=== PATIENT | male | born 1950 | race Caucasian/White ===

== ENCOUNTER → 2025-01-09 | Outpatient (CLI) | payer MEDICARE, SELFPAY ==
--- OUTSIDE RECORDS SUMMARY | 2025-01-09 06:13 | XMS RPT_ITS | CCD ---
Author Organization [facility] Care Team Providers Care Building Coordinator Name Role Phone Bhanu, Jeny Shwetha Unavailable Unavailable Bhanu, Jeny Shwetha Unavailable Unavailable Ja Hairah Unavailable Unavailable Natanael Gonzalez Unavailable Unavailable Natanael Gonzalez Unavailable Unavailable Zachary Cuellar Unavailable Unavailable Natanael Gonzalez Unavailable Unavailable Natanael Gonzalez Unavailable Unavailable Natanael Gonzalez Primary Care Provider [phone] Unavailable Primary Care Provider Unavailabl Natanael Galvez MD Primary Care Provider Natanael Gonzalez MD Primary Care Provider Natanael Gonzalez Unavailable Unavailable Unavailable Natanael Gonzalez Unavailable Jamal Hill Unavailable Unavailable NATANAEL GONZALEZ Primary Care Unavailable COBY MCDANIEL Referring Unavailab COBY Ramirez Admitting Unavailab COBY Ramirez Referring Unavailab le NATANAEL GONZALEZ Primary Care Unavailable Natanael Gonzalez MD Primary Care Provider [phone] NATANAEL GONZALEZ Primary Care Unavailable BERYL MILLER Attending Unavailable BERYL MILLER Admitting Unavailable Unavailable Unavailable Natanael Gonzalez MD Primary Care Provider Unavailable Unavailable Moomaw, Barrett I Unavailable Unavailable Melanie Justin Unavailable Unavai lable Natanael Gonzalez Attending Unavailable Natanael Gonzalez Referring Unavailable Natanael Gonzalez Primary Care Unavailable Keenan, Mrs. Uriel Quiles Attending Unavailabl e Keenan, Mrs. Uriel Quiles Referring Unavailabl e GonzalezNatanael Primary Care Unavailable GonzalezNatanael waddell Attending Unavailable GonzalezNatanael waddell Referring Unavailable GonzalezNatanael waddell Primary Care Unavailable Manohar Aviles, Dr. Melanie Marsh Attending Unavailable GonzalezNatanael waddell Referring Unavailable GonzalezNatanael waddell Primary Care Unavailable Manohar Aviles, Dr. Melanie Marsh Attending Unavailable Manohar Aviles, Dr. Melanie Marsh Referring Unavailable GonzalezNatanael waddell Primary Care Unavailable GonzalezNatanael waddell Attending Unavailable GonzalezNatanael waddell Referring Unavailable GonzalezNatanael waddell Primary Care Unavailable GonzalezNatanael waddell Attending Unavailable GonzalezNatanael thomas Referring Unavailable GonzalezNatanael waddell Primary Care Unavailable Gonzalez, Dr. Natanael Donovan Primary Care Unavailab le Camille, Dr. Natanael Donovan Attending Unavailab Jamal Nogueira Attending Unavailable Gonzalez, Dr. Natanael Donovan Primary Care Unavailab Jamal Nogueira Attending Unavailable Gonzalez, Dr. Natanael Donovan Primary Care Unavailab Jamal Nogueira Attending Unavailable Camille, Dr. Natanael Donovan Primary Care Unavailab le Manohar Aviles, Dr. Melanie Marsh Attending Unavailable Gonzalez, Dr. Natanael Donovan Primary Care Unavailab le Manohar Aviles, Dr. Melanie Marsh Attending Unavailable Gonzalez, Dr. Natanael Donovan Primary Care Unavailab ramandeep Aviles, Dr. Melanie Marsh Attending Unavailable Gonzalez, Dr. Natanael Donovan Primary Care Unavailab le Moomaw, Laila Barrett Blankenship Attending Unavailable Gonzalez, Dr. Natanael Donovan Primary Care Unavailab le Manohar Aviles, Dr. Melanie Marsh Attending Unavailable Camille, Dr. Natanael Donovan Primary Care Unavailab Natanael Gaspar MD Primary Care Provider Natanael Gonzalez MD Unavailable [phone] Natanael Gonzalez MD Primary Care Provider Stentz PA-C, [place] Primary Care Provider STENTZ, TRENTON Attending Unavailable STENTZ, TRENTON Primary Care Unavailable Natanael Gonzalez MD Primary Care Provider Natanael Gonzalez MD Unavailable Stentz PA-C, [place] Primary Care Provider NATANAEL GONZALEZ Referring Unavailable NATANAEL GONZALEZ Primary Care Unavailable BERTO PETTIT Attending Unavailable STENTZ, TR[place]ON Primary Care Unavailable ROSE FIERRO Attending Unavailable ROSE FIERRO Referring Unavailable STENTZ, [place] Primary Care Unavailable STENTZ, [place] Primary Care Unavailable JAMAL HILL Attending Unavailable Natanael Gonzalez MD Primary Care Provider NATANAEL GONZALEZ Primary Care Unavailable BERTO PETTIT Referring Unavailable BERTO PETTIT Attending Unavailable JOSE JR., GIORGIO Attending Unavailable NATANAEL GONZALEZ Primary Care Unavailable JOSE JR., GIORGIO Attending Unavailable NATANAEL GONZALEZ Primary Care Unavailable NATANAEL GONZALEZ Primary Care Unavailable LYNN MCDUFFIE Referring Unavailable LYNN MCDUFFIE Attending Unavailable Allergies Allergy Classification Reported Allergen(s) Allergy Type Date of Onset Reaction(s) Facility Acetaminophen / oxyCODONE (1 source) Acetaminophen / oxyCODONE Drug Allergy 11-19-19 Hives, Other [facility] Corticosteroids (1 source) prednisoLONE Drug Allergy 07-22-19 Other, Unknown [facility] Work Phone: (20 sources) prednisoLONE; Translations: [prednisoLONE] Drug Allergy 07-22-19 Other (See Comments), Other, Unknown [facility] Work Phone: Comment on above: INCREASED THIRST FEL T LOOPY (20 sources) Acetaminophen / oxyCODONE; Translations: [OXYCODONE-ACETAM INOPHEN] Drug Allergy 11-19-19 21 Other (See Comments), Hives, Other [facility] (4 sources) Acetaminophen / oxyCODONE Drug Allergy Hives [facility] (4 sources) Prednisone; Translations: [PREDNISONE] Propensity to adverse reactions to drug 03-24-19 Agitation [facility] (2 sources) predniSONE Drug Allergy 03-24-19 Other (See Comments) [facility] Medications Current Medications Medication Drug Class(es) Dates Sig (Normalized) Sig (Original) [id number] 200 actuat albuterol 0.09 mg/actuat metered dose inhaler (6 sources) beta2-Adrenergic Agonist Start: 03-31-2024 End: 03-31-2025 take 2 puff(s) by inhalation every six hours as needed albuterol 90 mcg/actuation inhaler Inhale 2 (two) puffs every 6 (six) hours as needed . 03/31/2024 03/31/2025 Active Start: 03-31-2024 End: 03-31-2025 take 2 puff(s) by inhalation every six hours for wheezing albuterol 90 mcg/actuation inhaler Indications: Acute bronchitis, unspecified organism Inhale 2 puffs every 6 hours if needed for wheezing. 18 g 03/31/2024 03/31/2025 Active take 2 puff(s) by in halation every four hours as needed ALBUTEROL HFA 90 MCG INHALER ; 2 puff(s) inhaled every 4 hours, As Needed Quantity: 0 Refills: 1 Ordered: 23-Sep-2021 Carolina Thurman Generic Substitution Allowed Comments: Source=Surescripts, Medication=ALBUTEROL HFA 90 MCG INHALER, OriginatingSource=[facility], OriginatingProvider=ALLAREDDY, BRYNN, Duration=16, Refills=1, Date Last Modified/Filled=13-Mar-2021 Comment on above: Source=Surescripts, Medication=ALBUTEROL HFA 90 MCG INHALER, OriginatingSource=[facility], OriginatingProvider=ALLAREDDY, BRYNN, Duration=16, Refills=1, Date Last Modified/Filled=13-Mar-2021 amoxicillin 875 mg / clavulanate 125 mg oral tablet (2 sources) Penicillin-class Antibacterial Start : 04-07 End: 04-17 take 1 tablet by mouth twice daily amoxicillin-pot clavulanate (Augmentin) 875-125 mg tablet Indications: Community acquired pneumonia, unspecified laterality Take 1 tablet (875 mg) by mouth 2 times a day for 10 days. 20 tablet 04/07/2024 04/17/2024 Active ascorbic acid 500 mg oral capsule (20 sources) Vitamin C Start : 03-28 ascorbic acid, vitamin C, 500 mg cap Take 1 Unspecified by mouth . 03/28/2021 Active Start: 03-28-2021 take 2 capsules by [facility] once daily ascorbic acid, vitamin C, 500 mg capsule Take 1,000 mg by mouth once daily. 03/28/2021 Active take 2 tablets by mo [facility] once daily Ascorbic acid 500 MG tablet Take 2 tablets by mouth daily. Active aspirin 81 mg delayed release oral tablet (20 sources) Platelet Aggregation Inhibitor, Nonsteroidal Anti-inflammatory Drug Start: 06-14-2021 take 1 tablet by mouth once daily aspirin 81 mg EC tablet Take 1 tablet (81 mg) by mouth once daily. 06/14/2021 Active Start: 03-13-2021 take 2 tablets by [facility] once daily Aspirin 81 MG Oral Tablet Chewable TAKE 2 TABLET Daily Quantity: 0 Refills: 0 Ordered: 13-Mar-2021 DO Start : 13-Mar-2021 Active Start: 03-06-2021 aspirin 81 mg chewable tablet Chew and Swallow 1 (one) tablet (81 mg total) daily . 03/06/2021 Active Start: 03-06-2021 aspirin 81 MG Chew Tab chewable tablet Chew 4 tablets daily. 30 tablet 03/06/2021 Active Start: 01-19-2021 End: 02-18-2021 take 1 tablet by mouth twice daily aspirin 325 MG EC tablet Take 1 (one) tablet (325 mg total) by mouth 2 (two) times a day . 60 tablet 0 01/19/2021 02/18/2021 Active Comment on above: Source=Surescripts, Medication=ASPIRIN 81 MG CHEWABLE TABLET, OriginatingSource=[facility], OriginatingProvider=BRYNN ULLOA, Duration=30, Date Last Modified/Filled=05-Apr-2021 cholecalciferol 0.125 mg oral tablet (20 sources) Vitamin D Start : 04-05 take 1 tablet by mouth once daily cholecalcife rol, vitamin D3, 5,000 unit Tab tablet Take 1 (one) tablet (5,000 Units total) by mouth daily . 04/05/2020 Active take 1 capsule by mouth twice da ottoniel Cholecalciferol (D3 High Potency) 250 MCG (22125 UT) capsule capsule Take 1 capsule by mouth 2 times daily. Active cholecalciferol 5000 unt / folic acid 1 mg oral tablet (20 sources) Vitamin D Start: 01-20-2021 take 1 tablet by mouth once daily vitamin D3-folic acid 125 mcg (5,000 unit)-1 mg Tab Take 1 capsule by mouth daily. 0 01/20/2021 Active Continuous Glucose Sensor (FreeStyle Asim 3 Plus Sensor) [facility] (2 sources) dextromethorphan hydrobromide 3 mg/ml / promethazine hydrochloride 1.25 mg/ml oral solution (1 source) Phenothiazine, Uncompetitive Z-qurrqf-M-aspartat e Receptor Antagonist, Sigma-1 Agonist Start: 12-15-2022 End: 12-25-2022 take 5 mL by mouth every six hours for cough promethazine-DM (Phenergan-DM) 6.25-15 mg/5 mL syrup Indications: Viral URI with cough Take 5 mL by mouth every 6 hours if needed for cough for up to 10 days. *caution - can cause drowsiness* 120 mL 0 12/15/2022 12/25/2022 Active doxycycline hyclate 100 mg oral tablet (3 sources) Tetracycline-class Drug Start: 04-25-2022 End: 05-01-2022 take 1 tablet by mouth twice daily doxycycline hyclate 100 mg oral tablet ; 1 tab(s) orally 2 times a day Quantity: 14 Refills: 0 Ordered: 25-Apr-2022 Jamal Hill Start: 25-Apr-2022 End: 01-May-2022 Generic Substitution Allowed Comments: Avoid prolonged or excessive exposure to direct and/or artificial sunlight while taking this medication.Do not take this drug if you are .Finish all this medication unless otherwise directed by prescriber.Medica tion should be taken with plenty of water. Start: 04-05-2022 End: 04-14-2022 take 1 tablet by mouth twice daily doxycycline hyclate 100 mg oral tablet ; 1 tab(s) orally 2 times a day Quantity: 20 Refills: 0 Ordered: 05-Apr-2022 Jamal Hill Start: 05-Apr-2022 End: 14-Apr-2022 Generic Substitution Allowed Comments: Avoid prolonged or excessive exposure to direct and/or artificial sunlight while taking this medication.Do not take this drug if you are .Finish all this medication unless otherwise directed by prescriber.Medication should be taken with plenty of water. Start: 03-14-2022 End: 03-20-2022 take 1 tablet by mouth twice daily doxycycline hyclate 100 mg oral tablet ; 1 tab(s) orally 2 times a day Quantity: 14 Refills: 0 Ordered: 14-Mar-2022 Jamal Hill Start: 14-Mar-2022 End: 20-Mar-2022 Generic Substitution Allowed Comments: Avoid prolonged or excessive exposure to direct and/or artificial sunlight while taking this medication.Do not take this drug if you are .Finish all this medication unless otherwise directed by prescriber.Medication should be taken with plenty of water. Comment on above: Avoid prolonged or e xcessive exposure to direct and/or artificial sunlight while taking this medication.Do not take this drug if you are .Finish all this medication unless otherwise directed by prescriber.Medication should be taken with plenty of water. ezetimibe 10 mg oral tablet (2 sources) Dietary Cholesterol Absorption Inhibitor Start: take 1 tablet by mouth once daily Ezetimibe 10 MG tablet Take 1 tablet by mouth daily. 30 tablet 11 03/24/2024 Active imipramine hydrochloride 25 mg oral tablet (20 sources) Tricyclic Antidepressant Start: 025 take 1 tablet by mouth twice daily Imipramine 25 MG tablet Take 1 tablet by mouth Twice daily. 03/01/2024 Active Start: 10-23-2022 End: 10-23-2023 take 1 tablet by mouth once daily at bedtime imipramine (Tofranil) 25 mg tablet Indications: Dysesthesia of face Take 1 tablet (25 mg) by mouth once daily at bedtime. 30 tablet 0 10/23/2022 02/26/2023 Discontinued (Med List Cleanup) Start: 09-09-2018 take 1 tablet by caroline th at bedtime Imipramine HCl - 25 MG Oral Tablet TAKE 1 TABLET AT BEDTIME. Quantity: 90 Refills: 3 Ordered: 16-Aug-2021 Natanael Gonzalez MD Start : 09-Sep-2018 Active take 1 tablet by caroline once daily imipramine (TOFRANIL) 10 MG tablet Take 1 (one) tablet (10 mg total) by mouth nightly . Active Comment on above: Source=Surescripts, Medication=IMIPRAMINE HCL 25 MG TABLET, OriginatingSource=[id number], OriginatingProvider=NATANAEL GONZALEZ, Duration=90, Date Last Modified/Filled=16-Sep-2021 Insulin Lispro (20 sources) Insulin Analog End: Insulin Lispro, 0.5 Unit Dial, 100 UNIT/ML Solution Pen-injector HumaLOG Quantity: 0 Refills: 0 Ordered: 06-Jan-2021 Beck Cortez Generic Substitution Allowed 03/24/2024 Discontinued (Formulary change) INSULIN LISPRO S UBQ HumaLOG Quantity: 0 Refills: 0 Ordered: 06-Jan-2021 Beck Cortez Generic Substitution Allowed Active HumaLOG Quantity : 0 Refills: 0 Ordered: 06-Jan-2021 Beck Cortez Status: Completed Generic Substitution Allowed INSULIN LISPRO S UBQ HumaLOG Quantity: 0 Refills: 0 Ordered: 06-Jan-2021 Beck Cortez Generic Substitution Allowed 0 Active HumaLOG Quantity : 0 Refills: 0 Ordered: 06-Jan-2021 Beck Cortez Generic Substitution Allowed Insulin Pen Needle 33G X 5 MM Misc (1 source) 3 ml insulin aspart, human 100 unt/ml pen injector (11 sources) Insulin Analog Start: 03-24-2024 insulin aspart U-100 (NovoLOG Flexpen U-100 Insulin) 100 unit/mL (3 mL) InPn Inject 6 (six) Units under the skin . 03/24/2024 Active Start: 03-24-2024 inject 6 [IU] by sub cutaneous injection three times daily before mealtime insulin aspart (NovoLOG FlexPen) 100 UNIT/ML Solution Pen-injector injection Inject 6 Units under the skin 3 times daily (take before meals). 15 mL 5 03/24/2024 Active End: 03-24-2024 inject 1 [IU] by subcutaneous injection twice daily Insulin Aspart (NOVOLOG FLEXPEN SC) Inject 1 Units under the skin 2 times daily. Pt uses sliding scale 03/24/2024 Discontinued insulin aspart U -100 (NovoLOG) 100 unit/mL injection Inject under the skin . 0 Active inject 2 [IU] by sub cutaneous injection once Fiasp 100 UNIT/ML Subcutaneous Solution sliding scale per Dr Mcduffie. 150 to 250 will use 1 unit. over 250 will be 2 units Refills: 0 DO Active 10 ML Vial levoFLOXacin 750 mg oral tablet (14 sources) Quinolone Antimicrobial Start: 03-04-2021 End: 02-11-2022 take 1 tablet by mouth once daily levoFLOXacin 750 mg oral tablet ; 1 tab(s) orally once a day for 10 days Quantity: 0 Refills: 0 Ordered: 07-Mar-2021 Carolina Thurman Start: 04-Mar-2021 End: 11-Feb-2022 Status: Completed Generic Substitution Allowed Start: 01-19-2021 End: 01-29-2021 take 1 tablet by mouth once daily levoFLOXacin (Levaquin) 500 MG tablet Take 1 (one) tablet (500 mg total) by mouth daily for 10 days . 10 tablet 0 01/19/2021 01/29/2021 metFORMIN hydrochloride 500 mg oral tablet (20 sources) Biguanide Start: 02-25-2021 take 2 tablets by mouth once daily in the morning metFORMIN 500 MG tablet take 2 tablets by mouth every morning 02/25/2021 Active Start: 05-26-2019 take 1 tablet by caroline th once daily at breakfast metFORMIN (GLUCOPHAGE-XR) 500 MG 24 hr tablet Take 100 mg by mouth daily with breakfast . 05/26/2019 Active Start: 05-26-2019 metFORMIN (GLU COPHAGE-XR) 500 MG 24 hr tablet [The details of the medication are not available because there are pending changes by a home health clinician.] 0 05/26/2019 Active Start: 05-26-2019 take 1 tablet by caroline th twice daily metFORMIN (GLUCOPHAGE-XR) 500 MG 24 hr tablet Take 500 mg by mouth 2 (two) times a day . 0 05/26/2019 Active Start: 05-26-2019 take 1 tablet by caroline th once daily metFORMIN (GLUCOPHAGE-XR) 500 MG 24 hr tablet Take 2,000 mg by mouth daily . 0 05/26/2019 Active Start: 03-21-2019 take 2 tablets by mo ut once daily metFORMIN HCl ER 500 MG Oral Tablet Extended Release 24 Hour TAKE 2 TABLET Daily Quantity: 180 Refills: 3 Ordered: 16-Aug-2021 Natanael Gonzalez MD Start : 01-Jun-2020 Active Start: 03-21-2019 take 2 tablets by mo ut twice daily metFORMIN HCl ER 500 MG Oral Tablet Extended Release 24 Hour TAKE 2 TABLET Twice daily Quantity: 360 Refills: 3 Natanael Gonzalez MD Start : 21-Mar-2019 Active Start: 03-21-2019 take 4 tablets by [facility] once daily metFORMIN HCl ER 500 MG Oral Tablet Extended Release 24 Hour TAKE 4 TABLET Daily Quantity: 120 Refills: 0 Natanael Gonzalez MD Start : 21-Mar-2019 Active Start: 12-31-2018 take 2 tablets by [facility] once daily metFORMIN HCl ER (OSM) 500 MG Oral Tablet Extended Release 24 Hour TAKE 2 TABLETS DAILY. Quantity: 60 Refills: 5 Natanael Gonzalez Start : 31-Dec-2018 Active take 2 tablets by [facility] twice daily metFORMIN, OSM, (Fortamet) 500 mg 24 hr tablet Take 2 tablets (1,000 mg) by mouth 2 times daily (morning and late afternoon). Do not crush, chew, or split. Active metFORMIN Quanti ty: 0 Refills: 0 Ordered: 06-Jan-2021 Beck Cortez Status: Completed Generic Substitution Allowed metFORMIN Quanti ty: 0 Refills: 0 Ordered: 06-Jan-2021 Beck Cortez Generic Substitution Allowed Comment on above: Source=Surescripts, Medication=METFORMIN HCL 500 MG TABLET, OriginatingSource=[facility], OriginatingProvider=LYNN MCDUFFIE, Duration=90, Refills=4, Date Last Modified/Filled=25-Feb-2021 Multivitamin preparation (4 sources) take 2 tablets by mouth once daily Vitamin B Complex oral tablet ; 2 tab(s) orally once a day Quantity: 0 Refills: 0 Ordered: 23-Sep-2021 Carolina Thurman Generic Substitution Allowed 24 hr oxybutynin chloride 10 mg extended release oral tablet (4 sources) Cholinergic Muscarinic Antagonist Start : 02-12 End: 03-03 take 1 tablet by mouth once daily oxybutynin XL (Ditropan-XL) 10 mg 24 hr tablet Take 1 tablet (10 mg) by mouth once daily. 02/12/2023 03/03/2024 Discontinued (Therapy completed) pantoprazole 20 mg delayed release oral tablet (20 sources) Proton Pump Inhibitor Start : 01-20 End: 02-19 take 1 tablet by mouth once daily pantoprazole (PROTONIX) 20 MG tablet Take 1 (one) tablet (20 mg total) by mouth daily Start: 01/20/21. 30 tablet 0 01/20/2021 Active purified protein derivative of tuberculin 50 unt/ml injectable solution (1 source) Tuberculosis Skin Test, Skin Test Antigen Start : 02-26 End: 02-26 tuberculin 5 UNIT/0.1ML Solution Inject 0.1 mL into the skin Once (In Clinic) for 1 dose. 1 mL 0 02/27/2020 02/27/2020 Active spirulina 500 mg oral tablet (2 sources) take 2 tablets by mouth once daily Spirulina 500 MG tablet Take 1,000 mg by mouth daily. Active 12 hr timolol 5 mg/ml ophthalmic solution (13 sources) beta-Adrenergic Luther Start : 10-10 take 1 drop(s) into the eye(s) once daily in the morning timolol (TIMOPTIC) 0.5 % ophthalmic solution Administer 1 (one) drop to both eyes every morning . 10/10/2022 Active take 1 drop(s) into the eye(s) twice daily Timolol maleate 0.5 % Solution ophthalmi c solution Place 1 drop in both eyes 2 times daily. Active Vitamin B Complex (7 sources) Start: 04-05-2020 take 1 tablet by mouth once daily vitamin B complex (B Complex-Vitamin B12) tablet Take 1 tablet by mouth once daily. 04/05/2020 Active Start: 04-05-2020 take 1 tablet by caroline th once daily vitamin B complex (B Complex-Vitamin B12) tablet Take 1 tablet by mouth once daily. 0 04/05/2020 Active VITAMIN B COMPLEX ORAL (4 sources) Start: 04-05-2020 take 1 tablet by mouth once daily VITAMIN B COMPLEX ORAL Take 1 tablet by mouth daily . 04/05/2020 Active Start: 03-01-2021 take 1 tablet by caroline th once daily VITAMIN B COMPLEX ORAL Take 1 tablet by mouth daily . 0 04/05/2020 Active vitamin k 0.1 mg oral tablet (18 sources) Start: 04-05-2020 take 2 tablets by mouth once daily phytonadione, vit K1, (phytonadione, vitamin K1,) 100 mcg tablet Take 2 (two) tablets (200 mcg total) by mouth daily . 04/05/2020 Active take 1 tablet by mouth twice di ly Menatetrenone (Vitamin K2) 100 MCG tablet Take 1 tablet by mouth 2 times daily. Active zinc acetate 50 mg oral capsule (20 sources) Start: 01-20-2021 take 1 capsule by mouth once daily zinc acetate (GALZIN) 50 mg (zinc) cap Take 50 mg by mouth daily. 0 01/20/2021 Active zinc gluconate 50 mg oral tablet (20 sources) Start: 04-05-2020 take 1 tablet by mouth once daily zinc gluconate 50 mg tablet Take 1 (one) tablet (50 mg total) by mouth daily . 04/05/2020 Active zinc glycinate (2 sources) Zinc Glycinate 7 .5 MG Chew Tab Chew 450 mcg every morning before breakfast. Active Zinc Sulfate (4 sources) take 1 tablet by mouth once daily Zinc 140 mg (as elemental zinc 50 mg) oral tablet ; 1 tab(s) orally once a day Quantity: 0 Refills: 0 Ordered: 23-Sep-2021 Carolina Thurman Generic Substitution Allowed Completed/Discontinued Medications Medication Drug Class(es) Dates Sig (Normalized) Sig (Original) acetaminophen 325 mg / HYDROcodone bitartrate 5 mg oral tablet (13 sources) Opioid Agonist Start: 01-19-2021 End: 01-26-2021 HYDROcodone-aceta minophen (NORCO) 5-325 mg per tablet Indications: S/P total knee arthroplasty, left [The details of the medication are not available because there are pending changes by a home health clinician.] 40 tablet 0 01/19/2021 01/26/2021 alendronic acid 70 mg oral tablet (20 sources) Bisphosphonate Start: 01-19-2021 End: 03-30-2024 alendronate 70 MG tablet 01/19/2021 03/30/2024 Discontinued amoxicillin 500 mg oral tablet (2 sources) Penicillin-class Antibacterial Start: 01-11-2021 take 1 tablet by mouth once daily Amoxicillin 500 MG Oral Tablet TAKE 1 TABLET EVERY 12 HOURS DAILY. Quantity: 20 Refills: 0 Ordered: 11-Jan-2021 Kandace Brewer Start : 11-Jan-2021 Active amylases 087924 unt / endopeptidases 410484 unt / lipase 39729 unt delayed release oral capsule (1 source) Start: 09-29-2019 take 1 capsule by mouth before mealtime Creon 88820 UNIT Oral Capsule Delayed Release Particles TAKE 1 CAPSULE Before meals Quantity: 90 Refills: 0 Natanael Gonzalez MD Start : 29-Sep-2019 Active atorvastatin 20 mg oral tablet (8 sources) HMG-CoA Reductase Inhibitor Start: 04-26-2021 take 1 tablet by mouth at bedtime Atorvastatin Calcium 20 MG Oral Tablet TAKE 1 TABLET AT BEDTIME. Quantity: 90 Refills: 3 Ordered: 26-Apr-2021 Melanie Justin MD Start : 26-Apr-2021 Active azithromycin 250 mg oral tablet (10 sources) Macrolide Antimicrobial Start: 03-31-2024 End: 04-05-2024 azithromycin (Zithromax Z-Quinton) 250 mg tablet Indications: Acute bronchitis, unspecified organism Take 2 tablets (500 mg) on Day 1, followed by 1 tablet (250 mg) once daily on Days 2 through 5. 6 tablet 03/31/2024 04/05/2024 Start: 12-15-2022 End: 02-26-2023 azithromycin (Zithromax Z-Pa k) 250 mg tablet Indications: Viral URI with cough Take 2 tablets by mouth at once on day 1, then 1 tablet once a day on days 2-5. Take with a meal. 6 tablet 0 12/15/2022 02/26/2023 Discontinued (Med List Cleanup) Start: 01-06-2021 take 2 tablets by mo ut once, then take 1 tablet by mouth once daily azithromycin 250 mg oral tablet ; Take 2 tabs (500mg) x 1 days, then 1 tab (250mg) once daily x 4 days Quantity: 6 Refills: 0 Ordered: 06-Jan-2021 Jamal Hill Start: 06-Jan-2021 Status: Completed Generic Substitution Allowed Comments: Do not take dairy products, antacids, or iron preparations within one hour of this medication.Finish all this medication unless otherwise directed by prescriber. Start: 11-22-2018 take 2 tablets by [facility] once daily, then take 1 tablet by mouth, then take 1 tablet by mouth once daily Azithromycin 250 MG Oral Tablet TAKE 2 TABLETS ON DAY 1 THEN TAKE 1 TABLET A DAY FOR 4 DAYS. Quantity: 2 Refills: 0 Zachary Cuellar Start : 22-Nov-2018 Active 6 Tablet Pack Start: 11-11-2018 take 7 tablets by mouth once Z ithromax Z-Quinton 250 mg oral tablet ; as directed on packeage Quantity: 1 Refills: 0 Ordered: 11-Nov-2018 Kenton Monreal Start: 11-Nov-2018 Status: Completed Generic Substitution Allowed Comments: Do not take dairy products, antacids, or iron preparations within one hour of this medication.Finish all this medication unless otherwise directed by prescriber. Comment on above: Do not take dairy pr oducts, antacids, or iron preparations within one hour of this medication.Finish all this medication unless otherwise directed by prescriber. codeine phosphate 2 mg/ml / guaiFENesin 20 mg/ml oral solution (2 sources) Opioid Agonist Start: 2018 take 5 mL by mouth three times daily as needed for cough guaiFENesin-Codeine 100-10 MG/5ML Oral Solution TAKE 5 ML 3 times daily PRN cough Quantity: 60 Refills: 0 Zachary Cuellar Start : 22-Nov-2018 Active cyclobenzaprine hydrochloride 10 mg oral tablet (13 sources) Muscle Relaxant Start: 2020 End: 2020 take 1 tablet by mouth three times daily as needed for muscle spasms cyclobenzaprine (FLEXERIL) 10 MG tablet Take 1 (one) tablet (10 mg total) by mouth 3 (three) times a day as needed for muscle spasms . 30 tablet 0 01/19/2021 01/29/2021 docosahexaenoic acid 120 mg / eicosapentaenoic acid 180 mg oral capsule (3 sources) Start: 2020 take 2 capsules by mouth once daily Fish Oil 1000 MG Oral Capsule TAKE 2 CAPSULE Daily Quantity: 0 Refills: 0 Ordered: 05-Apr-2020 DO Start : 05-Apr-2020 Active hydrocortisone 10 mg oral tablet (1 source) Corticosteroid take 1 tablet by mouth once daily Hydrocortisone 10 MG Oral Tablet Take 1 tablet daily Refills: 0 DO Active 3 ml insulin lispro 25 unt/ml / insulin lispro protamine, human 75 unt/ml pen injector (20 sources) Insulin Analog Start: 2019 HumaLOG Mix 75/25 KwikPen (75-25) 100 UNIT/ML Subcutaneous Suspension Pen-injector 13 units qam and 12 units qpm Quantity: 1 Refills: 0 Ordered: 02-Dec-2020 Natanael Gonzalez MD Start : 28-Oct-2019 Active as directed insulin lispro p rotamine-insulin lispro (HumaLOG 75-25) 100 unit/mL (75-25) Susp Inject 12 (twelve) Units under the skin 2 (two) times a day before meals . Active HUMALOG MIX 75-2 5 KWIKPEN ; 15 unit(s) subcutaneous 2 times a day Quantity: 0 Refills: 0 Ordered: 23-Sep-2021 Carolina Thurman Generic Substitution Allowed Comments: Source=Surescripts, Medication=HUMALOG MIX 75-25 KWIKPEN, [facility]Source[id number], OriginatingProvider=ROOPAY, LYNN, Duration=90, Date Last Modified/Filled=11-Jul-2021 Comment on above: Source=Surescripts, Medication=HUMALOG MIX 75-25 KWIKPEN, [facility]Source=[id number], OriginatingProvider=NOVY, LYNN, Duration=90, Date Last Modified/Filled=11-Jul-2021 iohexol (OMNIPAQUE) 350 MG/ML injection 75 mL (1 source) Start : 03-06 End: 03-06 iohexol (OMNIPAQUE) 350 MG/ML injection 75 mL lisinopril 10 mg oral tablet (14 sources) Angiotensin Converting Enzyme Inhibitor Start : 09-09 take 1 tablet by mouth once daily Lisinopril 10 MG Oral Tablet TAKE 1 TABLET DAILY. Quantity: 90 Refills: 3 Natanael Gonzalez MD Start : 09-Sep-2018 Active LORazepam 1 mg oral tablet (2 sources) Benzodiazepine Start : 03-06 End: 03-30 take 0.5 tablet by mouth twice daily as needed for dizziness LORazepam 1 MG tablet Indications: Dizziness Take 0.5 tablets by mouth 2 times daily as needed for Insomnia (dizziness) for up to 3 days. 6 tablet 03/06/2021 03/30/2024 Discontinued meclizine hydrochloride 12.5 mg oral tablet (7 sources) Antiemetic Start : 03-06 End: 03-06 meclizine (ANTIVERT) tablet 25 mg Start: 03-04-2021 End: 07-25-2021 take 1 tablet by mouth three times daily as needed for dizziness meclizine (ANTIVERT) 25 mg tablet Take 1 (one) tablet (25 mg total) by mouth 3 (three) times a day as needed for dizziness . 30 tablet 0 03/04/2021 07/25/2021 Discontinued (Therapy completed) Comment on above: Source=Surescripts, Medication=MECLIZINE 25 MG TABLET, Orig[facility]Source=[id number], OriginatingProvider=BERYL MILLER, Duration=10, Date Last Modified/Filled=04-Mar-2021 Medrol Dosepak 4 mg oral tablet (2 sources) Start: 9 Medrol Dosepak 4 mg oral tablet ; as directed Quantity: 1 Refills: 0 Ordered: 11-Nov-2018 Kenton Monreal Start: 11-Nov-2018 Status: Completed Generic Substitution Allowed Comments: It is very important that you take or use this exactly as directed. Do not skip doses or discontinue unless directed by your doctor.Obtain medical advice before taking any non-prescription drugs as some may affect the action of this medication.Take with food or milk. Start: 11-11-2018 Medrol Dosepak 4 mg oral tablet ; as directed Quantity: 1 Refills: 0 Ordered: 11-Nov-2018 Kenton Monreal Start: 11-Nov-2018 Status: Other Generic Substitution Allowed Comments: It is very important that you take or use this exactly as directed. Do not skip doses or discontinue unless directed by your doctor.Obtain medical advice before taking any non-prescription drugs as some may affect the action of this medication.Take with food or milk. Comment on above: It is very important that you take or use this exactly as directed. Do not skip doses or discontinue unless directed by your doctor.Obtain medical advice before taking any non-prescription drugs as some may affect the action of this medication.Take with food or milk. Multiple Vitamins Oral Tablet (3 sources) Start: 04-06-19 take 1 tablet by mouth once daily Multiple Vitamins Oral Tablet TAKE 1 TABLET DAILY. Quantity: 0 Refills: 0 Ordered: 05-Apr-2020 DO Start : 05-Apr-2020 Active polyethylene glycol 3350 33504 mg powder for oral solution (13 sources) Osmotic Laxative Start: 01-20-20 End: 01-27-20 polyethylene glycol (GLYCOLAX) 17 gram/dose powder Take 17 (seventeen) g by mouth daily for 7 days . 119 g 0 01/19/2021 01/26/2021 predniSONE 20 mg oral tablet (6 sources) Start: 04-14-19 predniSONE 20 MG Oral Tablet Alternate 2 tabs with 1 tab every other day. Quantity: 45 Refills: 1 Natanael Gonzalez MD Start : 14-Apr-2019 Active Start: 04-14-2019 take 1 tablet by caroline once daily predniSONE 20 MG Oral Tablet Take 1 tablet daily Quantity: 30 Refills: 0 Natanael Gonzalez Start : 14-Apr-2019 Active quercetin 500 mg oral capsule (1 source) Start: 02-20-2022 take 1 capsule by mouth once daily Quercetin 500 MG Oral Capsule TAKE 1 CAPSULE Daily Quantity: 0 Refills: 0 Ordered: 20-Feb-2022 Natanael Gonzalez MD Start : 20-Feb-2022 Active 250 ml sodium chloride 9 mg/ml injection (2 sources) Start: 03-06-2021 End: 03-06-2021 sodium chloride 0.9% IV solution 75 mL ubiquinol 100 mg oral capsule (14 sources) Start: 04-05-2020 take 2 capsules by mouth once daily Ubiquinol 100 MG Oral Capsule TAKE 2 CAPSULE Daily Quantity: 0 Refills: 0 Ordered: 05-Apr-2020 DO Start : 05-Apr-2020 Active take 1 capsule by mouth once di ly Ubiquinol 100 MG capsule Take 1 capsule by mouth daily. Active Vitamin B Complex Oral Tablet (12 sources) Start: 04-05-2020 take 2 tablets by mouth once daily Vitamin B Complex Oral Tablet TAKE 2 TABLET Daily Quantity: 0 Refills: 0 Ordered: 05-Apr-2020 DO Start : 05-Apr-2020 Active vitamin b12 0.1 mg oral tablet (14 sources) Vitamin B12 Start: 04-05-2020 take 1 tablet by mouth once daily Vitamin B12 100 MCG Oral Tablet TAKE 1 TABLET DAILY DIRECTED. Quantity: 0 Refills: 0 Ordered: 05-Apr-2020 DO Start : 05-Apr-2020 Active cyanocobalamin 1 000 MCG tablet Take 1 tablet by mouth once a week. Twice a week Active Vitamin K2 100 MCG Oral Tablet (11 sources) Start: 04-05-2020 take 2 tablets by mouth once daily Vitamin K2 100 MCG Oral Tablet TAKE 2 TABLET Daily Quantity: 0 Refills: 0 Ordered: 05-Apr-2020 DO Start : 05-Apr-2020 Active Problems Active Problems Problem Classification Problem Date Documented Date Episodic/Chronic Acute bronchitis (10 sources) Acute bronchitis; Translations: [Acute bronchitis] Onset: 04-25-2022 04-25-2022 Episodic Acute cerebrovascular disease (16 sources) Cerebrovascular accident; Translations: [Cerebral artery occlusion, unspecified with cerebral infarction] Onset: 06-08-2022 06-08-2022 Chronic Aortic; peripheral; and visceral artery aneurysms (20 sources) Aneurysm of left vertebral artery; Translations: [Aneurysm of other specified artery] Onset: 05-06-2021 Resolved: 02-20-2022 Chronic Cancer of prostate (7 sources) Malignant tumor of prostate; Translations: [Malignant neoplasm of prostate] Onset: 03-03-2024 03-03-2024 Chronic Cancer of prostate (20 sources) History of malignant neoplasm of prostate; Translations: [Personal history of malignant neoplasm of prostate] Onset: 06-08-2022 06-08-2022 Episodic Cardiac dysrhythmias (20 sources) Ventricular premature beats; Translations: [Ventricular premature depolarization] Onset: 12-31-2020 Chronic Cataract (16 sources) Secondary cataract; Translations: [Other secondary cataract, unspecified eye] Onset: 08-06-2020 Resolved: 02-26-2023 06-08-2022 Chronic Conditions associated with dizziness or vertigo (1 source) Dizziness; Translations: [Dizziness and giddiness] Episodic Diabetes mellitus with complications (20 sources) Type II diabetes mellitus uncontrolled; Translations: [Diabetes mellitus without mention of complication, type II or unspecified type, uncontrolled] Onset: 03-30-2024 Resolved: 12-01-2019 Chronic Diabetes mellitus without complication (20 sources) Type 2 diabetes mellitus; Translations: [Diabetes mellitus without mention of complication, type II or unspecified type, not stated as uncontrolled] Onset: 09-23-2021 Chronic Disorders of lipid metabolism (20 sources) Hyperlipidemia; Translations: [Other and unspecified hyperlipidemia] Onset: 06-08-2022 06-08-2022 Chronic Essential hypertension (20 sources) Hypertensive disorder; Translations: [Unspecified essential hypertension] Onset: 06-08-2022 Chronic Genitourinary symptoms and ill-defined conditions (1 source) Urinary incontinence; Translations: [Unspecified urinary incontinence] 02-26-2023 Chronic Genitourinary symptoms and ill-defined conditions (9 sources) Increased frequency of urination; Translations: [Urinary frequency] Episodic Glaucoma (20 sources) Ocular hypertension; Translations: [Ocular hypertension] Onset: 06-08-2022 Resolved: 08-16-2021 06-08-2022 Chronic Headache; including migraine (1 source) Headache; including migraine; Translations: [Headache, unspecified] Onset: 04-05-2022 Heart valve disorders (20 sources) Mitral valve prolapse; Translations: [Mitral valve disorders] Onset: 06-08-2022 06-08-2022 Chronic Immunizations and screening for infectious disease (1 source) Contact with and (suspected) exposure to other viral communicable diseases; Translations: [Exposure to SARS-associated coronavirus] Episodic Malaise and fatigue (1 source) Other fatigue; Translations: [Other fatigue] Onset: 04-25-2022 Episodic Occlusion or stenosis of precerebral arteries (2 sources) Bilateral carotid artery occlusion; Translations: [Occlusion and stenosis of bilateral carotid arteries] 03-02-2023 Chronic Osteoarthritis (20 sources) Osteoarthritis of left knee joint; Translations: [Osteoarthrosis, localized, primary, lower leg] Onset: 12-22-2020 Resolved: 08-16-2021 Chronic Osteoarthritis (14 sources) Osteoarthritis of left knee joint; Translations: [Primary osteoarthritis of left knee] Other aftercare (12 sources) Patient encounter status; Translations: [Long-term (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 other medications] Episodic Other aftercare (5 sources) senior living (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 insulin; Translations: [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 insulin] Onset: 09-23-2021 Episodic Other aftercare (1 source) Long-term current use of insulin; Translations: [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 insulin] 03-03-2024 Episodic Other connective tissue disease (20 sources) Polymyalgia rheumatica; Translations: [Polymyalgia rheumatica] Onset: 06-08-2022 06-08-2022 Chronic Other connective tissue disease (20 sources) History of total knee arthroplasty; Translations: [Presence of left artificial knee joint] Onset: 02-07-2021 Chronic Other connective tissue disease (1 source) Metatarsalgia of left foot; Translations: [Metatarsalgia, left foot] Episodic Other connective tissue disease (1 source) Pain in left foot; Translations: [Pain in left foot] Episodic Other lower respiratory disease (11 sources) Cough; Translations: [Cough] 04-07-2024 Episodic Other nervous system disorders (19 sources) Entrapment of left ulnar nerve; Translations: [Lesion of ulnar nerve] Onset: 06-08-2022 06-08-2022 Chronic Other nutritional; endocrine; and metabolic disorders (1 source) Abnormal weight loss; Translations: [Weight loss, abnormal] Episodic Other nutritional; endocrine; and metabolic disorders (1 source) Overweight in adulthood with body mass index of 25 or more but less than 30; Translations: [Overweight] Episodic Other skin disorders (1 source) Foot callus; Translations: [Corns and callosities] Episodic Other upper respiratory disease (4 sources) Pain in throat 01-06-2021 Episodic Comment on above: SORE THROAT Other upper respiratory disease (1 source) Nasal congestion; Translations: [Nasal congestion] Onset: 04-25-2022 Episodic Other upper respiratory infections (20 sources) Upper respiratory infection; Translations: [Acute upper respiratory infections of unspecified site] Onset: 03-14-2022 03-14-2022 Episodic Peripheral and visceral atherosclerosis (4 sources) Peripheral vascular disease; Translations: [Peripheral vascular disease, unspecified] Onset: 07-25-2023 07-25-2023 Chronic Pneumonia (except that caused by tuberculosis or sexually transmitted disease) (1 source) Community acquired pneumonia; Translations: [Pneumonia, unspecified organism] 04-07-2024 Episodic Residual codes; unclassified (20 sources) Body mass index 20-24 - normal; Translations: [Body Mass Index between 19-24, adult] Resolved: 06-01-2020 Episodic Residual codes; unclassified (11 sources) H/O: steroid therapy; Translations: [Personal history of systemic steroid therapy] Episodic Retinal detachments; defects; vascular occlusion; and retinopathy (20 sources) Nonexudative age-related macular degeneration; Translations: [Nonexudative senile macular degeneration] Onset: 06-08-2022 06-08-2022 Chronic Spondylosis; intervertebral disc disorders; other back problems (20 sources) Cervical spondylosis without myelopathy; Translations: [Cervical spondylosis without myelopathy] Onset: 08-16-2021 Chronic Spondylosis; intervertebral disc disorders; other back problems (3 sources) Cervical radiculopathy; Translations: [Radiculopathy, cervical region] Episodic Transient cerebral ischemia (1 source) Carotid artery syndrome (hemispheric); Translations: [Carotid artery syndrome (hemispheric)] Onset: 05-06-2021 Chronic Unclassified (10 sources) Patient encounter status; Translations: [Medication management] 03-03-2024 Unclassified (1 source) 6 MO OV 12-02-2020 Comment on above: 6 MO OV Unclassified (2 sources) FALL, HEAD LAC AND ELBOW PAIN 09-23-2021 Comment on above: FALL, HEAD LAC AND E LBOW PAIN Unclassified (1 source) 6 MONTH 08-16-2021 Comment on above: 6 MONTH Unclassified (1 source) 6 MONTH FUV 06-14-2021 Comment on above: 6 MONTH FUV Unclassified (1 source) Forehead laceration 09-23-2021 Unclassified (1 source) Contusion of right elbow 09-23-2021 Unclassified (2 sources) SINUS PAIN 04-05-2022 Comment on above: SINUS PAIN Unclassified (2 sources) CONGESTION 04-25-2022 Comment on above: CONGESTION Unclassified (1 source) Cough, unspecified; Translations: [Cough, unspecified] Onset: 03-14-2022 Unclassified (1 source) Subacute cough; Translations: [Subacute cough] Onset: 04-07-2024 Unclassified (2 sources) Calluses Onset: 06-18-2024 Past or Other Problems Problem Classification Problem Date Documented Date Episodic/Chronic Biliary tract disease (20 sources) Polyp of gallbladder; Translations: [Cholesterolosis of gallbladder] Onset: 06-08-2022 06-08-2022 Episodic Blindness and vision defects (20 sources) Diplopia; Translations: [Diplopia] Onset: 06-08-2022 Resolved: 02-26-2023 06-08-2022 Episodic E Codes: Struck by; against (1 source) Striking against other object with subsequent fall, initial encounter; Translations: [Striking against oth object w subsequent fall, init encntr] Onset: 09-23-2021 Episodic Mycoses (4 sources) Onychomycosis; Translations: [Tinea unguium] Onset: 07-25-2023 07-25-2023 Episodic Open wounds of head; neck; and trunk (3 sources) Laceration of forehead; Translations: [Open wound of forehead, without mention of complication] Onset: 09-23-2021 09-23-2021 Episodic Other aftercare (1 source) senior living (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 oral hypoglycemic drugs; Translations: [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 oral hypoglycemic drugs] Onset: 09-23-2021 Episodic Other aftercare (1 source) senior living (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 aspirin; Translations: [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 aspirin] Onset: 09-23-2021 Episodic Other circulatory disease (8 sources) History of cerebrovascular accident without residual deficits; Translations: [Personal history of transient ischemic attack (TIA), and cerebral infarction without residual deficits] Onset: 03-09-2021 02-26-2023 Episodic Other connective tissue disease (1 source) Other specified soft tissue disorders; Translations: [Other specified soft tissue disorders] Onset: 09-23-2021 Episodic Other eye disorders (19 sources) Optic cupping; 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] Onset: 06-08-2022 Resolved: 02-26-2023 06-08-2022 Chronic Other eye disorders (8 sources) Bilateral posterior vitreous detachment; Translations: [Vitreous degeneration, bilateral] Onset: 06-08-2022 Resolved: 02-26-2023 06-08-2022 Chronic Other eye disorders (9 sources) Tear film insufficiency; Translations: [Dry eye syndrome of bilateral lacrimal glands] Onset: 06-08-2022 06-08-2022 Episodic Other eye disorders (8 sources) Meibomian gland dysfunction of right eye; Translations: [Meibomian gland dysfunction of right eye, unspecified eyelid] Onset: 06-08-2022 06-08-2022 Episodic Other liver diseases (20 sources) Alkaline phosphatase raised; Translations: [Other nonspecific abnormal serum enzyme levels] Onset: 06-08-2022 06-08-2022 Episodic Other nervous system disorders (19 sources) Dysesthesia of face; Translations: [Disturbance of skin sensation] Onset: 06-08-2022 Resolved: 02-26-2023 06-08-2022 Episodic Other nervous system disorders (17 sources) Ataxia; Translations: [Lack of coordination] Onset: 06-08-2022 06-08-2022 Episodic Other nervous system disorders (1 source) Shuffling gait; Translations: [Other abnormalities of gait and mobility] 02-26-2023 Episodic Other non-traumatic joint disorders (19 sources) Shoulder pain; Translations: [Pain in joint, shoulder region] Resolved: 04-14-2019 Episodic Other non-traumatic joint disorders (1 source) Pain in right wrist; Translations: [Pain in right wrist] Onset: 09-23-2021 Episodic Other nutritional; endocrine; and metabolic disorders (17 sources) Loss of appetite; Translations: [Anorexia] Resolved: 12-01-2019 Episodic Other screening for suspected conditions (not mental disorders or infectious disease) (9 sources) Magnetic resonance imaging of brain abnormal; Translations: [Nonspecific (abnormal) findings on radiological and other examination of skull and head] Resolved: 08-16-2021 Episodic Carlota-; endo-; and myocarditis; cardiomyopathy (except that caused by tuberculosis or sexually transmitted disease) (20 sources) Primary cardiomyopathy; 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] Onset: 06-08-2022 Resolved: 02-26-2023 06-08-2022 Chronic Residual codes; unclassified (16 sources) History of clinical finding in subject; Translations: [Personal history of other specified diseases] Resolved: 08-16-2021 Episodic Residual codes; unclassified (1 source) H/O: PACU NURSE disorder; Translations: [Other specified personal history presenting hazards to health] Resolved: 02-20-2022 Episodic Rheumatoid arthritis and related disease (12 sources) Inflammatory polyarthropathy; 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] Resolved: 08-16-2021 Chronic Skull and face fractures (12 sources) Open fracture of orbit; Translations: [Open fracture of other facial bones] Resolved: 08-16-2021 Episodic Superficial injury; contusion (2 sources) Contusion of elbow; Translations: [Contusion of elbow] Onset: 09-23-2021 09-23-2021 Episodic Syncope (8 sources) Syncope; Translations: [Syncope and collapse] Onset: 05-09-2021 Episodic Unclassified (9 sources) Body mass index 20-24 - normal; Translations: [Body mass index (BMI) of 23.0 to 23.9 in adult] Unclassified (1 source) H/O: steroid therapy; Translations: [H/O steroid therapy] Unclassified (7 sources) Onset: 02-26-2023 Resolved: 03-03-2024 02-26-2023 Unclassified (1 source) Subacute cough; Translations: [Subacute cough] Onset: 04-07-2024 NEGATED: Highlighted row has not occurred!Residual codes; unclassified (20 sources) Disease Episodic Results Test Name Value Interpretation Reference Range Facility CT CALCIUM SCORE SCREENINGon 12-02-2024 CT CALCIUM SCORE SCREENING EXAMINATION: SUPPLEMENTAL READING OF CT SCAN OF THE HEART WITHOUT CONTRAST FOR CALCIUM SCORE, 12/02/2024 COMPARISON: None. SIGNS AND SYMPTOMS: Dx: E11.65 (Poorly controlled diabetes mellitus (HCC)). Injury/Trauma or Illness?: Illness/Other. How long have you had these symptoms (acute/chronic)?: Acute. Poorly controlled diabetes mellitus (HCC). TECHNIQUE: CT calcium scoring was performed with slice thickness of 2.5 mm. 2 mm sagittal and coronal MPR reconstructions. Dose reduction techniques were achieved by using automated exposure control and/or adjustment of mA and/or kV according to patient size and/or use of iterative reconstruction technique. SUPPLEMENTAL FINDINGS: Peripheral nodule seen posteromedially in the right lower lobe measuring 5 mm (image number 27, series 303). 4 mm nodule seen in the lateral segment right middle lobe (image number 29, series 303). Nodular scar or subpleural nodule seen anterior base of the right middle lobe measuring 6 mm (image 37, series 303). Left lower lobe measuring 3.5 mm (image 25, series 303). Linear atelectasis or scarring in the inferior segment of the lingula. Main pulmonary artery and thoracic aorta normal caliber size. Visualized upper abdomen is unremarkable. Some endplate osteophytosis of the thoracic spine. IMPRESSION: 1. The calcium score and cardiac findings of the exam will be dictated separately by Cardiology. 2. Some soft tissue nodularity as described above. Nodular protocol CT scan of the chest recommended in 6 months. GJT/pji Workstation ID: [id number] Dictated by: BERNADETTE ALICIA on SunDec 02, 2024 3:57:44 PM EDT Transcribed by: ARMIDA FISHER on SunDec 02, 2024 4:17:25 PM EDT Finalized by: BERNADETTE ALICIA on SunDec 02, 2024 9:22:57 PM EDT [facility] Comment on above: Order Comment: Injur y/Trauma or Illness?:Illness/Other How long have you had these symptoms (acute/chronic)?:Acute Reason for exam?:CAD screening. supplemental read Type of Exam?:Initial Additional signs and symptoms?:. COMPREHENSIVE METABOLIC PANE [facility] 11-06-2024 Albumin [Mass/Vol] 4.5 g/dL Normal 3.6-5.1 [facility] Comment on above: Order Comment: FASTI NG:YES FASTING: YES Performed By: #### [id number], [id number] #### [facility] [place] [id number] Senior Media Director: Dex Macias MD Albumin/Globulin [Mass ratio] 2.0 {ratio} Normal 1.0-2.5 [facility] Comment on above: Order Comment: FASTI NG:YES FASTING: YES Performed By: #### 4 [id number], [id number] #### [facility] [place] [address] Senior Media Director: Dex Macias MD ALP [Catalytic activity/Vol] 151 U/L High 35-144 [facility] Comment on above: Order Comment: FASTI NG:YES FASTING: YES Performed By: #### 4 [id number], [id number] #### [facility] [place] [address] Senior Media Director: Dex Macias MD ALT [Catalytic activity/Vol] 11 U/L Normal 9-46 [facility] Comment on above: Order Comment: FASTI NG:YES FASTING: YES Performed By: #### 4 [id number], [id number] #### [facility] [place] [address] Senior Media Director: Dex Macias MD AST [Catalytic activity/Vol] 15 U/L Normal 10-35 [facility] Comment on above: Order Comment: FASTI NG:YES FASTING: YES Performed By: #### 4 96, 52623 #### [facility] [place] [address] Senior Media Director: Dex Macias MD Bilirubin [Mass/Vol] 0.7 mg/dL Normal 0.2-1.2 [facility] Comment on above: Order Comment: FASTI NG:YES FASTING: YES Performed By: #### 4 96, 64831 #### [facility] [place] [address] Senior Media Director: Dex Macias MD Calcium [Mass/Vol] 9.4 mg/dL Normal 8.6-10.3 [facility] Comment on above: Order Comment: FASTI NG:YES FASTING: YES Performed By: #### 4 96, 72159 #### [facility] [place] [address] Senior Media Director: Dex Macias MD Chloride [Moles/Vol] 98 mmol/L Normal 98-110 [facility] Comment on above: Order Comment: FASTI NG:YES FASTING: YES Performed By: #### 4 96, 79456 #### [facility] [place] [address] Senior Media Director: Dex Macias MD CO2 [Moles/Vol] 30 mmol/L Normal 20-32 [facility] Comment on above: Order Comment: FASTI NG:YES FASTING: YES Performed By: #### 4 96, 95411 #### [facility] [place] [address] Senior Media Director: Dex Macias MD Creatinine [Mass/Vol] 1.05 mg/dL Normal 0.70-1.28 [facility] Comment on above: Order Comment: FASTI NG:YES FASTING: YES Performed By: #### 4 96, 39171 #### [facility] [address], [address] [place] [address] Senior Media Director: Dex Macias MD GFR/1.73 sq M.predicted among non-blacks MDRD (S/P/Bld) [Vol rate/Area] 74 mL/min/{1.73_m2} Normal > OR = 60 [facility] Comment on above: Order Comment: FASTI NG:YES FASTING: YES Performed By: #### 4 96, 92576 #### [facility] [address], [address] [place] [address] Senior Media Director: Dex Macias MD Globulin (S) [Mass/Vol] 2.3 g/dL Normal 1.9-3.7 [facility] Comment on above: Order Comment: FASTI NG:YES FASTING: YES Performed By: #### 4 96, 63020 #### [facility] [place] [address] Senior Media Director: Dex Macias MD Glucose [Mass/Vol] 250 mg/dL High 65-99 [facility] Comment on above: Order Comment: FASTI NG:YES FASTING: YES Result Comment: Fasting reference interval For someone without known diabetes, a glucose value >125 mg/dL indicates that they may have diabetes and this should be confirmed with a follow-up test. Performed By: #### 4 , 96707 #### [facility] [address], [address] [place] [address] Senior Media Director: Dex Macias MD Potassium [Moles/Vol] 4.2 mmol/L Normal 3.5-5.3 [facility] Comment on above: Order Comment: FASTI NG:YES FASTING: YES Performed By: #### 4 96, 19398 #### [facility] [address], [address] [place] [address] Senior Media Director: Dex Macias MD Protein [Mass/Vol] 6.8 g/dL Normal 6.1-8.1 [facility] Comment on above: Order Comment: FASTI NG:YES FASTING: YES Performed By: #### 4 96, 01535 #### [facility] [address], [address] [place] [address] Senior Media Director: Dex Macias MD Sodium [Moles/Vol] 137 mmol/L Normal 135-146 [facility] Comment on above: Order Comment: FASTI NG:YES FASTING: YES Performed By: #### 4 96, 63107 #### [facility] [address], [address] [place] [address] Senior Media Director: Dex Macias MD Urea nitrogen [Mass/Vol] 26 mg/dL High 7-25 [facility] Comment on above: Order Comment: FASTI NG:YES FASTING: YES Performed By: #### 4 96, 63162 #### [facility] [address], [address] [place] [address] Senior Media Director: Dex Macias MD Urea nitrogen/Creatinine [Mass ratio] 25 mg/mg High 6-22 [facility] Comment on above: Order Comment: FASTI NG:YES FASTING: YES Performed By: #### 4 96, 83850 #### [facility] [address], [address] [place] [address] Senior Media Director: Dex Macias MD HEMOGLOBIN A1con 11-06-2024 HbA1c (Bld) [Mass fraction] 7.4 % High <5.7 [facility] Comment on above: Result Comment: For someone without known diabetes, a hemoglobin A1c value of 6.5% or greater indicates that they may have diabetes and this should be confirmed with a follow-up test. For someone with known diabetes, a value <7% indicates that their diabetes is well controlled and a value greater than or equal to 7% indicates suboptimal control. A1c targets should be individualized based on duration of diabetes, age, comorbid conditions, and other considerations. Currently, no consensus exists regarding use of hemoglobin A1c for diagnosis of diabetes for children. Performed By: #### 4 96, 49630 #### [facility] [address], [address] [place] [address] Senior Media Director: Dex Macias MD CBC (INCLUDES DIFF/PLT)on Basophils (Bld) [#/Vol] 0.07 10*3/uL Normal 0-200 [facility] Comment on above: Performed By: #### 4 , 47972 #### [facility] [place] [address] Senior Media Director: Dex Macias MD Basophils/100 WBC (Bld) 0.9 % Normal [facility] Comment on above: Performed By: #### 4 96, 52815 #### [facility] [place] [address] Senior Media Director: Dex Macias MD Eosinophils (Bld) [#/Vol] 0.382 10*3/uL Normal 15-500 [facility] Comment on above: Performed By: #### 4 96, 58428 #### [facility] [place] [address] Senior Media Director: Dex Macias MD Eosinophils/100 WBC (Bld) 4.9 % Normal [facility] Comment on above: Performed By: #### 4 , 17884 #### [facility] [place] [address] Senior Media Director: Dex Macias MD Erythrocyte distribution width (RBC) [Ratio] 14.0 % Normal 11.0-15.0 [facility] Comment on above: Performed By: #### 4 , 93535 #### [facility] [place] [address] Senior Media Director: Dex Macias MD Hematocrit (Bld) [Volume fraction] 46.2 % Normal 38.5-50.0 [facility] Comment on above: Performed By: #### 4 , 38557 #### [facility] [place] [address] Senior Media Director: Dex Macias MD Hemoglobin (Bld) [Mass/Vol] 14.8 g/dL Normal 13.2-17.1 [facility] Comment on above: Performed By: #### 4 , 64020 #### [facility] of [address] [place] [address] Senior Media Director: Dex Macias MD Lymphocytes (Bld) [#/Vol] 1.794 10*3/uL Normal 850-3900 [facility] Comment on above: Performed By: #### 4 96, 99132 #### [facility] [place] [address] Senior Media Director: Dex Macias MD Lymphocytes/100 WBC (Bld) 23.0 % Normal [facility] Comment on above: Performed By: #### 4 , 99945 #### [facility] [place] [address] Senior Media Director: Dex Macias MD MCH (RBC) [Entitic mass] 29.8 pg Normal 27.0-33.0 [facility] Comment on above: Performed By: #### 4 , 23158 #### [facility] [place] [address] Senior Media Director: Dex Macias MD MCHC (RBC) [Mass/Vol] 32.0 g/dL Normal 32.0-36.0 [facility] Comment on above: Result Comment: For adults, a slight decrease in the calculated MCHC value (in the range of 30 to 32 g/dL) is most likely not clinically significant; however, it should be interpreted with caution in correlation with other red cell parameters and the patient's clinical condition. Performed By: #### 4 , 30376 #### [facility] [place] [address] Senior Media Director: Dex Macias MD MCV (RBC) [Entitic vol] 93.1 fL Normal 80.0-100.0 [facility] Comment on above: Performed By: #### 4 , 40888 #### [facility] [place] [address] Senior Media Director: Dex Macias MD Monocytes (Bld) [#/Vol] 0.53 10*3/uL Normal 200-950 [facility] Comment on above: Performed By: #### 4 , 83540 #### [facility] [place] [address] Senior Media Director: Dex Macias MD Monocytes/100 WBC (Bld) 6.8 % Normal [facility] Comment on above: Performed By: #### 4 96, 88100 #### [facility] of [address], [address] [place] [address] Senior Media Director: Dex Macias MD Neutrophils (Bld) [#/Vol] 5.023 10*3/uL Normal 2767-2242 [facility] Comment on above: Performed By: #### 4 96, 34180 #### [facility] [place] [address] Senior Media Director: Dex Macias MD Neutrophils/100 WBC (Bld) 64.4 % Normal [facility] Comment on above: Performed By: #### 4 , 00990 #### [facility] [place] [address] Senior Media Director: Dex Macias MD Platelet mean volume (Bld) [Entitic vol] 10.5 fL Normal 7.5-12.5 [facility] Comment on above: Performed By: #### 4 , 18823 #### [facility] [place] [address] Senior Media Director: Dex Macias MD Platelets (Bld) [#/Vol] 318 10*3/uL Normal 140-400 [facility] Comment on above: Performed By: #### 4 , 20687 #### [facility] [place] [address] Senior Media Director: Dex Macias MD RBC (Bld) [#/Vol] 4.96 10*6/uL Normal 4.20-5.80 [facility] Comment on above: Performed By: #### 4 , 57198 #### [facility] [place] [address] Senior Media Director: Dex Macias MD WBC (Bld) [#/Vol] 7.8 10*3/uL Normal 3.8-10.8 [facility] Comment on above: Performed By: #### 4 96, 14177 #### [facility] [place] [address] Senior Media Director: Dex Macias MD [facility] 07-31-2024 Albumin [Mass/Vol] 4.4 g/dL Normal 3.6-5.1 [facility] Comment on above: Order Comment: FASTI NG:NO FASTING: NO Performed By: #### 6 399, 866, 16383, 899, 496 #### [facility] [place] [address] Senior Media Director: Dex Macias MD Albumin/Globulin [Mass ratio] 1.9 {ratio} Normal 1.0-2.5 [facility] Comment on above: Order Comment: FASTI NG:NO FASTING: NO Performed By: #### 6 399, 866, 94590, 899, 496 #### [facility] [place] [address] Senior Media Director: Dex Macias MD ALP [Catalytic activity/Vol] 123 U/L Normal 35-144 [facility] Comment on above: Order Comment: FASTI NG:NO FASTING: NO Performed By: #### 6 399, 866, 95270, 899, 496 #### [facility] [place] [address] Senior Media Director: Dex Macias MD ALT [Catalytic activity/Vol] 18 U/L Normal 9-46 [facility] Comment on above: Order Comment: FASTI NG:NO FASTING: NO Performed By: #### 6 399, 866, 77932, 899, 496 #### [facility] [place] [address] Senior Media Director: Dex Macias MD AST [Catalytic activity/Vol] 16 U/L Normal 10-35 [facility] Comment on above: Order Comment: FASTI NG:NO FASTING: NO Performed By: #### 6 399, 866, 17694, 899, 496 #### [facility] [place] [address] Senior Media Director: Dex Macias MD Bilirubin [Mass/Vol] 0.6 mg/dL Normal 0.2-1.2 [facility] Comment on above: Order Comment: FASTI NG:NO FASTING: NO Performed By: #### 6 399, 866, 66456, 899, 496 #### [facility] [place] [address] Senior Media Director: Dex Macias MD Calcium [Mass/Vol] 9.4 mg/dL Normal 8.6-10.3 [facility] Comment on above: Order Comment: FASTI NG:NO FASTING: NO Performed By: #### 6 399, 866, 39429, 899, 496 #### [facility] [place] [address] Senior Media Director: Dex Macias MD Chloride [Moles/Vol] 101 mmol/L Normal 98-110 [facility] Comment on above: Order Comment: FASTI NG:NO FASTING: NO Performed By: #### 6 399, 866, 48479, 899, 496 #### [facility] [place] [address] Senior Media Director: Dex Macias MD CO2 [Moles/Vol] 31 mmol/L Normal 20-32 [facility] Comment on above: Order Comment: FASTI NG:NO FASTING: NO Performed By: #### 6 399, 866, 59884, 899, 496 #### [facility] [place] [address] Senior Media Director: Dex Macias MD Creatinine [Mass/Vol] 1.01 mg/dL Normal 0.70-1.28 [facility] Comment on above: Order Comment: FASTI NG:NO FASTING: NO Performed By: #### 6 399, 866, 87578, 899, 496 #### [facility] [place] [address] [place] [address] Senior Media Director: Dex Macias MD GFR/1.73 sq M.predicted among non-blacks MDRD (S/P/Bld) [Vol rate/Area] 78 mL/min/{1.73_m2} Normal > OR = 60 [facility] Comment on above: Order Comment: FASTI NG:NO FASTING: NO Performed By: #### 6 399, 866, 36940, 899, 496 #### [facility] [place] [address] Senior Media Director: Dex Macias MD Globulin (S) [Mass/Vol] 2.3 g/dL Normal 1.9-3.7 [facility] Comment on above: Order Comment: FASTI NG:NO FASTING: NO Performed By: #### 6 399, 866, 49229, 899, 496 #### [facility] [place] [address] Senior Media Director: Dex Macias MD Glucose [Mass/Vol] 185 mg/dL High 65-139 [facility] Comment on above: Order Comment: FASTI NG:NO FASTING: NO Result Comment: Non-fasting reference interval For someone without known diabetes, a glucose value >125 mg/dL indicates that they may have diabetes and this should be confirmed with a follow-up test. Performed By: #### 6 399, 866, 83764, 899, 496 #### [facility] [place] [address] Senior Media Director: Dex Macias MD Potassium [Moles/Vol] 4.3 mmol/L Normal 3.5-5.3 [facility] Comment on above: Order Comment: FASTI NG:NO FASTING: NO Performed By: #### 6 399, 866, 17091, 899, 496 #### [facility] [place] [address] Senior Media Director: Dex Macias MD Protein [Mass/Vol] 6.7 g/dL Normal 6.1-8.1 [facility] Comment on above: Order Comment: FASTI NG:NO FASTING: NO Performed By: #### 6 399, 866, 98531, 899, 496 #### [facility] [address], [address] [place] [address] Senior Media Director: Dex Macias MD Sodium [Moles/Vol] 140 mmol/L Normal 135-146 [facility] Comment on above: Order Comment: FASTI NG:NO FASTING: NO Performed By: #### 6 399, 866, 80377, 899, 496 #### [facility] [address], [address] [place] [address] Senior Media Director: Dex Macias MD Urea nitrogen [Mass/Vol] 29 mg/dL High 08-29 [facility] Comment on above: Order Comment: FASTI NG:NO FASTING: NO Performed By: #### 6 399, 866, 89830, 899, 496 #### [facility] [place] [address] Senior Media Director: Dex Macias MD Urea nitrogen/Creatinine [Mass ratio] 29 mg/mg High 07-27 [facility] Comment on above: Order Comment: FASTI NG:NO FASTING: NO Performed By: #### 6 399, 866, 20560, 899, 496 #### [facility] [place] [address] Senior Media Director: Dex Macias MD HEMOGLOBIN A1con 07-31-2024 HbA1c (Bld) [Mass fraction] 7.1 % High <5.7 [facility] Comment on above: Result Comment: For someone without known diabetes, a hemoglobin A1c value of 6.5% or greater indicates that they may have diabetes and this should be confirmed with a follow-up test. For someone with known diabetes, a value <7% indicates that their diabetes is well controlled and a value greater than or equal to 7% indicates suboptimal control. A1c targets should be individualized based on duration of diabetes, age, comorbid conditions, and other considerations. Currently, no consensus exists regarding use of hemoglobin A1c for diagnosis of diabetes for children. Performed By: #### 4 96, 72591 #### [facility] [address], [address] [place] [address] Senior Media Director: Dex Macias MD T4, FREEon 07-31-2024 Free T4 [Mass/Vol] 1.1 ng/dL Normal 0.8-1.8 [facility] Comment on above: Performed By: #### 4 96, 87072 #### [facility] [place] [address] Senior Media Director: Dex Macias MD TSHon 07-31-2024 TSH Qn 3.49 m[IU]/L Normal 0.40-4.50 [facility] Comment on above: Performed By: #### 4 96, 93037 #### [facility] [place] [address] Senior Media Director: Dex Macias MD ALBUMIN, RANDOM URINE W/CREA TININEon 05-06-2024 ALBUMIN, URINE 1.1 mg/dL Normal See Note: [facility] Comment on above: Order Comment: FASTI NG:YES FASTING: YES Result Comment: Refe rence Range: Reference Range Not established Performed By: #### 8 99, 927, 496, 866, 06734, 8293, 6517 #### [facility] [place] [address] Senior Media Director: Dex Macias MD ALBUMIN/CREATININE RATIO, RANDOM URINE 10 mg/g creat Normal <30 [facility] Comment on above: Order Comment: FASTI NG:YES FASTING: YES Result Comment: The ADA defines abnormalities in albumin excretion as follows: Albuminuria Category Result (mg/g creatinine) Normal to Mildly increased <30 Moderately increased 30-299 Severely increased > OR = 300 The ADA recommends that at least two of three specimens collected within a 3-6 month period be abnormal before considering a patient to be within a diagnostic category. Performed By: #### 8 99, 927, 496, 866, 40515, 8293, 6517 #### [facility] [place] [address] Senior Media Director: Dex Macias MD Creatinine (U) [Mass/Vol] 112 mg/dL Normal 20-320 [facility] Comment on above: Order Comment: FASTI NG:YES FASTING: YES Performed By: #### 8 99, 927, 496, 866, 46501, 8293, 6517 #### [facility] of [address], [address] [place] [address] Senior Media Director: Dex Macias MD COMPREHENSIVE METABOLIC PANE [facility] 05-06-2024 Albumin [Mass/Vol] 4.5 g/dL Normal 3.6-5.1 [facility] Comment on above: Performed By: #### 8 99, 927, 496, 866, 72692, 8293, 6517 #### [facility] [place] [address] Senior Media Director: Dex Macias MD Albumin/Globulin [Mass ratio] 2.0 {ratio} Normal 1.0-2.5 [facility] Comment on above: Performed By: #### 8 99, 927, 496, 866, 75513, 8293, 6517 #### [facility] [place] [address] Senior Media Director: Dex Macias MD ALP [Catalytic activity/Vol] 135 U/L Normal 35-144 [facility] Comment on above: Performed By: #### 8 99, 927, 496, 866, 85027, 8293, 6517 #### [facility] [place] [address] Senior Media Director: Dex Macias MD ALT [Catalytic activity/Vol] 13 U/L Normal 9-46 [facility] Comment on above: Performed By: #### 8 99, 927, 496, 866, 28233, 8293, 6517 #### [facility] [place] [address] Senior Media Director: Dex Macias MD AST [Catalytic activity/Vol] 15 U/L Normal 10-35 [facility] Comment on above: Performed By: #### 8 99, 927, 496, 866, 24375, 8293, 6517 #### [facility] [place] [address] Senior Media Director: Dex Macias MD Bilirubin [Mass/Vol] 0.5 mg/dL Normal 0.2-1.2 [facility] Comment on above: Performed By: #### 8 99, 927, 496, 866, 33321, 8293, 6517 #### [facility] [place] [address] Senior Media Director: Dex Macias MD BUN/CREATININE RATIO SEE NOTE: Normal 6-22 [facility] Comment on above: Result Comment: Not Reported: BUN and Creatinine are within reference range. Performed By: #### 8 99, 927, 496, 866, 75886, 8293, 6517 #### [facility] [place] [address] Senior Media Director: Dex Macias MD Calcium [Mass/Vol] 9.5 mg/dL Normal 8.6-10.3 [facility] Comment on above: Performed By: #### 8 99, 927, 496, 866, 20752, 8293, 6517 #### [facility] [place] [address] Senior Media Director: Dex Macias MD Chloride [Moles/Vol] 101 mmol/L Normal 98-110 [facility] Comment on above: Performed By: #### 8 99, 927, 496, 866, 18621, 8293, 6517 #### [facility] [place] [address] Senior Media Director: Dex Macias MD CO2 [Moles/Vol] 32 mmol/L Normal 20-32 [facility] Comment on above: Performed By: #### 8 99, 927, 496, 866, 47069, 8293, 6517 #### [facility] [place] [address] Senior Media Director: Dex Macias MD Creatinine [Mass/Vol] 0.86 mg/dL Normal 0.70-1.28 [facility] Comment on above: Performed By: #### 8 99, 927, 496, 866, 14696, 8293, 6517 #### [facility] [place] [address] Senior Media Director: Dex Macias MD GFR/1.73 sq M.predicted among non-blacks MDRD (S/P/Bld) [Vol rate/Area] 91 mL/min/{1.73_m2} Normal > OR = 60 [facility] Comment on above: Performed By: #### 8 99, 927, 496, 866, 69037, 8293, 6517 #### [facility] [place] [address] Senior Media Director: Dex Macias MD Globulin (S) [Mass/Vol] 2.2 g/dL Normal 1.9-3.7 [facility] Comment on above: Performed By: #### 8 99, 927, 496, 866, 92961, 8293, 6517 #### [facility] [place] [address] Senior Media Director: Dex Macias MD Glucose [Mass/Vol] 90 mg/dL Normal 65-99 [facility] Comment on above: Result Comment: Fasting reference interval Performed By: #### 8 99, 927, 496, 866, 95381, 8293, 6517 #### [facility] [place] [address] Senior Media Director: Dex Macias MD Potassium [Moles/Vol] 4.5 mmol/L Normal 3.5-5.3 [facility] Comment on above: Performed By: #### 8 99, 927, 496, 866, 41339, 8293, 6517 #### [facility] [place] [address] Senior Media Director: Dex Macias MD Protein [Mass/Vol] 6.7 g/dL Normal 6.1-8.1 [facility] Comment on above: Performed By: #### 8 99, 927, 496, 866, 45354, 8293, 6517 #### [facility] [place] [address] Senior Media Director: Dex Macias MD Sodium [Moles/Vol] 140 mmol/L Normal 135-146 [facility] Comment on above: Performed By: #### 8 99, 927, 496, 866, 95080, 8293, 6517 #### [facility] [place] [address] Senior Media Director: Dex Macias MD Urea nitrogen [Mass/Vol] 24 mg/dL Normal 7-25 [facility] Comment on above: Performed By: #### 8 99, 927, 496, 866, 31846, 8293, 6517 #### [facility] [place] [address] Senior Media Director: Dex Macias MD DIRECT LDLon 05-06-2024 Cholesterol in LDL [Mass/Vol] 127 mg/dL High <100 [facility] Comment on above: Result Comment: Grearuna silvay elevated Triglycerides values (>1200 mg/dL) interfere with the dLDL assay. Desirable range <100 mg/dL for primary prevention; <70 mg/dL for patients with CHD or diabetic patients with > or = 2 CHD risk factors. Performed By: #### 8 99, 927, 496, 866, 43595, 8293, 6517 #### [facility] [place] [address] Senior Media Director: Dex Macias MD HEMOGLOBIN A1con 05-06-2024 HEMOGLOBIN A1c 7.5 % of total Hgb High <5.7 [facility] Comment on above: Result Comment: For someone without known diabetes, a hemoglobin A1c value of 6.5% or greater indicates that they may have diabetes and this should be confirmed with a follow-up test. For someone with known diabetes, a value <7% indicates that their diabetes is well controlled and a value greater than or equal to 7% indicates suboptimal control. A1c targets should be individualized based on duration of diabetes, age, comorbid conditions, and other considerations. Currently, no consensus exists regarding use of hemoglobin A1c for diagnosis of diabetes for children. Performed By: #### 8 99, 927, 496, 866, 16405, 8293, 6517 #### [facility] [address], [address] [place] [address] Senior Media Director: Dex Macias MD T4, FREEon 05-06-2024 Free T4 [Mass/Vol] 1.1 ng/dL Normal 0.8-1.8 [facility] Comment on above: Performed By: #### 8 99, 927, 496, 866, 01152, 8293, 6517 #### [facility] [place] [address] Senior Media Director: Dex Macias MD TSHon 05-06-2024 TSH Qn 5.05 m[IU]/L High 0.40-4.50 [facility] Comment on above: Performed By: #### 8 99, 927, 496, 866, 58137, 8293, 6517 #### [facility] [place] [address] Senior Media Director: Dex Macias MD VITAMIN B12on 05-06-2024 Cobalamin (Vitamin B12) [Mass/Vol] 1313 pg/mL High 200-1100 [facility] Comment on above: Performed By: #### 8 99, 927, 496, 866, 88062, 8293, 6517 #### [facility] [place] [address] Senior Media Director: Dex Macias MD XR CHEST 2 VIEWSon XR CHEST 2 VIEWS Interpreted By: Kierra Sandhu, STUDY: XR CHEST 2 VIEWS; 04/07/2024 12:28 pm INDICATION: Signs/Symptoms:cough. COMPARISON: None. ACCESSION NUMBER(S): [id number] ORDERING CLINICIAN: ROSE FIERRO FINDINGS: PA and lateral radiographs of the chest were provided. CARDIOMEDIASTINAL SILHOUETTE: Cardiomediastinal silhouette is normal in size and configuration. LUNGS: Mild bibasilar opacities are seen. No sizable pleural effusion. No pneumothorax or pulmonary edema. ABDOMEN: No remarkable upper abdominal findings. BONES: No acute osseous changes. IMPRESSION: Mild bibasilar opacities, which could relate to atelectasis or infiltrate. Signed by: Kierra Sandhu 04/07/2024 1:39 PM Dictation workstation: [id number] [place] XR Chest 2 Viewson Mild bibasilar opacities, which could relate to atelectasis or infiltrate. Signed by: Kierra Sandhu 04/07/2024 1:39 PM Dictation workstation: [id number] MMODAL Interpreted By: Kierra Sandhu, STUDY: XR CHEST 2 VIEWS; 04/07/2024 12:28 pm INDICATION: Signs/Symptoms:cough. COMPARISON: None. ACCESSION NUMBER(S): [id number] ORDERING CLINICIAN: ROSE FIERRO FINDINGS: PA and lateral radiographs of the chest were provided. CARDIOMEDIASTINAL SILHOUETTE: Cardiomediastinal silhouette is normal in size and configuration. LUNGS: Mild bibasilar opacities are seen. No sizable pleural effusion. No pneumothorax or pulmonary edema. ABDOMEN: No remarkable upper abdominal findings. BONES: No acute osseous changes. MMODAL Kierra Sandhu MD , MS - 04/07/2024 Interpreted By: Kierra Sandhu, STUDY: XR CHEST 2 VIEWS; 04/07/2024 12:28 pm INDICATION: Signs/Symptoms:cough. COMPARISON: None. ACCESSION NUMBER(S): [id number] ORDERING CLINICIAN: ROSE FIERRO FINDINGS: PA and lateral radiographs of the chest were provided. CARDIOMEDIASTINAL SILHOUETTE: Cardiomediastinal silhouette is normal in size and configuration. LUNGS: Mild bibasilar opacities are seen. No sizable pleural effusion. No pneumothorax or pulmonary edema. ABDOMEN: No remarkable upper abdominal findings. BONES: No acute osseous changes. IMPRESSION: Mild bibasilar opacities, which could relate to atelectasis or infiltrate. Signed by: Kierra Sandhu 04/07/2024 1:39 PM Dictation workstation: [id number] [facility] Work Phone: Radiology Study observation (narrative) [facility] Work Phone: XR Chest 2 ViewsOrdered By: Kierra Sandhu on 04-07-2024 [facility] Work Phone: [place] CONTINUOUS GLUCOSE MONITO RING ANALYSIS I&Cain 03-24-2024 Berto Pettit MD 03/30/2024 4:24 PM [place] CONTINUOUS GLUCOSE MONITORING ANALYSIS I&R Performed by: Berto Pettit MD Authorized by: Berto Pettit MD [place] Protocol time out called Additional Notes Monitor type:Freestyle Asim 3+ Dates reviewed: 03/11-03/24/24 % CGM active/Compliance use: 98% Regimen while on CGM: 70/30 Novolog Average daily insulin:18 U Estimated A1C: 7/7% 43% above target 57% in target 0% below target Range: 80-340 Average B Trends/interpretation of data: Review of BG from Freestyle Asim 3+ shows post-prandial hyperglycemia, with FBG generally within target range. NOTES: Will change to premeal Novolog as noted [facility] Provider Note - ED v3on 04-06 Provider Note - ED v3 Provider Note: Chart Review: ED NOTES ED NOTES: Presents for evaluation of URI. Symptoms including cough, sore throat, nasal congestion, fatigue that have been present for several days and refractory to OTC meds. No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 least get connected with the neurology group there. And then either be admitted or be reassured that he is safe to go home. Dr. 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 I left a message for Laura to let her know about that thought. He was admitted to [facility] from March 08-2021 with Ataxia. In addition to the tendency to fall to 1 side he also had 4 syncopal spells. At the [facility] he had a CT of the brain which showed scattered bilateral cerebellar lacunar infarcts. He had an EEG showing mild diffuse encephalopathy. He had an echocardiogram showing ejection fraction of 40%. And he had an MRI showing no acute intracranial process. His discharge summary also reports that he was positive for COVID and was treated with remdesivir and dexamethasone. He did not report feeling short of breath or edema at any time. The neurology team felt that his dizziness was possibly related to the Covid infection with an autonomic neuropathy. He was sent home to start on Toprol-XL 25 mg a day, lisinopril 5 mg twice a day, spironolactone 12. 5 mg daily, Jardiance 10 mg daily and Crestor 20 mg daily. He was feeling quite weak and tired on that so his collar baster stopped all of those. He is continuing on his Humalog, imipramine, and Metformin as well as numerous vitamins. At this time while he feels weak he no longer has the ataxia or dizziness. He has never had chest pain, significant shortness of breath, edema, orthopnea, numbness, or focal weakness. He does have a history of polymyalgia rheumatica and was on prednisone in the past for that but it messed his sugars up so much that he felt he would just put up with the PMR. No weakness of one leg or arm. Had 4 episodes of syncope. Plan: At this time the ataxia is resolved but we still do not have a good reason for why he developed that. And the relationship to the remote infarcts in the cerebellum I think has not been adequately addressed. He also has the decreased cardiac function. And so to cover both of those areas I think Dr. Villela is going to be best for him. Since he has no signs of overt failure and is actually feeling better with good blood pressure I have no problem with him staying off of all of those medicines. We did discuss how the Toprol and Jardiance both are appropriate to use for heart failure. But they, understandably, at this time are not anxious to go back on them. April 26, [address] Villela. She looked at the MRI and to do a Carotid Doppler. She is referring to Dr Thomas. The dizziness is still doing well. The DM is doing well. Polymyalgia has been stable and slowly getting better. Digging a ditch was hard. Sugars have 100-140. Dr Villela started him on Lipitor today. Weight is stable. No Chest pain, Dyspnea, palpitations, numbness, weakness, edema, claudication, or double vision/ loss of vision. 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) Stroke (434.91) (I63.9) Diabetes mellitus type 2, controlled (250.00) (E11.9) Cardiomyopathy (425.4) (I42.9) Syncope (780.2) (R55) *Orders Cardiomyopathy, Syncope Echocardiogram; Status:Hold For - Scheduling; Requested for:26Apr2021; Carotid artery aneurysm [facility] Carotid Artery Duplex Ultrasound; Status:Hold For - Scheduling; Requested for:26Apr2021; Laterality : Bilateral Diabetes mellitus type 2, controlled, Stroke Start: Atorvastatin Calcium 20 MG Oral Tablet (Lipitor); TAKE 1 TABLET AT BEDTIME Syncope Holter Monitor 3-14 Days; Status:Hold For - Scheduling; Requested for:26Apr2021; Diabetes mellitus type 2, controlled (250.00) (E11.9) 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 Patient originally presented in February with falls and syncopal episodes. CTA at that time showed bilateral carotid aneurysms with diffuse irregularities as well as bilateral vertebral artery aneurysms with areas of beaded appearance. Following this he had an admission in March at [facility] for syncope/ataxia. Per neurology notes reported to have postictal state after the falls, blank stare, confusion afterwards, unable to recall events. He had an EEG showing mild encephalopathy. MRI brain that showed no acute intracranial process, remote infarcts of the right prefrontal gyrus, bilateral basal ganglia and right cerebellum, no abnormality of intracranial vessels, but no neck imaging done. He was found to have COVID and was treated with dexamethasone/remdesivi r. TTE at that time showed depressed LVEF of 40%, previously was 60% just 6 weeks before. He was started on goal-directed medical therapy with metoprolol and lisinopril. No arrhythmias reported during admission. However patient discontinued all those medications after discharge since he did not think he was tolerating well. Denies any recurrent episodes since then, nearly back to baseline - still with mild unsteadiness when first gets up. Denies focal weakness, sensory deficits, dysarthria or amaurosis fugax. Reports sometimes he can hear his heart beat. 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) Familial hyperlipidemia (272.4) (E78.49) Fracture of orbit, open, initial encounter (802.9) (S02.85XB) H/O steroid therapy (V87.45) (Z92.241) History of prostate cancer (V10.46) (Z85.46) HTN (hypertension) (401.9) (I10) Idiopathic cardiomyopathy (425.4) (I42.8) Medicare annual wellness visit, subsequent (V70.0) (Z00.00) MVP (mitral valve prolapse) (424.0) (I34.1) 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) Polyarthritis, 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) Polyp of gallbladder (575.6) (K82.4) Primary osteoarthritis of left knee (715.16) (M17.12) Sore throat (462) (J02.9) 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) (M47.812) Syncope (780.2) (R55) Upper respiratory infection (465.9) (J06.9) Urinary frequency (788.41) (R35.0) Medication management (V58.69) (Z79.899) Polymyalgia rheumatica (725) (M35.3) Diabetes mellitus type 2, controlled (250.00) (E11.9) Carotid artery aneurysm (442.81) (I72.0) Surgical History Problems History of Cataract surgery History of Colonoscopy History of Knee arthroscopy meniscuc of knee joint LT History of Knee replacement History of Prostatectomy 2018 Past Medical History Problems History of Body mass index (BMI) of 20.0 to 20.9 in adult (V85.1) (Z68.20) Resolved Date: 01 Dec 2019 History of Body mass index (BMI) of 21.0 to 21.9 in adult (V85.1) (Z68.21) Resolved Date: 01 Jun 2020 History of Body mass index (BMI) of 23.0 to 23.9 in adult (V85.1) (Z68.23) Resolved Date: 29 Sep 2019 Familial hyperlipidemia (272.4) (E78.49) History of abnormal weight loss (V13.89) (Z87.898) Resolved Date: 02 Dec 2020 History of prostate cancer (V10.46) (Z85.46) HTN (hypertension) (401.9) (I10) History of Loss of appetite for more than 2 weeks (783.0) (R63.0) Resolved Date: 01 Dec 2019 MVP (mitral valve prolapse) (424.0) (I34.1) Primary osteoarthritis of left knee (715.16) (M17 (more content not included)... Normal [employer] Tobacco Screening.on 022 Fall risk assessment b) One or more falls in the last year [employer] Phone: Tobacco use status [facility] b) No [employer] Phone: Fall risk assessment b) One or more falls in the last year [employer] Phone: Tobacco use status [facility] b) No [employer] Phone: Office Visiton 03-28-2021 Follow-up visit Diagnoses/Problems Encounter for preventive health examination (V70.0) (Z00.00) Abnormal MRA, brain (793.0) (R90.89) Medication management (V58.69) (Z79.899) Orders Abnormal MRA, brain Vascular Medicine Referral Evaluation and Treatment Evaluate AND Treat Status: Complete Done: 28Mar[address] Manohar Aviles, at [address] [place] . Appt is 04/26 @8:30. Records in chart. Patient notified at appt in office. Health Maintenance Stop: Fish Oil 1000 MG Oral Capsule Stop: Multiple Vitamins Oral Tablet Medication management Follow-up visit in 1 month Outpatient Follow-up Status: Hold For - Scheduling Requested for: 28Mar2021 Patient Discussion/Summary At this time the ataxia is resolved but we still do not have a good reason for why he developed that. And the relationship to the remote infarcts in the cerebellum I think has not been adequately addressed. He also has the decreased cardiac function. And so to cover both of those areas I think Dr. Villela is going to be best for him. Since he has no signs of overt failure and is actually feeling better with good blood pressure I have no problem with him staying off of all of those medicines. We did discuss how the Toprol and Jardiance both are appropriate to use for heart failure. But they, understandably, at this time are not anxious to go back on them. Chief Complaint Hospital Follow up History of Present IllnessPhone call from [facility] Laura on March 07, 2021. . He has been having problems with falls especially in the morning for the last 6 days. He will get up and then loses balance and leaning to one side. Went to [facility] last week and had a CAT scan of the brain, CTA of the head, and CTA of the neck. 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 They were told that there was some kind of bleeding but there is none of that indicated on the reports I read. [facility] and he was dismissed from there because nothing was felt to be urgent. So she would like to take him to the [facility] where they had an admission apparently set up based on urgency. But our emergency room did not feel that ambulance trip there was warranted. 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 Hopefully they can at least get connected with the neurology group there. And then either be admitted or be reassured that he is safe to go home. Dr. 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 I left a message for Laura to let her know about that thought. He was admitted to [facility] from March 08-2021 with Ataxia. In addition to the tendency to fall to 1 side he also had 4 syncopal spells. At the [facility] he had a CT of the brain which showed scattered bilateral cerebellar lacunar infarcts. He had an EEG showing mild diffuse encephalopathy. He had an echocardiogram showing ejection fraction of 40%. And he had an MRI showing no acute intracranial process. His discharge summary also reports that he was positive for COVID and was treated with remdesivir and dexamethasone. He did not report feeling short of breath or edema at any time. The neurology team felt that his dizziness was possibly related to the Covid infection with an autonomic neuropathy. He was sent home to start on Toprol-XL 25 mg a day, lisinopril 5 mg twice a day, spironolactone 12. 5 mg daily, Jardiance 10 mg daily and Crestor 20 mg daily. He was feeling quite weak and tired on that so his collar baster stopped all of those. He is continuing on his Humalog, imipramine, and Metformin as well as numerous vitamins. At this time while he feels weak he no longer has the ataxia or dizziness. He has never had chest pain, significant shortness of breath, edema, orthopnea, numbness, or focal weakness. He does have a history of polymyalgia rheumatica and was on prednisone in the past for that but it messed his sugars up so much that he felt he would just put up with the PMR. No weakness of one leg or arm. Had 4 episodes of syncope. 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 Normal [facility] Tobacco Screening.on 022 Adult depression screening assessment No [employer] Phone: Fall risk assessment b) One or more falls in the last year [facility] [employer] Phone: Tobacco use status [facility] b) No [employer] [facility] [employer] Phone: CNPNon 03-17-2021 [facility] ([facility]) STEPHANY REYNOLDS ([id number]) 1950 M Date Time Provider Department 03/17/[address] [facility] During your visit today, we recorded the following information about you: Dom Chan 03/17/2021 9:41 AM Signed PATIENT INFORMATION Record ID: [id number] Patient [facility]: [facility]: [facility] [place]: [facility] Attending: Brynn Ulloa Center: Hospital Medicine INSTRUCTIONS MA to remind patient of appointment date, time, location Message sent to Pharmacy [facility] ?CC RX DISCHARGE CALL PROGRAM? at end of call SURVEY INFORMATION Medical/Nurse Carding Supervisor: Johnny Chan 1. Your discharge instructions are important in guiding you through the recovery process. Is there anything I could help you clarify on your discharge instructions? (Standard Question) No 2. Do you have a follow up appointment related to your hospital stay scheduled within the next 30 days? (Standard Question) Yes 3. Many patients have concerns about their medications once they are home. Do you have any questions about getting or taking your medications? (Standard Question) Yes, Education- patient needs re-education or clarification about meds MA/SN Notes: Problems with medication. Not needed. Should not have been prescribed. 4. Do you have any new or different symptoms? (Standard Question) Yes, Patient not transferred MA/SN Notes: Blood sugar levels. In contact with Doctor about this. Allergies As of Date: 03/17/2021 Noted Allergy Reaction PREDNISOLONE 07/21/2020 14 - Other: See Comments Comments: Reports it made him loopy Date Reviewed: 03/13/2021 Reviewed by: Ayesha Real RN - Fully Assessed Reason for Visit: Follow Up Phone Call [[phone]] Cmt: All clear Prescriptions as of 03/17/2021 - albuterol HFA (PROVENTIL HFA, VENTOLIN HFA) 90 mcg/actuation inhaler Inhale 2 Puffs as instructed every 4 hours as needed for wheezing/shortness of breath. - aspirin 81 mg chewable tablet Take 1 tablet by mouth once daily. - dexAMETHasone (DECADRON) 6 mg tablet Take 1 tablet by mouth once daily for 5 doses. - empagliflozin (JARDIANCE) 10 mg tablet Take 1 tablet by mouth once daily. - lisinopril (ZESTRIL, PRINIVIL) 5 mg tablet Take 1 tablet by mouth twice daily. - metoprolol succinate ER (TOPROL XL) 50 mg 24 hr tablet Take 0.5 tablets by mouth once daily. - ondansetron (ZOFRAN) 4 mg tablet Take 1 tablet by mouth every 6 hours as needed. - rosuvastatin (CRESTOR) 20 mg tablet Take 1 tablet by mouth daily at bedtime. - metFORMIN (GLUCOPHAGE) 500 mg tablet Take 1,000 mg by mouth every morning. - meclizine (ANTIVERT) 25 mg tab Take 1 tablet by mouth three times daily as needed. - HUMALOG MIX 75-25 KWIKPEN 100 unit/mL (75-25) inpn INJECT 12 UNITS SUBCUTANEOUSLY TWICE DAILY - imipramine HCl (TOFRANIL) 25 mg tablet Take by mouth. Problem List As Of Date 03/17/2021 Noted Resolved Diplopia [H53.2] 07/17/2020 Open fracture of orbit (HCC) [S02.85XB] 07/17/2020 Type 2 diabetes mellitus without complication, *07/17/2020 Open fracture of left orbit (HCC) [S02.85XB] 08/06/2020 Ocular hypertension, bilateral [H40.053] 08/06/2020 Pseudophakia [Z96.1] 08/06/2020 History of malignant neoplasm of prostate [Z85.*03/09/2021 Acute hypoxemic respiratory failure due to COVI*03/09/2021 Hyponatremia [E87.1] 03/09/2021 03/13/2021 Transaminitis [R74.01] 03/09/2021 03/13/2021 Elevated troponin [R77.8] 03/09/2021 Syncope and collapse [R55] 03/09/2021 03/13/2021 Old lacunar stroke without late effect [Z86.73] 03/09/2021 Acute HFrEF (heart failure with reduced ejectio*03/10/2021 Encounter Status:Closed by DOM CHAN on 03/17/21 Normal [facility] Basic Metabolic Panlon 03-13 Anion gap [Moles/Vol] 12 mmol/L Normal 9-18 [facility] Comment on above: Performed By: #### C RP, DEA, PROCAL, DDMER, HFP, LIPNF, HBA1C #### [facility] [address], [place] [address] Calcium [Mass/Vol] 8.4 mg/dL Low 8.5-10.2 [facility] Comment on above: Performed By: #### C RP, DEA, PROCAL, DDMER, HFP, LIPNF, HBA1C #### [facility] [address] [place] [address] Chloride [Moles/Vol] 101 mmol/L Normal 97-105 [facility] Comment on above: Performed By: #### C RP, DEA, PROCAL, DDMER, HFP, LIPNF, HBA1C #### [place] [address] CO2 [Moles/Vol] 22 mmol/L Normal 22-30 [facility] Comment on above: Performed By: #### C RP, DEA, PROCAL, DDMER, HFP, LIPNF, HBA1C #### [place] [address] Creatinine [Mass/Vol] 0.79 mg/dL Normal 0.73-1.22 [facility] Comment on above: Performed By: #### C RP, DEA, PROCAL, DDMER, HFP, LIPNF, HBA1C #### [place] [address] eGFR- Amer. >60 Normal [facility] Comment on above: Performed By: #### C RP, DEA, PROCAL, DDMER, HFP, LIPNF, HBA1C #### [place] [address] eGFR-All Other Races >60 Normal [facility] Comment on above: Result Comment: eGFR (Estimated GFR) Units of measure: mL/min/1.73 meters squared eGFR is derived from the reexpressed MDRD Study equation using the following parameters: serum creatinine, age, gender and race. The creatinine assay has been calibrated to be traceable to IDMS. An eGFR <60 mL/min/1.73m2 for >3 months is consistent with chronic kidney disease. Refer to KDOQI guidelines for clinical interpretation. In patients with unstable renal function, e.g. those with acute kidney injury, the eGFR may not accurately reflect actual GFR. Note: On 04/02/2021, the eGFR calculation will be updated to the NKF-ASN Task Force recommended 2020 CKD-EPI creatinine equation which does not include a race variable. For more information or to access a 2020 CKD-EPI calculator, visit the National Kidney Foundation website at kidney.org/professionals/kdoqi/gfr_calculator. Performed By: #### C RP, DEA, PROCAL, DDMER, HFP, LIPNF, HBA1C #### [facility] [address] [place], [place] [address] Glucose [Mass/Vol] 113 mg/dL High 74-99 [facility] Comment on above: Result Comment: The [place] Diabetes Association (ADA) provides guidance for cutoff values for fasting glucose and random glucose. The ADA defines fasting as no caloric intake for at least 8 hours. Fasting plasma glucose results between 100 to 125 mg/dL indicate increased risk for diabetes (prediabetes). Fasting plasma glucose results greater than or equal to 126 mg/dL meet the criteria for diagnosis of diabetes. In the absence of unequivocal hyperglycemia, results should be confirmed by repeat testing. In a patient with classic symptoms of hyperglycemia or hyperglycemic crisis, random plasma glucose results greater than or equal to 200 mg/dL meet the criteria for diagnosis of diabetes. Reference: Standards of Medical Care in Diabetes 2016, [place] Diabetes Association. Diabetes Care. 2016.39(Suppl 1). Performed By: #### C RP, DEA, PROCAL, DDMER, HFP, LIPNF, HBA1C #### [facility] [address] [place], [place] [address] Potassium [Moles/Vol] 3.8 mmol/L Normal 3.7-5.1 [facility] Comment on above: Performed By: #### C RP, DEA, PROCAL, DDMER, HFP, LIPNF, HBA1C #### [facility] [address] [place], [place] [address] Sodium [Moles/Vol] 135 mmol/L Low 136-144 [facility] Comment on above: Performed By: #### C RP, DEA, PROCAL, DDMER, HFP, LIPNF, HBA1C #### [facility] [address] [place], [place] [address] Urea nitrogen [Mass/Vol] 23 mg/dL Normal 9-24 [facility] Comment on above: Performed By: #### C RP, DEA, PROCAL, DDMER, HFP, LIPNF, HBA1C #### [facility] [address] [place], [place] [address] CNDSon 03-13-2021 CNDS HNO ID: [id number] Author: Brynn Ulloa MD Service: Hospital Medicine Author Type: Physician Type: Discharge Summary Filed: 03/13/2021 1:44 PM Note Text: DISCHARGE SUMMARY PATIENT NAME: Stephany Reynolds ADMISSION DATE: 03/08/2021 DISCHARGE DATE: 03/13/2021 ATTENDING PHYSICIAN: Brynn Ulloa Code Status: Not on file Highest Readmission Risk Score: 32 The 30 day readmissions risk score is derived from an internally validated risk model which evaluates patient level characteristics, utilization history, medication orders and lab results up until the day of discharge. Patients with a score of 40 or above are considered highest risk for readmission. Specific patient level drivers will be listed at the bottom of the summary. CONSULTING TEAMS DURING HOSPITALIZATION: id, cardiology, neurology Treatment Team: Attending Provider: Brynn Ulloa MD Primary Service: Gi 7 REASON FOR HOSPITALIZATION: covid related pna DIAGNOSIS: Principal Problem: Acute hypoxemic respiratory failure due to COVID-19 (HCC) POA: Yes Active Problems: Type 2 diabetes mellitus without complication, with long-term current use of insulin (HCC) POA: Yes Elevated troponin POA: Yes Old lacunar stroke without late effect POA: Yes Acute HFrEF (heart failure with reduced ejection fraction) (HCC) POA: Yes Resolved Problems: Hyponatremia POA: Yes Transaminitis POA: Yes Syncope and collapse POA: Yes OPERATIONS DURING HOSPITALIZATION: None PROCEDURES DURING HOSPITALIZATION: ct walter(03/08): IMPRESSION: -No large cortical infarct or acute hemorrhage. -Scattered bilateral cerebellar lacunar infarcts which are age-indeterminate but presumed chronic given appearance. -Acuity can't be conclusively determined with obtainable remote comparison imaging if possible or MRI determined clinically warranted. MRI/A(03/10): IMPRESSION: 1. ?No acute intracranial process. 2. ?No significant abnormality of the intracranial anterior or posterior circulations. eeg (03/11): Impression: This EEG supports?the diagnosis of a mild diffuse encephalopathy. No epileptiform discharges or EEG seizures were recorded. ?Seizure monitoring is needed in order to develop or modify treatment. echo(03/09): CONCLUSIONS: - Technically difficult exam due to suboptimal positioning. - Exam indication: Syncope - The left ventricle is normal in size. There is mild left ventricular hypertrophy. Left ventricular systolic function is moderately decreased. EF = 40 ? ?5% (visual est.) Grade I left ventricular diastolic dysfunction. - The right ventricle is normal in size. Right ventricular systolic function is normal. - There are no significant valvular abnormalities. - The patient has not had a prior CC echocardiographic exam for comparison. HOSPITAL COURSE: 70 yo wm presents with?dizziness has a pmhx of -dm2 -prior prostate cancer s/p sx -prior ?pmr (off steroids since 2019)? . =not vaccinated against covid?and =declines discussing vaccination further. ? reports first episode of dizziness 1 week ago. Has had 4-5 episodes over the past week. Reports one episode occurred while he was urinating in the bathroom, another episode while he was walking around the living room. Denies any focal weakness. Describes episode as him falling down, shaking of both arms and feet, and turning hannon. He regained consciousness in 3 to 5 minutes but was somewhat confused. Endorses cough productive of yellow phlegm over the past few days, denies fever, chest pain, sore throat, rhinorrhea, headache, chest discomfort, abdominal pain. Reports has been sick with pneumonia over the past 2 to 3 weeks, however she did not get tested for Covid. He endorses poor p.o. intake due to lack of appetite for the past week. Denies loss of sense of taste or smell. ? In the ED,?desat to 90% on RA, improved to 94-95% on 2L. CXR rad read Bilateral predominantly linear densities at the lung bases may represent atelectasis or atypical infectious process. CT brain showed scattered bilaterak cerebellar lacunar infarcts, presumed chronic but acuity unable to be conclusively determined.? Labs notable for hyponatremia, transaminitis, mild hypoalbuminemia, ?Mild hypomagnesemia, proBNP mildly elevated at 470. ?I 60 troponin XX 33-24-30. ? Covid positive. ? Patient was treated with Vanco, Zosyn, potassium and admitted to medicine for further management. started rem/dex-> was asking ivermectin and hydroxychloroquine (informed about the policy) pt was subjected a desat study on the day of discharge where he didn't require any oxygen for going home he is discharged when better with an advice to f/u wit pcp in 1-2 weeks an with cardiology dn neurology as suggested cardiology input: -drop in function unlikely to be cardia origin (?Covid vs neurogenic) -advised GDMT for hfref-b blockers, (more content not included)... Normal [facility] Basic Metabolic Panlon 03-12 Anion gap [Moles/Vol] 11 mmol/L Normal 9-18 [facility] Comment on above: Performed By: #### B COY, HFP #### [facility] [place] [address] Calcium [Mass/Vol] 7.8 mg/dL Low 8.5-10.2 [facility] Comment on above: Performed By: #### Marti CESPEDES, HFP #### [place] [address] [place] [address] Chloride [Moles/Vol] 103 mmol/L Normal 97-105 [facility] Comment on above: Performed By: #### Marti CESPEDES, HFP #### [place] [address] [place] [phone] CO2 [Moles/Vol] 24 mmol/L Normal 22-30 [facility] Comment on above: Performed By: #### Marti CESPEDES, HFP #### [facility] [place] [address] Creatinine [Mass/Vol] 0.67 mg/dL Low 0.73-1.22 [facility] Comment on above: Performed By: #### Marti CESPEDES, HFP #### [place] [address] [place] [address] eGFR- Amer. >60 Normal [facility] Comment on above: Performed By: #### Marti CESPEDES, HFP #### [facility] [place] [address] eGFR-All Other Races >60 Normal [facility] Comment on above: Result Comment: eGFR (Estimated GFR) Units of measure: mL/min/1.73 meters squared eGFR is derived from the reexpressed MDRD Study equation using the following parameters: serum creatinine, age, gender and race. The creatinine assay has been calibrated to be traceable to IDMS. An eGFR <60 mL/min/1.73m2 for >3 months is consistent with chronic kidney disease. Refer to KDOQI guidelines for clinical interpretation. In patients with unstable renal function, e.g. those with acute kidney injury, the eGFR may not accurately reflect actual GFR. Note: On 04/02/2021, the eGFR calculation will be updated to the NKF-ASN Task Force recommended 2020 CKD-EPI creatinine equation which does not include a race variable. For more information or to access a 2020 CKD-EPI calculator, visit the National Kidney Foundation website at kidney.org/professionals/kdoqi/gfr_calculator. Performed By: #### B MP, [facility] #### [facility] [address] [place] [phone] Glucose [Mass/Vol] 81 mg/dL Normal 74-99 [facility] Comment on above: Result Comment: The [place] Diabetes Association (ADA) provides guidance for cutoff values for fasting glucose and random glucose. The ADA defines fasting as no caloric intake for at least 8 hours. Fasting plasma glucose results between 100 to 125 mg/dL indicate increased risk for diabetes (prediabetes). Fasting plasma glucose results greater than or equal to 126 mg/dL meet the criteria for diagnosis of diabetes. In the absence of unequivocal hyperglycemia, results should be confirmed by repeat testing. In a patient with classic symptoms of hyperglycemia or hyperglycemic crisis, random plasma glucose results greater than or equal to 200 mg/dL meet the criteria for diagnosis of diabetes. Reference: Standards of Medical Care in Diabetes 2016, [place] Diabetes Association. Diabetes Care. 2016.39(Suppl 1). Performed By: #### B MP, [facility] #### [facility] [address] [place], [place] [address] Potassium [Moles/Vol] 3.7 mmol/L Normal 3.7-5.1 [facility] Comment on above: Performed By: #### B MP, HFP #### [facility] [address] [place] [address] Sodium [Moles/Vol] 138 mmol/L Normal 136-144 [facility] Comment on above: Performed By: #### B MP, HFP #### [facility] [address] [place] [address] Urea nitrogen [Mass/Vol] 22 mg/dL Normal 9-24 [facility] Comment on above: Performed By: #### B MP, HFP #### [place] [address] [place] [address] Hepatic Functn Panelon 03-12 Albumin [Mass/Vol] 3.0 g/dL Low 3.9-4.9 [facility] Comment on above: Performed By: #### B MP, HFP #### [place] [phone] ALP [Catalytic activity/Vol] 192 U/L High 38-113 [facility] Comment on above: Performed By: #### B MP, HFP #### [place] [phone] ALT [Catalytic activity/Vol] 48 U/L Normal 10-54 [facility] Comment on above: Performed By: #### B MP, HFP #### [facility] [address] [place] [phone] AST [Catalytic activity/Vol] 50 U/L High 14-40 [facility] Comment on above: Performed By: #### B MP, HFP #### [place] [address] [place] [address] Bilirubin [Mass/Vol] 0.4 mg/dL Normal 0.2-1.3 [facility] Comment on above: Performed By: #### B MP, HFP #### [facility] [place] [phone] Bilirubin,Conjugate d <0.2 Normal <0.2 [facility] Comment on above: Performed By: #### B MP, HFP #### [facility] [address] [place] [phone] Protein [Mass/Vol] 5.1 g/dL Low 6.3-8.0 [facility] Comment on above: Performed By: #### B MP, HFP #### [facility] [address] [place] [address] NURSING PROGon 03-12-2021 NURSING PROG HNO ID: [id number] Author: Edwina Barlow RN Service: ? Author Type: Registered Nurse Type: Nursing Progress Note Filed: 03/12/2021 4:09 PM Note Text: Nursing Progress Note Patient Name: Stephany Reynolds [address] Attempted to wean Pt from O2 - sats remain 93-94% while sitting/laying. Once Pt ambulates to bathroom - sats drop to 86-88% while on 2L nc. Pt does endorse sob at this time as well. Sats return to WNL once Pt is sitting. Dr. Ulloa notified via page. This note was completed by: Edwina Barlow [facility] NURSING PROG HNO ID: [id number] Author: Hilda Riojas RN Service: ? Author Type: Registered Nurse Type: Nursing Progress Note Filed: 03/12/2021 12:22 AM Note Text: Nursing Progress Note Patient Name: Stephany Reynolds [id number] Daily Note:Pt remain a/ox3, without c/o pain and discomfort. remain at bedside. Pt is self ambulatory to bed to chair. He call's for assist with in room(walker and BSC at bedside). Pt remain on 3 liter of O 2 N/C. Pt sitting up in straight back chair throughout the shift. Pt tolerating Po and fluid intake well. Telemetry NS. Bed remain in lowest lock position, call light and other require items are within reach. [place] to monitor the pt. This note was completed by: Hilda Riojas Normal [facility] Basic Metabolic Panlon 03-11 Anion gap [Moles/Vol] 12 mmol/L Normal 9-18 [facility] Comment on above: Performed By: #### B COY, HFP #### [facility] [address] [place] [address] Calcium [Mass/Vol] 8.0 mg/dL Low 8.5-10.2 [facility] Comment on above: Performed By: #### B OCY, HFP #### [facility] [address] [place] [address] Chloride [Moles/Vol] 101 mmol/L Normal 97-105 [facility] Comment on above: Performed By: #### B COY, HFP #### [facility] [address] [place] [address] CO2 [Moles/Vol] 23 mmol/L Normal 22-30 [facility] Comment on above: Performed By: #### B MP, HFP #### [facility] [address] [place] [address] Creatinine [Mass/Vol] 0.69 mg/dL Low 0.73-1.22 [facility] Comment on above: Performed By: #### B MP, HFP #### [facility] [address] [place] [address] eGFR- Amer. >60 Normal [facility] Comment on above: Performed By: #### B COY, HFP #### [facility] [address] [place] [address] eGFR-All Other Races >60 Normal [facility] Comment on above: Result Comment: eGFR (Estimated GFR) Units of measure: mL/min/1.73 meters squared eGFR is derived from the reexpressed MDRD Study equation using the following parameters: serum creatinine, age, gender and race. The creatinine assay has been calibrated to be traceable to IDMS. An eGFR <60 mL/min/1.73m2 for >3 months is consistent with chronic kidney disease. Refer to KDOQI guidelines for clinical interpretation. In patients with unstable renal function, e.g. those with acute kidney injury, the eGFR may not accurately reflect actual GFR. Note: On 04/02/2021, the eGFR calculation will be updated to the NKF-ASN Task Force recommended 2020 CKD-EPI creatinine equation which does not include a race variable. For more information or to access a 2020 CKD-EPI calculator, visit the National Kidney Foundation website at kidney.org/professionals/kdoqi/gfr_calculator. Performed By: #### B COY, HFP #### [facility] [address] [place] [phone] Glucose [Mass/Vol] 128 mg/dL High 74-99 [facility] Comment on above: Result Comment: The [place] Diabetes Association (ADA) provides guidance for cutoff values for fasting glucose and random glucose. The ADA defines fasting as no caloric intake for at least 8 hours. Fasting plasma glucose results between 100 to 125 mg/dL indicate increased risk for diabetes (prediabetes). Fasting plasma glucose results greater than or equal to 126 mg/dL meet the criteria for diagnosis of diabetes. In the absence of unequivocal hyperglycemia, results should be confirmed by repeat testing. In a patient with classic symptoms of hyperglycemia or hyperglycemic crisis, random plasma glucose results greater than or equal to 200 mg/dL meet the criteria for diagnosis of diabetes. Reference: Standards of Medical Care in Diabetes 2016, [place] Diabetes Association. Diabetes Care. 2016.39(Suppl 1). Performed By: #### B MP, HFP #### [facility] [address] [place] [address] Potassium [Moles/Vol] 3.8 mmol/L Normal 3.7-5.1 [facility] Comment on above: Performed By: #### B MP, HFP #### [facility] [address] [place] [address] Sodium [Moles/Vol] 136 mmol/L Normal 136-144 [facility] Comment on above: Performed By: #### B MP, HFP #### [place] [address] [place] [address] Urea nitrogen [Mass/Vol] 20 mg/dL Normal 9-24 [facility] Comment on above: Performed By: #### B MP, HFP #### [address] [address] CBCon 03-11-2021 Absolute nRBC <0.01 Normal <0.01 [facility] Comment on above: Performed By: #### B MP, HFP #### [place] [address] [place] [address] Erythrocyte distribution width (RBC) [Ratio] 14.7 % Normal 11.5-15.0 [facility] Comment on above: Performed By: #### B MP, HFP #### [address] [address] Hematocrit (Bld) [Volume fraction] 38.1 % Low 39.0-51.0 [facility] Comment on above: Performed By: #### B MP, HFP #### [place] [address] [place], [place] [address] Hemoglobin (Bld) [Mass/Vol] 13.0 g/dL Normal 13.0-17.0 [facility] Comment on above: Performed By: #### B MP, HFP #### [address] [address] MCH 27.3 pG Normal 26.0-34.0 [facility] Comment on above: Performed By: #### B MP, HFP #### [place] [address] [place], [place] [address] MCHC (RBC) [Mass/Vol] 34.1 g/dL Normal 30.5-36.0 [facility] Comment on above: Performed By: #### B MP, HFP #### [address] [address] MCV (RBC) [Entitic vol] 80.0 fL Normal 80.0-100.0 [facility] Comment on above: Performed By: #### B MP, HFP #### [address] [address] Platelet mean volume (Bld) [Entitic vol] 9.5 fL Normal 9.0-12.7 [facility] Comment on above: Performed By: #### B MP, HFP #### [address] [address] Platelets (Bld) [#/Vol] 393 10*3/uL Normal 150-400 [facility] Comment on above: Performed By: #### B MP, HFP #### [address] [address] RBC (Bld) [#/Vol] 4.76 10*6/uL Normal 4.20-6.00 [facility] Comment on above: Performed By: #### B MP, HFP #### [place] [address] [place], [place] [address] WBC (Bld) [#/Vol] 9.46 10*3/uL Normal 3.70-11.00 [facility] Comment on above: Performed By: #### B MP, HFP #### [address] [address] Hepatic Functn Panelon 02-04 -2022 Albumin [Mass/Vol] 3.0 g/dL Low 3.9-4.9 [facility] Comment on above: Performed By: #### B MP, HFP #### [place] [address] ALP [Catalytic activity/Vol] 206 U/L High 38-113 [facility] Comment on above: Performed By: #### B MP, HFP #### [place] [phone] ALT [Catalytic activity/Vol] 48 U/L Normal 10-54 [facility] Comment on above: Performed By: #### B MP, HFP #### [place] [address] AST [Catalytic activity/Vol] 55 U/L High 14-40 [facility] Comment on above: Performed By: #### B MP, HFP #### [place] [address] Bilirubin [Mass/Vol] 0.4 mg/dL Normal 0.2-1.3 [facility] Comment on above: Performed By: #### B MP, HFP #### [place] [phone] Bilirubin,Conjugate d <0.2 Normal <0.2 [facility] Comment on above: Performed By: #### B MP, HFP #### [place] [phone] Protein [Mass/Vol] 5.5 g/dL Low 6.3-8.0 [facility] Comment on above: Performed By: #### B MP, HFP #### [place] [phone] THERAPY NTon 03-11-2021 THERAPY NT HNO ID: [id number] Author: Cecy Del Cid, OT/L Service: Occupational Therapy Author Type: Occupational Therapist Type: Therapy (PT/OT/Speech/Resp) Filed: 03/11/2021 3:18 PM Note Text: Occupational Therapy Treatment SERVICE DATE: 03/11/2021 SERVICE TIME: 1442 to 1505 ROOM: [address] Recommended Discharge Disposition: Home Anticipated Discharge Needs: Physical Assist at Home Physical Assist at Home for: Cleaning;Laundry;Shoppi ng;Transportation Supervision at Home due to: Decreased safety awareness OT 6 Clicks Score: 24 Precautions/Activity Restrictions: Fall Risk Isolation Type: Contact AND Droplet Precautions-Plus Eyewear Current Hospital Course: Pt is a 70 yo M presenting for evaluation of SOB/syncope/falls and was found to have 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 Cardiology team is consulted to evaluate newly reduced ejection fraction compared to baseline (60 -> 40) in the context of COVID infection Reason for Hospital Admission: presents with dizziness Relevant Past Medical History: PMH of DM2, prostate cancer s/p prostatectomy, L TKA 6 wks ago Response to Therapy Interventions: Improved tolerance for activity,Good participation in activities Continue skilled needs due to: Functional impairment,Safety concerns Occupational Therapy Problem List: Decreased Activity Tolerance Treatment Interventions: Education;Self Care / Home Management;Energy Conservation Training Plan for next visit: Standing balance,Standing tolerance,Energy conservation Home Environment Patient Lives With: Family Assistance Available: 24 Hour Entry To Home: Stairs Number Of Stairs Into Home: 3 Number Of Stairs To Bed/Bath: 0 Tub/Shower Type: tub Laundry: 1st floor Equipment Owned: Cane;Wheeled Walker;Shower Chair;Elevated Toilet Seat Prior Functional Level: Within Functional Limits Prior Functional Level Comments: Active with out-pt PT for recent TKA, reports indep with ADLs/IADLs until ~week ago, assists as needed Patient Report: I'm feeling good! CURRENT FUNCTIONAL STATUS: Most recent performance Current Activities of Daily Living Assist Level Additional Information Feeding Set Up Grooming Set Up Bathing Upper Body Set Up Bathing Lower Body Stand By Assistance Dressing Upper Body Set Up Dressing Lower Body Supervision Toileting Supervision Instrumental Activities of Daily Living Assist Level Additional Information Meal/Beverage Prep Cleaning Laundry Medication Management with Strategies Functional Mobility Assist Level Additional Information Rolling Supine to Sit Sit to Supine Modified Independent Scooting Modified Independent Sit to Stand Supervision Stand to Sit Supervision Bed to Chair Supervision Stepping Wheeled Walker Toilet/Commode Supervision Shower Functional Mobility Supervision Wheeled Walker functional mobility <> bathroom, around room Blank corbett indicate activity not attempted Vital Signs Post Assessment: SpO2 Post,Oxygen Equipment Post Post SpO2: 91 Post O2 Equipment: Nasal Cannula Post Oxygen Requirement: 3L Balance: Static Sitting;Dynamic Sitting;Static Standing;Dynamic Standing Static Sitting Balance: Good Patient able to maintain balance without handhold support, limited postural sway Dynamic Sitting Balance: Good Patient accepts moderate challenge, able to maintain balance while picking up object off floor Static Standing Balance: Good Patient able to maintain balance without handhold support, limited postural sway Dynamic Standing Balance: Good Patient accepts moderate challenge, able to maintain balance while picking up object off floor Activity Tolerance: Sitting Activity;Standing Activity Sitting Activity: in chair, EOB sitting Sitting Activity Tolerance (in minutes): 5 Standing Activity: completed ADLs standing at sink in bathroom, functional mobility around room Standing Activity Tolerance (in minutes): 15 Learning/Educational Needs: Functional Activities/Mobility;Dis charge Plan;Safety Goals for Plan of Care: Patient /Caregiver Goals: Go Home Goals: Patient will demonstrate progress with self-care, cognitive and/or coping needs identified to allow safe discharge to home with available support and/or physical assistance. Progress Toward Goals: Progressing as expected Rehab Potential: Good Patient will be discontinued from Occupational Therapy when no further skilled needs are identified in this setting. PLAN: OT Frequency: One additional visit Plan of Care developed with: Patient TREATMENT INTERVENTIONS: Therapy Diagnosis: General symptoms and signs-other;Reduced mobility-other Interventions Provided: Therapeutic Activity (07238);Self Long Term Management (09134) Therapeutic Activity (41033) Treatment Minutes: 8 $ Therapeutic Activity (48391) Billed Units: 1 unit Self Long Term Management (17112) Treatment Minutes: 15 $ Self Long Term Manag (more content not included)... Normal [facility] Basic Metabolic Panlon 03-10 Anion gap [Moles/Vol] 9 mmol/L Normal 9-18 [facility] Comment on above: Performed By: #### C RP, DEA, PROCAL, DDMER, HFP, LIPNF, HBA1C #### [facility] [address] [place], [place] [address] Calcium [Mass/Vol] 8.2 mg/dL Low 8.5-10.2 [facility] Comment on above: Performed By: #### C RP, DEA, PROCAL, DDMER, HFP, LIPNF, HBA1C #### [place] [address] [place] [phone] Chloride [Moles/Vol] 115 mmol/L High 97-105 [facility] Comment on above: Performed By: #### C RP, DEA, PROCAL, DDMER, HFP, LIPNF, HBA1C #### [place] [address] [place] [phone] CO2 [Moles/Vol] 17 mmol/L Low 22-30 [facility] Comment on above: Performed By: #### C RP, DEA, PROCAL, DDMER, HFP, LIPNF, HBA1C #### [place] [address] [place] [phone] Creatinine [Mass/Vol] 1.49 mg/dL High 0.73-1.22 [facility] Comment on above: Performed By: #### C RP, DEA, PROCAL, DDMER, HFP, LIPNF, HBA1C #### [place] [address] [place] [phone] eGFR- Amer. 56 Normal [facility] Comment on above: Performed By: #### C RP, DEA, PROCAL, DDMER, HFP, LIPNF, HBA1C #### [place] [phone] eGFR-All Other Races 46 . Normal [facility] Comment on above: Result Comment: eGFR (Estimated GFR) Units of measure: mL/min/1.73 meters squared eGFR is derived from the reexpressed MDRD Study equation using the following parameters: serum creatinine, age, gender and race. The creatinine assay has been calibrated to be traceable to IDMS. An eGFR <60 mL/min/1.73m2 for >3 months is consistent with chronic kidney disease. Refer to KDOQI guidelines for clinical interpretation. In patients with unstable renal function, e.g. those with acute kidney injury, the eGFR may not accurately reflect actual GFR. Note: On 04/02/2021, the eGFR calculation will be updated to the NKF-ASN Task Force recommended 2020 CKD-EPI creatinine equation which does not include a race variable. For more information or to access a 2020 CKD-EPI calculator, visit the National Kidney Foundation website at kidney.org/professionals/kdoqi/gfr_calculator. Performed By: #### C RP, DEA, PROCAL, DDMER, HFP, LIPNF, HBA1C #### [facility] [address] [place] [address] Glucose [Mass/Vol] 218 mg/dL High 74-99 [facility] Comment on above: Result Comment: The [place] Diabetes Association (ADA) provides guidance for cutoff values for fasting glucose and random glucose. The ADA defines fasting as no caloric intake for at least 8 hours. Fasting plasma glucose results between 100 to 125 mg/dL indicate increased risk for diabetes (prediabetes). Fasting plasma glucose results greater than or equal to 126 mg/dL meet the criteria for diagnosis of diabetes. In the absence of unequivocal hyperglycemia, results should be confirmed by repeat testing. In a patient with classic symptoms of hyperglycemia or hyperglycemic crisis, random plasma glucose results greater than or equal to 200 mg/dL meet the criteria for diagnosis of diabetes. Reference: Standards of Medical Care in Diabetes 2016, [place] Diabetes Association. Diabetes Care. 2016.39(Suppl 1). Performed By: #### C RP, DEA, PROCAL, DDMER, HFP, LIPNF, HBA1C #### [facility] [address] [place] [address] Potassium [Moles/Vol] 5.2 mmol/L High 3.7-5.1 [facility] Comment on above: Performed By: #### C RP, DEA, PROCAL, DDMER, HFP, LIPNF, HBA1C #### [facility] [address] [place], [place] [address] Sodium [Moles/Vol] 141 mmol/L Normal 136-144 [facility] Comment on above: Performed By: #### C RP, DEA, PROCAL, DDMER, HFP, LIPNF, HBA1C #### [facility] [address] [place] [address] Urea nitrogen [Mass/Vol] 30 mg/dL High 9-24 [facility] Comment on above: Performed By: #### C RP, DEA, PROCAL, DDMER, HFP, LIPNF, HBA1C #### [place] [address] CBCon 03-10-2021 Absolute nRBC <0.01 Normal <0.01 [facility] Comment on above: Performed By: #### C RP, DEA, PROCAL, DDMER, HFP, LIPNF, HBA1C #### [place] [address] Erythrocyte distribution width (RBC) [Ratio] 14.6 % Normal 11.5-15.0 [facility] Comment on above: Performed By: #### C RP, DEA, PROCAL, DDMER, HFP, LIPNF, HBA1C #### [place] [address] Hematocrit (Bld) [Volume fraction] 35.9 % Low 39.0-51.0 [facility] Comment on above: Performed By: #### C RP, DEA, PROCAL, DDMER, HFP, LIPNF, HBA1C #### [place] [address] Hemoglobin (Bld) [Mass/Vol] 12.4 g/dL Low 13.0-17.0 [facility] Comment on above: Performed By: #### C RP, DEA, PROCAL, DDMER, HFP, LIPNF, HBA1C #### [place] [address] MCH 27.6 pG Normal 26.0-34.0 [facility] Comment on above: Performed By: #### C RP, DEA, PROCAL, DDMER, HFP, LIPNF, HBA1C #### [place] [address] MCHC (RBC) [Mass/Vol] 34.5 g/dL Normal 30.5-36.0 [facility] Comment on above: Performed By: #### C RP, DEA, PROCAL, DDMER, HFP, LIPNF, HBA1C #### [place] [address] [place] [address] MCV (RBC) [Entitic vol] 80.0 fL Normal 80.0-100.0 [facility] Comment on above: Performed By: #### C RP, DEA, PROCAL, DDMER, HFP, LIPNF, HBA1C #### [place] [address] [place] [address] Platelet mean volume (Bld) [Entitic vol] 9.5 fL Normal 9.0-12.7 [facility] Comment on above: Performed By: #### C RP, DEA, PROCAL, DDMER, HFP, LIPNF, HBA1C #### [place] [address] Platelets (Bld) [#/Vol] 308 10*3/uL Normal 150-400 [facility] Comment on above: Performed By: #### C RP, DEA, PROCAL, DDMER, HFP, LIPNF, HBA1C #### [place] [address] RBC (Bld) [#/Vol] 4.49 10*6/uL Normal 4.20-6.00 [facility] Comment on above: Performed By: #### C RP, DEA, PROCAL, DDMER, HFP, LIPNF, HBA1C #### [place] [address] [place] [address] WBC (Bld) [#/Vol] 5.98 10*3/uL Normal 3.70-11.00 [facility] Comment on above: Performed By: #### C RP, DEA, PROCAL, DDMER, HFP, LIPNF, HBA1C #### [place] [address] [place] [address] CONSULTon 03-10-2021 CONSULT HNO ID: [id number] Author: Jose L Lewis MD Service: Cardiovascular Medicine Author Type: Physician Type: Consults Filed: 03/11/2021 8:07 AM Note Text: [facility] INITIAL ABNORMAL ECHOCARDIOGRAM CONSULT NOTE [Template ID: [id number]] SERVICE DATE: 03/10/2021 SERVICE TIME: 8:17 AM REASON FOR CONSULT: Abnormal echcardiogram REQUESTING PHYSICIAN: Dr. Maia Bradley CONSULTING SERVICE: Cardiology: Consult Team PRIMARY SERVICE: [facility] 7 Subjective HISTORY OF PRESENT ILLNESS: Patient is a 70 yo M presenting to [facility] ED w/ worsening SOB/Dizziness/syncope and was found to be COVID positive. Cardiology si being consulted for a newly reduced LVEF to 40% in setting of COVID. Patient initially presenting on 03/08 but he endorses his symptoms began on 03/02. He started becoming dizzy when standing up and had 5-6 syncopal episodes/falls. The stated he fell in the bathroom and started shaking both his arms and feet transiently and turned valentine. The episode lasted ~ 1 minute and he took ~ 10 minutes before he returned to his normal neurologic state. He presented to his local ED several times for these symptoms but they have continued to happen so he went to [facility] ED. In the ED: Labs: HS Dea 23 -> 24 -> 30, Dea undetectable, NT Pro BNP. WBC 5.7, HgB 12.8, NA 129, sCr 0.86, LDL 53, HbA1C 7.4% EKG: Sinus tach w/ 1x PVC CXR: Mild bibasilar densities CT Brain : Scattered bilateral cerebellar lacunar infarcts Patient was then admitted to [facility] service w/ neurology consult. ECHO was checked to evaluate cardiac structure/cardiac syncope which showed a modest reduction of EF to ~40% w/ general global hypokinesis, and no valvular abnormalities. There is no [facility] ECHO to compare to but he did have an ECHO ~ 2 months ago that was normal. On interview patient states he feels generally well with mild SOB. He denies recent chest pain, orthopnea, POP prior to this acute episode, LE swelling, palpations or weight gain. PMHX: #T2DM #Prostate cancer s/p prostatectomy #PMR HISTORY: PAST MEDICAL HISTORY Diagnosis Date - Diabetes (HCC) - Hypertension - PMR (polymyalgia rheumatica) (HCC) - Prostate cancer (HCC) PAST SURGICAL HISTORY Procedure Laterality Date - CATARACT EXTRACTION HX Bilateral - KNEE SURGERY HX - TUR CRYOSURG REM OF PROSTATE FAMILY HISTORY Problem Relation Age of Onset - No Ocular Disease Father - No Ocular Disease Mother - No Ocular Disease Sister - No Ocular Disease Brother Social History Tobacco Use - Smoking status: Never Smoker - Smokeless tobacco: Never Used Substance Use Topics - Alcohol use: Not on file - Drug use: Not on file Current Outpatient Medications Medication Instructions - HUMALOG MIX 75-25 KWIKPEN 100 unit/mL (75-25) inpn INJECT 12 UNITS SUBCUTANEOUSLY TWICE DAILY - imipramine HCl (TOFRANIL) 25 mg tablet ORAL - levoFLOXacin (LEVAQUIN) 750 mg, ORAL, DAILY - meclizine (ANTIVERT) 25 mg tab 1 tablet, ORAL, 3 TIMES DAILY NEEDED - metFORMIN (GLUCOPHAGE) 1,000 mg, ORAL, EVERY MORNING Current Facility-Administered Medications: - NaCl 0.9% iv flush bag - imipramine HCl 25 mg tab(s) (TOFRANIL) - dextrose 40 % 15 g OR glucagon 1 mg injection OR dextrose 50% in water 25 mL syringe - [COMPLETED] remdesivir 200 mg in NaCl 0.9% 250 mL FOLLOWED BY remdesivir 100 mg in NaCl 0.9% 250 mL Vial-Mate/ADD-[place] - aluminum-magnesium hydroxide-simethicone 200-200-20 mg/5 mL 30 mL (MAALOX,MYLANTA,MAG-AL PLUS) - magnesium hydroxide 400 mg/5 mL 30 mL (MOM) - melatonin 1 mg tab(s) - albuterol HFA 90 mcg/actuation 2 Puff (PROVENTIL HFA, VENTOLIN HFA) - guaiFENesin 600 mg ER tab(s) (MUCINEX) - insulin lispro injection (rapid acting) (HumaLOG) - enoxaparin 40 mg injection (LOVENOX) - sodium chloride 0.9 % (flush) 3-5 mL (BD POSIFLUSH) - ondansetron 4 mg tab(s) (ZOFRAN) OR ondansetron (PF) 4 mg injection (ZOFRAN) - acetaminophen 650 mg tab(s) (TYLENOL) - [COMPLETED] ECHO AND sodium chloride 0.9 % (flush) 2-10 mL (BD POSIFLUSH) AND perflutren lipid microspheres 1.1 mg/mL 1.3 mL injection (DEFINITY) - dexAMETHasone 6 mg tab(s) (DECADRON) OR dexAMETHasone sodium phosphate (PF) 6 mg injection (DECADRON) - insulin 70/30 NPH/regular units/mL 12 Units injection (mixed intermediate and short acting) (HumuLIN 70/30, NovoLIN 70/30) - rosuvastatin 20 mg tab(s) (CRESTOR) - aspirin 81 mg chewable tab(s) ALLERGIES Allergen Reactions - Prednisolone Other: See Comments Reports it made him loopy COMPLETE REVIEW OF SYSTEMS: Constitutional: No weight loss, malaise or fevers. HEENT: No changes in hearing or vision, no nose bleeds or other nasal problems Respiratory: Negative for cough, wheezing and chest pain Cardiovascular: Negative as per above HPI Gastrointestinal: Negative for abdominal discomfort, blood in stools or black stools or change in bowel habits Genitourinary: No history (more content not included)... Normal [facility] Creatinine,Urine,Ranon 03-10 Creatinine,Urine,Ra n 115.0 mg/dL Normal 20-300 [facility] Comment on above: Performed By: #### C RP, DEA, PROCAL, DDMER, HFP, LIPNF, HBA1C #### [facility] [address] [place], [place] [id number] Creatinine,Urine,Ra n 82.7 mg/dL Normal 20-300 [facility] Comment on above: Performed By: #### C RP, DEA, PROCAL, DDMER, HFP, LIPNF, HBA1C #### [facility] [address] [place], [place] [id number] Hepatic Functn Panelon 03-10 Albumin [Mass/Vol] 1.4 g/dL Low 3.9-4.9 [facility] Comment on above: Result Comment: Resu lt rechecked. Performed By: #### C RP, DEA, PROCAL, DDMER, HFP, LIPNF, HBA1C #### [facility] [address] [place], [place] [address] ALP [Catalytic activity/Vol] 135 U/L High 38-113 [facility] Comment on above: Performed By: #### C RP, DEA, PROCAL, DDMER, HFP, LIPNF, HBA1C #### [place] [address] [place], [place] [address] ALT [Catalytic activity/Vol] 6 U/L Low 10-54 [facility] Comment on above: Performed By: #### C RP, DEA, PROCAL, DDMER, HFP, LIPNF, HBA1C #### [place] [address] [place] [address] AST [Catalytic activity/Vol] 38 U/L Normal 14-40 [facility] Comment on above: Performed By: #### C RP, DEA, PROCAL, DDMER, HFP, LIPNF, HBA1C #### [place] [address] Bilirubin [Mass/Vol] 0.5 mg/dL Normal 0.2-1.3 [facility] Comment on above: Performed By: #### C RP, DEA, PROCAL, DDMER, HFP, LIPNF, HBA1C #### [place] [address] [place], [place] [address] Bilirubin,Conjugate d 0.2 mg/dL High <0.2 [facility] Comment on above: Performed By: #### C RP, DEA, PROCAL, DDMER, HFP, LIPNF, HBA1C #### [place] [address] [place], [place] [address] Protein [Mass/Vol] 7.7 g/dL Normal 6.3-8.0 [facility] Comment on above: Result Comment: Resu lt rechecked. Performed By: #### C RP, DEA, PROCAL, DDMER, HFP, LIPNF, HBA1C #### [place] [address] [place] [id number] MRA BRAIN WO IVCONon 022 MRA BRAIN WO IVCON * * *Final Report* * * DATE OF EXAM: Mar 10 2021 2:13PM [facility] 0272 - MRA BRAIN WO IVCON / PROCEDURE REASON: Encephalopathy * * * * Physician Interpretation * * * * EXAMINATION: MRI BRAIN WO IVCON, MRA BRAIN WO IVCON HISTORY: 70-year-old with history of prostate cancer presents with syncopal episodes, shortness of breath brought to the ED after a fall. TECHNIQUE: Routine noncontrast MRI brain protocol including diffusion and gradient echo images. Intracranial 3D ldlu-un-larqsp MRA with 2D multiplanar and 3D maximum intensity projections calculated on the imaging workstation under physician supervision. M: MRAB_3 COMPARISON: CT brain 03/08/2021 RESULT: BRAIN: Acute Change: No evidence of restricted diffusion to suggest an acute infarct. Hemorrhage: Punctate left middle frontal lobe focus of susceptibility likely sequelae of remote microhemorrhage. Mass Lesion/ Mass Effect: No evidence of an intracranial mass or extra-axial fluid collection. No significant mass effect. Chronic Change: Remote small punctate foci of encephalomalacia involving right prefrontal gyrus, bilateral basal ganglia, right cerebellum consistent with remote infarcts. Extensive, confluent increased T2 and FLAIR signal is present in the supratentorial white matter which is nonspecific but likely represents extensive chronic microvascular ischemia. Parenchyma: There is moderate generalized parenchymal volume loss. The brain parenchyma is otherwise within normal limits of signal intensity and morphology. Ventricles: Ventriculomegaly corresponds to the degree of parenchymal volume loss. Skull Base: Hypothalamic and pituitary region are grossly normal. Craniocervical junction is normal. No significant marrow replacement process. Vasculature: Major intracranial arterial structures and dural venous sinuses demonstrate typical flow voids, suggesting patency by spin echo criteria. Other: Bilateral lens replacement. The visualized paranasal sinuses and mastoid air cells are clear. The orbits and extracranial soft tissues are unremarkable. 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 INTRACRANIAL MRA: Anterior Circulation: Atherosclerotic changes of bilateral extracranial and intracranial ICAs without significant stenosis. Dominant left A1 segment with patent anterior communicating artery and unremarkable appearance of the A2 segments. Patent appearance of the MCAs bilaterally. Posterior Circulation: Atherosclerotic calcifications of the right vertebral artery without significant stenosis. Patent codominant intracranial vertebral arteries. Patent proximal portions of the posterior inferior cerebellar arteries. Patent appearance of the basilar artery and proximal superior cerebellar arteries. Unremarkable appearance of the posterior cerebral arteries. There is no evidence of focal, significant stenosis, abrupt vessel occlusion, or aneurysm in the visualized vessels. IMPRESSION: 1. No acute intracranial process. 2. No significant abnormality of the intracranial anterior or posterior circulations. Manager Environmental Services: [facility] Transcribe Date/Time: Mar 10 2021 2:27P Dictated by : ERICK MEYERS MD This examination was interpreted and the report reviewed and electronically signed by: SILVIO GRAVES MD on Mar 10 2021 3:38PM EST [id number] Normal [facility] MRI BRAIN WO IVCONon 022 MRI BRAIN WO IVCON * * *Final Report* * * DATE OF EXAM: Mar 10 2021 2:13PM [facility] 0294 - MRI BRAIN WO IVCON / PROCEDURE REASON: TIA, initial exam * * * * Physician Interpretation * * * * EXAMINATION: MRI BRAIN WO IVCON, MRA BRAIN WO IVCON HISTORY: 70-year-old with history of prostate cancer presents with syncopal episodes, shortness of breath brought to the ED after a fall. TECHNIQUE: Routine noncontrast MRI brain protocol including diffusion and gradient echo images. Intracranial 3D zlcy-bz-adxaln MRA with 2D multiplanar and 3D maximum intensity projections calculated on the imaging workstation under physician supervision. M: MRAB_3 COMPARISON: CT brain 03/08/2021 RESULT: BRAIN: Acute Change: No evidence of restricted diffusion to suggest an acute infarct. Hemorrhage: Punctate left middle frontal lobe focus of susceptibility likely sequelae of remote microhemorrhage. Mass Lesion/ Mass Effect: No evidence of an intracranial mass or extra-axial fluid collection. No significant mass effect. Chronic Change: Remote small punctate foci of encephalomalacia involving right prefrontal gyrus, bilateral basal ganglia, right cerebellum consistent with remote infarcts. Extensive, confluent increased T2 and FLAIR signal is present in the supratentorial white matter which is nonspecific but likely represents extensive chronic microvascular ischemia. Parenchyma: There is moderate generalized parenchymal volume loss. The brain parenchyma is otherwise within normal limits of signal intensity and morphology. Ventricles: Ventriculomegaly corresponds to the degree of parenchymal volume loss. Skull Base: Hypothalamic and pituitary region are grossly normal. Craniocervical junction is normal. No significant marrow replacement process. Vasculature: Major intracranial arterial structures and dural venous sinuses demonstrate typical flow voids, suggesting patency by spin echo criteria. Other: Bilateral lens replacement. The visualized paranasal sinuses and mastoid air cells are clear. The orbits and extracranial soft tissues are unremarkable. 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 INTRACRANIAL MRA: Anterior Circulation: Atherosclerotic changes of bilateral extracranial and intracranial ICAs without significant stenosis. Dominant left A1 segment with patent anterior communicating artery and unremarkable appearance of the A2 segments. Patent appearance of the MCAs bilaterally. Posterior Circulation: Atherosclerotic calcifications of the right vertebral artery without significant stenosis. Patent codominant intracranial vertebral arteries. Patent proximal portions of the posterior inferior cerebellar arteries. Patent appearance of the basilar artery and proximal superior cerebellar arteries. Unremarkable appearance of the posterior cerebral arteries. There is no evidence of focal, significant stenosis, abrupt vessel occlusion, or aneurysm in the visualized vessels. IMPRESSION: 1. No acute intracranial process. 2. No significant abnormality of the intracranial anterior or posterior circulations. Manager Environmental Services: [facility] Transcribe Date/Time: Mar 10 2021 2:27P Dictated by : ERICK MEYERS MD This examination was interpreted and the report reviewed and electronically signed by: SILVIO GRAVES MD on Mar 10 2021 3:38PM EST [id number] Normal [facility] Osmolality, Urineon 03-10-19 22 Osmolality, Urine 573 mOsm/kg Normal 50-1200 [facility] Comment on above: Performed By: #### C RP, DEA, PROCAL, DDMER, HFP, LIPNF, HBA1C #### [facility] [address] [place], [place] [address] Protimeon 03-10-2021 PT INR 1.1 Normal 0.9-1.3 [facility] Comment on above: Result Comment: Gisel min K Antagonist (VKA) Therapeutic Range: INR 2 to 3 (Target INR of 2.5) Note: For patients treated with VKA drugs, such as warfarin, the [place] [employer]icians 2012 Guideline recommends a therapeutic INR range of 2 to 3 (target INR of 2.5). This recommendation includes high-risk patients with antiphospholipid syndrome with previous arterial or venous thromboembolism, current-generation mechanical or bioprosthetic aortic heart valve replacement. Note: Patients with mechanical aortic valve replacement and additional risk factors for thromboembolic events (atrial fibrillation, previous thromboembolism, LV dysfunction, hypercoagulable conditions) or an older generation mechanical AVR (i.e., ball in-Cage) or any mechanical MVR should have a INR therapeutic range of 2.5 to 3.5 (target INR of 3). Tanner GH, et al. Chest 2012, 141:7S-47S Denia RA, et al. [facility] 2017, 70: 252-289 Performed By: #### C RP, DEA, PROCAL, DDMER, HFP, LIPNF, HBA1C #### [facility] [address] [place], [place] [id number] PT Sec 11.4 sec Normal 9.7-13.0 [facility] Comment on above: Performed By: #### C RP, DEA, PROCAL, DDMER, HFP, LIPNF, HBA1C #### [facility] [address] [place] [address] Sodium,Urine,Randomon 2021 Sodium (U) [Moles/Vol] 41 mmol/L Normal 14-216 [facility] Comment on above: Performed By: #### C RP, DEA, PROCAL, DDMER, HFP, LIPNF, HBA1C #### [facility] [address] [place], [place] [address] Sodium (U) [Moles/Vol] 38 mmol/L Normal 14-216 [facility] Comment on above: Performed By: #### C RP, DEA, PROCAL, DDMER, HFP, LIPNF, HBA1C #### [facility] [address] [place] [address] THERAPY NTon 03-10-2021 THERAPY NT HNO ID: [id number] Author: Cecy Del Cid, OT/L Service: Occupational Therapy Author Type: Occupational Therapist Type: Therapy (PT/OT/Speech/Resp) Filed: 03/10/2021 1:17 PM Note Text: Occupational Therapy Evaluation SERVICE DATE: 03/10/2021 SERVICE TIME: 1224 to 1254 ROOM: [place] [address] Recommended Discharge Disposition: Home Anticipated Discharge Needs: Physical Assist at Home;Supervision at Home Physical Assist at Home for: Laundry;Meals;Shopping; Stairs;Cleaning Supervision at Home due to: Decreased safety awareness OT 6 Clicks Score: 22 Precautions/Activity Restrictions: Fall Risk Isolation Type: Contact AND Droplet Precautions-Plus Eyewear Current Hospital Course: Pt is a 70 yo M presenting for evaluation of SOB/syncope/falls and was found to have 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 Cardiology team is consulted to evaluate newly reduced ejection fraction compared to baseline (60 -> 40) in the context of COVID infection Reason for Hospital Admission: presents with dizziness Relevant Past Medical History: PMH of DM2, prostate cancer s/p prostatectomy, L TKA 6 wks ago Response to Therapy Interventions: Good participation in activities Continue skilled needs due to: Functional impairment,Safety concerns Occupational Therapy Problem List: Decreased Activity Tolerance;Balance Impaired Cognition/Communication Deficits Responsiveness: Awake Follows Commands: 2-step Commands Cognitive Clinical Tests and Screens: 4AT Screening 4AT Screening Is there any confusion or change in mental status or behavior in the last 2 weeks?: No Assess alertness (ask patient to state their name and address): Normal (fully alert, but not agitated, throughout assessment) Ask patient: age, date of , current year, and current location: No mistakes Ask patient to tell me the months of the year backwards order, starting with January: Able to state 7+ months correctly Acute change or fluctuating mental status: No 4AT Score: 0 Delirium Positive/Negative: Negative Treatment Interventions: Education;Self Care / Home Management;Energy Conservation Training Plan for next visit: Sitting tolerance,Sitting balance,Standing tolerance,Standing balance,Energy conservation Home Environment Patient Lives With: Family Assistance Available: 24 Hour Entry To Home: Stairs Number Of Stairs Into Home: 3 Number Of Stairs To Bed/Bath: 0 Tub/Shower Type: tub Laundry: 1st floor Equipment Owned: Cane;Wheeled Walker;Shower Chair;Elevated Toilet Seat Prior Functional Level: Within Functional Limits Prior Functional Level Comments: Active with out-pt PT for recent TKA, reports indep with ADLs/IADLs until ~week ago, assists as needed Patient Report: I'm okay CURRENT FUNCTIONAL STATUS: Most recent performance Current Activities of Daily Living Assist Level Additional Information Feeding Set Up Grooming Set Up Bathing Upper Body Set Up Bathing Lower Body Minimal Assistance Dressing Upper Body Set Up Dressing Lower Body Stand By Assistance Toileting Contact Guard Assistance Instrumental Activities of Daily Living Assist Level Additional Information Meal/Beverage Prep Cleaning Laundry Medication Management with Strategies Functional Mobility Assist Level Additional Information Rolling Supine to Sit Sit to Supine Supervision Scooting Modified Independent Sit to Stand Stand By Assistance Stand to Sit Contact Guard Assistance Bed to Chair Stand By Assistance Stepping Wheeled Walker Toilet/Commode Contact Guard Assistance Shower Functional Mobility Stand By Assistance;Additional Information;Verbal Cues Only Wheeled Walker functional mobility <> bathroom, VC for ww Blank corbett indicate activity not attempted Hand Dominance: Right Range of Motion: WFL Strength: WFL Vital Signs Pre Assessment: SpO2,O2 Equipment Pre SpO2: 95 Pre O2 Equipment: Nasal Cannula Pre Oxygen Requirement: 3L Intra Assessment 1: Oxygen Equipment Intra 1,SpO2 Intra 1 Intra SpO2 1: 91 Intra O2 Equipment 1: Nasal Cannula Intra Oxygen Requirement 1: 3L Post Assessment: SpO2 Post,Oxygen Equipment Post Post SpO2: 97 Post O2 Equipment: Nasal Cannula Post Oxygen Requirement: 3L Balance: Static Sitting;Dynamic Sitting;Static Standing;Dynamic Standing Static Sitting Balance: Good Patient able to maintain balance without handhold support, limited postural sway Dynamic Sitting Balance: Good Patient accepts moderate challenge, able to maintain balance while picking up object off floor Static Standing Balance: Good Patient able to maintain balance without handhold support, limited postural sway Dynamic Standing Balance: Good Patient accepts moderate challenge, able to maintain balance while picking up object off floor Activity Tolerance: Sitting Activity;Standing Activity Sitting Activity: in chair, toilet Sitting Activity Tolerance (in mi (more content not included)... Normal [facility] THERAPY NT HNO ID: [id number] Author: Coby Esquivel, PT Service: Physical Therapy Author Type: Physical Therapist Type: Therapy (PT/OT/Speech/Resp) Filed: 03/10/2021 10:55 AM Note Text: Physical Therapy Evaluation SERVICE DATE: 03/10/2021 SERVICE TIME: 1017 to 1040 ROOM: [facility] Recommended Discharge Disposition: Outpatient Physical Therapy Recommended Discharge Equipment: No equipment needs anticipated PT 6 Clicks Score: 20 Precautions/Activity Restrictions: Fall Risk Isolation Type: Contact AND Droplet Precautions-Plus Eyewear Current Hospital Course: currently being worked up for dizziness, Covid + Reason for Hospital Admission: presents with dizziness Relevant Past Medical History: PMH of DM2, prostate cancer s/p prostatectomy, L TKA 6 wks ago Response to Therapy Interventions: Good participation in activities Physical Therapy Problem List: Functional Mobility Impairment Treatment Interventions: Strengthening;Functiona l Mobility Training Home Environment Patient Lives With: Family Assistance Available: 24 Hour Equipment Owned: Cane Prior Functional Level: Within Functional Limits Prior Functional Level Comments: Active with out-pt PT for recent TKA Patient Report: no complaints CURRENT FUNCTIONAL STATUS: Most recent performance Current Functional Mobility Assist Level Additional Information Rolling Set Up;Verbal Cues Only Supine to Sit Set Up;Verbal Cues Only Sit to Supine Set Up;Verbal Cues Only Scooting Sit to Stand Set Up;Verbal Cues Only Stand to Sit Set Up;Verbal Cues Only Bed to Chair Set Up;Verbal Cues Only Toilet/Commode Gait Minimal Assistance Gait Device: Hand Held Assist Gait Distance (feet): 4 Stairs Curb Step Car Transfer Blank corbett indicate activity not attempted General Deviations/Observations : Flexed trunk posture;Loss of Balance Balance: Static Sitting;Dynamic Sitting;Static Standing;Dynamic Standing Static Sitting Balance: Normal Patient able to maintain steady balance without handhold support Dynamic Sitting Balance: Normal Patient accepts maximal challenge and can shift weight easily within full range in all directions Static Standing Balance: Good Patient able to maintain balance without handhold support, limited postural sway Dynamic Standing Balance: Fair Patient accepts minimal challenge, able to maintain balance while turning head/trunk JH-HLM: 5: Standing (1 or more minutes) Learning/Educational Needs: Discharge Plan;Equipment;Family Education/Training;Plan of Care;Precautions;Safety Goals for Plan of Care: Patient /Caregiver Goals: Go Home Goals: Patient will demonstrate understanding of importance of mobility during hospital stay and resolve all functional needs identified.;Patient will demonstrate progress with functional mobility to allow safe discharge to home with available support and/or physical assistance. Rehab Potential: Excellent Patient will be discontinued from Physical Therapy when no further skilled needs are identified in this setting. PLAN: PT Frequency: Discontinue therapy services Reasons Therapy Services Discontinued: No skilled needs Plan of Care developed with: Patient;Family TREATMENT INTERVENTIONS: Therapy Diagnosis: Reduced mobility-other;Muscle Weakness (generalized);Unsteadin ess on feet Interventions Provided: Evaluation;Therapeutic Exercise (96092) $ Evaluation-Low (53906) Billed Units: 1 unit Therapeutic Exercise (19272) Treatment Minutes: 8 $ Therapeutic Exercise (71499) Billed Units: 1 unit Training AND education provided in: Transfers,Treatment protocol,Role of Physical Therapy,Pre-gait activities,Positioning, Precautions/restriction s,Home safety,Falls prevention,Exercise program,Benefits of in-hospital mobility,Bed mobility The following therapeutic skills were used: Activity dosing,Assessment of tolerance including vitals response to activity,Cues for sequencing/proper technique for activity,Cuing tactile,Cuing verbal,Cuing visual,Teach-back for education Timed Code Treatment (minutes): 8 Skilled Treatment Time (minutes): 23 Please see discipline specific clinical documentation flowsheet for complete details for this therapy evaluation/treatment. SIGNATURE: Coby Esquivel PT PATIENT NAME: Stephany Reynolds DATE: March 10, 2021 TIME: 10:55 AM Normal [facility] Urea Nitrogen,Ur,Ranon 03-10 Urea nitrogen [Mass/Vol] 1051 mg/dL Normal 140-1500 [facility] Comment on above: Performed By: #### C RP, DEA, PROCAL, DDMER, HFP, LIPNF, HBA1C #### [facility] [address] [place] [address] [facility] 03-09-2021 ALLIED HEALTH HNO ID: [id number] Author: Cecy Stein Service: Infection Prevention Author Type: ? Type: Allied Health Filed: 03/09/2021 11:03 AM Note Text: ISOLATION NOTE Admission Date: 03/08/2021 Type of Isolation Recommended: Contact and Droplet Precautions Plus Eyewear (Cranberry Isolation Sign) Indication: COVID-19 ? Maintain Contact/Droplet and Eyewear isolation signage ? Remain in private room or cohort when deemed appropriate ? Don an N95 (or PAPR) prior to entering the patient room ? Avoid entering room during aerosol generating procedure when possible ? Restrict room access to essential personnel only ? Contact Infection Prevention prior to discontinuing precautions when criteria are met ? Limit transport and movement of the patient to medically necessary purposes Date Isolation Initiated: 03/08/21 Anticipated Duration of Isolation: In consultation with Infection Prevention Type and Date of Positive Test(s): Positive for COVID19 in specimen collected 03/08/21 SIGNATURE: Cecy Stein PATIENT NAME: Stephany Reynolds DATE: March 09, 2021 TIME: 11:03 AM PAGER/CONTACT #: [email or web address] [phone] Infection Prevention after hours/weekend pager: [phone] Normal [facility] Basic Metabolic Panlon 03-09 Anion gap [Moles/Vol] 11 mmol/L Normal 9-18 [facility] Comment on above: Performed By: #### C RP, DEA, PROCAL, DDMER, HFP, LIPNF, HBA1C #### [place] [address] [place] [address] Calcium [Mass/Vol] 7.8 mg/dL Low 8.5-10.2 [facility] Comment on above: Performed By: #### C RP, DEA, PROCAL, DDMER, HFP, LIPNF, HBA1C #### [place] [address] [place] [address] Chloride [Moles/Vol] 99 mmol/L Normal 97-105 [facility] Comment on above: Performed By: #### C RP, DEA, PROCAL, DDMER, HFP, LIPNF, HBA1C #### [place] [address] [place] [address] CO2 [Moles/Vol] 25 mmol/L Normal 22-30 [facility] Comment on above: Performed By: #### C RP, DEA, PROCAL, DDMER, HFP, LIPNF, HBA1C #### [place] [address] [place] [address] Creatinine [Mass/Vol] 0.78 mg/dL Normal 0.73-1.22 [facility] Comment on above: Performed By: #### C RP, DEA, PROCAL, DDMER, HFP, LIPNF, HBA1C #### [place] [address] [place] [address] eGFR- Amer. >60 Normal [facility] Comment on above: Performed By: #### C RP, DEA, PROCAL, DDMER, HFP, LIPNF, HBA1C #### [facility] [address] [place], [place] [address] eGFR-All Other Races >60 Normal [facility] Comment on above: Result Comment: eGFR (Estimated GFR) Units of measure: mL/min/1.73 meters squared eGFR is derived from the reexpressed MDRD Study equation using the following parameters: serum creatinine, age, gender and race. The creatinine assay has been calibrated to be traceable to IDMS. An eGFR <60 mL/min/1.73m2 for >3 months is consistent with chronic kidney disease. Refer to KDOQI guidelines for clinical interpretation. In patients with unstable renal function, e.g. those with acute kidney injury, the eGFR may not accurately reflect actual GFR. Note: On 04/02/2021, the eGFR calculation will be updated to the NKF-ASN Task Force recommended 2020 CKD-EPI creatinine equation which does not include a race variable. For more information or to access a 2020 CKD-EPI calculator, visit the National Kidney Foundation website at kidney.org/professionals/kdoqi/gfr_calculator. Performed By: #### C RP, DEA, PROCAL, DDMER, HFP, LIPNF, HBA1C #### [facility] [address] [place] [id number] Glucose [Mass/Vol] 181 mg/dL High 74-99 [facility] Comment on above: Result Comment: The Citizen [place] Diabetes Association (ADA) provides guidance for cutoff values for fasting glucose and random glucose. The ADA defines fasting as no caloric intake for at least 8 hours. Fasting plasma glucose results between 100 to 125 mg/dL indicate increased risk for diabetes (prediabetes). Fasting plasma glucose results greater than or equal to 126 mg/dL meet the criteria for diagnosis of diabetes. In the absence of unequivocal hyperglycemia, results should be confirmed by repeat testing. In a patient with classic symptoms of hyperglycemia or hyperglycemic crisis, random plasma glucose results greater than or equal to 200 mg/dL meet the criteria for diagnosis of diabetes. Reference: Standards of Medical Care in Diabetes 2016, Citizen [place] Diabetes Association. Diabetes Care. 2016.39(Suppl 1). Performed By: #### C RP, DEA, PROCAL, DDMER, HFP, LIPNF, HBA1C #### [facility] [address] [place] [address] Potassium [Moles/Vol] 3.6 mmol/L Low 3.7-5.1 [facility] Comment on above: Performed By: #### C RP, DEA, PROCAL, DDMER, HFP, LIPNF, HBA1C #### [place] [address] [place] [address] Sodium [Moles/Vol] 135 mmol/L Low 136-144 [facility] Comment on above: Performed By: #### C RP, DEA, PROCAL, DDMER, HFP, LIPNF, HBA1C #### [place] [address] Urea nitrogen [Mass/Vol] 15 mg/dL Normal 9-24 [facility] Comment on above: Performed By: #### C RP, DEA, PROCAL, DDMER, HFP, LIPNF, HBA1C #### [place] [address] Blood Cultureon 03-09-2021 Bacteria identified Cx Nom (Bld) Culture Result - No growth 5 days Normal [facility] Comment on above: Performed By: #### C RP, DEA, PROCAL, DDMER, HFP, LIPNF, HBA1C #### [place] [address] Bacteria identified Cx Nom (Bld) Culture Result - No growth 5 days Normal [facility] Comment on above: Performed By: #### C RP, DEA, PROCAL, DDMER, HFP, LIPNF, HBA1C #### [place] [address] [place] [address] C-Reactive Proteinon 022 C-Reactive Protein 2.8 mg/dL High <0.9 [facility] Comment on above: Performed By: #### C RP, DEA, PROCAL, DDMER, HFP, LIPNF, HBA1C #### [place] [address] CASE MGT INIT ASSESon 2021 CASE MGT INIT ELIANA HNO ID: [id number] Author: JEET Adams Service: ? Author Type: Lecturer Of Portuguese Type: Care Mgt Initial Assessment Filed: 03/09/2021 3:39 PM Note Text: CARE MANAGEMENT PROGRESS NOTE SERVICE DATE: 03/09/2021 SERVICE TIME: 12:09 PM LOS: 0 days [place] of Choice Given: No Reason Not Given: No placements necessary Caregiver is ready, willing and able to meet the patient's needs as recommended by the inter-professional team:: No Caregiver needed Does the patient have an acute stroke diagnosis, or has the patient had a stroke during this admission?: No Needs Prior to Discharge: To Be Determined Current Advance Directive: Health Care Power of Chief Technical Officer (Patient states that he has ADV at home. His is his agent.) In Chart: No Prior Level of Function: independent Durable Medical Equipment/Provider: Patient states that he does have any DME at home. Patient currently on 2LNC, with no prior O2 requirement. If unable to wean, will need updated script and desat study. Active Services in Community/Home: N/a Living Situation/Support System: With spouse Able to Afford Food and Medications: Yes Anticipated Discharge Plan: TBD pending clinical course Anticipated Discharge Date: TBD Discharge Transportation: Family will provide transportation The patient states that he has HCPOA paperwork at home. His primary agent is his Laura Reynolds [phone]. This SW will update the patient's demographics to add patient's . SW/CM will continue to follow for further needs and concerns. SIGNATURE: JEET Adams PATIENT NAME: Stephany Reynolds DATE: March 09, 2021 TIME: 12:09 PM PAGER/CONTACT #: .[phone] Normal [facility] CBCon 03-09-2021 Absolute nRBC <0.01 Normal <0.01 [facility] Comment on above: Performed By: #### C RP, DEA, PROCAL, DDMER, HFP, LIPNF, HBA1C #### [facility] [address] [place], [place] [address] Erythrocyte distribution width (RBC) [Ratio] 14.7 % Normal 11.5-15.0 [facility] Comment on above: Performed By: #### C RP, DEA, PROCAL, DDMER, HFP, LIPNF, HBA1C #### [place] [address] [place] [address] Hematocrit (Bld) [Volume fraction] 36.6 % Low 39.0-51.0 [facility] Comment on above: Performed By: #### C RP, DEA, PROCAL, DDMER, HFP, LIPNF, HBA1C #### [place] [address] [place] [address] Hemoglobin (Bld) [Mass/Vol] 12.4 g/dL Low 13.0-17.0 [facility] Comment on above: Performed By: #### C RP, DEA, PROCAL, DDMER, HFP, LIPNF, HBA1C #### [place] [address] MCH 27.4 pG Normal 26.0-34.0 [facility] Comment on above: Performed By: #### C RP, DEA, PROCAL, DDMER, HFP, LIPNF, HBA1C #### [place] [address] MCHC (RBC) [Mass/Vol] 33.9 g/dL Normal 30.5-36.0 [facility] Comment on above: Performed By: #### C RP, DEA, PROCAL, DDMER, HFP, LIPNF, HBA1C #### [place] [address] [place] [address] MCV (RBC) [Entitic vol] 80.8 fL Normal 80.0-100.0 [facility] Comment on above: Performed By: #### C RP, DEA, PROCAL, DDMER, HFP, LIPNF, HBA1C #### [place] [address] [place] [address] Platelet mean volume (Bld) [Entitic vol] 9.2 fL Normal 9.0-12.7 [facility] Comment on above: Performed By: #### C RP, DEA, PROCAL, DDMER, HFP, LIPNF, HBA1C #### [facility] [address] [place], [place] [address] Platelets (Bld) [#/Vol] 287 10*3/uL Normal 150-400 [facility] Comment on above: Performed By: #### C RP, DEA, PROCAL, DDMER, HFP, LIPNF, HBA1C #### [facility] [address] [place], [place] [address] RBC (Bld) [#/Vol] 4.53 10*6/uL Normal 4.20-6.00 [facility] Comment on above: Performed By: #### C RP, DEA, PROCAL, DDMER, HFP, LIPNF, HBA1C #### [place] [address] [place] [address] WBC (Bld) [#/Vol] 3.71 10*3/uL Normal 3.70-11.00 [facility] Comment on above: Performed By: #### C RP, DEA, PROCAL, DDMER, HFP, LIPNF, HBA1C #### [facility] [address] [place] [id number] CONSULTon 03-09-2021 CONSULT HNO ID: [id number] Author: Alex Lima DO, PhD Service: Neurology General Author Type: Physician Type: Consults Filed: 03/09/2021 5:13 PM Note Text: INITIAL CONSULT - GENERAL NEUROLOGY SERVICE DATE: 03/09/2021 SERVICE TIME: 1:51 PM Team Requesting Consult: GICheryl Current Attending Provider: Maia Bradley MD Neurology was asked to evaluate Stephany Reynolds, a 70 year old male. Our recommendations of care will be communicated by shared medical record. Subjective HPI: Stephany Reynolds is a 70 year old male with a PMH of DM2, prostate cancer s/p prostatectomy, ?PMR (off steroids since 2019) from [facility] who presented initially with a chief complaint of episodes of dizziness and shortness of breath at home. He was brought in this admission after a fall and found to be Covid positive. reports that patient has had 5-6 falls in the last week. The first time was when patient was in his bathroom. describes him falling down, shaking both arms and feet very transiently and turning hannon. Symptoms lasted approximately 1 minute EMS was called patient regained consciousness within 3 to 5 minutes though he was somewhat obtunded. He was back to his normal neurologic baseline at approximately 10 minutes. EMS checked his glucose and EKG and he was okay so he remained at home. He has been to the local emergency department several times after that. She reports that the falls have all been unwitnessed. Patient reports feeling dizzy prior to each fall. reports that he is usually disoriented or has a blank stare when she finds him. He denies urinary incontinence stool incontinence or tongue biting during these episodes or otherwise during the week. He takes a while to regain consciousness. When he does his speech is slurred and jumbled. His glucose is always normal with these episodes. In the emergency room they have done EKGs and cardiac labs and sent him home. CT head this admission showed scattered lacunar infarcts which are age-indeterminate. Upon presentation to the ED, patient was found to be COVID positive, he had hyponatremia (new compared to his labs from 2 days ago). Current Facility-Administered Medications Medication Dose Route Frequency - NaCl 0.9% iv flush bag 20 mL INTRAVENOUS PRN - imipramine HCl 25 mg tab(s) (TOFRANIL) 25 mg ORAL AT BEDTIME - dextrose 40 % 15 g 15 g ORAL PRN Or - glucagon 1 mg injection 1 mg INTRAMUSCULAR PRN Or - dextrose 50% in water 25 mL syringe 12.5 g INTRAVENOUS PRN - [START ON 03/10/2021] remdesivir 100 mg in NaCl 0.9% 250 mL Vial-Mate/ADD-[place] 100 mg INTRAVENOUS q 24 HR - aluminum-magnesium hydroxide-simethicone 200-200-20 mg/5 mL 30 mL (MAALOX,MYLANTA,MAG-AL PLUS) 30 mL ORAL DAILY PRN - magnesium hydroxide 400 mg/5 mL 30 mL (MOM) 30 mL ORAL DAILY PRN - melatonin 1 mg tab(s) 1 mg ORAL DAILY (8 PM) - albuterol HFA 90 mcg/actuation 2 Puff (PROVENTIL HFA, VENTOLIN HFA) 2 Puff INHALATION q 4 H PRN - guaiFENesin 600 mg ER tab(s) (MUCINEX) 600 mg ORAL q 12 H PRN - insulin lispro injection (rapid acting) (HumaLOG) SUBCUTANEOUS w MEALS - enoxaparin 40 mg injection (LOVENOX) 40 mg SUBCUTANEOUS DAILY - sodium chloride 0.9 % (flush) 3-5 mL (BD POSIFLUSH) 3-5 mL INTRAVENOUS q 12 H - ondansetron 4 mg tab(s) (ZOFRAN) 4 mg ORAL q 6 H PRN Or - ondansetron (PF) 4 mg injection (ZOFRAN) 4 mg INTRAVENOUS q 6 H PRN - acetaminophen 650 mg tab(s) (TYLENOL) 650 mg ORAL q 6 H PRN - sodium chloride 0.9 % (flush) 2-10 mL (BD POSIFLUSH) 2-10 mL INTRAVENOUS DIRECTED PRN And - perflutren lipid microspheres 1.1 mg/mL 1.3 mL injection (DEFINITY) 1.3 mL INTRAVENOUS DIRECTED PRN - dexAMETHasone 6 mg tab(s) (DECADRON) 6 mg ORAL DAILY Or - dexAMETHasone sodium phosphate (PF) 6 mg injection (DECADRON) 6 mg INTRAVENOUS DAILY - insulin 70/30 NPH/regular units/mL 12 Units injection (mixed intermediate and short acting) (HumuLIN 70/30, NovoLIN 70/30) 12 Units SUBCUTANEOUS BID w MEALS - rosuvastatin 20 mg tab(s) (CRESTOR) 20 mg ORAL AT BEDTIME - aspirin 81 mg chewable tab(s) 81 mg ORAL DAILY PAST MEDICAL HISTORY Diagnosis Date - Diabetes (HCC) - Hypertension - PMR (polymyalgia rheumatica) (HCC) - Prostate cancer (HCC) PAST SURGICAL HISTORY Procedure Laterality Date - CATARACT EXTRACTION HX Bilateral - KNEE SURGERY HX - TUR CRYOSURG REM OF PROSTATE Social History Tobacco Use - Smoking status: Never Smoker - Smokeless tobacco: Never Used Substance Use Topics - Alcohol use: Not on file - Drug use: Not on file FAMILY HISTORY Problem Relation Age of Onset - No Ocular Disease Father - No Ocular Disease Mother - No Ocular Disease Sister - No Ocular Disease Brother ALLERGIES Allergen Reactions - Prednisolone Other: See Comments Reports it made him loopy Objective PHYSICAL EXAM: General Appearance: Well appearing, alert, in no acute distress, well-hydrated, well nourished. Head: Normocephalic, n (more content not included)... Normal [facility] CONSULT HNO ID: [id number] Author: Jaymie Phillips MD Service: Infectious Disease Author Type: Physician Type: Consults Filed: 03/09/2021 11:29 AM Note Text: INFECTIOUS DISEASE CONSULT NOTE Date: March 09, 2021 Patient Name: Stephany Reynolds Asked to see patient by Dr. Maia Bradley for COVID. My recommendations will be communicated back by way of shared medical record. HISTORY OF PRESENT ILLNESS Mr. Reynolds is a 70M with DM type II, HTN, history of prostate cancer s/p prostatectomy with onset of dizziness and poor appetite 1 week ago, continuing through the week, then cough over 2 days. His was diagnosed with pneumonia a few weeks ago and was not tested for COVID. In ER was found to be hypoxic, CT head with bilateral lacunar infarcts, age indeterminant. Found to be COVID positive. No sputum, chest pain, fever or rigors. Was given empiric abx for possible sepsis, remdesivir/dex. Feeling better already. PAST MEDICAL HISTORY Diagnosis Date - Diabetes (HCC) - Hypertension - PMR (polymyalgia rheumatica) (HCC) - Prostate cancer (HCC) PAST SURGICAL HISTORY Procedure Laterality Date - CATARACT EXTRACTION HX Bilateral - KNEE SURGERY HX - TUR CRYOSURG REM OF PROSTATE FAMILY HISTORY Problem Relation Age of Onset - No Ocular Disease Father - No Ocular Disease Mother - No Ocular Disease Sister - No Ocular Disease Brother Social History Tobacco Use - Smoking status: Never Smoker - Smokeless tobacco: Never Used Substance Use Topics - Alcohol use: Not on file - Drug use: Not on file IMMUNIZATION HISTORY There is no immunization history on file for this patient. MEDICATIONS Medications reviewed. Current antibiotics include: Active Antimicrobials (From admission, onward) Start Stop 03/10/21 0200 remdesivir 100 mg in NaCl 0.9% 250 mL Vial-Mate/ADD-[place] 100 mg, INTRAVENOUS, EVERY 24 HOURS Followed by Linked Group Details 03/14/21 0159 03/08/21 2330 azithromycin 500 mg in D5W 250 mL Vial-Mate (ZITHROMAX) 500 mg, INTRAVENOUS, ONCE 03/09/21 1129 ALLERGIES Allergen Reactions - Prednisolone Other: See Comments Reports it made him loopy REVIEW OF SYSTEMS: All other systems reviewed (14 total) and all are negative, other than as noted above or in HPI. Examination: BP 129/72 Pulse 100 Temp 36.8 ?C (98.3 ?F) (Oral) Resp 20 Ht 180.3 cm (5' 11) Wt 76.4 kg (168 lb 6.9 oz) SpO2 94% BMI 23.49 kg/m? GENERAL Alert, oriented, no distress HEENT no conjunctival lesions, no scleral icterus, OP benign NECK supple, no LAD CHEST clear HEART/CV regular rate and rhythm, no audible murmurs, rubs or gallops, no edema, good pulses ABDO no organomegaly, soft, nontender EXTREM no deformities, warm to touch SKIN no lesions of significance NEURO Cranial nerves intact Lines, Drains, and Airways Line Peripheral 03/08/21 2115 Left Antecubital 20 Gauge <1 day Laboratory data: WBC 5.7, HCT 39, PLTS 283, ALT 56, AST 76, CRP 2.8, PC 0.11 Microbiology data: 03/08: blood x 2 03/08: COVID + Imaging data: 03/08: CXR Basilar infiltrates with some linearity. ASSESSMENT: 70M with DM type II, HTN, history of prostate cancer s/p prostatectomy admitted with dizziness, found to have hypoxemic covid pneumonia. No evidence bacterial infection. Subjective improvement with remdesivir/dex. RECOMMENDATIONS: 1. Remdesivir day 2 of 5 2. Dexamethasone 3. Stop antibacterials 4. Monitor LFTs Signature: Jaymie Phillips MD Normal [facility] D dimeron 03-09-2021 D dimer 1320 ng/mL FEU High <500 [facility] Comment on above: Result Comment: 500 ng/mL FEU is the D Dimer cutoff to exclude DVT (deep vein thrombosis) and PE (pulmonary embolism) in patients with a low pre test probability. Supplemental Comment: In patients over 50 years with a low pre test probability for DVT and/or PE, an age adjusted D dimer cutoff can be calculated as [age x 10] ng/mL FEU. For example, a patient of 88 years would have an age adjusted D dimer cutoff of 880 ng/mL FEU. For patients with a suspected DVT, a D dimer level below 500 ng/mL FEU has a negative predictive value of >98.9%, a sensitivity of >96.9% and a specificity of >35.7%. For patients with a suspected PE, a D dimer level below 500 ng/mL FEU has a negative predictive value of >98.5%, and a sensitivity of >96.5% and a specificity of >38.8%. Reference: Linda M, et al. LISA 2014 311:1117 and Van Prerna N, et al. Imani Int Med 2016 165:253. Performed By: #### C RP, DEA, PROCAL, DDMER, HFP, LIPNF, HBA1C #### [facility] [address] [place] [address] ED NOTEon 03-09-2021 ED NOTE HNO ID: [id number] Author: Fish Urias RN Service: Emergency Medicine Author Type: Registered Nurse Type: ED Notes Filed: 03/09/2021 1:13 AM Note Text: Pt given 8oz. of cranberry juice for blood glucose of 69. Normal [facility] HISTORY PHYSICALon HISTORY PHYSICAL HNO ID: [id number] Author: Arnoldo Gutiérrez MD Service: Hospital Medicine Author Type: Physician Type: HANDP Filed: 03/09/2021 2:38 AM Note Text: DEPARTMENT OF HOSPITAL MEDICINE HISTORY AND PHYSICAL EXAM SERVICE DATE: 03/09/2021 SERVICE TIME: 1:15 AM Primary Care Physician: Natanael Gonzalez MD, MD NIGHT AND WEEKEND COVERAGE: Please page [phone] until 7:30am this morning. After 7:30am please check the treatment team banner and page the appropriate service. Subjective CHIEF COMPLAINT: Dizziness (Second opinion, Pt to ED for dizziness. Beginning 03-02 pt endorses dizziness upon standng up. Pt endorses syncopal episodes. Endorses recents falls - denies hitting head. Pt not on thinners. NAD.) HPI: This is a 70 year old male with PMH of DM2, prostate cancer s/p prostatectomy, ?PMR (off steroids since 2019) who presents with dizziness. Patient is not vaccinated against covid and declines discussing vaccination further. Patient reports first episode of dizziness 1 week ago. Has had 4-5 episodes over the past week. Reports one episode occurred while he was urinating in the bathroom, another episode while he was walking around the living room. Denies any focal weakness. Describes episode as him falling down, shaking of both arms and feet, and turning hanonn. He regained consciousness in 3 to 5 minutes but was somewhat confused. Endorses cough productive of yellow phlegm over the past few days, denies fever, chest pain, sore throat, rhinorrhea, headache, chest discomfort, abdominal pain. Reports has been sick with pneumonia over the past 2 to 3 weeks, however she did not get tested for Covid. He endorses poor p.o. intake due to lack of appetite for the past week. Denies loss of sense of taste or smell. In the ED, desat to 90% on RA, improved to 94-95% on 2L. CXR rad read Bilateral predominantly linear densities at the lung bases may represent atelectasis or atypical infectious process. CT brain showed scattered bilaterak cerebellar lacunar infarcts, presumed chronic but acuity unable to be conclusively determined. Labs notable for hyponatremia, transaminitis, mild hypoalbuminemia, Mild hypomagnesemia, proBNP mildly elevated at 47. I 60 troponin XX 30. Covid positive. Patient was treated with Vanco, Zosyn, potassium and admitted to medicine for further management. PAST MEDICAL HISTORY Diagnosis Date - Diabetes (HCC) - Hypertension - PMR (polymyalgia rheumatica) (HCC) - Prostate cancer (HCC) PAST SURGICAL HISTORY Procedure Laterality Date - CATARACT EXTRACTION HX Bilateral - KNEE SURGERY HX - TUR CRYOSURG REM OF PROSTATE FAMILY HISTORY Problem Relation Age of Onset - No Ocular Disease Father - No Ocular Disease Mother - No Ocular Disease Sister - No Ocular Disease Brother Social History Tobacco Use - Smoking status: Never Smoker - Smokeless tobacco: Never Used Substance Use Topics - Alcohol use: Not on file - Drug use: Not on file PRIOR TO ADMISSION MEDICATIONS: Current Outpatient Medications Medication Instructions - HUMALOG MIX 75-25 KWIKPEN 100 unit/mL (75-25) inpn INJECT 12 UNITS SUBCUTANEOUSLY TWICE DAILY - imipramine HCl (TOFRANIL) 25 mg tablet ORAL - levoFLOXacin (LEVAQUIN) 750 mg, ORAL, DAILY - meclizine (ANTIVERT) 25 mg tab 1 tablet, ORAL, 3 TIMES DAILY NEEDED - metFORMIN (GLUCOPHAGE) 1,000 mg, ORAL, EVERY MORNING ALLERGIES Allergen Reactions - Prednisolone Other: See Comments REVIEW OF SYSTEM: ROS As per HPI, all other systems reviewed and are negative. Objective PHYSICAL EXAM: BP 147/78 Pulse 108 Temp 99.9 Resp 20 SpO2 94% O2 Therapy: Nasal Cannula, Liters: 2 Physical Exam Constitutional: General: No acute distress. Appearance: Normal appearance. Ears, nose, mouth, throat: Ears: External ears normal bilaterally. Eyes: General: No scleral icterus. Extraocular Movements: Extraocular movements intact. Cardiovascular: Rate and Rhythm: Normal rate and regular rhythm. Heart sounds: Normal heart sounds. No murmur. No friction rub. No gallop. Right lower leg: No edema. Left lower leg: No edema. Respiratory: Effort: Pulmonary effort is normal. Breath sounds: Bibasilar rales Gastrointestinal: General: There is no distension. Palpations: Abdomen is soft. Tenderness: There is no abdominal tenderness. There is no guarding. Musculoskeletal: Normal ROM. Skin: General: Skin is warm and dry. Psychiatric: Mood and Affect: Mood normal. Speech: Speech normal. Neurological: Mental Status: Alert. Moving all extremities spontaneously. Lines, Drains, and Airways Line Peripheral 03/08/215 Left Antecubital 20 Gauge <1 day NIHSS: 1(a). Mental Status - LOC 0 = Alert and Attentive 1(b). LOC Questions 0 = Correct age and month 1(c). LOC-Commands 0 = Both 2. Gaze 0 = Normal 3. Visual Corbett 0 = Full 4. Facial Weakness 0 = Normal 5(a). Left Arm 0 (more content not included)... Normal [facility] Hemoglobin A1con 03-09-2021 Glucose [Mass/Vol] 166 mg/dL Normal [facility] Comment on above: Result Comment: eAG: (Estimated average glucose) is a calculated value from HgbA1c and is field support representative of the average blood glucose level in the last 2-3 month period. Performed By: #### C RP, DEA, PROCAL, DDMER, HFP, LIPNF, HBA1C #### [facility] [address] [place], [place] [address] HbA1c (Bld) [Mass fraction] 7.4 % High 4.3-5.6 [facility] Comment on above: Result Comment: Amer [place] Diabetes Association guidelines indicate that patients with HgbA1c in the range 5.7-6.4% are at increased risk for development of diabetes, and intervention by lifestyle modification may be beneficial. HgbA1c greater or equal to 6.5% is considered diagnostic of diabetes. Performed By: #### C RP, DEA, PROCAL, DDMER, HFP, LIPNF, HBA1C #### [place] [id number] [place] [address] Hepatic Functn Panelon 03-09 Albumin [Mass/Vol] 3.1 g/dL Low 3.9-4.9 [facility] Comment on above: Performed By: #### C RP, DEA, PROCAL, DDMER, HFP, LIPNF, HBA1C #### [place] [address] ALP [Catalytic activity/Vol] 220 U/L High 38-113 [facility] Comment on above: Performed By: #### C RP, DEA, PROCAL, DDMER, HFP, LIPNF, HBA1C #### [place] [address] [place], [place] [address] ALT [Catalytic activity/Vol] 56 U/L High 10-54 [facility] Comment on above: Performed By: #### C RP, DEA, PROCAL, DDMER, HFP, LIPNF, HBA1C #### [place] [address] [place], [place] [address] AST [Catalytic activity/Vol] 76 U/L High 14-40 [facility] Comment on above: Performed By: #### C RP, DEA, PROCAL, DDMER, HFP, LIPNF, HBA1C #### [place] [address] [place] [address] Bilirubin [Mass/Vol] 0.5 mg/dL Normal 0.2-1.3 [facility] Comment on above: Performed By: #### C RP, DEA, PROCAL, DDMER, HFP, LIPNF, HBA1C #### [place] [address] [place] [id number] Bilirubin,Conjugate d <0.2 Normal <0.2 [facility] Comment on above: Performed By: #### C RP, DEA, PROCAL, DDMER, HFP, LIPNF, HBA1C #### [facility] [address] [place] [address] Protein [Mass/Vol] 5.4 g/dL Low 6.3-8.0 [facility] Comment on above: Performed By: #### C RP, DEA, PROCAL, DDMER, HFP, LIPNF, HBA1C #### [place] [address] High Sens Troponin Ton 03-09 High Sensitivity DEA 30 ng/L High <12 [facility] Comment on above: Result Comment: When assessing risk for acute coronary syndromes: In patients undergoing blood draw greater than or equal to 2 hours from symptom onset, with history of very low to moderate risk and non-ischemic ECG, an initial hs-Troponin T less than 12 ng/L AND a 1 hour delta hs-Troponin T less than 3 ng/L should be considered very low risk for 30 day MACE. Performed By: #### C RP, DEA, PROCAL, DDMER, HFP, LIPNF, HBA1C #### [place] [address] [place] [address] High Sensitivity DEA 24 ng/L High <12 [facility] Comment on above: Result Comment: When assessing risk for acute coronary syndromes: In patients undergoing blood draw greater than or equal to 2 hours from symptom onset, with history of very low to moderate risk and non-ischemic ECG, an initial hs-Troponin T less than 12 ng/L AND a 1 hour delta hs-Troponin T less than 3 ng/L should be considered very low risk for 30 day MACE. Performed By: #### C RP, DEA, PROCAL, DDMER, HFP, LIPNF, HBA1C #### [facility] [address] [place] [id number] Lipid Panel, Nonfaston 03-09 Cholesterol [Mass/Vol] 103 mg/dL Normal <200 [facility] Comment on above: Result Comment: <200 mg/dL, Desirable 200-239 mg/dL, Borderline high >239 mg/dL, High Performed By: #### C RP, DEA, PROCAL, DDMER, HFP, LIPNF, HBA1C #### [place] [address] HDL Cholesterol, NF 35 mg/dL Low >39 [facility] Comment on above: Result Comment: 40-5 9 mg/dL, Acceptable >59 mg/dL, High: Negative risk factor for coronary heart disease <40 mg/dL, Low: Positive risk factor for coronary heart disease Performed By: #### C RP, DEA, PROCAL, DDMER, HFP, LIPNF, HBA1C #### [place] [address] LDL Cholesterol, NF 53 mg/dL Normal <100 [facility] Comment on above: Result Comment: <100 mg/dL, Optimal 100-129 mg/dL, Near optimal/above optimal 130-159 mg/dL, Borderline high 160-189 mg/dL, High >189 mg/dL, Very high Secondary prevention optimal LDL Cholesterol levels are recommended to be < 70 mg/dL Performed By: #### C RP, DEA, PROCAL, DDMER, HFP, LIPNF, HBA1C #### [place] [address] LDL/HDL Ratio, NF 1.51 mg/dL Normal <2.54 [facility] Comment on above: Result Comment: Refe rence: 1. National Cholesterol Education Program ATP III Guideline At-A-Glance Quick Desk Reference: National Heart, Lung, and Blood [place]. National Institutes of Health. 2001: NIH Publication No. 01-3305. 2. An International Atherosclerosis Society position paper: global recommendations for the management of dyslipidemia: executive summary, Atherosclerosis. 2014: 232(2):410-413. Performed By: #### C RP, DEA, PROCAL, DDMER, HFP, LIPNF, HBA1C #### [place] [address] [place] [address] Non HDL Chol, NF 68 mg/dL Normal <130 [facility] Comment on above: Result Comment: <130 mg/dL, Optimal 130-159 mg/dL, Near optimal/above optimal 160-189 mg/dL, Borderline high 190-219 mg/dL, High >219 mg/dL, Very high Secondary prevention optimal non HDL Cholesterol levels are recommended to be < 100 mg/dL Performed By: #### C RP, DEA, PROCAL, DDMER, HFP, LIPNF, HBA1C #### [facility] [address] [place] [address] T Chol/HDL Ratio NF 2.94 mg/dL Normal <5.10 [facility] Comment on above: Performed By: #### C RP, DEA, PROCAL, DDMER, HFP, LIPNF, HBA1C #### [place] [address] [place] [address] Triglycerides, NF 73 mg/dL Normal <150 [facility] Comment on above: Result Comment: <150 mg/dL, Normal 150-199 mg/dL, Borderline high 200-499 mg/dL, High >499 mg/dL, Very high Performed By: #### C RP, DEA, PROCAL, DDMER, HFP, LIPNF, HBA1C #### [facility] [address] [place] [address] VLDL Cholesterol, NF 15 mg/dL Normal <30 [facility] Comment on above: Performed By: #### C RP, DEA, PROCAL, DDMER, HFP, LIPNF, HBA1C #### [facility] [address] [place] [address] NURSING PROGon 03-09-2021 NURSING PROG HNO ID: [id number] Author: Steph Shahid RN Service: ? Author Type: Registered Nurse Type: Nursing Progress Note Filed: 03/09/2021 2:27 AM Note Text: Nursing Progress Note Patient Name: Stephany Reynolds Patient Location: [place] [address] Transfer Note: Patient transferred into room/unit H81-32 in stable condition. Actions taken: No futher actions taken at this time. Will continue to monitor and check with patient. Patient belongings with patient. This note was completed by: Steph Shahid Normal [facility] Osmolalityon 03-09-2021 Osmolality [Osmolality] 287 mosm/kg Normal 275-300 [facility] Comment on above: Performed By: #### C RP, DEA, PROCAL, DDMER, HFP, LIPNF, HBA1C #### [facility] [address] [place] [address] Procalcitoninon 03-09-2021 Procalcitonin 0.11 ng/mL High <0.09 [facility] Comment on above: Result Comment: For a guided interpretation of test results, please visit the Change in Procalcitonin Calculator, [email or web address]. Performed By: #### C RP, DEA, PROCAL, DDMER, HFP, LIPNF, HBA1C #### [facility] [address] [place] [phone] Protimeon 03-09-2021 PT INR 1.1 Normal 0.9-1.3 [facility] Comment on above: Result Comment: Gisel min K Antagonist (VKA) Therapeutic Range: INR 2 to 3 (Target INR of 2.5) Note: For patients treated with VKA drugs, such as warfarin, the [place] College [employer]icians 2012 Guideline recommends a therapeutic INR range of 2 to 3 (target INR of 2.5). This recommendation includes high-risk patients with antiphospholipid syndrome with previous arterial or venous thromboembolism, current-generation mechanical or bioprosthetic aortic heart valve replacement. Note: Patients with mechanical aortic valve replacement and additional risk factors for thromboembolic events (atrial fibrillation, previous thromboembolism, LV dysfunction, hypercoagulable conditions) or an older generation mechanical AVR (i.e., ball in-Cage) or any mechanical MVR should have a INR therapeutic range of 2.5 to 3.5 (target INR of 3). Tanner GH, et al. Chest 2012, 141:7S-47S Denia RA, et al. [facility] 2017, 70: 252-289 Performed By: #### C RP, DEA, PROCAL, DDMER, HFP, LIPNF, HBA1C #### [place] [address] [place] [address] PT Sec 11.2 sec Normal 9.7-13.0 [facility] Comment on above: Performed By: #### C RP, DEA, PROCAL, DDMER, HFP, LIPNF, HBA1C #### [place] [address] [place] [phone] Troponin Ton 03-09-2021 Troponin T <0.010 Normal 0.000-0.029 [facility] Comment on above: Performed By: #### B MP, HFP #### [place] [phone] Troponin T <0.010 Normal 0.000-0.029 [facility] Comment on above: Performed By: #### C RP, DEA, PROCAL, DDMER, HFP, LIPNF, HBA1C #### [place] [address] [place] [address] CBC and Differentialon 03-08 Abs Baso 0.03 k/uL Normal <0.11 [facility] Comment on above: Performed By: #### C RP, DEA, PROCAL, DDMER, HFP, LIPNF, HBA1C #### [place] [address] [place] [address] Abs Eosin <0.03 Normal <0.46 [facility] Comment on above: Performed By: #### C RP, DEA, PROCAL, DDMER, HFP, LIPNF, HBA1C #### [place] [address] [place] [address] Abs Cherry 0.62 k/uL Normal <0.87 [facility] Comment on above: Performed By: #### C RP, DEA, PROCAL, DDMER, HFP, LIPNF, HBA1C #### [place] [address] [place] [phone] Abs Neut 4.13 k/uL Normal 1.45-7.50 [facility] Comment on above: Performed By: #### C RP, DEA, PROCAL, DDMER, HFP, LIPNF, HBA1C #### [place] [phone] Absolute nRBC <0.01 Normal <0.01 [facility] Comment on above: Performed By: #### C RP, DEA, PROCAL, DDMER, HFP, LIPNF, HBA1C #### [place] [phone] Basophils/100 WBC (Bld) 0.5 % Normal [facility] Comment on above: Performed By: #### C RP, DEA, PROCAL, DDMER, HFP, LIPNF, HBA1C #### [place] [phone] DTYPE Auto Diff Normal [facility] Comment on above: Performed By: #### C RP, DEA, PROCAL, DDMER, HFP, LIPNF, HBA1C #### [place] [address] [place] [phone] Eosinophils/100 WBC (Bld) 0.0 % Normal [facility] Comment on above: Performed By: #### C RP, DEA, PROCAL, DDMER, HFP, LIPNF, HBA1C #### [place] [address] [place] [phone] Erythrocyte distribution width (RBC) [Ratio] 15.0 % Normal 11.5-15.0 [facility] Comment on above: Performed By: #### C RP, DEA, PROCAL, DDMER, HFP, LIPNF, HBA1C #### [place] [phone] Hematocrit (Bld) [Volume fraction] 37.8 % Low 39.0-51.0 [facility] Comment on above: Performed By: #### C RP, DEA, PROCAL, DDMER, HFP, LIPNF, HBA1C #### [place] [address] [place], [place] [address] Hemoglobin (Bld) [Mass/Vol] 12.8 g/dL Low 13.0-17.0 [facility] Comment on above: Performed By: #### C RP, DEA, PROCAL, DDMER, HFP, LIPNF, HBA1C #### [place] [address] Lymphocytes (Bld) [#/Vol] 1.00 10*3/uL Normal 1.00-4.00 [facility] Comment on above: Performed By: #### C RP, DEA, PROCAL, DDMER, HFP, LIPNF, HBA1C #### [place] [address] [place] [address] Lymphocytes/100 WBC (Bld) 17.3 % Normal [facility] Comment on above: Performed By: #### C RP, DEA, PROCAL, DDMER, HFP, LIPNF, HBA1C #### [place] [address] MCH 27.5 pG Normal 26.0-34.0 [facility] Comment on above: Performed By: #### C RP, DEA, PROCAL, DDMER, HFP, LIPNF, HBA1C #### [place] [address] [place] [address] MCHC (RBC) [Mass/Vol] 33.9 g/dL Normal 30.5-36.0 [facility] Comment on above: Performed By: #### C RP, DEA, PROCAL, DDMER, HFP, LIPNF, HBA1C #### [place] [address] [place] [address] MCV (RBC) [Entitic vol] 81.1 fL Normal 80.0-100.0 [facility] Comment on above: Performed By: #### C RP, DEA, PROCAL, DDMER, HFP, LIPNF, HBA1C #### [facility] [address] [place], [place] [address] Monocytes/100 WBC (Bld) 10.7 % Normal [facility] Comment on above: Performed By: #### C RP, DEA, PROCAL, DDMER, HFP, LIPNF, HBA1C #### [place] [address] [place], [place] [address] Neutrophils/100 WBC (Bld) 71.5 % Normal [facility] Comment on above: Performed By: #### C RP, DEA, PROCAL, DDMER, HFP, LIPNF, HBA1C #### [place] [address] [place], [place] [address] NRBCs 0.0 /100 WBC Normal 0 [facility] Comment on above: Performed By: #### C RP, DEA, PROCAL, DDMER, HFP, LIPNF, HBA1C #### [place] [address] [place], [place] [address] Platelet mean volume (Bld) [Entitic vol] 9.4 fL Normal 9.0-12.7 [facility] Comment on above: Performed By: #### C RP, DEA, PROCAL, DDMER, HFP, LIPNF, HBA1C #### [facility] [address] [place], [place] [address] Platelets (Bld) [#/Vol] 283 10*3/uL Normal 150-400 [facility] Comment on above: Performed By: #### C RP, DEA, PROCAL, DDMER, HFP, LIPNF, HBA1C #### [facility] [address] [place], [place] [address] RBC (Bld) [#/Vol] 4.66 10*6/uL Normal 4.20-6.00 [facility] Comment on above: Performed By: #### C RP, DEA, PROCAL, DDMER, HFP, LIPNF, HBA1C #### [facility] [address] [place], [place] [address] WBC (Bld) [#/Vol] 5.78 10*3/uL Normal 3.70-11.00 [facility] Comment on above: Performed By: #### C RP, DEA, PROCAL, DDMER, HFP, LIPNF, HBA1C #### [facility] [address] [place], [place] [address] CT BRAIN WO IVCONon 03-08-19 CT BRAIN WO IVCON * * *Final Report* * * DATE OF EXAM: Mar 08 2021 8:54PM [facility] 0504 - CT BRAIN WO IVCON / PROCEDURE REASON: Syncope, recurrent * * * * Physician Interpretation * * * * EXAMINATION: CT BRAIN WO IVCON CLINICAL HISTORY: Syncope TECHNIQUE: Serial axial images without IV contrast were obtained from the vertex to the foramen magnum. MQ: [id number] CT Radiation dose: Integrated Dose-Length Product (DLP) for this visit = 775 mGy*cm CT Dose Reduction Employed: No dose reduction techniques were required COMPARISON: CT orbits 07/28/2020 RESULT: [employer] (topogram) images: Post-operative change: None. Acute change: No evidence of an acute infarct or other acute parenchymal process. Hemorrhage: No evidence of acute intracranial hemorrhage. ECASS hemorrhagic transformation score: Not Applicable Mass Lesion / Mass Effect: There is no evidence of an intracranial mass or extraaxial fluid collection. No significant mass effect. Chronic change: Patchy foci of low attenuation coefficient are present within the supratentorial white matter which is a nonspecific finding but likely represents moderate microvascular ischemia. Bilateral age-indeterminate but presumed chronic given appearance wedge-shaped cerebellar lacunar infarcts. Acuity can be conclusively determined with obtainable remote comparison imaging if possible or MRI if clinically warranted. Parenchyma: There is mild to moderate generalized volume loss. The brain parenchyma is otherwise within normal limits for age. Ventricles: Ventricular enlargement concordant with the degree of parenchymal volume loss. Paranasal sinuses and skull base: The visualized paranasal sinuses are grossly clear. The skull base and imaged soft tissues are unremarkable. Chronic nasal bone fracture. IMPRESSION: No large cortical infarct or acute hemorrhage. Scattered bilateral cerebellar lacunar infarcts which are age-indeterminate but presumed chronic given appearance. Acuity can't be conclusively determined with obtainable remote comparison imaging if possible or MRI determined clinically warranted. Manager Environmental Services: NIMESH Transcribe Date/Time: Mar 08 2021 8:57P Dictated by : MIRYAM RAMSEY MD This examination was interpreted and the report reviewed and electronically signed by: MIRYAM RAMSEY MD on Mar 08 2021 9:00PM EST [id number] Normal [facility] Comp Metabolic Panelon 03-08 Albumin [Mass/Vol] 3.5 g/dL Low 3.9-4.9 [facility] Comment on above: Performed By: #### C RP, DEA, PROCAL, DDMER, HFP, LIPNF, HBA1C #### [facility] [address] [place], [place] [address] ALP [Catalytic activity/Vol] 255 U/L High 38-113 [facility] Comment on above: Performed By: #### C RP, DEA, PROCAL, DDMER, HFP, LIPNF, HBA1C #### [facility] [address] [place], [place] [address] ALT [Catalytic activity/Vol] 62 U/L High 10-54 [facility] Comment on above: Performed By: #### C RP, DEA, PROCAL, DDMER, HFP, LIPNF, HBA1C #### [facility] [address] [place], [place] [address] Anion gap [Moles/Vol] 11 mmol/L Normal 9-18 [facility] Comment on above: Performed By: #### C RP, DEA, PROCAL, DDMER, HFP, LIPNF, HBA1C #### [facility] [address] [place], [place] [address] AST [Catalytic activity/Vol] 85 U/L High 14-40 [facility] Comment on above: Performed By: #### C RP, DEA, PROCAL, DDMER, HFP, LIPNF, HBA1C #### [facility] [address] [place], [place] [address] Bilirubin [Mass/Vol] 0.5 mg/dL Normal 0.2-1.3 [facility] Comment on above: Performed By: #### C RP, DEA, PROCAL, DDMER, HFP, LIPNF, HBA1C #### [address] [place] [place], [place] [address] Calcium [Mass/Vol] 8.5 mg/dL Normal 8.5-10.2 [facility] Comment on above: Performed By: #### C RP, DEA, PROCAL, DDMER, HFP, LIPNF, HBA1C #### [address] [place], [place] [address] Chloride [Moles/Vol] 93 mmol/L Low 97-105 [facility] Comment on above: Performed By: #### C RP, DEA, PROCAL, DDMER, HFP, LIPNF, HBA1C #### [address] [place], [place] [address] CO2 [Moles/Vol] 25 mmol/L Normal 22-30 [facility] Comment on above: Performed By: #### C RP, DEA, PROCAL, DDMER, HFP, LIPNF, HBA1C #### [address] [place], [place] [address] Creatinine [Mass/Vol] 0.86 mg/dL Normal 0.73-1.22 [facility] Comment on above: Performed By: #### C RP, DEA, PROCAL, DDMER, HFP, LIPNF, HBA1C #### [facility] [address] [place], [place] [address] eGFR- Amer. >60 Normal [facility] Comment on above: Performed By: #### C RP, DEA, PROCAL, DDMER, HFP, LIPNF, HBA1C #### [address] [place] [place], [place] [address] eGFR-All Other Races >60 Normal [facility] Comment on above: Result Comment: eGFR (Estimated GFR) Units of measure: mL/min/1.73 meters squared eGFR is derived from the reexpressed MDRD Study equation using the following parameters: serum creatinine, age, gender and race. The creatinine assay has been calibrated to be traceable to IDMS. An eGFR <60 mL/min/1.73m2 for >3 months is consistent with chronic kidney disease. Refer to KDOQI guidelines for clinical interpretation. In patients with unstable renal function, e.g. those with acute kidney injury, the eGFR may not accurately reflect actual GFR. Note: On 04/02/2021, the eGFR calculation will be updated to the NKF-ASN Task Force recommended 2020 CKD-EPI creatinine equation which does not include a race variable. For more information or to access a 2020 CKD-EPI calculator, visit the National Kidney Foundation website at kidney.org/professionals/kdoqi/gfr_calculator. Performed By: #### C RP, DEA, PROCAL, DDMER, HFP, LIPNF, HBA1C #### [facility] [address] [place], [place] [address] Glucose [Mass/Vol] 116 mg/dL High 74-99 [facility] Comment on above: Result Comment: The Citizen [place] Diabetes Association (ADA) provides guidance for cutoff values for fasting glucose and random glucose. The ADA defines fasting as no caloric intake for at least 8 hours. Fasting plasma glucose results between 100 to 125 mg/dL indicate increased risk for diabetes (prediabetes). Fasting plasma glucose results greater than or equal to 126 mg/dL meet the criteria for diagnosis of diabetes. In the absence of unequivocal hyperglycemia, results should be confirmed by repeat testing. In a patient with classic symptoms of hyperglycemia or hyperglycemic crisis, random plasma glucose results greater than or equal to 200 mg/dL meet the criteria for diagnosis of diabetes. Reference: Standards of Medical Care in Diabetes 2016, [place] Diabetes Association. Diabetes Care. 2016.39(Suppl 1). Performed By: #### C RP, DEA, PROCAL, DDMER, HFP, LIPNF, HBA1C #### [facility] [address] [place], [place] [address] Potassium [Moles/Vol] 3.6 mmol/L Low 3.7-5.1 [facility] Comment on above: Performed By: #### C RP, DEA, PROCAL, DDMER, HFP, LIPNF, HBA1C #### [facility] [address] [place], [place] [id number] Protein [Mass/Vol] 6.2 g/dL Low 6.3-8.0 [facility] Comment on above: Performed By: #### C RP, DEA, PROCAL, DDMER, HFP, LIPNF, HBA1C #### [facility] [address] [place], [place] [address] Sodium [Moles/Vol] 129 mmol/L Low 136-144 [facility] Comment on above: Performed By: #### C RP, DEA, PROCAL, DDMER, HFP, LIPNF, HBA1C #### [facility] [address] [place], [place] [address] Urea nitrogen [Mass/Vol] 18 mg/dL Normal 9-24 [facility] Comment on above: Performed By: #### C RP, DEA, PROCAL, DDMER, HFP, LIPNF, HBA1C #### [facility] [address] [place] [id number] ED PROV NOTEon 03-08-2021 ED PROV NOTE HNO ID: [id number] Author: Raheel Sue MD Service: Emergency Medicine Author Type: Physician Type: ED Provider Notes Filed: 03/09/2021 12:50 AM Note Text: ED Provider Note Patient Name: Stephany Reynolds SERVICE DATE: 03/08/21 History Patient presents with: Dizziness: Second opinion, Pt to ED for dizziness. Beginning 03-02 pt endorses dizziness upon standng up. Pt endorses syncopal episodes. Endorses recents falls - denies hitting head. Pt not on thinners. NAD. HPI Patient arrives with his complaining of recurrent syncopal episodes for approximately 6 days prior to admission. Initial syncopal episode was when patient was in his bathroom. describes him falling down having shaking of both arms and feet very transiently and turning hannon. Symptoms lasted approximately 1 minute EMS was called patient regained consciousness within 3 to 5 minutes though he was somewhat obtunded. He was back to his normal neurologic baseline at approximately 10 minutes. Patient describes feeling unusually lightheaded and dizzy over the last week. Patient and are not sure if he is weak on the right side or left side. Patient has a cough productive of yellow phlegm for the last few days, no fever, no chest pain, no sore throat, headache, abdominal pain. He does have some right lower posterior rib pain where he fell against an object several days ago. He denies urinary incontinence stool incontinence or tongue biting during these episodes or otherwise during the week. He denies any new rashes. His blood sugars have been fine, he is diabetic. He has been to to prior emergency departments that were unable to give him answers and primary care physician told to come the [facility] emergency department. States he has been taking medications as directed. He is presently 6 weeks status post total knee surgery on the left. He is here now due to continuation of the symptoms. Single pull episodes occur approximately once a day. Patient's dizziness and generalized weakness is persistent. His appetite is decreased x 1 wk. All he has had to eat today is two energy bars and some protein drinks today. PAST MEDICAL HISTORY Diagnosis Date - Diabetes (HCC) - Hypertension - PMR (polymyalgia rheumatica) (HCC) - Prostate cancer (HCC) PAST SURGICAL HISTORY Procedure Laterality Date - CATARACT EXTRACTION HX Bilateral - KNEE SURGERY HX - TUR CRYOSURG REM OF PROSTATE FAMILY HISTORY Problem Relation Age of Onset - No Ocular Disease Father - No Ocular Disease Mother - No Ocular Disease Sister - No Ocular Disease Brother Social History Tobacco Use - Smoking status: Never Smoker - Smokeless tobacco: Never Used Substance and Sexual Activity - Alcohol use: Not on file - Drug use: Not on file - Sexual activity: Not on file ALLERGIES Allergen Reactions - Prednisolone Other: See Comments Review of Systems Constitutional: Positive for activity change, appetite change and fatigue. Negative for chills, diaphoresis, fever and unexpected weight change. HENT: Negative. Eyes: Negative. Respiratory: Positive for cough and shortness of breath. Negative for chest tightness, wheezing and stridor. Cardiovascular: Positive for chest pain. Negative for palpitations and leg swelling. Gastrointestinal: Negative for abdominal pain, anal bleeding, blood in stool, constipation, diarrhea, nausea and vomiting. Endocrine: Negative. Negative for polydipsia, polyphagia and polyuria. Genitourinary: Negative for dysuria, enuresis, frequency, hematuria, penile discharge and urgency. Musculoskeletal: Negative for arthralgias, gait problem, joint swelling, myalgias, neck pain and neck stiffness. Skin: Negative for rash. Neurological: Positive for dizziness, tremors, syncope, weakness and light-headedness. Negative for facial asymmetry, speech difficulty, numbness and headaches. Hematological: Negative. Negative for adenopathy. Psychiatric/Behavioral: Negative. Physical Exam Vitals BP Pulse Temp Temp src Resp SpO2 Weight Height 03/08/21 1738 03/08/21 1738 03/08/21 173 -- 03/08/21 1738 03/08/211737 -- -- 127/65 (!) 113 37.7 ?C (99.9 ?F) 18 97 % Physical Exam Constitutional: General: He is not in acute distress. Appearance: Normal appearance. He is normal weight. He is not ill-appearing, toxic-appearing or diaphoretic. Comments: Well-developed male no distress speaking slowly but appropriately. HENT: Head: Normocephalic. Right Ear: Tympanic membrane normal. There is no impacted cerumen. Left Ear: Tympanic membrane normal. There is no impacted cerumen. Nose: Nose normal. No congestion or rhinorrhea. Mouth/Throat: Pharynx: No oropharyngeal exudate or posterior oropharyngeal erythema. Comments: Mucous membranes tacky Eyes: General: Right eye: No discharge. Left eye: No discharge. Extraocular Movements: Extraocular movements intact (more content not included)... Normal [facility] Expedited [id number] 03-08-19 SARS-CoV-2 (COVID-19) RNA JOY+probe Ql (Unsp spec) UPPER RESPIRATORY TRACT SWAB Normal [facility] Comment on above: Result Comment: No c all per procedure. 03/09/2021 0009. Performed By: #### C RP, DEA, PROCAL, DDMER, HFP, LIPNF, HBA1C #### [facility] [address] [place] [id number] SARS-CoV-2 (COVID-19) RNA JOY+probe Ql (Unsp spec) Positive for COVID19 (SARS CoV2) by RT-PCR or equivalent method. Critically abnormal Negative for COVID19 (SARS CoV2) by RT-PCR or equivalent method. [facility] Comment on above: Result Comment: This test has been authorized by FDA under an Emergency Use Authorization (EUA). Test performed by [facility], [facility] [place] [place], [place] [address]. Performed By: #### C RP, DEA, PROCAL, DDMER, HFP, LIPNF, HBA1C #### [place] [address] High Sens Troponin Ton 03-08 High Sensitivity DEA 23 ng/L High <12 [facility] Comment on above: Result Comment: When assessing risk for acute coronary syndromes: In patients undergoing blood draw greater than or equal to 2 hours from symptom onset, with history of very low to moderate risk and non-ischemic ECG, an initial hs-Troponin T less than 12 ng/L AND a 1 hour delta hs-Troponin T less than 3 ng/L should be considered very low risk for 30 day MACE. Performed By: #### C RP, DEA, PROCAL, DDMER, HFP, LIPNF, HBA1C #### [address] [address] Magnesiumon 03-08-2021 Magnesium [Mass/Vol] 1.8 mg/dL Normal 1.7-2.3 [facility] Comment on above: Performed By: #### B MP, HFP #### [address] [address] NT Pro BNPon 03-08-2021 PRO B Natr Peptide 487 pg/mL High <125 [facility] Comment on above: Performed By: #### B MP, HFP #### [address] [address] XR CHEST 1V FRONTAL PORTon 0 03-08-2021 XR CHEST 1V FRONTAL PORT * * *Final Report* * * DATE OF EXAM: Mar 08 2021 9:00PM EGX [id number] - XR CHEST 1V FRONTAL PORT / PROCEDURE REASON: Cough, new onset * * * * Physician Interpretation * * * * EXAMINATION: CHEST RADIOGRAPH (PORTABLE SINGLE VIEW AP) Exam Date/Time: 03/08/2021 9:00 PM Clinical History: Cough, new onset, Shortness of breath MQ: [id number] Comparison: 05/29/2019 RESULT: Lines, tubes, and devices: None. Lungs and pleura: Bilateral predominantly linear densities at the lung bases may represent atelectasis or atypical infectious process.. No consolidation. No pleural effusion or pneumothorax. Cardiomediastinal silhouette: Stable cardiomediastinal silhouette. Other: . IMPRESSION: See result. Manager Environmental Services: NIMESH Transcribe Date/Time: Mar 08 2021 9:25P Dictated by : KIM NARAYANAN MD This examination was interpreted and the report reviewed and electronically signed by: KIM NARAYANAN MD on Mar 08 2021 9:26PM EST [id number] Normal [facility] Complete Blood Count + Diffe rentialon 03-07-2021 Basophils/100 WBC (Bld) 0.5 % 0.0 - 2.0 [facility] Work Phone: Erythrocyte distribution width (RBC) [Ratio] 15.8 % above high threshold See Below [facility] Work Phone: Comment on above: Reference Range: 11. 5 - 14.5 Hematocrit (Bld) [Volume fraction] 38.3 % below low threshold See Below [facility] Work Phone: Comment on above: Reference Range: 41. 0 - 52.0 Hemoglobin (Bld) [Mass/Vol] 13.2 g/dL below low threshold See Below [facility] Work Phone: Comment on above: Reference Range: 13. 5 - 17.5 Lymphocytes/100 WBC (Bld) 12.7 % See Below [facility] Work Phone: Comment on above: Reference Range: 13. 0 - 44.0 MCHC (RBC) [Mass/Vol] 34.5 g/dL See Below [facility] Work Phone: Comment on above: Reference Range: 32. 0 - 36.0 MCV (RBC) [Entitic vol] 80 fL 80 - 100 [facility] Work Phone: Monocytes/100 WBC (Bld) 10.4 % 2.0 - 10.0 [facility] Work Phone: Neutrophils/100 WBC (Bld) 76.2 % See Below [facility] Work Phone: Comment on above: Reference Range: 40. 0 - 80.0 Platelets (Bld) [#/Vol] 269 10*3/uL 150 - 450 [facility] Work Phone: RBC (Bld) [#/Vol] 4.80 {x10E12/L} See Below [facility] Work Phone: Comment on above: Reference Range: 4.5 0 - 5.90 WBC (Bld) [#/Vol] 6.0 10*3/uL 4.4 - 11.3 [facility] Work Phone: Complete Blood Count + Differential 0.00 {x10E9/L} See Below [facility] Work Phone: Comment on above: Reference Range: 0.0 0 - 0.10 Reference Range: 0.0 0 - 0.40 Complete Blood Count + Differential 0.60 {x10E9/L} See Below [facility] Work Phone: Comment on above: Reference Range: 0.0 5 - 0.80 Complete Blood Count + Differential 0.80 {x10E9/L} See Below [facility] Work Phone: Comment on above: Reference Range: 0.8 0 - 3.00 Complete Blood Count + Differential 4.50 {x10E9/L} See Below [facility] Work Phone: Comment on above: Reference Range: 1.6 0 - 5.50 Percent differential counts (%) should be interpreted in the context of the absolute cell counts (cells/L). Complete Blood Count + Differential 0.2 % 0.0 - 6.0 [facility] Work Phone: Complete Blood Count + Differential 0.1 {/100_WBC} [facility] Work Phone: Coronavirus 2019 RNA by PCR, Symptomaticon 03-07-2021 Date and time of symptom onset Canceled [facility] Work Phone: Coronavirus 2019 RNA by PCR, Symptomatic Canceled [facility] Work Phone: Comment on above: SOURCE: Nasal, Nasop haryngeal.This test has received FDA Emergency Use Authorization (EUA) and has been verified by [facility]. This test is only authorized for the duration of time that circumstances exist to justify the authorization of the emergency use of in vitro diagnostic tests for the detection of SARS-CoV-2 virus and/or diagnosis of COVID-19 infection under section 564(b)(1) of the Act, 21 U.S.C. 360bbb-3(b)(1), unless the authorization is terminated or revoked sooner. [facility] is certified under CLIA-88 as qualified to perform high complexity testing. Testing is performed in the [facility] laboratory located at [address] [place] [address].SARS-CoV-2/Flu/RSV Multiplex Test: Fact sheet for providers: https://www.fda.gov/media/054483/downloadFact sheet for patients: https://www.fda.gov/media/787071/download Laboratory - Chemistry and C hemistry - challengeon 03-07-2021 Albumin BCP dye [Mass/Vol] 3.3 g/dL below low threshold 3.4 - 5.0 [facility] Work Phone: ALP [Catalytic activity/Vol] 215 U/L above high threshold 33 - 136 [facility] Work Phone: ALT With P-5'-P [Catalytic activity/Vol] 63 U/L above high threshold 10 - 52 [facility] Work Phone: Comment on above: Patients treated wit h Sulfasalazine may generate falsely decreased results for ALT. Anion gap [Moles/Vol] 12 mmol/L 10 - 20 [facility] Work Phone: AST With P-5'-P [Catalytic activity/Vol] 83 U/L above high threshold 9 - 39 [facility] Work Phone: Bilirubin [Mass/Vol] 0.5 mg/dL 0.0 - 1.2 [facility] Work Phone: Calcium [Mass/Vol] 8.0 mg/dL below low threshold 8.6 - 10.3 [facility] Work Phone: Chloride [Moles/Vol] 98 mmol/L 98 - 107 [facility] Work Phone: CO2 [Moles/Vol] 27 mmol/L 21 - 32 [facility] Work Phone: Creatinine [Mass/Vol] 0.80 mg/dL See Below [facility] Work Phone: Comment on above: Reference Range: 0.5 0 - 1.30 Glucose [Mass/Vol] 119 mg/dL above high threshold 74 - 99 [facility] Work Phone: Potassium [Moles/Vol] 3.4 mmol/L below low threshold 3.5 - 5.3 [facility] Work Phone: Protein [Mass/Vol] 6.2 g/dL below low threshold 6.4 - 8.2 [facility] Work Phone: Sodium [Moles/Vol] 134 mmol/L below low threshold 136 - 145 [facility] Work Phone: Urea nitrogen [Mass/Vol] 17 mg/dL 6 - 23 [facility] Work Phone: No Panel Informationon 03-07 >90 >90 [facility] Work Phone: Comment on above: CALCULATIONS OF LIZETTE MATED GFR ARE PERFORMED USING THE 2020 CKD-EPI STUDY REFIT EQUATION WITHOUT THE RACE VARIABLE FOR THE IDMS-TRACEABLE CREATININE METHODS.https://jasn.asnjournals.org/content/early/ASN. 7062468473 http://UHMUSEPRDAIO0 1:8 080/musescripts/museweb .dll?RetrieveTestByDate Time?FbddkhfNS=[id number] 2&Date=07-03-2021&Time= 09%3a50%3a51%3a00&TestT ype=ECG&Site=14&OutputT ype=PDF&Ext=PDF [facility] Work Phone: [phone] Please see physicia n note for formal interpretation confirmed by Scribe [facility] Work Phone: [phone] Normal [facility] Work Phone: [phone] [facility] Work Phone: [phone] [facility] Work Phone: [phone] [facility] Work Phone: [phone] [facility] Work Phone: [phone] [facility] Work Phone: [phone] [facility] Work Phone: [phone] [facility] Work Phone: [phone] [facility] Work Phone: [phone] [facility] Work Phone: [phone] [facility] Work Phone: [phone] [facility] Work Phone: [phone] [facility] Work Phone: [phone] [facility] Work Phone: [phone] [facility] Work Phone: Troponin I, Serumon 01-31-20 22 Troponin I.cardiac [Mass/Vol] 0.03 ng/mL See Below [facility] Work Phone: Comment on above: Reference Range: 0.0 0 - 0.03LESS THAN 0.04 NG/ML: NEGATIVEREPEAT TESTING IN THREE TO SIX HOURSIF CLINICALLY INDICATED.0.04 - 0.5 NG/ML: CONSISTENT WITH POSSIBLECARDIAC DAMAGE AND POSSIBLE INCREASEDCLINICAL RISK.SERIAL MEASUREMENTS MAY HELP ASSESS EXTENT OFMYOCARDIAL DAMAGE.>0.5 NG/ML: CONSISTENT WITH CARDIAC DAMAGE,INCREASED CLINICAL RISK AND MYOCARDIALINFARCTION. SERIAL MEASUREMENTS MAY HELPASSESS EXTENT OF MYOCARDIAL DAMAGE..Note: Troponin I testing is performed using different testing methodology at [facility] than at other legacy [facility]. Direct result comparisons should only be made within the same method. CBC, EDIF, PLATELETon 2021 ABSOLUTE BASOPHIL COUNT 0.0 10*3/uL 0.0 - 0.2 10*3/uL [facility] Basophils/100 WBC (Bld) 0.4 % 0.0 - 2.0 % [facility] Differential cell count method Nom (Bld) AUTO DIFF % [facility] Eosinophils (Bld) [#/Vol] 0.00 10*3/uL 0.0 - 0.7 10*3/uL [facility] Eosinophils/100 WBC (Bld) 0.2 % 0.0 - 11.0 % [facility] Erythrocyte distribution width (RBC) [Ratio] 16.3 % High 11.5 - 14.5 % [facility] Hematocrit (Bld) [Volume fraction] 43.4 % 42.0 - 52.0 % [facility] Hemoglobin (Bld) [Mass/Vol] 14.5 g/dL [facility] Interpretation and review of laboratory results Abnormal [facility] Lymphocytes (Bld) [#/Vol] 1.10 10*3/uL Low 1.2 - 3.4 10*3/uL [facility] Lymphocytes/100 WBC (Bld) 21.6 % 20.0 - 55.0 % [facility] MCH (RBC) [Entitic mass] 27.0 pg 26.0 - 35.0 PG [facility] MCHC (RBC) [Mass/Vol] 33.3 g/dL [facility] MCV (RBC) [Entitic vol] 81.2 fL [facility] Monocytes (Bld) [#/Vol] 0.7 10*3/uL 0.0 - 0.7 10*3/uL [facility] Monocytes/100 WBC (Bld) 13.8 % High 0.0 - 10.0 % [facility] Neutrophils (Bld) [#/Vol] 3.3 10*3/uL 1.4 - 6.5 10*3/uL [facility] [facility] Neutrophils/100 WBC (Bld) 64.0 % 37.0 - 75.0 % [facility] Platelet mean volume (Bld) [Entitic vol] 7.9 fL [facility] Platelets (Bld) [#/Vol] 291 10*3/uL 130.0 - 400.0 10*3/uL [facility] RBC (Bld) [#/Vol] 5.35 10*6/uL 4.0 - 6.1 10*6/uL [facility] WBC (Bld) [#/Vol] 5.2 10*3/uL 3.6 - 11.0 10*3/uL [facility] COMPREHENSIVE METABOLIC PANE Jono 03-06-2021 Albumin [Mass/Vol] 3.5 G/dl 3.5 - 5.0 G/dl [facility] Albumin/Globulin [Mass ratio] 0.9 {ratio} Low [facility] ALP [Catalytic activity/Vol] 214 U/L [facility] ALT [Catalytic activity/Vol] 79 U/L [facility] AST [Catalytic activity/Vol] 103 U/L [facility] Bilirubin [Mass/Vol] 0.5 mg/dL [facility] Calcium [Mass/Vol] 9.5 mg/dL [facility] Chloride [Moles/Vol] 94 mmol/L Low [facility] CO2 [Moles/Vol] 28 mmol/L [facility] Creatinine [Mass/Vol] 1.11 mg/dL [facility] GFR COMMENT Average GFR for 70+ years old = 75. [facility] Comment on above: Chronic Kidney disea se, GFR = <60. Kidney failure, GFR = <15. The GFR estimate is not adjusted for extreme body surface area or acute process, nor has it been validated for women or ethnic groups other than and . GFR/1.73 sq M.predicted among blacks MDRD (S/P/Bld) [Vol rate/Area] 84 mL/min/{1.73_m2} ml/min/1.73sq .m [facility] GFR/1.73 sq M.predicted among non-blacks MDRD (S/P/Bld) [Vol rate/Area] 69 mL/min/{1.73_m2} ml/min/1.73sq .m [facility] Glucose post fast [Mass/Vol] 162 mg/dL High [facility] Comment on above: NORMAL <100 mg/dL PREDIABETES 101-126 mg/dL DIABETES 126 mg/dL or higher Interpretation and review of laboratory results Abnormal [facility] Potassium [Moles/Vol] 3.7 mmol/L [facility] Protein [Mass/Vol] 7.3 g/dL [facility] Sodium [Moles/Vol] 134 mmol/L Low [facility] Urea nitrogen [Mass/Vol] 19 mg/dL [facility] CT ANGIO BRAIN/NECKon 2021 IMPRESSION: CT BRAIN: 1. No evidence of acute intracranial process. No acute intracranial hemorrhage, mass, extra-axial fluid collection, or evidence to suggest acute infarction. 2. Moderate degree of patchy white matter hypoattenuation that is nonspecific although likely due to chronic microangiopathic change. 3. 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 CTA HEAD: 1. Mild to moderate stenosis of the intracranial right vertebral artery at the V3-V4 junction at the dural penetration. 2. 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 3. Mild stenosis at the distal M1 segment of the right MCA. 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 Also areas of fusiform aneurysmal dilatation within the bilateral vertebral arteries however also areas of stenosis with areas of mild and up to moderate stenosis as described above. Findings may be due to fibromuscular dysplasia or connective tissue disorder. CT NECK: Mildly prominently enhancing right perivascular paratracheal lymph nodes at and just superior to the thoracic inlet, possibly reactive yet indeterminate. RADIOLOGY EXAMINATION: CT GAETANO O BRAIN/NECK HISTORY: Dizziness, fall. Persistent dizziness. COMPARISON: None. TECHNIQUE: CT images were volumetrically acquired through the brain without contrast. Axial reconstructions were performed. Following the uneventful intravenous administration of 75 mL Omnipaque 350 contrast, images were volumetrically acquired through the head and neck in the arterial phase. Multiplanar reconstructions were performed. Maximum intensity projection reconstructions were performed. MIP (maximum intensity projection) images were performed. Carotid stenosis is reported according to NASCET criteria. Dose reduction techniques were achieved by using automated exposure control and/or adjustment of mA and/or kV according to patient size and/or use of iterative reconstruction technique. FINDINGS: CT BRAIN: There is a moderate degree of patchy periventricular and subcortical white matter hypoattenuation that is nonspecific although likely due to chronic microangiopathic change. There are small chronic infarctions within the cerebellum. There is no acute intracranial hemorrhage, extra axial fluid collection, midline shift, or mass effect. There is no evidence to suggest acute infarction. The ventricles, sulci, and cisterns are age-appropriate in size and configuration without hydrocephalus or herniation. There are bilateral lens replacements. There is a small mucous retention cyst within the right maxillary sinus with otherwise clear paranasal sinuses. The mastoid air cells are well pneumatized and clear. There are no suspicious osseous lytic or sclerotic lesions. There are no acute fractures. The extracranial soft tissues are unremarkable. CTA HEAD: RIGHT ICA: There is no hemodynamically significant stenosis. RIGHT MIDDLE CEREBRAL ARTERY (MCA): There is mild stenosis distally of the M1 segment. RIGHT ANTERIOR CEREBRAL ARTERY (ETHAN): There is no hemodynamically significant stenosis. LEFT ICA: There is no hemodynamically significant stenosis. LEFT MCA: There is no hemodynamically significant stenosis. LEFT ETHAN: There is no hemodynamically significant stenosis. There is an anterior communicating artery. VERTEBRAL ARTERIES: There is no hemodynamically significant stenosis. 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 There is mild to moderate stenosis of the right vertebral artery at the V3-V4 junction, at the dural penetration (series 6, image 167). BASILAR ARTERY: There is no hemodynamically significant stenosis. RIGHT POSTERIOR CEREBRAL ARTERY (DISPATCH ASSOCIATE): There is no hemodynamically significant stenosis. LEFT DISPATCH ASSOCIATE: There is no hemodynamically significant stenosis. Bilateral posterior communicating arteries are not seen. There is no aneurysm. CTA NECK: AORTIC ARCH: There is a common origin of the brachiocephalic and left common carotid artery, a bovine arch. However, this common origin arising from the aorta is excluded from the [id number]. BRACHIOCEPHALIC AND SUBCLAVIAN ARTERIES: There is no hemodynamically significant stenosis in the brachiocephalic or bilateral subclavian arteries. RIGHT COMMON CAROTID ARTERY (CCA): There is no hemodynamically significant stenosis. RIGHT INTERNAL CAROTID ARTERY (ICA): There is diffuse luminal irregularity of the right ICA (series 14, image 53) with areas of mild narrowing and fusiform aneurysmal dilatation up to 7 mm. RIGHT EXTERNAL CAROTID ARTERY (ECA): There is no hemodynamically significant stenosis. LEFT CCA: There is no hemodynamically significant stenosis. LEFT ICA: There is diffuse irregularity of the left ICA with near diffuse aneurysmal dilatation that is fusiform with areas of beaded appearance and no significant stenosis. LEFT ECA: There is no hemodynamically significant stenosis. RIGHT VERTEBRAL ARTERY: There is a beaded appearance of the V3 segment of the right vertebral artery with areas of mild stenosis and fusiform dilatation. There are stenoses within the V2 segment of the right vertebral artery with up to mild to moderate stenosis. There is fusiform dilatation of the distal V1 segment of the right vertebral artery. LEFT VERTEBRAL ARTERY: There is a fusiform dilatation of the V1 segment of the left vertebral artery and areas of mild fusiform dilatation and an area of moderate stenosis within the V2 segment of the left vertebral artery. There is a beaded appearance of the V3 segment of the left vertebral artery. CT NECK: There are mildly prominently enhancing right paratracheal nodules at the right thoracic inlet (series 6, image 23), likely borderline enlarged lymph nodes. The partially visualized lungs are clear. There are multilevel right facet severe degenerative changes and to a lesser extent fa (more content not included)... RADIOLOGY Walter Mcnamara MD - 03/06/2021 EXAMINATION: CT ANGIO BRAIN/NECK HISTORY: Dizziness, fall. Persistent dizziness. COMPARISON: None. TECHNIQUE: CT images were volumetrically acquired through the brain without contrast. Axial reconstructions were performed. Following the uneventful intravenous administration of 75 mL Omnipaque 350 contrast, images were volumetrically acquired through the head and neck in the arterial phase. Multiplanar reconstructions were performed. Maximum intensity projection reconstructions were performed. MIP (maximum intensity projection) images were performed. Carotid stenosis is reported according to NASCET criteria. Dose reduction techniques were achieved by using automated exposure control and/or adjustment of mA and/or kV according to patient size and/or use of iterative reconstruction technique. FINDINGS: CT BRAIN: There is a moderate degree of patchy periventricular and subcortical white matter hypoattenuation that is nonspecific although likely due to chronic microangiopathic change. There are small chronic infarctions within the cerebellum. There is no acute intracranial hemorrhage, extra axial fluid collection, midline shift, or mass effect. There is no evidence to suggest acute infarction. The ventricles, sulci, and cisterns are age-appropriate in size and configuration without hydrocephalus or herniation. There are bilateral lens replacements. There is a small mucous retention cyst within the right maxillary sinus with otherwise clear paranasal sinuses. The mastoid air cells are well pneumatized and clear. There are no suspicious osseous lytic or sclerotic lesions. There are no acute fractures. The extracranial soft tissues are unremarkable. CTA HEAD: RIGHT ICA: There is no hemodynamically significant stenosis. RIGHT MIDDLE CEREBRAL ARTERY (MCA): There is mild stenosis distally of the M1 segment. RIGHT ANTERIOR CEREBRAL ARTERY (ETHAN): There is no hemodynamically significant stenosis. LEFT ICA: There is no hemodynamically significant stenosis. LEFT MCA: There is no hemodynamically significant stenosis. LEFT ETHAN: There is no hemodynamically significant stenosis. There is an anterior communicating artery. VERTEBRAL ARTERIES: There is no hemodynamically significant stenosis. 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 There is mild to moderate stenosis of the right vertebral artery at the V3-V4 junction, at the dural penetration (series 6, image 167). BASILAR ARTERY: There is no hemodynamically significant stenosis. RIGHT POSTERIOR CEREBRAL ARTERY (DISPATCH ASSOCIATE): There is no hemodynamically significant stenosis. LEFT DISPATCH ASSOCIATE: There is no hemodynamically significant stenosis. Bilateral posterior communicating arteries are not seen. There is no aneurysm. CTA NECK: AORTIC ARCH: There is a common origin of the brachiocephalic and left common carotid artery, a bovine arch. However, this common origin arising from the aorta is excluded from the [id number]. BRACHIOCEPHALIC AND SUBCLAVIAN ARTERIES: There is no hemodynamically significant stenosis in the brachiocephalic or bilateral subclavian arteries. RIGHT COMMON CAROTID ARTERY (CCA): There is no hemodynamically significant stenosis. RIGHT INTERNAL CAROTID ARTERY (ICA): There is diffuse luminal irregularity of the right ICA (series 14, image 53) with areas of mild narrowing and fusiform aneurysmal dilatation up to 7 mm. RIGHT EXTERNAL CAROTID ARTERY (ECA): There is no hemodynamically significant stenosis. LEFT CCA: There is no hemodynamically significant stenosis. LEFT ICA: There is diffuse irregularity of the left ICA with near diffuse aneurysmal dilatation that is fusiform with areas of beaded appearance and no significant stenosis. LEFT ECA: There is no hemodynamically significant stenosis. RIGHT VERTEBRAL ARTERY: There is a beaded appearance of the V3 segment of the right vertebral artery with areas of mild stenosis and fusiform dilatation. There are stenoses within the V2 segment of the right vertebral artery with up to mild to moderate stenosis. There is fusiform dilatation of the distal V1 segment of the right vertebral artery. LEFT VERTEBRAL ARTERY: There is a fusiform dilatation of the V1 segment of the left vertebral artery and areas of mild fusiform dilatation and an area of moderate stenosis within the V2 segment of the left vertebral artery. There is a beaded appearance of the V3 segment of the left vertebral artery. CT NECK: There are mildly prominently enhancing right paratracheal nodules at the right thoracic inlet (series 6, image 23), likely borderline enlarged lymph nodes. The partially visualized lungs are clear. There are multilevel righ (more content not included)... [facility] Radiology Study observation (narrative) [facility] CT ANGIO BRAIN/NECKOrdered B y: Walter Mcnamara on 03-06-2021 [facility] Work Phone: MAGNESIUMon 03-06-2021 Magnesium [Mass/Vol] 1.7 mg/dL [facility] No Panel Informationon 03-06 Interpretation and review of laboratory results Abnormal [facility] TROPONIN I, HIGH SENSITIVITY on 03-06-2021 TROPONIN I, HIGH SENSITIVITY 17 pg/mL 0 - 20 pg/mL [facility] Comment on above: Indeterminant: >12 to 100 pg/mL female >20 to 100 pg/mL male Indicative of myocardial injury. Serial sampling is recommended, a change of greater than or equal to 20 pg/mL is indicative of acute coronary syndrome. [facility] URINALYSIS, MACROon 03-06-19 22 Bilirubin Ql (U) Negative NEGATIVE [facility] Clarity (U) CLEAR CLEAR [facility] Color (U) YELLOW YELLOW [facility] Glucose Test strip (U) [Mass/Vol] Negative NEGATIVE mg/dl [facility] Hemoglobin Ql (U) Negative NEGATIVE [facility] Ketones (U) [Mass/Vol] Negative NEGATIVE mg/dl [facility] Leukocyte esterase Test strip Ql (U) Negative NEGATIVE [facility] Nitrite Ql (U) Negative NEGATIVE [facility] pH (U) 5.5 [pH] [facility] Protein Ql (U) TRACE Abnormal NEGATIVE mg/dl [facility] Specific gravity (U) [Rel density] 1.020 [facility] Urobilinogen (U) [Mass/Vol] 0.2 mg/dL [facility] URINE MICROSCOPICon 03-06-19 22 Bacteria LM.HPF (Urine sed) [#/Area] TRACE Abnormal NEGATIVE [facility] Casts LM.LPF (Urine sed) [#/Area] NONE NONE /LPF [facility] Crystals LM Nom (Urine sed) NONE NONE [facility] Epithelial cells LM Ql (Urine sed) NONE /HPF [facility] Mucus Ql (Urine sed) Negative NEGATIVE [facility] RBC LM.HPF (Urine sed) [#/Area] Negative NEGATIVE /HPF [facility] Urine sediment comments LM Jeffery (Urine sed) CULTURE CRITERIA NOT MET, NO CULTURE PERFORMED. [facility] WBC LM.HPF (Urine sed) [#/Area] Negative NEGATIVE /HPF [facility] XR CHEST PA 1 VIEWon 022 IMPRESSION: Left basilar infiltrate. RADIOLOGY EXAM: XR CHEST PA 1 VIEW HISTORY: Dizziness COMPARISON: 02/01/2018. TECHNIQUE: Single view chest FINDINGS: There is hyperinflation. Left basilar infiltrate is newly seen. No evidence of pleural fluid or pneumothorax. Normal heart size and pulmonary vascularity. No acute osseous abnormality. RADIOLOGY Leo Cespedes MD - 03/06/2021 EXAM: XR CHEST PA 1 VIEW HISTORY: Dizziness COMPARISON: 02/01/2018. TECHNIQUE: Single view chest FINDINGS: There is hyperinflation. Left basilar infiltrate is newly seen. No evidence of pleural fluid or pneumothorax. Normal heart size and pulmonary vascularity. No acute osseous abnormality. IMPRESSION IMPRESSION: Left basilar infiltrate. [facility] Radiology Study observation (narrative) [facility] XR CHEST PA 1 VIEWOrdered By : Leo Nicolas on 03-06-2021 [facility] Work Phone: XR CHEST PA/APon 03-04-2021 XR CHEST PA/AP EXAMINATION: XR CHEST PA/AP HISTORY: ORDERING SYSTEM PROVIDED HISTORY: dizziness, TECHNOLOGIST PROVIDED HISTORY: Illness/Other Reason for exam: dizziness Cancer History: no Surgery, RadiationHistory: no Encounter Type: Initial Additional signs and symptoms: no ORDERING SYSTEM PROVIDED DIAGNOSIS CODES: COMPARISON: 02/01/2018. FINDINGS: One-view chest x-ray. No focal airspace consolidation. Mild bibasilar atelectasis. Heart is normal in size. Bony thorax is unremarkable. IMPRESSION: Mild ill-defined ground-glass opacity at the lateral aspect of the left lung base, suggestive of atelectasis or pneumonia. ST/lab Workstation ID: [id number] Dictated by: ANNETTE PINEDA on SunMar 04, 2021 3:34:25 PM EST Transcribed by: JAMES CASTORENA on SunMar 04, 2021 3:36:28 PM EST Finalized by: ANNETTE PINEDA on SunMar 04, 2021 8:48:41 PM EST Normal [facility] Comment on above: Order Comment: Injur y/Trauma or Illness?:Illness/Other How long have you had these symptoms (acute/chronic)?:Acute Reason for exam?:dizziness History of cancer?:no Surgeries, chemotherapy, or radiation?:no Type of Exam?:Initial Additional signs and symptoms?:no COVID-19, MOLECULARon 2020 SARS-CoV-2 (COVID-19) RNA JOY+probe Ql (Unsp spec) Not detected Normal Not Detected [facility] Comment on above: Result Comment: This test was performed under the FDA's Emergency Use Authorization (EUA). Testing was performed using the Clayton SARS-CoV-2 RT-PCR assay on the [employer] Clayton 6800 System. This test has not been approved for use in asymptomatic patients and its performance in this patient population has not been evaluated. Negative results do not rule out the presence of SARS-CoV-2/COVID-19. Fact sheets for this EUA can be found at the following links: For Healthcare Providers: https://www.fda.gov/media/227796/download For Patients: https://www.fda.gov/media/587288/download Performed By: #### L [id number] #### [facility] [address] [address] Marvin Larson M.D. [id number] ECG 12 Leadon 12-31-2020 Atrial Rate [facility] P [facility] P-R Interval [facility] Q-T [facility] Q-T Interval (corrected) [facility] QRS Duration [facility] QTC Calculation (Bezet) [facility] R [facility] T [facility] Ventricular Rate [facility] Tobacco Screening.on Fall risk assessment b) One or more falls in the last year [employer] Work Phone: Tobacco use status [facility] b) No [employer] [facility] Work Phone: CNPNon 07-29-2020 CNPN Telephone (OPHTMN) STEPHANY REYNOLDS ([id number]) 1950 M Date Time Provider Department 07/29/20 JULIA WHITE During your visit today, we recorded the following information about you: Vandana Allen [facility] 07/29/2020 8:43 AM Signed ----- Message from Julia White MD sent at 07/29/2020 8:01 AM EDT ----- I don't see images . How bad is his double vision? Is it getting better? 07/13 injury is already a little late to see me When you see these pts next time please feel free to send me a message when you see them initially Vandana can you get patient in to see me this Sunday or next? Also I need his scan and report ----- Message ----- From: Amrit Jang MD Sent: 07/28/2020 4:43 PM EDT To: Julia White MD Patient is scheduled to see you on 08/23/2020. I got his CT scan results back today which confirms fracture and is scanned into [facility]. Would you like to see him sooner? Thanks, Amrit Allen Ann[place]Marie 07/29/2020 8:47 AM Signed I left a detailed message for the patient to call me back about a sooner appt. I also advised him that we would need him to bring a copy of the scan with him on a disc to the appointment. I did not see the scan in [facility]. Vandana Allen Ann-Marie 07/29/2020 9:44 AM Signed The patient called me back and will be in on 08/02. The patient has his scans and will bring them with him. Allergies As of Date: 07/29/2020 Noted Allergy Reaction PREDNISOLONE 07/21/2020 14 - Other: See Comments Date Reviewed: 07/21/2020 Reviewed by: Amrit Jang MD - Fully Assessed Reason for Visit: Future Appointment [256] Prescriptions as of 07/29/2020 Sig: HUMALOG MIX 75-25 KWIKPEN U-1* INJECT 12 UNITS SUBCUTANEOUSL* INSULIN ASPART U-100 100 UNI* Inject subcutaneously. PREDNISONE 10 MG TABLET Take 1.5 tablets by mouth onc* METFORMIN ER 500 MG TABLET,EX* Take 2,000 mg by mouth once d* LISINOPRIL ORAL IMIPRAMINE 25 MG TABLET Take by mouth. PREDNISONE 10 MG TABLET Take 1 tablet by mouth every * ACETAMINOPHEN 325 MG TABLET Take 2 tablets by mouth every* Problem List As Of Date 07/29/2020 Noted Resolved Diplopia [H53.2] 07/17/2020 Open fracture of orbit (HCC) [S02.85XB] 07/17/2020 Type 2 diabetes mellitus without retinopathy (H*07/17/2020 Encounter Status:Closed by VANDANA FELDER on 07/29/20 Normal [facility] CT-CT ORBIT WO/W CONTRAST IM PORTon 07-28-2020 CT-CT ORBIT WO/W CONTRAST IMPORT Images were obtained outside of [facility] [id number] Normal [facility] Otheron 10-10-2019 Interpreted by: MARK HEREDIA10/10/19 10:43MRN: [id number] Name: STEPHANY REYNOLDS STUDY:BONE DENSITY, DEXA 1 OR MORE SITES: AXIAL SKELETN; 10/10/2019 9:26 am INDICATION:Polymyalgia. Evaluate for osteopenia/osteoporosis , ORDERING CLINICIAN:NATANAEL GONZALEZ FINDINGS:Standard measurements were obtained utilizing an [employer] X-rayAbsorptiometry bone densitometer. Data obtained includes planar bonedensity measurements over the left hip and lumbar spine. Comparisonof measured data and standardized mean data for a young adultpopulation (when peak bone mass occurs) results in a T score. Thisrepresents the number of standard deviations above or below the meanof a young adult population. Comparison of measured data tostandards from an age-adjusted population similarly yields a Z score. Left femoral neck Bone density: 0.646 g/cm2 T score: -2.1 Z Score: -0.9 Lumbar Spine (L1-4) Bone density: 0.926 g/cm2 T Score: -1.5 Z Score: -0.6 World Health Organization (WHO) criteria defines normal bone densityas that which is less than 1 standard deviation below the mean of ayoung adult population. Osteopenia is defined as a measured bonedensity that is between 1 and 2.5 standard deviations below the meanof a young adult population. Osteoporosis is defined as a measuredbone density that is greater than or equal to 2.5 standard deviationsbelow the mean of a young adult population. IMPRESSION:According to World Health Organization criteria, bone mineral densityof the left femoral neck and lumbar spine is osteopenic. The patientis at increased risk for fracture.10 year fracture risk for major osteoporotic fracture is 16 %. 10year fracture risk for hip fracture 5.2 % according to the WorldHealth Organization FRAX- fracture risk assessment tool. Electronically signed by: MARK HEREDIA 10/10/19 10:43 Normal [facility] Work Phone: Otheron 06-10-2019 US Gallbladder Interpreted by: GRETCHEN HERNÁNDEZ06/10/19 08:47MRN: [id number] Name: STEPHANY REYNOLDS STUDY:US GALLBLADDER 06/10/2019 8:41 am INDICATION:68 y/o M with loss of appetite. COMPARISON:None. ORDERING CLINICIAN:NATANAEL GONZALEZ TECHNIQUE:Routine ultrasound of the right upper quadrant was performed. Staticimages were obtained for remote interpretation. FINDINGS:LIVER:The liver appears normal in size and echogenicity. No focalintrahepatic mass lesion is identified on the provided images. BILE DUCTS:No intrahepatic biliary dilatation. Common bile duct is within normallimits, measuring 3 mm in diameter. GALLBLADDER:No gallbladder wall thickening or pericholecystic fluid is observed.There are several hyperechoic nonmobile foci along the phelan of thegallbladder, measuring up to a maximum of 5 mm in size. These aremost likely polyps. No shadowing gallstones are identified. PANCREAS:The pancreas is inadequately evaluated secondary to significantshadowing from overlying bowel gas. RIGHT KIDNEY:Visible portions of the right kidney appears sonographicallyunremark able. PERITONEAL FLUID:None seen in the right upper quadrant. IMPRESSION:Several gallbladder wall polyps, measuring up to 5 mm. Pancreas notadequately evaluated. Otherwise, unremarkable examination.Electronica lly signed by: GRETCHEN HERNÁNDEZ 06/10/19 08:47 Normal [facility] Work Phone: Otheron 04-11-2019 XR Cervical spine 4 views Interpreted by: HOWARD ANTON04/12/19 11:53MRN: [id number] Name: STEPHANY REYNOLDS STUDY:SPINE, CERVICAL MIN 4 VIEWS INDICATION:neck pain. COMPARISON:None ORDERING CLINICIAN:NATANAEL GONZALEZ FINDINGS:Moderate multilevel cervical degenerative change involving both discspaces and facet joints mostly C3-C7. Alignment normal. Prevertebralsoft tissues normal. Multilevel neural foraminal narrowing from acombination of disc osteophytes and facet arthrosis. IMPRESSION:Multilevel cervical degenerative change with multilevel bilateralneural foraminal narrowing.Electronicall y signed by: HOWARD ANTON 04/12/19 11:53 Normal [facility] Work Phone: XR Elbow 3+ Views Lefton XR Elbow 3+ Views Left Exam Date/Time: 08/13/2018 12:24 EDT Reason for Exam: Fall Report STUDY: XR Elbow 3+ Views Left; 08/13/2018 12:24 pm INDICATION: Fall. COMPARISON: None. ACCESSION NUMBER(S): [id number] ORDERING CLINICIAN: Kenton Monreal FINDINGS: Bony structures: Intact Joint spaces: Maintained Soft tissues: Unremarkable without significant edema or radiodense foreign body Other: None significant IMPRESSION: Unremarkable exam. FINAL REPORT Dictated: 08/13/2018 12:50 pm Guerrero Chou MD Signed (Electronic Signature): 08/13/2018 12:50 pm Signed by: Guerrero Chou MD Technologist: [facility] XR Hand 3+ Views Righton XR Hand 3+ Views Right Exam Date/Time: 02/26/2018 15:43 EST Reason for Exam: Fall Report STUDY: XR Hand 3+ Views Right;; 02/26/2018 3:43 pm INDICATION: Fall. COMPARISON: None. ACCESSION NUMBER(S): [id number] ORDERING CLINICIAN: Kenton Monreal FINDINGS: Three views right hand: There is no fracture or dislocation. There is mild osteoarthritis with spurring of the DIP joints. IMPRESSION: No acute bony abnormality right hand. FINAL REPORT Dictated: 02/26/2018 3:49 pm Cyndi Dubois MD Signed (Electronic Signature): 02/26/2018 3:49 pm Signed by: Cyndi Dubois MD Technologist: [facility] NM Myocardial Spect Multi Re st/Stresson 02-11-2018 NM Myocardial Spect Multi Rest/Stress Exam Date/Time: 02/11/2018 11:01 EST Reason for Exam: CHEST PAIN Report STUDY: NM Myocardial Spect Multi Rest/Stress; 02/11/2018 11:01 am INDICATION: CHEST PAIN. COMPARISON: None. ACCESSION NUMBER(S): [id number] ORDERING CLINICIAN: Michoacano Flower TECHNIQUE: DIVISION OF NUCLEAR MEDICINE PHARMACOLOGIC STRESS MYOCARDIAL PERFUSION SCAN, ONE DAY PROTOCOL The patient received an intravenous dose of 10 mCi of Tc-99m Myoview and resting emission tomographic (SPECT) images of the myocardium were acquired. The patient then received an intravenous infusion of 0.4 mg regadenoson (Lexiscan) followed by an additional dose of 34.7 mCi of Tc-99m Myoview. Stress phase SPECT images of the myocardium were then acquired. These included ECG-gated images to assess and quantify ventricular function. FINDINGS: Stress and rest images both demonstrate a normal distribution of perfusion throughout all LV segments with no sign of ischemia. ECG-gated images demonstrate normal LV size and borderline myocardial contractility with an LV ejection fraction of 45 % (normal above 45 percent). IMPRESSION: No definite evidence of ischemia or scar. Borderline ejection fraction of 45%. Images were interpreted at [facility]. FINAL REPORT Dictated: 02/11/2018 11:10 am Stephany Larose MD Signed (Electronic Signature): 02/11/2018 11:10 am Signed by: Stephany Larose MD Technologist: [facility] Basic Metabolic Panelon - Calcium mass conc 8.8 mg/dL Normal 8.4-10.2 [facility] Comment on above: Performed By: #### P T, DDIMR, CHEM8, EDCTNI, PTT, CBCWOD ####Unless otherwise noted, all testing performed by [address] [phone]: [id number] Director: Nas Silver M.D. Chloride molar conc 100 mmol/L Normal 98-108 [facility] Comment on above: Performed By: #### P T, DDIMR, CHEM8, EDCTNI, PTT, CBCWOD ####Unless otherwise noted, all testing performed by [address] [phone]: [id number] Director: Nas Silver M.D. CO2 molar conc 31 mmol/L Normal 21-32 [facility] Comment on above: Performed By: #### P T, DDIMR, CHEM8, EDCTNI, PTT, CBCWOD ####Unless otherwise noted, all testing performed by [address] [phone]: [id number] Director: Nas Silver M.D. Creatinine mass conc 1.24 mg/dL Normal 0.80-1.30 [facility] Comment on above: Performed By: #### P T, DDIMR, CHEM8, EDCTNI, PTT, CBCWOD ####Unless otherwise noted, all testing performed by [address] [phone]: [id number] Director: Nas Silver M.D. GFR/1.73 sq M predicted among blacks MDRD vol rate/area (S/P/Bld) mL/min/{1.73_m2} Normal [facility] Comment on above: Result Comment: Afri can Citizen [place] GFR Calc Performed By: #### P T, DDIMR, CHEM8, EDCTNI, PTT, CBCWOD ####Unless otherwise noted, all testing performed by [address] [phone]: [id number] Director: Nas Silver M.D. GFR/1.73 sq M predicted among non-blacks MDRD vol rate/area (S/P/Bld) 58 mL/min/{1.73_m2} Low >60 [facility] Comment on above: Result Comment: Non- GFR CalceGFR is an estimated Glomerular Filtration Rate based on the valueof the patient's serum creatinine. In outpatients, eGFR should be usedas a helpful tool in screening for CKD. In inpatients or patients withacute renal failure, eGFR represents the GFR at the moment of the drawand should be used with caution. Performed By: #### P T, DDIMR, CHEM8, EDCTNI, PTT, CBCWOD ####Unless otherwise noted, all testing performed by [address] [phone]: [id number] Director: Nas Silver M.D. Glucose mass conc 225 mg/dL High 70-99 [facility] Comment on above: Result Comment: This test result might be falsely depressed or falsely elevated onsamples drawn from patients taking Sulfasalazine and Sulfapyridine.Venipuncture should occur prior to taking either of these drugs. Performed By: #### P T, DDIMR, CHEM8, EDCTNI, PTT, CBCWOD ####Unless otherwise noted, all testing performed by [address] [phone]: [id number] Director: Nas Silver M.D. Potassium molar conc 4.1 mmol/L Normal 3.5-5.1 [facility] Comment on above: Performed By: #### P T, DDIMR, CHEM8, EDCTNI, PTT, CBCWOD ####Unless otherwise noted, all testing performed by [address] [phone]: [id number] Director: Nas Silver M.D. Sodium molar conc 137 mmol/L Normal 135-145 [facility] Comment on above: Performed By: #### P T, DDIMR, CHEM8, EDCTNI, PTT, CBCWOD ####Unless otherwise noted, all testing performed by [address] [phone]: [id number] Director: Nas Silver M.D. Urea nitrogen mass conc 20 mg/dL Normal 8-25 [facility] Comment on above: Performed By: #### P T, DDIMR, CHEM8, EDCTNI, PTT, CBCWOD ####Unless otherwise noted, all testing performed by [address] [phone]: [id number] Director: Nas Silver M.D. CBC w/o Diffon 02-01-2018 Erythrocyte distribution width Auto Ratio (RBC) 13.1 % Normal 10-14.3 [facility] Comment on above: Performed By: #### P T, DDIMR, CHEM8, EDCTNI, PTT, CBCWOD ####Unless otherwise noted, all testing performed by [address] [phone]: [id number] Director: Nas Silver M.D. Hematocrit Auto Volume Fraction (Bld) 43.2 % Normal 37.9-49.2 [facility] Comment on above: Performed By: #### P T, DDIMR, CHEM8, EDCTNI, PTT, CBCWOD ####Unless otherwise noted, all testing performed by [address] [phone]: [id number] Director: Nas Silver M.D. Hemoglobin mass conc (Bld) 15.2 g/dL Normal 12.9-16.9 [facility] Comment on above: Performed By: #### P T, DDIMR, CHEM8, EDCTNI, PTT, CBCWOD ####Unless otherwise noted, all testing performed by [address] [phone]: [id number] Director: Nas Silver M.D. MCH Auto Entitic mass (RBC) 31.1 pg Normal 27.7-34.6 [facility] Comment on above: Performed By: #### P T, DDIMR, CHEM8, EDCTNI, PTT, CBCWOD ####Unless otherwise noted, all testing performed by [address] [phone]: [id number] Director: Nas Silver M.D. MCHC Auto mass conc (RBC) 35.2 g/dL Normal 32.9-35.5 [facility] Comment on above: Performed By: #### P T, DDIMR, CHEM8, EDCTNI, PTT, CBCWOD ####Unless otherwise noted, all testing performed by [address] [phone]: [id number] Director: Nas Silver M.D. MCV Auto Entitic volume (RBC) 88.3 fL Normal 82.8-99.3 [facility] Comment on above: Performed By: #### P T, DDIMR, CHEM8, EDCTNI, PTT, CBCWOD ####Unless otherwise noted, all testing performed by [address] [phone]: [id number] Director: Nas Silver M.D. Platelet mean volume Auto Entitic volume (Bld) 8.3 fL Normal 6.6-10.8 [facility] Comment on above: Performed By: #### P T, DDIMR, CHEM8, EDCTNI, PTT, CBCWOD ####Unless otherwise noted, all testing performed by [address] [phone]: [id number] Director: Nas Silver M.D. Platelets Auto #/vol (Bld) 264 K/mcL Normal 139-354 [facility] Comment on above: Performed By: #### P T, DDIMR, CHEM8, EDCTNI, PTT, CBCWOD ####Unless otherwise noted, all testing performed by [address] [phone]: [id number] Director: Nas Silver M.D. RBC Auto #/vol (Bld) 4.89 M/mcL Normal 4.0-5.5 [facility] Comment on above: Performed By: #### P T, DDIMR, CHEM8, EDCTNI, PTT, CBCWOD ####Unless otherwise noted, all testing performed by [address] [phone]: [id number] Director: Nas Silver M.D. WBC Auto #/vol (Bld) 7.8 K/mcL Normal 3.6-10.4 [facility] Comment on above: Performed By: #### P T, DDIMR, CHEM8, EDCTNI, PTT, CBCWOD ####Unless otherwise noted, all testing performed by [address] [phone]: [id number] Director: Nas Silver M.D. CHEST (ONE VIEW ONLY)on 01-06 CHEST (ONE VIEW ONLY) Final ReportAccession No: [id number] Performed: Feb 01 2018 2:53PMExamination: CHEST (ONE VIEW ONLY)EXAM: CHEST (ONE VIEW ONLY)REASON FOR EXAM: Chest Pain.TECHNIQUE: Single portable view of the chest.COMPARISON: None.FINDINGS: There is no evidence of lung consolidation, pleural effusions orpneumothorax. Heart size is normal. The mediastinum is within normallimits.Osseous structures are intact.IMPRESSION:No acute process.Interpreting Physician: LILIAN BUCKLEY D.O.Trans: n/a : cc: Normal [facility] D-Dimeron 02-01-2018 D-Dimer < 0.27 Normal < .5 [facility] Comment on above: Result Comment: This test is intended for use in conjunction with a clinical pretestprobability (PTP) assessment model to exclude pulmonary embolism (PE) anddeep vein thrombosis (DVT) in outpatients suspected of PE or DVT. Performed By: #### P T, DDIMR, CHEM8, EDCTNI, PTT, CBCWOD ####Unless otherwise noted, all testing performed by [address] [phone]: [id number] Director: Nas Silver M.D. ED Cardiac Troponin-Ion 01-06 Troponin I.cardiac mass conc ng/mL Normal < 45 [facility] Comment on above: Result Comment: Elev ation of troponin indicates some degree of myocardial necrosis butunless there is a significant rise and/or fall (if elevated) identified,it unlikely that an acute event has taken placeSamples from patients routinely receiving high dose biotin therapy(100-300 mg/day) may show falsely decreased results. Please correlateclinically. Performed By: #### P T, DDIMR, CHEM8, EDCTNI, PTT, CBCWOD ####Unless otherwise noted, all testing performed by [address] [phone]: [id number] Director: Nas Silver M.D. Partial Thromboplastin Timeo n 02-01-2018 aPTT Coag time (Bld) 28 s Normal 23.0-34.0 [facility] Comment on above: Result Comment: Veto hernandez therapeutic range for PTT is 68-104 sec. Performed By: #### P T, DDIMR, CHEM8, EDCTNI, PTT, CBCWOD ####Unless otherwise noted, all testing performed by [address] [phone]: [id number] Director: Nas Silver M.D. [facility] INR Coag RelTime (PPP) 1.01 {INR} Normal [facility] Comment on above: Result Comment: The [place] [employer] recommended therapeutic rangefor Warfarin (Coumadin) therapy goals:PROPHYLAXIS/TREATMENT of:INRVenous Thrombosis, Pulmonary Embolism2.0-3.0Prevention of VTE (Orthopedic Surgery)2.0-3.0Atrial Fibrillation2.0-3.0Myocardial Infarction2.0-3.0Mechanical Prosthetic Heart Valves (Aortic position)2.0-3.0Mechanical Prosthetic Heart Valves (Mitral Position)2.5-3.5American College of Chest Physicians evidence-based clinical practiceguidelines. CHEST. 2012 (9th ed) Performed By: #### P T, DDIMR, CHEM8, EDCTNI, PTT, CBCWOD ####Unless otherwise noted, all testing performed by [address] [phone]: [id number] Director: Nas Silver M.D. Prothrombin time (PT) Coag time (PPP) 12.9 s Normal 11.8-14.3 [facility] Comment on above: Performed By: #### P T, DDIMR, CHEM8, EDCTNI, PTT, CBCWOD ####Unless otherwise noted, all testing performed by [address] [phone]: [id number] Director: Nas Silver M.D. Vital Signs Date Time Vital Sign Value Performing Clinician Facility 06-18-2024 13:41-0400 Body temperature 97.81 [degF] Giorgio Garcia Jr., DPM Work Phone: [facility] 06-18-2024 13:41-0400 Diastolic blood pressure 88 mm[Hg] Giorgio Garcia Jr., DPM Work Phone: [facility] 06-18-2024 13:41-0400 Heart rate 118 /min Giorgio Smallsyovany Scanlon., DPM Work Phone: [facility] 06-18-2024 13:41-0400 Systolic blood pressure 137 mm[Hg] Giorgio Garcia Jr., DPM Work Phone: [facility] 04-07-2024 11:46-0500 Body temperature 98.71 [degF] Rose Fierro STAFF MIDWIFE[employer]AL[employer] PROGRAM MANAGER Work Phone: [facility] 04-07-2024 11:46-0500 Diastolic blood pressure 85 mm[Hg] Rose Fierro STAFF MIDWIFE[employer]SALES PROGRAM MANAGER Work Phone: [facility] 04-07-2024 11:46-0500 Heart rate 106 /min Rose Fierro STAFF MIDWIFE[employer]AL[employer] PROGRAM MANAGER Work Phone: [facility] 04-07-2024 11:46-0500 Respiratory rate 16 /min Rose Fierro STAFF MIDWIFE[employer]SALES PROGRAM MANAGER Work Phone: [facility] 04-07-2024 11:46-0500 SaO2% (BldA) [Mass fraction] 94 % Rose Fierro STAFF MIDWIFE[employer]SALES PROGRAM MANAGER Work Phone: [facility] 04-07-2024 11:46-0500 Systolic blood pressure 131 mm[Hg] Rose Fierro STAFF MIDWIFE[employer]ALES PROGRAM MANAGER Work Phone: [facility] 03-31-2024 09:54-0500 Body height 177.8 cm Jamal Hill APRN-SALES PROGRAM MANAGER Work Phone: [facility] 03-31-2024 09:54-0500 Body mass index (BMI) [Ratio] 25.11 kg/m2 Jamal Hill STAFF MIDW[employer]AL[employer] PROGRAM MANAGER Work Phone: [facility] 03-31-2024 09:54-0500 Body temperature 97.81 [degF] Jamal Hill STAFF MIDWIFE[employer]AL[employer] PROGRAM MANAGER Work Phone: [facility] 03-31-2024 09:54-0500 Body weight 79.38 kg Jamal Hill STAFF MIDW[employer]AL[employer] PROGRAM MANAGER Work Phone: [facility] 03-31-2024 09:54-0500 Diastolic blood pressure 73 mm[Hg] Jamal Hill STAFF MIDW[employer]ALES PROGRAM MANAGER Work Phone: [facility] 03-31-2024 09:54-0500 Heart rate 103 /min Jamal Hill STAFF MIDWIFE[employer]SALES PROGRAM MANAGER Work Phone: [facility] 03-31-2024 09:54-0500 Respiratory rate 14 /min Jamal Hill STAFF MIDW[employer]ALES PROGRAM MANAGER Work Phone: [facility] 03-31-2024 09:54-0500 SaO2% (BldA) [Mass fraction] 97 % Jamal Hill STAFF MIDW[employer]ALES PROGRAM MANAGER Work Phone: [facility] 03-31-2024 09:54-0500 Systolic blood pressure 107 mm[Hg] Jamal Melloute STAFF MIDW[employer]ALES PROGRAM MANAGER Work Phone: [facility] 03-24-2024 14:50-0500 Body mass index (BMI) [Ratio] 25.94 kg/m2 Berto Pettit MD Work Phone: [facility] 03-24-2024 14:50-0500 Body weight 84.37 kg Berto Pettit MD Work Phone: [facility] 03-24-2024 14:50-0500 Diastolic blood pressure 92 mm[Hg] Berto Pettit MD Work Phone: [facility] 03-24-2024 14:50-0500 Heart rate 106 /min Berto Pettit MD Work Phone: [facility] 03-24-2024 14:50-0500 SaO2% (BldA) [Mass fraction] 96 % Berto Pettit MD Work Phone: [facility] 03-24-2024 14:50-0500 Systolic blood pressure 144 mm[Hg] Berto Pettit MD Work Phone: [facility] 03-03-2024 09:54-0500 Body height 179.1 cm Trenton Stentz PA-C Work Phone: [facility] 03-03-2024 09:54-0500 Body mass index (BMI) [Ratio] 25.89 kg/m2 Trenton Stentz PA-C Work Phone: [facility] 03-03-2024 09:54-0500 Body weight 83.01 kg Trenton Stentz PA-C Work Phone: [facility] 03-03-2024 09:54-0500 Diastolic blood pressure 82 mm[Hg] Trenton Stentz PA-C Work Phone: [facility] 03-03-2024 09:54-0500 Heart rate 99 /min Trenton Stentz PA-C Work Phone: [facility] 03-03-2024 09:54-0500 SaO2% (BldA) [Mass fraction] 99 % Trenton Stentz PA-C Work Phone: [facility] 03-03-2024 09:54-0500 Systolic blood pressure 128 mm[Hg] Trenton Stentz PA-C Work Phone: [facility] 07-25-2023 09:52-0400 Body temperature 98.49 [degF] Giorgio Garcia Jr. DPM Work Phone: [facility] 07-25-2023 09:52-0400 Diastolic blood pressure 86 mm[Hg] Giorgio Garcia Jr. DPM Work Phone: [facility] 07-25-2023 09:52-0400 Heart rate 96 /min Giorgio Garcia Jr. DPM Work Phone: [facility] 07-25-2023 09:52-0400 Systolic blood pressure 136 mm[Hg] Giorgio Garcia Jr., DPM Work Phone: [facility] 02-26-2023 09:46-0500 Body height 177.8 cm Natanael Gonzalez MD Work Phone: [facility] 02-26-2023 09:46-0500 Body mass index (BMI) [Ratio] 24.97 kg/m2 Natanael Gonzalez MD Work Phone: [facility] 02-26-2023 09:46-0500 Body weight 78.93 kg Natanael Gonzalez MD Work Phone: [facility] 02-26-2023 09:46-0500 Diastolic blood pressure 80 mm[Hg] Natanael Gonzalez MD Work Phone: [facility] 02-26-2023 09:46-0500 Heart rate 74 /min Natanael Gonzalez MD Work Phone: [facility] 02-26-2023 09:46-0500 SaO2% (BldA) [Mass fraction] 95 % Natanael Gonzalez MD Work Phone: [facility] 02-26-2023 09:46-0500 Systolic blood pressure 122 mm[Hg] Natanael Gonzalez MD Work Phone: [facility] 12-15-2022 11:33-0500 Body height 177.8 cm Claribel Meyer STAFF MIDW[employer]ALES PROGRAM MANAGER Work Phone: [facility] 12-15-2022 11:33-0500 Body mass index (BMI) [Ratio] 24.39 kg/m2 Claribel Meyer STAFF [employer]ALES PROGRAM MANAGER Work Phone: [facility] 12-15-2022 11:33-0500 Body temperature 97.3 [degF] Claribel Meyer STAFF MIDW[employer]ALES PROGRAM MANAGER Work Phone: [facility] 12-15-2022 11:33-0500 Body weight 77.11 kg Claribel Snowta STAFF MIDW[employer]ALES PROGRAM MANAGER Work Phone: [facility] 12-15-2022 11:33-0500 Diastolic blood pressure 80 mm[Hg] Claribel Mitch STAFF MIDW[employer]AL[employer] PROGRAM MANAGER Work Phone: [facility] 12-15-2022 11:33-0500 Heart rate 90 /min Claribel Mitch STAFF [employer]AL[employer] PROGRAM MANAGER Work Phone: [facility] 12-15-2022 11:33-0500 Respiratory rate 14 /min Claribel Mitch STAFF [employer]AL[employer] PROGRAM MANAGER Work Phone: [facility] 12-15-2022 11:33-0500 SaO2% (BldA) [Mass fraction] 96 % Claribel Mitch STAFF MIDW[employer]ALES PROGRAM MANAGER Work Phone: [facility] 12-15-2022 11:33-0500 Systolic blood pressure 132 mm[Hg] Claribel Mitch STAFF MIDW[employer]ALES PROGRAM MANAGER Work Phone: [facility] 04-05-2022 18:37-0500 Body height 178 cm Natanael Gonzalez Other Phone: [facility] 04-05-2022 18:37-0500 Body temperature 95.9 [degF] Natanael Gonzalez Other Phone: [facility] 04-05-2022 18:37-0500 Diastolic blood pressure 68 mm[Hg] Natanael Gonzalez Other Phone: [facility] 04-05-2022 18:37-0500 Heart rate 108 /min Natanale Gonzalez Other Phone: [facility] 04-05-2022 18:37-0500 Respiratory rate 14 /min Natanael Gonzalez Other Phone: [facility] 04-05-2022 18:37-0500 SaO2% (BldA) [Mass fraction] 95 % Natanael Cooperer Other Phone: [facility] 04-05-2022 18:37-0500 Systolic blood pressure 123 mm[Hg] Natanael Gonzalez Other Phone: [facility] 02-20-2022 09:43-0500 Body height 177.8 cm Natanael O Gonzalez Work Phone: -[facility] Work Phone: 02-20-2022 09:43-0500 Body mass index (BMI) [Ratio] 25.11 kg/m2 Natanael O Gonzalze Work Phone: -[facility] Work Phone: 02-20-2022 09:43-0500 Body surface area Derived from formula 1.97 m2 Natanael O Gonzalez Work Phone: -[facility] Work Phone: 02-20-2022 09:43-0500 Body weight 79.38 kg Natanael O Gonzalez Work Phone: [facility] Work Phone: 02-20-2022 09:43-0500 Diastolic blood pressure 80 mm[Hg] Natanael O Gonzalez Work Phone: [facility] Work Phone: 02-20-2022 09:43-0500 Heart rate 96 /min Natanael O Gonzalez Work Phone: [facility] Work Phone: 02-20-2022 09:43-0500 Systolic blood pressure 132 mm[Hg] Natanael O Gonzalez Work Phone: -[facility] Work Phone: 09-23-2021 15:15-0400 Body temperature 97.34 [degF] Natanael Gonzalez Other Phone: [facility] 09-23-2021 15:15-0400 Diastolic blood pressure 79 mm[Hg] Natanael Gonzalez Other Phone: [facility] 09-23-2021 15:15-0400 Heart rate 83 /min Natanael Gonzalez Other Phone: [facility] 09-23-2021 15:15-0400 Respiratory rate 16 /min Natanael Gonzalez Other Phone: [facility] 09-23-2021 15:15-0400 SaO2% (BldA) [Mass fraction] 97 % Natanael Gonzalez Other Phone: [facility] 09-23-2021 15:15-0400 Systolic blood pressure 137 mm[Hg] Natanael Gonzalez Other Phone: [facility] 09-23-2021 13:29-0400 Body height 177.8 cm Natanael Gonzalez Other Phone: [facility] 09-23-2021 13:29-0400 Body weight 75 kg Natanael Gonzalez Other Phone: [facility] 08-16-2021 10:03-0400 Body height 177.8 cm Natanael O Gonzalez Work Phone: [facility] Work Phone: 08-16-2021 10:03-0400 Body mass index (BMI) [Ratio] 24.11 kg/m2 Natanael O Gonzalez Work Phone: [facility] Work Phone: 08-16-2021 10:03-0400 Body surface area Derived from formula 1.94 m2 Natanael O Gonzalez Work Phone: [facility] Work Phone: 08-16-2021 10:03-0400 Body weight 76.2 kg Natanael O Gonzalez Work Phone: [facility] Work Phone: 08-16-2021 10:03-0400 Diastolic blood pressure 78 mm[Hg] Natanael O Gonzalez Work Phone: [facility] Work Phone: 08-16-2021 10:03-0400 Heart rate 96 /min Natanael O Gonzalez Work Phone: [facility] Work Phone: 08-16-2021 10:03-0400 Systolic blood pressure 124 mm[Hg] Natanael O Gonzalez Work Phone: [facility] Work Phone: 08-15-2021 09:13-0400 Diastolic blood pressure 77 mm[Hg] Felisa Massimo DPM Work Phone: [facility] 08-15-2021 09:13-0400 Heart rate 111 /min Felisa Frederica DPM Work Phone: [facility] 08-15-2021 09:13-0400 Systolic blood pressure 129 mm[Hg] Felisa Frederica DPM Work Phone: [facility] 08-15-2021 09:08-0400 Body temperature 97.5 [degF] Felisa Frederica DPM Work Phone: [facility] 07-25-2021 07:57-0400 Diastolic blood pressure 74 mm[Hg] Felisa Massimo DPM Work Phone: [facility] 07-25-2021 07:57-0400 Heart rate 103 /min Felisa Massimo DPM Work Phone: [facility] 07-25-2021 07:57-0400 Systolic blood pressure 129 mm[Hg] Felisa Frederica DPM Work Phone: [facility] 07-25-2021 07:46-0400 Body temperature 96.3 [degF] Felisa Frederica DPM Work Phone: [facility] 06-14-2021 10:31-0400 Body height 180.34 cm Natanael O Gonzalez Work Phone: [facility]Wksefxsiwi[facility]Ggjm [facility] [address] Work Phone: 06-14-2021 10:31-0400 Body mass index (BMI) [Ratio] 23.71 kg/m2 Natanael Cooperer Work Phone: OX-Svsmkhlxkw-Hnlu [facility] [address] Work Phone: 06-14-2021 10:31-0400 Body surface area Derived from formula 1.97 m2 Natanael Cooperer Work Phone: LN-Ovafzwiszc-Ssht [facility] [address] Work Phone: 06-14-2021 10:31-0400 Body weight 77.11 kg Natanael Cooperer Work Phone: TF-Bzhptoybve-Anco [facility] [address] Work Phone: 06-14-2021 10:31-0400 Diastolic blood pressure 72 mm[Hg] Natanael Gregorioyder Work Phone: GC-Whzcmbizrg-Hcab [facility] [address] Work Phone: 06-14-2021 10:31-0400 Heart rate 100 /min Natanael Cooperer Work Phone: HR-Gdqmjdsbmy-Sjle [address] Work Phone: 06-14-2021 10:31-0400 SaO2% (BldA) [Mass fraction] 96 % Natanael Cooperer Work Phone: KU-Eohmpvsfkc-Woqj [facility] [address] Work Phone: 06-14-2021 10:31-0400 Systolic blood pressure 124 mm[Hg] Natanael Singh GregorioGonzalez Work Phone: TI-Ovgulvreff-Vkmy [facility] [address] Work Phone: 04-26-2021 13:10-0400 Body height 180.34 cm Natanael Cooperer Work Phone: GJ-Krgeysehft-Svnj [facility] [address] Work Phone: 04-26-2021 13:10-0400 Body mass index (BMI) [Ratio] 22.87 kg/m2 Natanael O Gonzalez Work Phone: QB-Jlkospotya-Zcxp [facility] [address] Work Phone: 04-26-2021 13:10-0400 Body surface area Derived from formula 1.94 m2 Natanael O Gonzalez Work Phone: HO-Xdgyvyqglo-Tckh [address] Work Phone: 04-26-2021 13:10-0400 Body weight 74.39 kg Natanael O Gonzalez Work Phone: LU-Gesvgvgfiq-Sepq [address] Work Phone: 04-26-2021 13:10-0400 Diastolic blood pressure 78 mm[Hg] Natanael Singh Gonzalez Work Phone: KQ-Oxnpozfxwx-Dvrx [address] Work Phone: 04-26-2021 13:10-0400 Heart rate 76 /min Natanael Singh Gonzalez Work Phone: QH-Jokvghyhpd-Ofif [address] Work Phone: 04-26-2021 13:10-0400 Systolic blood pressure 122 mm[Hg] Natanael Singh GregorioGonzalez Work Phone: QV-Ugvwfsgdid-Sezy [address] Work Phone: 04-26-2021 08:40-0400 Body height 180.34 cm Natanael Singh Gonzalez Work Phone: QW-Crdnmeuhws-Agjd [address] Work Phone: 04-26-2021 08:40-0400 Body mass index (BMI) [Ratio] 22.32 kg/m2 Natanael O Gonzalez Work Phone: QG-Mmktpthvpn-Ekmn [address] Work Phone: 04-26-2021 08:40-0400 Body surface area Derived from formula 1.92 m2 Ntaanael O Gonzalez Work Phone: OR-Moohdkxogx-Yozg [address] Work Phone: 04-26-2021 08:40-0400 Body weight 72.58 kg Natanael Cooperer Work Phone: OJ-Hdslvhsgmr-Lciw [address] Work Phone: 04-26-2021 08:40-0400 Diastolic blood pressure 78 mm[Hg] Natanael Gregorioyder Work Phone: EC-Mrebfbxfzb-Cqhv [address] Work Phone: 04-26-2021 08:40-0400 Heart rate 112 /min Natanael Cooperer Work Phone: JE-Xrxowbcvnx-Twae [address] Work Phone: 04-26-2021 08:40-0400 SaO2% (BldA) [Mass fraction] 98 % Natanael Gregorioyder Work Phone: SP-Xybdngokci-Dbte [address] Work Phone: 04-26-2021 08:40-0400 Systolic blood pressure 124 mm[Hg] Natanael Gregorioyder Work Phone: KS-Okzqamcnqa-Rvfa [address] Work Phone: 03-28-2021 13:50-0500 Body height 177.8 cm Natanael Cooperer Work Phone: [facility] Work Phone: 03-28-2021 13:50-0500 Body mass index (BMI) [Ratio] 22.38 kg/m2 Natanael Gregorioyder Work Phone: [facility] Work Phone: 03-28-2021 13:50-0500 Body surface area Derived from formula 1.88 m2 Natanael Gregorioyder Work Phone: [facility] Work Phone: 03-28-2021 13:50-0500 Body weight 70.76 kg Natanael Cooperer Work Phone: [facility] Work Phone: 03-28-2021 13:50-0500 Diastolic blood pressure 60 mm[Hg] Natanael Singh Cooperer Work Phone: [facility] Work Phone: 03-28-2021 13:50-0500 Heart rate 84 /min Natanael Singh Cooperer Work Phone: [facility] Work Phone: 03-28-2021 13:50-0500 Systolic blood pressure 102 mm[Hg] Natanael Singh Cooperer Work Phone: [facility] Work Phone: 03-06-2021 19:10-0500 Diastolic blood pressure 73 mm[Hg] Michael Iqbal MD Work Phone: 4(578)337-15[address] [place] [address] 03-06-2021 19:10-0500 Heart rate 103 /min Michael Iqbal MD Work Phone: 8(352)675-708925 [place] [address] 03-06-2021 19:10-0500 Respiratory rate 22 /min Michael Iqbal MD Work Phone: 5(225)428-511025 [place] [address] 03-06-2021 19:10-0500 SaO2% (BldA) [Mass fraction] 93 % Michael Iqbal MD Work Phone: 4(338)755-167925 [place] [address] 03-06-2021 19:10-0500 Systolic blood pressure 160 mm[Hg] Michael Iqbal MD Work Phone: 9(259)192-318325 [place] [address] 03-06-2021 16:54-0500 Body height 180.3 cm Michael Iqbal MD Work Phone: 9(289)593-722525 [place] [address] 03-06-2021 16:54-0500 Body mass index (BMI) [Ratio] 21.62 kg/m2 Michael Iqbal MD Work Phone: 3(023)854-976425 [place] [address] 03-06-2021 16:54-0500 Body weight 70.31 kg Michael Iqbal MD Work Phone: [facility] 03-06-2021 16:53-0500 Body temperature 97.9 [degF] Michael Iqbal MD Work Phone: [facility] 02-03-2021 08:59-0500 Body temperature 96.91 [degF] Gaye Nichols RN [facility] 02-03-2021 08:59-0500 Diastolic blood pressure 60 mm[Hg] Gaye Nichols RN [facility] 02-03-2021 08:59-0500 Heart rate 90 /min Gaye Nichols RN [facility] 02-03-2021 08:59-0500 Respiratory rate 18 /min Gaye Nichols RN [facility] 02-03-2021 08:59-0500 SaO2% (BldA) [Mass fraction] 99 % Gaye Nichols RN [facility] 02-03-2021 08:59-0500 Systolic blood pressure 120 mm[Hg] Gaye Nichols RN [facility] 02-02-2021 19:39-0500 Body temperature 96.69 [degF] Mg [place] [facility] 02-02-2021 19:39-0500 Diastolic blood pressure 78 mm[Hg] Mg [facility] 02-02-2021 19:39-0500 Heart rate 67 /min Mg [facility] 02-02-2021 19:39-0500 Respiratory rate 17 /min Mg [facility] 02-02-2021 19:39-0500 SaO2% (BldA) [Mass fraction] 98 % Mg [facility] 02-02-2021 19:39-0500 Systolic blood pressure 123 mm[Hg] Mg [place] [facility] 01-31-2021 20:24-0500 Body temperature 97.59 [degF] Mg [facility] 01-31-2021 20:24-0500 Diastolic blood pressure 78 mm[Hg] Mg [place] [facility] 01-31-2021 20:24-0500 Heart rate 71 /min Mg [facility] 01-31-2021 20:24-0500 Respiratory rate 17 /min Mg Toma [facility] 01-31-2021 20:24-0500 SaO2% (BldA) [Mass fraction] 98 % Mg [facility] 01-31-2021 20:24-0500 Systolic blood pressure 133 mm[Hg] Mg [facility] 01-31-2021 11:19-0500 Body temperature 97.2 [degF] Gaye Nichols RN [facility] 01-31-2021 11:19-0500 Diastolic blood pressure 60 mm[Hg] Gaye Nichols RN [facility] 01-31-2021 11:19-0500 Heart rate 90 /min Gaye Nichols RN [facility] 01-31-2021 11:19-0500 Respiratory rate 18 /min Gaye Nichols RN [facility] 01-31-2021 11:19-0500 SaO2% (BldA) [Mass fraction] 99 % Gaye Nichols RN [facility] 01-31-2021 11:19-0500 Systolic blood pressure 120 mm[Hg] Gaye Nichols RN [facility] 01-27-2021 11:08-0500 Body temperature 98.2 [degF] Gaye Nichols RN [facility] 01-27-2021 11:08-0500 Diastolic blood pressure 60 mm[Hg] Gaye Nichols RN [facility] 01-27-2021 11:08-0500 Heart rate 92 /min Gaye Nichols RN [facility] 01-27-2021 11:08-0500 Respiratory rate 18 /min Gaye Nichols RN [facility] 01-27-2021 11:08-0500 SaO2% (BldA) [Mass fraction] 98 % Gaye Nichols RN [facility] 01-27-2021 11:08-0500 Systolic blood pressure 110 mm[Hg] Gaye Nichols RN [facility] 01-27-2021 10:01-0500 Body temperature 98.2 [degF] Mg [facility] 01-27-2021 10:01-0500 Heart rate 71 /min Mg [facility] 01-27-2021 10:01-0500 Respiratory rate 17 /min Mg [facility] 01-27-2021 10:01-0500 SaO2% (BldA) [Mass fraction] 97 % Mg [facility] 01-25-2021 13:23-0500 Body temperature 98.01 [degF] Mg [facility] 01-25-2021 13:23-0500 Diastolic blood pressure 78 mm[Hg] Mg [place] 01-25-2021 13:23-0500 Heart rate 78 /min Mg [facility] 01-25-2021 13:23-0500 Respiratory rate 16 /min Mg [place] [facility] 01-25-2021 13:23-0500 SaO2% (BldA) [Mass fraction] 97 % Mg [facility] 01-25-2021 13:23-0500 Systolic blood pressure 125 mm[Hg] Mg [facility] 01-24-2021 13:00-0500 Body temperature 97.7 [degF] Gaye Nichols [facility] 01-24-2021 13:00-0500 Diastolic blood pressure 60 mm[Hg] Gaye Nichols [facility] 01-24-2021 13:00-0500 Heart rate 68 /min Gaye Nichols [facility] 01-24-2021 13:00-0500 Respiratory rate 18 /min Gaye Nichols [facility] 01-24-2021 13:00-0500 SaO2% (BldA) [Mass fraction] 99 % Gaye Nichols [facility] 01-24-2021 13:00-0500 Systolic blood pressure 120 mm[Hg] Gaye Nichols [facility] 01-23-2021 14:23-0500 Body temperature 98.01 [degF] Mg [facility] 01-23-2021 14:23-0500 Diastolic blood pressure 78 mm[Hg] Mg [place] 01-23-2021 14:23-0500 Heart rate 78 /min Mg [facility] 01-23-2021 14:23-0500 Respiratory rate 17 /min Mg [place] [facility] 01-23-2021 14:23-0500 SaO2% (BldA) [Mass fraction] 98 % Mg [facility] 01-23-2021 14:23-0500 Systolic blood pressure 134 mm[Hg] Mg [facility] 01-20-2021 13:08-0500 Body height 180.3 cm Dianne Altamiranorp RN [facility] 01-20-2021 13:08-0500 Body mass index (BMI) [Ratio] 22.87 kg/m2 Dianne Altamiranorp RN [facility] 01-20-2021 13:08-0500 Body temperature 97.2 [degF] Dianne Altamiranorp RN [facility] 01-20-2021 13:08-0500 Body weight 74.39 kg Dianne Altamiranorp RN [facility] 01-20-2021 13:08-0500 Diastolic blood pressure 70 mm[Hg] Dianne Altamiranorp RN [facility] 01-20-2021 13:08-0500 Heart rate 92 /min Dianne Altamiranorp RN [facility] 01-20-2021 13:08-0500 Respiratory rate 16 /min Dianne Altamiranorp RN [facility] 01-20-2021 13:08-0500 SaO2% (BldA) [Mass fraction] 99 % Dianne Altamiranorp RN [facility] 01-20-2021 13:08-0500 Systolic blood pressure 130 mm[Hg] Dianne Altamiranorp RN [facility] 01-07-2021 13:45-0500 Body height 180.3 cm Coby Mcdaniel MD Work Phone: [facility] 01-07-2021 13:45-0500 Body mass index (BMI) [Ratio] 23.29 kg/m2 Coby Mcdaniel MD Work Phone: [facility] 01-07-2021 13:45-0500 Body weight 75.75 kg Coby Mcdaniel MD Work Phone: [facility] 01-07-2021 13:45-0500 Diastolic blood pressure 90 mm[Hg] Coby Mcdaniel MD Work Phone: [facility] 01-07-2021 13:45-0500 Heart rate 94 /min Coby Mcdaniel MD Work Phone: [facility] 01-07-2021 13:45-0500 Systolic blood pressure 145 mm[Hg] Coby Mcdaniel MD Work Phone: [facility] 01-06-2021 11:32-0500 Body height 180.3 cm Natanael Gonzalez Other Phone: [facility] 01-06-2021 11:32-0500 Body temperature 97.16 [degF] Natanael Gonzalez Other Phone: [facility] 01-06-2021 11:32-0500 Diastolic blood pressure 95 mm[Hg] Natanael Gonzalez Other Phone: [facility] 01-06-2021 11:32-0500 Heart rate 108 /min Natanael Gonzalez Other Phone: [facility] 01-06-2021 11:32-0500 SaO2% (BldA) [Mass fraction] 98 % Natanael Gonzalez Other Phone: [facility] 01-06-2021 11:32-0500 Systolic blood pressure 159 mm[Hg] Natanael Cooperer Other Phone: [facility] 12-31-2020 10:53-0500 Diastolic blood pressure 82 mm[Hg] Curt Louis MD Work Phone: [facility] 12-31-2020 10:53-0500 Systolic blood pressure 145 mm[Hg] Curt Louis MD Work Phone: [facility] 12-31-2020 10:13-0500 Body height 180.3 cm Curt Louis MD Work Phone: [facility] 12-31-2020 10:13-0500 Body mass index (BMI) [Ratio] 23.18 kg/m2 Curt Louis MD Work Phone: [facility] 12-31-2020 10:13-0500 Body weight 75.39 kg Curt Louis MD Work Phone: [facility] 12-31-2020 10:13-0500 Heart rate 105 /min Curt Louis MD Work Phone: [facility] 12-31-2020 10:13-0500 SaO2% (BldA) [Mass fraction] 99 % Curt Louis MD Work Phone: [facility] 12-02-2020 11:06-0400 Body height 177.8 cm Natanael Singh Cooperer Work Phone: [facility] Work Phone: 12-02-2020 11:06-0400 Body mass index (BMI) [Ratio] 23.96 kg/m2 Natanael O Gonzalez Work Phone: [facility] Work Phone: 12-02-2020 11:06-0400 Body surface area Derived from formula 1.93 m2 Natanael Singh Cooperer Work Phone: [facility] Work Phone: 12-02-2020 11:06-0400 Body weight 75.75 kg Natanael Singh Cooperer Work Phone: [facility] Work Phone: 12-02-2020 11:06-0400 Diastolic blood pressure 74 mm[Hg] Natanael O Gonzalez Work Phone: [facility] Work Phone: 12-02-2020 11:06-0400 Heart rate 64 /min Natanael Singh Cooperer Work Phone: [facility] Work Phone: 12-02-2020 11:06-0400 Systolic blood pressure 110 mm[Hg] Natanael O Gonzalez Work Phone: [facility] Work Phone: 02-27-2020 15:20-0500 Body Temperature 97.7 [degF] [facility] 02-27-2020 15:20-0500 Body weight 69.72 kg [facility] 02-27-2020 15:20-0500 BP Diastolic 80 mm[Hg] [facility] 02-27-2020 15:20-0500 BP Systolic 131 mm[Hg] [facility] 02-27-2020 15:20-0500 Pulse Oximetry 100 % [facility] 09-29-2019 17:27-0400 BMI (Body Mass Index) 20.37 kg/m2 Natanael Gonzalez [facility] Work Phone: 09-29-2019 17:27-0400 Body Temperature 99 [degF] Natanael Gonzalez [facility] Work Phone: 09-29-2019 17:27-0400 Body weight 64.41 kg Natanael Gonzalez [facility] Work Phone: 09-29-2019 17:27-0400 BP Diastolic 62 mm[Hg] Natanael Gonzalez [facility] Work Phone: Comment on above: Location: [facility]; 09-29-2019 17:27-0400 BP Systolic 110 mm[Hg] Natanael Gonzalez [facility] Work Phone: Comment on above: Location: [facility]; 09-29-2019 17:27-0400 BSA (Body Surface Area) 1.8 m2 Natanael Gonzalez [facility] Work Phone: 09-29-2019 17:27-0400 Height 177.8 cm Natanael Gonzalez [facility] Work Phone: 09-29-2019 17:27-0400 Pulse (Heart Rate) 96 /min Natanael Gonzalez [facility] Work Phone: 09-16-2019 12:23-0400 BMI (Body Mass Index) 20.66 kg/m2 Natanael Gonzalez [facility] Work Phone: 09-16-2019 12:23-0400 Body weight 65.31 kg Natanael Gonzalez [facility] Work Phone: 09-16-2019 12:23-0400 BP Diastolic 70 mm[Hg] Natanael Gonzalez [facility] Work Phone: Comment on above: Location: [facility]; 09-16-2019 12:23-0400 BP Systolic 114 mm[Hg] Natanael Gonzalez [facility] Work Phone: Comment on above: Location: [facility]; 09-16-2019 12:23-0400 BSA (Body Surface Area) 1.82 m2 Natanael Gonzalez [facility] Work Phone: 09-16-2019 12:23-0400 Height 177.8 cm Natanael Gonzalez [facility] Work Phone: 09-16-2019 12:23-0400 Pulse (Heart Rate) 84 /min Natanael [facility] Work Phone: 06-16-2019 15:20-0400 BMI (Body Mass Index) 22.1 kg/m2 Natanael Gonzalez [facility] Work Phone: 06-16-2019 15:20-0400 Body weight 69.85 kg Natanael Gonzalez [facility] Work Phone: 06-16-2019 15:20-0400 BP Diastolic 80 mm[Hg] Natanael Gonzalez [facility] Work Phone: 06-16-2019 15:20-0400 BP Systolic 124 mm[Hg] Natanael Gonzalez [facility] Work Phone: 06-16-2019 15:20-0400 BSA (Body Surface Area) 1.87 m2 Natanael Gonzalez [facility] Work Phone: 06-16-2019 15:20-0400 Height 177.8 cm Natanael Gonzalez [facility] Work Phone: 06-16-2019 15:20-0400 Pulse (Heart Rate) 80 /min Natanael Gonzalez [facility] Work Phone: 04-11-2019 11:33-0500 BMI (Body Mass Index) 23.44 kg/m2 [facility] Work Phone: 04-11-2019 11:33-0500 Body weight 76.2 kg Natanael Gonzalez [facility] Work Phone: 04-11-2019 11:33-0500 BP Diastolic 76 mm[Hg] Natanael Gonzalez [facility] Work Phone: Comment on above: Location: [facility]; 04-11-2019 11:33-0500 BP Systolic 120 mm[Hg] Natanael Gonzalez [facility] Work Phone: Comment on above: Location: [facility]; 04-11-2019 11:33-0500 BSA (Body Surface Area) 1.96 m2 Natanael Gonzalez [facility] Work Phone: 04-11-2019 11:33-0500 Height 180.3 cm Natanael Gonzalez [facility] Work Phone: 04-11-2019 11:33-0500 Pulse (Heart Rate) 76 /min Natanael Gonzalez [facility] Work Phone: 03-21-2019 10:27-0500 BMI (Body Mass Index) 23.29 kg/m2 Natanael Gonzalez [facility] Work Phone: 03-21-2019 10:27-0500 Body weight 75.75 kg Natanael Gonzalez [facility] Work Phone: 03-21-2019 10:27-0500 BP Diastolic 82 mm[Hg] Natanael Gonzalez [facility] Work Phone: Comment on above: Location: [facility]; 03-21-2019 10:27-0500 BP Systolic 124 mm[Hg] Natanael Gonzalez [facility] Work Phone: Comment on above: Location: [facility]; 03-21-2019 10:27-0500 BSA (Body Surface Area) 1.95 m2 [facility] Work Phone: 03-21-2019 10:27-0500 Height 180.34 cm [facility] Work Phone: 03-21-2019 10:27-0500 Pulse (Heart Rate) 92 /min Natanael [facility] Work Phone: 01-27-2019 10:48-0500 BMI (Body Mass Index) 23.15 kg/m2 Sandra Hair [facility] Work Phone: 01-27-2019 10:48-0500 Body weight 75.3 kg Sandra Hair [facility] Work Phone: 01-27-2019 10:48-0500 BP Diastolic 70 mm[Hg] Sandra Hair [facility] Work Phone: Comment on above: Location: E; 01-27-2019 10:48-0500 BP Systolic 124 mm[Hg] Sandra Hair [facility] Work Phone: Comment on above: Location: [facility]; 01-27-2019 10:48-0500 BSA (Body Surface Area) 1.95 m2 Sandra Hair [facility] Work Phone: 01-27-2019 10:48-0500 Height 180.34 cm Sandra Hair [facility] Work Phone: 01-27-2019 10:48-0500 Pulse (Heart Rate) 84 /min Sandra [facility] Work Phone: 01-15-2019 10:08-0500 BMI (Body Mass Index) 23.57 kg/m2 Sandra Hair [facility] Work Phone: 01-15-2019 10:08-0500 Body weight 76.66 kg Sandra Hair [facility] Work Phone: 01-15-2019 10:08-0500 BP Diastolic 78 mm[Hg] Sandra Hair [facility] Work Phone: Comment on above: Location: [facility]; 01-15-2019 10:08-0500 BP Systolic 118 mm[Hg] Sandra Hair [facility] Work Phone: Comment on above: Location: [facility]; 01-15-2019 10:08-0500 BSA (Body Surface Area) 1.96 m2 Sandra Hair [facility] Work Phone: 01-15-2019 10:08-0500 Height 180.34 cm Sandra Hair [facility] Work Phone: 01-15-2019 10:08-0500 Pulse (Heart Rate) 88 /min Sandra math[facility] Work Phone: 11-22-2018 15:43-0400 BMI (Body Mass Index) 23.61 kg/m2 [facility] Work Phone: 11-22-2018 15:43-0400 Body weight 76.77 kg Zachary Cuellar [facility] Work Phone: 11-22-2018 15:43-0400 BP Diastolic 78 mm[Hg] Zachary Cuellar [facility] Work Phone: 11-22-2018 15:43-0400 BP Systolic 118 mm[Hg] Zachary Cuellar [facility] Work Phone: 11-22-2018 15:43-0400 BSA (Body Surface Area) 1.96 m2 Zachary Cuellar [facility] Work Phone: 11-22-2018 15:43-0400 Height 180.34 cm Zachary Cuellar [facility] Work Phone: 11-22-2018 15:43-0400 Pulse (Heart Rate) 98 /min [facility]ary [facility] Work Phone: Encounters Encounter Date Encounter Type Care Provider Facility Start: 12-02-2024 End: 12-02-2024 ambulatory NATANAEL DONOVAN [facility] Start: 06-18-2024 End: 06-18-2024 Patient encounter procedure Giorgio Garcia DPCheryl Work Phone: [facility] Comment on above: Onychomycosis (Prima ry Dx); Peripheral vascular disease, unspecified Start: 06-18-2024 End: 06-18-2024 ambulatory GIORGIO GARCIA JR. [facility] Start: 06-17-2024 End: 06-17-2024 Chart abstracting Giorgio Garcia DPM Work Phone: [facility] Start: 04-16-2024 End: 04-16-2024 Diabetic care education Jayda King RN [facility] Comment on above: Type 2 diabetes franci itus with hyperglycemia, with long-term current use of insulin (Primary Dx) Start: 04-16-2024 ambulatory NATANAEL GONZALEZ [facility] Start: 04-07-2024 End: 04-07-2024 Subsequent hospital visit by physician Rupert Sharma-Idris Lloyd [facility] Comment on above: Subacute cough Start: 04-07-2024 End: 04-07-2024 ambulatory ROSE Hill [facility] Start: 04-07-2024 End: 04-07-2024 Patient encounter procedure Rose Fierro STAFF [employer] Work Phone: [facility] Comment on above: Community acquired p neumonia, unspecified laterality (Primary Dx); Subacute cough Start: 04-07-2024 End: 04-07-2024 ambulatory [facility] Start: 03-31-2024 End: 03-31-2024 Patient encounter procedure Jamal Hill STAFF [employer] Work Phone: [facility] Comment on above: Acute bronchitis, un specified organism (Primary Dx) Start: 03-31-2024 End: 02-24-2025 ambulatory [facility] Start: 03-24-2024 ambulatory NATANAEL GONZALEZ [facility] Start: 03-24-2024 End: 03-24-2024 Office outpatient new 45 minutes Berto Pettit MD Work Phone: [facility] Comment on above: Type 2 diabetes franci itus with hyperglycemia, with long-term current use of insulin (Primary Dx); Hyperlipidemia, unspecified hyperlipidemia type; History of prostate cancer Start: 03-03-2024 End: 03-03-2024 ambulatory [facility] Start: 03-03-2024 End: 03-03-2024 Encounter for general adult medical examination without abnormal findings [facility] Start: 03-03-2024 End: 03-03-2024 Assay of hemosiderin, quant Trentonmaday Feldman PA-C Work Phone: [facility] Work Phone: Start: 03-03-2024 End: 03-03-2024 Patient encounter procedure Trenton Feldman PA-C Work Phone: [facility] Comment on above: Routine general medi adriana examination at health care facility (Primary Dx); Malignant neoplasm of prostate (Multi); 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 insulin (Multi); Aneurysm of vertebral artery (CMS-HCC); Carotid artery aneurysm (CMS-HCC); Controlled type 2 diabetes mellitus without complication, with long-term current use of insulin (Multi); Glaucoma suspect of both eyes; Primary hypertension Start: 01-07-2024 End: 01-07-2024 Transcribe Orders Natanael Gonzalez MD Work Phone: [facility] Start: 07-25-2023 End: 07-25-2023 ambulatory GIORGIO GARCIA JR. [facility] Start: 07-25-2023 End: 07-25-2023 Patient encounter procedure Giorgio Garcia DPM Work Phone: [facility] Comment on above: Onychomycosis (Prima ry Dx); Peripheral vascular disease, unspecified (HCC) Start: 03-02-2023 End: 03-02-2023 Subsequent hospital visit by physician Rupert Omer [facility] Comment on above: Aneurysm of vertebra l artery (CMS/HCC); Carotid artery aneurysm (CMS/HCC); Occlusion and stenosis of bilateral carotid arteries Start: 02-26-2023 End: 02-26-2023 Assay of hemosiderin, quant Natanael Gonzalez MD Work Phone: [facility] Work Phone: Start: 02-26-2023 End: 02-26-2023 Patient encounter procedure Natanael Gonzalez MD Work Phone: [facility] Comment on above: Routine general medi adriana examination at health care facility (Primary Dx); Aneurysm of vertebral artery (CMS/HCC); Carotid artery aneurysm (CMS/HCC); Ataxia; Controlled type 2 diabetes mellitus without complication, with long-term current use of insulin (CMS/HCC); Dry eye syndrome of both eyes; Familial hyperlipidemia; Elevated alkaline phosphatase level; Early dry stage nonexudative age-related macular degeneration of both eyes; History of prostate cancer; Glaucoma suspect of both eyes; Primary hypertension; Lumbar spondylosis; MVP (mitral valve prolapse); Old lacunar stroke without late effect; Polymyalgia rheumatica (CMS/HCC); Polyp of gallbladder; Pseudophakia; Spondylosis of cervical joint without myelopathy; Status post total left knee replacement; Urinary incontinence, unspecified type; Shuffling gait Start: 12-15-2022 End: 12-15-2022 Office outpatient visit 15 minutes Claribel Meyer STAFF MIDWIFE[employer]SALES PROGRAM MANAGER Work Phone: [facility] Comment on above: Viral URI with cough (Primary Dx) Start: 04-25-2022 End: 04-25-2022 Emergency department patient visit [facility] Start: 04-05-2022 End: 04-05-2022 Emergency department patient visit [facility] Start: 03-14-2022 End: 03-14-2022 Emergency department patient visit [facility] Start: 02-20-2022 Adv care pln tlkd & alt dcsn maker docd Natanael Gonzalez Work Phone: [facility] Work Phone: Start: 02-20-2022 ambulatory Natanael Arambula ity:[id number] Start: 09-23-2021 End: 09-23-2021 Emergency department patient visit Barrett Dempsey [facility] Emergency 09 Start: 09-23-[address] Uriel Hussein Fa cility:[id number] Start: 09-14-2021 End: 09-14-2021 ambulatory Natanael Gonzalez MD Work Phone: [facility] Comment on above: Lumbar spondylosis ( Primary Dx) Start: 09-12-2021 End: 09-12-2021 ambulatory Natanael Gonzalez MD Work Phone: [facility] Comment on above: Lumbar spondylosis ( Primary Dx) Start: 09-07-2021 End: 09-07-2021 ambulatory Natanael Gonzalez MD Work Phone: [facility] Comment on above: Lumbar spondylosis ( Primary Dx) Start: 09-05-2021 End: 09-05-2021 ambulatory Natanael Gonzalez MD Work Phone: [facility] Comment on above: Lumbar spondylosis ( Primary Dx) Start: 09-03-2021 Chart Update Natanael Gonzalez Work Phone: [facility] Work Phone: Start: 08-24-2021 End: 08-24-2021 ambulatory Natanael Gonzalez MD Work Phone: [facility] Comment on above: Lumbar spondylosis Start: 08-18-2021 Chart Update Natanael Gonzalez Work Phone: [facility] Work Phone: Start: 08-16-2021 Transcribe Orders Natanael rocha MD Work Phone: [facility] Comment on above: Lumbar spondylosis ( Primary Dx) Start: 08-16-2021 Adv care pln tlkd & alt dcsn maker docd Natanael Gonzalez Work Phone: [facility] Work Phone: Start: 08-15-2021 End: 08-15-2021 Office outpatient visit 15 minutes Felisa Essence Massimo DPM Work Phone: [facility] Comment on above: Diabetic peripheral neuropathy (HCC) (Primary Dx); Comprehensive diabetic foot examination, type 2 DM, encounter for (HCC) Start: 07-25-2021 End: 07-25-2021 Office outpatient new 20 minutes Felisa Sabry Frederica DPM Work Phone: [facility] Comment on above: Metatarsalgia, left foot (Primary Dx); Callus of foot; Left foot pain Start: 06-14-[address] Melanie Burton Facility:[id number] Start: 06-14-2021 Office outpatient vi sit 15 minutes Natanael Gonzalez Work Phone: [facility] [employer] Work Phone: Start: 06-10-[address] Melanie Burton Facility:[id number] Start: 05-09-[address] Melanie Burton Facility:[id number] Start: 05-06-[address] Melanie Burton Facility:[id number] Start: 04-26-2021 ambulatory Natanael Gonzalez Facil ity:[id number] Start: 04-26-[address] Melanie Burton Facility:[id number] Start: 04-26-2021 Office outpatient ne w 45 minutes Natanael Gonzalez Work Phone: [facility] Work Phone: Start: 04-26-2021 Patient encounter procedure Natanael Gonzalez Work Phone: [facility] Work Phone: Start: 04-07-2021 End: 04-07-2021 ambulatory Coby Mcdaniel MD Work Phone: [facility] Comment on above: Status post total le ft knee replacement (Primary Dx) Start: 04-05-2021 End: 04-05-2021 ambulatory Coby Mcdaniel MD Work Phone: [facility] Comment on above: Status post total le ft knee replacement (Primary Dx) Start: 03-29-2021 End: 03-29-2021 ambulatory Coby Mcdaniel MD Work Phone: [facility] Comment on above: Status post total le ft knee replacement (Primary Dx) Start: 03-28-2021 ambulatory Natanael Gonzalez [facility] ity:[id number] Start: 03-28-2021 Office outpatient vi sit 40 minutes Natanael Gonzalez Work Phone: [facility] Work Phone: Start: 03-07-2021 Telephone encounter Natanael thomas Work Phone: [facility] Work Phone: Start: 03-06-2021 End: 03-06-2021 Emergency department patient visit Michael Iqbal MD Work Phone: [facility] Start: 03-04-2021 End: 03-04-2021 Emergency department patient visit NATANAEL GONZALEZ [facility] Start: 02-28-2021 End: 02-28-2021 ambulatory Coby Mcdaniel MD Work Phone: [facility] Comment on above: Status post total le ft knee replacement (Primary Dx) Start: 02-25-2021 End: 02-25-2021 ambulatory Coby Mcdaniel MD Work Phone: [facility] Comment on above: Status post total le ft knee replacement (Primary Dx) Start: 02-23-2021 End: 02-23-2021 ambulatory Coby Mcdaniel MD Work Phone: [facility] Comment on above: Status post total le ft knee replacement (Primary Dx) Start: 02-21-2021 End: 02-21-2021 ambulatory Coby Mcdaniel MD Work Phone: [facility] Comment on above: Status post total le ft knee replacement (Primary Dx) Start: 02-18-2021 End: 02-18-2021 ambulatory Coby Mcdaniel MD Work Phone: [facility] Comment on above: Status post total le ft knee replacement (Primary Dx) Start: 02-16-2021 End: 02-16-2021 ambulatory Coby Mcdaniel MD Work Phone: [facility] Comment on above: Status post total le ft knee replacement (Primary Dx) Start: 02-14-2021 End: 02-14-2021 ambulatory Coby Mcdaniel MD Work Phone: [facility] Comment on above: Status post total le ft knee replacement (Primary Dx) Start: 02-11-2021 End: 02-11-2021 ambulatory Coby Mcdaniel MD Work Phone: [facility] Comment on above: Status post total le ft knee replacement (Primary Dx) Start: 02-09-2021 End: 02-09-2021 ambulatory Coby Mcdaniel MD Work Phone: [facility] Comment on above: Status post total le ft knee replacement (Primary Dx) Start: 02-07-2021 End: 02-07-2021 ambulatory Coby Mcdaniel MD Work Phone: [facility] Comment on above: Status post total le ft knee replacement Start: 02-03-2021 End: 02-03-2021 Home visit Gaye Nichols RN [facility] Comment on above: SN HH OASIS DISCHARG E Start: 02-02-2021 End: 02-02-2021 Home visit Mg Chua SITE ENGINEER [facility] Comment on above: SITE ENGINEER ROUTINE VISIT Start: 02-02-2021 End: 02-02-2021 Postop follow up visit related to original px Curt Edward MD Work Phone: [facility] Comment on above: Status post total le ft knee replacement (Primary Dx) Start: 01-31-2021 End: 01-31-2021 Home visit Gaye Nichols RN [facility] Comment on above: SN HH ROUTINE VISIT SITE ENGINEER ROUTINE VISIT Start: 01-27-2021 End: 01-27-2021 Home visit Gaye Nichols RN [facility] Comment on above: SN HH ROUTINE VISIT SITE ENGINEER ROUTINE VISIT Start: 01-25-2021 End: 01-25-2021 Home visit Mg Chua SITE ENGINEER [facility] Comment on above: SITE ENGINEER ROUTINE VISIT Start: 01-24-2021 Documentation procedure Mae Garcia LPN [facility] Start: 01-24-2021 End: 01-24-2021 Home visit Gaye Nichols RN [facility] Comment on above: SN HH ROUTINE VISIT Start: 01-23-2021 End: 01-23-2021 Home visit Mg Chua SITE ENGINEER [facility] Comment on above: SITE ENGINEER ROUTINE VISIT Start: 01-21-2021 End: 01-21-2021 Home visit Hilda Hastings PT [facility] Comment on above: PT INITIAL EVALUATIO N Start: 01-20-2021 End: 01-20-2021 Home visit Dianne Ruiz RN [facility] Comment on above: SN HH OASIS START OF CARE Start: 01-19-2021 End: 02-03-2021 ambulatory COBY MCDANIEL [facility] Start: 01-15-2021 End: 01-15-2021 ambulatory NATANAEL GONZALEZ [facility] Start: 01-11-2021 Office outpatient vi sit 15 minutes Natanael Gonzalez [facility] Work Phone: Start: 01-07-2021 End: 01-07-2021 Office outpatient visit 15 minutes Coby Mcdaniel MD Work Phone: [facility] Comment on above: Primary osteoarthrit is of left knee (Primary Dx) Start: 01-06-2021 End: 01-06-2021 Emergency department patient visit [facility] Start: 12-31-2020 End: 12-31-2020 Office outpatient new 45 minutes Coby Mcdaniel MD Work Phone: [facility] Comment on above: Pre-operative cardio vascular examination (Primary Dx); Primary osteoarthritis of left knee; PVC's (premature ventricular contractions) Start: 12-31-2020 End: 12-31-2020 Patient encounter status Coby Mcdaniel MD Work Phone: [facility] Start: 12-22-2020 Admission to [facility] Coby Mcdaniel MD Work Phone: [facility] Comment on above: Primary osteoarthrit is of left knee (Primary Dx); Hypertension, unspecified type; Type 2 diabetes mellitus without complication, with long-term current use of insulin (HCC); Exposure to SARS-associated coronavirus; Hypertension, unspecified type Start: 12-02-2020 Office outpatient vi sit 25 minutes Natanael Gonzalez Work Phone: [facility] Work Phone: Start: 07-16-2020 End: 07-16-2020 Patient encounter procedure Lynn Mcduffie MD Work Phone: [facility] Comment on above: Cervical radiculopat hy Start: 06-01-2020 End: 06-01-2020 Transcribe Orders Lynn Mcduffie MD Work Phone: [facility] Comment on above: Cervical radiculopat hy (Primary Dx) Start: 05-27-2020 End: 05-27-2020 Subsequent hospital visit by physician Lynn Mcduffie MD Work Phone: [facility] Comment on above: Arrived Start: 03-12-2020 End: 03-12-2020 Orders Only Vicenta Vergara Work Phone: [facility] Start: 02-27-2020 End: 02-27-2020 Office outpatient new 20 minutes Rosa Osuna Work Phone: [facility] Comment on above: Encounter for testin g for latent tuberculosis (Primary Dx) Start: 09-29-2019 Patient encounter procedure Natanael Gonzalez [facility] Work Phone: Start: 09-16-2019 Patient encounter procedure Natanael Gonzalez [facility] Work Phone: Start: 07-07-2019 Patient encounter procedure Natanael Gonzalez [facility] Work Phone: Start: 06-16-2019 Patient encounter procedure Natanael Gonzalez [facility] Work Phone: Start: 04-11-2019 Patient encounter procedure Natanael Gonzalez [facility] Work Phone: Start: 03-21-2019 Patient encounter procedure Natanael Gonzalez [facility] Work Phone: Start: 01-27-2019 Patient encounter procedure Sandra Hair [facility] Work Phone: Start: 01-15-2019 Patient encounter procedure Sandra Hair [facility] Work Phone: Start: 11-22-2018 Patient encounter procedure Sandra Hair [facility] Work Phone: Start: 02-01-2018 End: 02-01-2018 Emergency department patient visit Jeny Drummond Facility:[facility] Patient encounter procedure Natanael Gonzalez Work Phone: [facility] Work Phone: Procedures Date Procedure Procedure Detail Performing Clinician Start: 04-07-2024 Radiologic exam ches t 2 views Rose Fierro STAFF MIDW[employer]SALES PROGRAM MANAGER Work Phone: Start: 03-24-2024 Continuous glucose monitoring analysis i&r Berto Pettit MD Work Phone: Start: 03-02-2023 Duplex scan extracra nial art compl bi study Natanael Gonzalez MD Work Phone: Start: 08-15-2021 3 comp foot exam completed Felisa Keys DPCheryl Work Phone: Start: 03-06-2021 Ct angiography head w/contrast/noncontrast Michael Iqbal MD Work Phone: Start: 03-06-2021 Urinalysis microscopic only Michael Iqbal MD Work Phone: Start: 03-06-2021 Urinalysis, reagent strip without microscopy Michael Iqbal MD Work Phone: Start: 03-06-2021 Radiologic exam ches t single view Michael Iqbal MD Work Phone: Start: 03-06-2021 Complete blood count with white cell differential, automated Michael Iqbal MD Work Phone: Start: 03-06-2021 Comprehensive metabo lic panel Michael Iqbal MD Work Phone: Start: 01-05-2021 Arthroplasty of knee Nini Gonzalez Work Phone: Start: 12-31-2020 Ecg routine ecg w/le ast 12 lds w/i&r Curt Louis MD Work Phone: Start: 02-27-2020 Mantoux test Rosa S Pete mariano Work Phone: Start: 09-29-2019 C-reactive protein Aashish Gonzalez Start: 09-29-2019 Sedimentation rate r bc automated Natanael Gonzalez Start: 06-18-2019 Comprehensive metabo lic 2000 panel Natanael Gonzalez Start: 06-18-2019 Sedimentation rate r bc automated Natanael Gonzalez Start: 05-23-2019 Sedimentation rate r bc automated Natanael Gonzalez Start: 04-24-2019 Basic metabolic 1998 panel - Serum or Plasma Natanael Gonzalez Start: 04-24-2019 C-reactive protein Aashish Gonzalez Start: 04-24-2019 Sedimentation rate r bc automated Natanael Gonzalez Start: 04-22-2019 Blood count complete auto&auto difrntl wbc Natanael Gonzalez Start: 04-22-2019 C-reactive protein Aashish Gonzalez Start: 04-22-2019 Comprehensive metabo lic 2000 panel Natanael Gonzalez Start: 04-22-2019 Sedimentation rate r bc automated Natanael Gonzalez Start: 04-11-2019 Assay of magnesium Aashish Gonzalez Start: 04-11-2019 C-reactive protein Aashish Gonzalez Start: 04-11-2019 CBC W Auto Different ial panel - Blood Natanael Gonzalez Start: 04-11-2019 Comprehensive metabo lic 2000 panel Natanael Gonzalez Start: 04-11-2019 Sedimentation rate r bc automated Natanael Gonzalez Start: 03-21-2019 Assay of prostate sp ecific antigen total Natanael Gonzalez Start: 03-21-2019 Basic metabolic 1998 panel - Serum or Plasma Natanael Gonzalez Start: 03-21-2019 Hemoglobin glycosylated a1c Natanael Gonzalez Start: 03-21-2019 Lipid panel Natanael Cooper nadira Start: 01-27-2019 Albumin, Urine Spot Ja Barbosatie Start: 01-27-2019 Basic metabolic 1998 panel - Serum or Plasma Sandra Laxmi Start: 01-27-2019 Creatinine other source Sandra Barbosatie Start: 01-27-2019 Hemoglobin glycosylated a1c Sandra Barbosatie Start: 03-10-2016 Colonoscopy Curt Bceerra MD Work Phone: Start: 03-10-2016 Colonoscopy Natanael thmoas Work Phone: Arthroplasty of knee Natanael Singh Gonzalez Work Phone: Arthroscopy of knee Sandra dickson Comment on above: meniscuc of knee deepti nt LT; Cataract surgery Sandra Benites ie Colonoscopy Natanael Gonzalez Destructive procedure Natanael Gonzalez Work Phone: Prostatectomy Sandra Laxmi Comment on above: 2019; Plan of Treatment Date Care Activity Detail Author Start: 03-10-2026 Screening for malign ant neoplasm of colon [facility] Start: 03-09-2025 End: 03-09-2025 Patient encounter procedure 03/09/2025 9:00 AM EST Office Visit [facility] [address] [place] [address] Trenton Feldman PA-C [address] [facility] [place] [place] [address] [facility] Start: 03-04-2025 Medicare Annual Wellness Visit Medicare Annual Wellness Visit (AWV) [facility] Start: 03-03-2025 Medicare Wellness Visit Medicare Wel lness Visit [facility] Start: 10-06-2024 Influenza vaccination Influenz a Vaccine (Season Ended) [facility] Start: 09-22-2024 Glaucoma screening Diabetes: R etinopathy Screening [facility] Start: 2024 RSV VACCINE (1 - 1-d ose 75+ series) RSV VACCINE (1 - 1-dose 75+ series) [facility] Start: 06-18-2024 End: 06-18-2024 Patient encounter procedure 06/18/2024 1:45 PM EDT Office Visit [facility] [address] [facility] [place] [address] Giorgio Garcia Jr., DPM [address] [facility] [place] [address] [facility] Start: 05-13-2024 End: 05-13-2024 Patient encounter procedure 05/13/2024 2:30 PM EDT Office Visit [facility] [address] [phone] Berto Pettit MD [address] [address] [facility] Start: 04-11-2024 End: 04-11-2024 Diabetic care education 04/11/2024 8:00 AM EST Clinical Support Encounter [facility] [address] [place] [address] Jayda King, [place] [facility] Start: 03-31-2024 Hemoglobin A1c measurement A1C [facility] Start: 03-03-2024 End: 03-03-2024 Patient encounter procedure 03/03/2024 9:30 AM EST Office Visit [facility] [address] [place] [id number] Natanael Gonzalez MD [address] [facility] [place] [address] [facility] Start: 02-28-2024 Medicare Annual Wellness Visit Medicare Annual Wellness Visit (AWV) [facility] Start: 02-27-2024 Medicare Wellness Visit Medicare Wel lness Visit [facility] Start: 02-25-2024 DTaP/Tdap/Td Vaccine s (3 - Td or Tdap) DTaP/Tdap/Td Vaccines (3 - Td or Tdap) [facility] Start: 02-25-2024 Tetanus vaccination [facility] Start: 12-30-2023 Hemoglobin A1c measurement Diabetes: Hemoglobin A1C [facility] Start: 10-07-2023 COVID-19 Vaccine ( season) COVID-19 Vaccine ( season) [facility] Start: 10-07-2023 Influenza vaccination [facility] Start: 02-26-2023 End: 02-27-2024 Lipid 1996 panel - Serum or Plasma Lipid Panel Lab Routine Familial hyperlipidemia Expected: 02/26/2023 (Approximate), Expires: 02/27/2024 [facility] Work Phone: Comment on above: Expected: 02/26/2023 (Approximate), Expires: 02/27/2024 Start: 02-26-2023 End: 02-27-2024 Prostate specific Ag [Mass/volume] in Serum or Plasma PSA Lab Routine History of prostate cancer Expected: 02/26/2023 (Approximate), Expires: 02/27/2024 [facility] Work Phone: Comment on above: Expected: 02/26/2023 (Approximate), Expires: 02/27/2024 Start: 02-26-2023 End: 08-27-2023 US.doppler Carotid arteries - bilateral Vascular US Carotid Artery Duplex Bilateral Vascular Ultrasound Routine Aneurysm of vertebral artery ([facility]/HCC) Carotid artery aneurysm ([facility]/HCC) Expected: 02/26/2023 (Approximate), Expires: 08/27/2023 [facility] Service Area Work Phone: Comment on above: Expected: 02/26/2023 (Approximate), Expires: 08/27/2023 Start: 02-26-2023 EPV, Provider: Natanael Gonzalez, Status: Pen, Time: 9:30 AM EPV, Provider: Natanael Gonzalez, Status: Pen, Time: 9:30 AM [facility] Work Phone: Start: 02-26-2023 Patient encounter procedure [facility] Start: 26-Feb-2023 9:30 Natanael Gonzalezen Intent [facility] Start: 02-26-2023 End: 02-26-2023 Patient encounter procedure 02/26/2023 9:30 AM EST Office Visit [facility] [address] [place] [phone] Natanael Gonzalez MD [address] [facility] [place] [place] [id number] [facility] Start: 02-21-2023 Medicare Annual Wellness Visit Medicare Annual Wellness Visit (AWV) [facility] Start: 10-06-2022 COVID-19 Vaccine ( season) COVID-19 Vaccine ( season) [facility] Start: 10-06-2022 Influenza vaccination Influenza Vacc ine (#1) [facility] Start: 08-15-2022 Diabetic foot examination [facility] Start: 03-04-2022 Urine screening for protein eGFR Diabetes [facility] Start: 02-20-2022 EPV, Provider: Natanael Gonzalez, Status: Pen, Time: 9:30 AM EPV, Provider: Natanael Gonzalez, Status: Pen, Time: 9:30 AM [facility] Work Phone: Start: 02-20-2022 Patient encounter procedure [facility] Start: 02-14-2022 End: 02-14-2022 Patient encounter procedure 02/14/2022 Office Visit Podiatry Felisa Keys, DOMENICO [address] [place] [address] [facility] Start: 01-10-2022 FUV, Provider: Puja Justin, Status: Pen, Time: 8:30 AM FUV, Provider: Puja Justin, Status: Pen, Time: 8:30 AM [id number] Work Phone: Start: 01-10-2022 Patient encounter procedure [facility] Cardiology Spiritism Start: 10-06-2021 Influenza vaccination [facility] Start: 09-21-2021 End: 09-21-2021 ambulatory 09/21/2021 Treatment Rehabilitation Natanael Gonzalez MD [address] [place] [address] Aleja Elaine [facility] Start: 09-19-2021 End: 09-19-2021 ambulatory 09/19/2021 Treatment Rehabilitation Natanael Gonzalez MD [address] [place] [address] Pelon Whalen [facility] Start: 09-14-2021 End: 09-14-2021 ambulatory [facility] Start: 09-12-2021 End: 09-12-2021 ambulatory 09/12/2021 Treatment Rehabilitation Natanael Gonzalez MD [address] [place] [address] Pelon Whalen [facility] Start: 09-07-2021 End: 09-07-2021 ambulatory 09/07/2021 Treatment Rehabilitation Natanael Gonzalez MD [address] [place] [id number] Aleja Elaine SITE ENGINEER [facility] Start: 09-06-2021 Hemoglobin A1c measurement [facility] Start: 09-05-2021 End: 09-05-2021 ambulatory 09/05/2021 Treatment Rehabilitation Natanael Gonzalez MD [address] [place] [id number] Pelon Whalen, SITE ENGINEER [facility] Start: 09-01-2021 Urine screening for protein eGFR [facility] Start: 08-30-2021 End: 08-30-2021 ambulatory 08/30/2021 Treatment Rehabilitation Natanael Gonzalez MD [address] [place] [place] [id number] Santa Livingston, PT [facility] Start: 08-24-2021 End: 08-24-2021 ambulatory 08/24/2021 Evaluation Rehabilitation Natanael Gonzalez MD [address] [id number] [facility]l [facility] Start: 08-15-2021 End: 08-15-2021 Patient encounter procedure 08/15/2021 Office Visit Podiatry Felisa Keys, DOMENICO [address] [place] [address] [facility] Start: 08-10-2021 EPV, Provider: Natanael Gonzalez, Status: Pen, Time: 11:00 AM EPV, Provider: Natanael Gonzalez, Status: Pen, Time: 11:00 AM Mark Dorman Work Phone: Start: 08-02-2021 EPV, Provider: Natanael Gonzalez, Status: Pen, Time: 9:00 AM EPV, Provider: Natanael Gonzalez, Status: Pen, Time: 9:00 AM [id number] d [address] Work Phone: Start: 07-07-2021 Hemoglobin A1c measurement A1C [facility] Start: 06-14-2021 FUV, Provider: Puja Justin, Status: Pen, Time: 10:15 AM FUV, Provider: Puja Justin, Status: Pen, Time: 10:15 AM IN-[id number] d [address] Work Phone: Start: 06-06-2021 Hemoglobin A1c measurement Diabetes: Hemoglobin A1C [facility] Start: 06-02-2021 EPV, Provider: Natanael Gonzalez, Status: Pen, Time: 9:30 AM EPV, Provider: Natanael Gonzalez, Status: Pen, Time: 9:30 AM [facility] Work Phone: Start: 06-02-2021 Patient encounter procedure [facility] Start: 05-06-2021 CAROTID, Provider: [facility],[id number], Status: Pen, Time: 10:00 AM CAROTID, Provider: [facility],SMCVASLAB2, Status: Pen, Time: 10:00 AM OC-[id number]-Ezqivm d [address] Work Phone: Start: 04-26-2021 FUV, Provider: Natanael Gonzalez, Status: Pen, Time: 1:00 PM FUV, Provider: Natanael Gonzalez, Status: Pen, Time: 1:00 PM [facility] Work Phone: Start: 04-26-2021 NPV, Provider: Puja Justin, Status: Pen, Time: 8:30 AM NPV, Provider: Puja Justin, Status: Pen, Time: 8:30 AM [facility] Work Phone: Start: 04-15-2021 End: 04-15-2021 Follow-up encounter 04/15/2021 Follow-Up Sports Medicine Coby Mcdaniel MD [address] [place] [address] [facility] Start: 04-07-2021 End: 04-07-2021 ambulatory 04/07/2021 Treatment Rehabilitation [place] [address] Niall Brar, PT [facility] Start: 04-05-2021 End: 04-05-2021 ambulatory 04/05/2021 Treatment Rehabilitation [place] [address] Aleja Elaine PTA [facility] Start: 03-07-2021 End: 03-07-2021 ambulatory 03/07/2021 Treatment Rehabilitation [place] [address] Niall Brar, PT [facility] Start: 03-04-2021 End: 03-04-2021 Follow-up encounter 03/04/2021 Follow-Up Sports Medicine [place] [address] [facility] Start: 03-04-2021 End: 03-04-2021 ambulatory 03/04/2021 Treatment Rehabilitation [place] [address] Aleja Elaine SITE ENGINEER [facility] Start: 03-02-2021 End: 03-02-2021 ambulatory [facility] Start: 02-28-2021 End: 02-28-2021 ambulatory [facility] Start: 02-25-2021 End: 02-25-2021 ambulatory 02/25/2021 Treatment Rehabilitation Coby Mcdaniel MD [address] [place] [address] [facility] Start: 02-23-2021 End: 02-23-2021 ambulatory 02/23/2021 Treatment Rehabilitation Coby Mcdaniel MD [address] [place] [address] [facility] Start: 02-21-2021 End: 02-21-2021 ambulatory 02/21/2021 Treatment Rehabilitation Coby Mcdaniel MD [address] [place] [address] [facility] Start: 02-18-2021 End: 02-18-2021 ambulatory 02/18/2021 Treatment Rehabilitation Coby Mcdaniel MD [address] [place] [address] [facility] Start: 02-16-2021 End: 02-16-2021 ambulatory 02/16/2021 Treatment Rehabilitation Coby Mcdaniel MD [address] [place] [address] [facility] Start: 02-14-2021 End: 02-14-2021 ambulatory 02/14/2021 Treatment Rehabilitation Coby Mcdaniel MD [address] [place] [address] [facility] Start: 02-11-2021 End: 02-11-2021 ambulatory 02/11/2021 Treatment Rehabilitation Coby Mcdaniel MD [address] [place] [address] Aleja Elaine, SITE ENGINEER [facility] Start: 02-09-2021 End: 02-09-2021 ambulatory 02/09/2021 Treatment Rehabilitation Coby Mcdaniel MD [address] [place] [address] Santa Livingston, PT [facility] Start: 02-07-2021 End: 02-07-2021 ambulatory 02/07/2021 Evaluation Rehabilitation Coby Mcdaniel MD [address] [place] [address] Niall Brar, PT [facility] Start: 02-03-2021 End: 02-03-2021 Home visit 02/03/2021 Home Care Visit Home Health Services Hilda Hastings, PT [facility] Start: 02-03-2021 End: 02-03-2021 Patient encounter procedure 02/03/2021 Appointment Home Health Services Gaye Nichols RN [facility] Start: 02-02-2021 End: 02-02-2021 Home visit 02/02/2021 Home Care Visit Home Health Services Mg Chua PTA [facility] Start: 02-02-2021 End: 02-02-2021 Follow-up encounter 02/02/2021 Follow-Up Sports Medicine Curt Edward MD [address] [facility] [place] [address] [facility] Start: 01-31-2021 End: 01-31-2021 Home visit [facility] Start: 01-27-2021 End: 01-27-2021 Home visit [facility] Start: 01-25-2021 End: 01-25-2021 Home visit 01/25/2021 Home Care Visit Home Health Services Mg Chua PTA [facility] Start: 01-24-2021 End: 01-24-2021 Home visit 01/24/2021 Home Care Visit Home Health Services Gaye Nichols RN [facility] Start: 01-21-2021 End: 01-21-2021 Home visit 01/21/2021 Home Care Visit Home Health Services Hilda Hastings PT [facility] Start: 01-19-2021 End: 01-19-2021 Admission to same day surgery center 01/19/2021 Surgery Coby Mcdaniel MD [address] [place] [address] Left Total Knee Replacement Robotic [facility] Comment on above: Left Total Knee Repl acement Robotic Start: 01-19-2021 End: 01-19-2021 ARTHROPLASTY KNEE TOTAL ROBOTIC ARTHROPLASTY KNEE TOTAL ROBOTIC Primary osteoarthritis of left knee 01/19/2021 2:43 PM EST [facility] Start: 01-19-2021 Subsequent hospital visit by physician 01/19/2021 Hospital Encounter Coby Mcdaniel MD [address] [place] [address] [facility] Start: 01-15-2021 End: 01-15-2021 Patient encounter procedure 01/15/2021 Office Visit Lab Coby Mcdaniel MD [address] [place] [address] [facility] Start: 01-13-2021 End: 01-13-2021 Patient encounter procedure 01/13/2021 Appointment Cardiology Curt Louis MD [address] [address] [facility] Start: 01-07-2021 End: 01-07-2021 Patient encounter procedure 01/07/2021 Surgical Consult Sports Medicine Coby Mcdaniel MD [address] [place] [address] [facility] Start: 01-06-2021 End: 01-06-2021 Patient encounter procedure 01/06/2021 Office Visit Pre-Admission Testing Coby Mcdaniel MD [address] [place] [address] [facility] Preadmission Testing Start: 10-06-2020 Influenza vaccination [facility] Start: 03-01-2020 End: 03-11-2020 POCT PPD READING POCT PPD READING Point of Care Testing Routine Encounter for testing for latent tuberculosis Expected: 03/01/2020, Expires: 03/11/2020 [facility] Comment on above: Expected: 03/01/2020 , Expires: 03/11/2020 Start: 10-07-2019 Influenza vaccination INFLUENZA VACC INE (#1) [facility] Start: 09-19-2019 Assay of prostate specific antigen total Prostate Specific Antigen [facility] Work Phone: Start: 09-19-2019 Basic metabolic 1998 panel - Serum or Plasma Basic Metabolic Panel [facility] Work Phone: Start: 09-19-2019 HbA1c (Bld) [Mass fraction] Hemoglobin A1C [facility] Work Phone: Start: 09-19-2019 Hemoglobin A1c measurement A1C [facility] Start: 09-19-2019 Lipid panel Lipid Panel [facility] Work Phone: Start: 06-19-2019 HbA1c (Bld) [Mass fraction] Hemoglobin A1C [facility] Work Phone: Start: 05-08-2019 Basic metabolic 1998 panel - Serum or Plasma Basic Metabolic Panel [facility] Work Phone: Start: 05-08-2019 Protein [Mass/Vol] C Reactive Protein, Serum [facility] Work Phone: Start: 05-08-2019 Sedimentation rate r bc automated Sedimentation Rate, Erythrocyte [facility] Work Phone: Start: 04-23-2019 Hepatitis B vaccination HEP B VACCINE (2 of 3 - Hep B Twinrix 3-dose series) [facility] Start: 04-23-2019 Hepatitis B Vaccines (2 of 3 - Hep B Twinrix 3-dose series) Hepatitis B Vaccines (2 of 3 - Hep B Twinrix 3-dose series) [facility] Start: 09-05-2017 Pneumococcal vaccination [facility] Start: 09-05-2017 Pneumococcal Vaccine : Age 65+ (2 of 2 - PPSV23) Pneumococcal Vaccine: Age 65+ (2 of 2 - PPSV23) [facility] Start: 2014 Fall risk assessment Falls Risk Asse ssment [facility] Start: 2014 Pneumococcal vaccination [facility] Start: 2014 Pneumococcal Vaccine : Age 65+ (1 of 1 - PPSV23) Pneumococcal Vaccine: Age 65+ (1 of 1 - PPSV23) [facility] Start: 2009 Respiratory Syncytia l Virus Immunization: Risk, 60-74 Risk, or 75+ (1 - Risk 60-74 years 1-dose series) Respiratory Syncytial Virus Immunization: Risk, 60-74 Risk, or 75+ (1 - Risk 60-74 years 1-dose series) [facility] Start: 2009 RSV High Risk: (Elde rly (60+) or Population) (1 - Risk 60-74 years 1-dose series) RSV High Risk: (Elderly (60+) or Population) (1 - Risk 60-74 years 1-dose series) [facility] Start: 2009 RSV VACCINE (1 - Ris k 60-74 years 1-dose series) RSV VACCINE (1 - Risk 60-74 years 1-dose series) [facility] Start: 09-01-1999 Administration of herpes zoster vaccine Zoster Vaccines (1 of 2) [facility] Start: 09-01-1999 Colonoscopy COLORECTAL CAN CER SCREENING DISCUSSION [facility] Start: 09-01-1999 Prostate specific antigen measurement PROSTATE CANCER SCREENING DISCUSSION [facility] Start: 09-01-1999 Screening for malign ant neoplasm of colon [facility] Start: 09-01-1999 Zoster vaccine hzv l som for subcutaneous use ZOSTER (SHINGLES) VACCINE (1 of 2) [facility] Start: 09-01-1999 Zoster Vaccines (1 o f 2) Zoster Vaccines (1 of 2) [facility] Start: 1994 Colonoscopy COLORECTAL CAN CER SCREENING DISCUSSION [facility] Start: 1994 Screening for malign ant neoplasm of colon COLORECTAL CANCER SCREENING DISCUSSION [facility] Start: 1989 Fasting lipid profile LIPID SCREENIN G [facility] Start: 1989 Lipid panel LIPID SCREENING [facility] Start: 09-01-1971 DTaP/Tdap/Td Vaccine s (1 - Tdap) DTaP/Tdap/Td Vaccines (1 - Tdap) [facility] Start: 1968 Pneumococcal vaccination Pneumococcal Vaccine (1 of 2 - PCV) [facility] Start: 1968 Third diphtheria, tetanus and acellular pertussis (DTaP) vaccination TDAP (ADULT) [facility] Start: 1968 Urine screening for protein Diabetes: Urine Protein Screening [facility] Start: 09-01-1967 Hepatitis C screening Hepatitis C Sc reening [facility] Start: 09-01-1967 Tetanus vaccination TETANUS [facility] Start: 1965 COVID-19 Vaccine (1) COVID-19 Vaccin e (1) [facility] Start: 1961 COVID-19 Vaccine (1) COVID-19 Vaccin e (1) [facility] Start: 1961 Depression screening using PHQ-9 (Patient Health Questionnaire 9) score [facility] Start: 09-01-1959 [facility]abetic foot [facility] Start: 09-01-1959 Glaucoma screening [facility] Start: 09-01-1959 Microalbumin measurement, urine, quantitative Urine Microalbumin [facility] Start: 09-01-1959 Ophthalmic examinati on and evaluation Ophthalmology Exam [facility] Start: 09-01-1959 Urine screening for [facility] Start: 09-01-1955 Pneumococcal Vaccine : 65+ Years (1 - PCV) Pneumococcal Vaccine: 65+ Years (1 - PCV) [facility] Start: 1954 COVID-19 Vaccine (#1) COVID-19 Vacci ne (#1) [facility] Start: 1954 COVID-19 Vaccine (1) COVID-19 Vaccin e (1) [facility] Start: 1952 History and physical examination, annual for health maintenance Wellness Visit [facility] Start: 03-03-1950 COVID-19 Vaccine (#1) COVID-19 Vacci ne (#1) [facility] Start: 1949 Hemoglobin A1c measurement A1C [facility] Start: 1949 Hepatitis C antibody , confirmatory test HEPATITIS C VIRUS SCREENING [facility] Start: 1949 Hepatitis C screening HEPATITI S C VIRUS SCREENING [facility] Start: 1949 Lipid panel Lipid Panel [facility] Start: 1949 Prostate specific antigen measurement PSA Level [facility] Start: 1949 Screening for malign ant neoplasm of colon [facility] Start: 1949 Urine screening for protein Diabetes: Urine Protein Screening [facility] End: 12-22-2021 12 lead ECG ECG 12 Lead ECG Routine Primary osteoarthritis of left knee 1 Occurrences starting 12/22/2020 until 12/22/2021 [facility] Comment on above: 1 Occurrences starti ng 12/22/2020 until 12/22/2021 ARTHROPLASTY KNEE TO COLIN ROBOTIC ARTHROPLASTY KNEE TOTAL ROBOTIC Primary osteoarthritis of left knee [facility] Basic metabolic 1997 panel - Serum or Plasma Basic Metabolic Panel [facility] Work Phone: Comment on above: Before 30Mar2019 End: 12-22-2021 Basic metabolic 1999 panel - Serum or Plasma Basic metabolic panel Lab Routine Primary osteoarthritis of left knee 1 Occurrences starting 12/22/2020 until 12/22/2021 [facility] Comment on above: 1 Occurrences starti ng 12/22/2020 until 12/22/2021 Complete blood count with white cell differential, automated CBC, EDIF, PLATELET Lab Routine Type 2 diabetes mellitus with hyperglycemia, with long-term current use of insulin Ordered: 03/30/2024 [facility] Comment on above: Ordered: 03/30/2024 End: 12-22-2021 Complete blood count with white cell differential, manual CBC and differential Lab Routine Primary osteoarthritis of left knee Hypertension, unspecified type 1 Occurrences starting 12/22/2020 until 12/22/2021 [facility] Comment on above: 1 Occurrences starti ng 12/22/2020 until 12/22/2021 Comprehensive metabo lic 2000 panel - Serum or Plasma COMPREHENSIVE METABOLIC PANEL Lab Routine Type 2 diabetes mellitus with hyperglycemia, with long-term current use of insulin Ordered: 03/30/2024 [facility] Comment on above: Ordered: 03/30/2024 Creatinine other source Creatinine, Urine Spot [facility] Work Phone: Comment on above: Before 30Mar2019 End: 12-22-2021 CT Knee Left Without Contrast CT Knee Left Without Contrast Imaging Routine Primary osteoarthritis of left knee 1 Occurrences starting 12/22/2020 until 12/22/2021 [facility] Comment on above: 1 Occurrences starti ng 12/22/2020 until 12/22/2021 End: 01-01-2022 Echocardiography Echocardiogram complete Echocardiography Routine PVC's (premature ventricular contractions) 1 Occurrences starting 12/31/2020 until 01/01/2022 [facility] Work Phone: Comment on above: 1 Occurrences starti ng 12/31/2020 until 01/01/2022 HbA1c (Bld) [Mass fraction] Hemoglobin A1C [facility] Work Phone: Comment on above: Before 30Mar2019 End: 12-22-2021 Hemoglobin A1c/Hemoglobin.total in Blood Hemoglobin A1c Lab Routine Primary osteoarthritis of left knee Type 2 diabetes mellitus without complication, with long-term current use of insulin (HCC) 1 Occurrences starting 12/22/2020 until 12/22/2021 [facility] Comment on above: 1 Occurrences starti ng 12/22/2020 until 12/22/2021 Hemoglobin A1c/Hemoglobin.total in Blood HEMOGLOBIN A1C Lab Routine Type 2 diabetes mellitus with hyperglycemia, with long-term current use of insulin Ordered: 03/30/2024 [facility] Comment on above: Ordered: 03/30/2024 End: 12-22-2021 Incentive spirometry - Initial Instruction Incentive spirometry - Initial Instruction Respiratory Care Routine Primary osteoarthritis of left knee 1 Occurrences starting 12/22/2020 until 12/22/2021 [facility] Work Phone: Comment on above: 1 Occurrences starti ng 12/22/2020 until 12/22/2021 LIPID PANEL W CALCULATED LDL LIPID PANEL W CALCULATED LDL Lab Routine Hyperlipidemia, unspecified hyperlipidemia type Ordered: 03/30/2024 [facility] Comment on above: Ordered: 03/30/2024 End: 12-22-2021 Methicillin resistant Staphylococcus aureus [Presence] in Unspecified specimen by Organism specific culture MRSA Culture Microbiology Routine Primary osteoarthritis of left knee 1 Occurrences starting 12/22/2020 until 12/22/2021 [facility] Comment on above: 1 Occurrences starti ng 12/22/2020 until 12/22/2021 MICROALBUMIN/CREATIN INE RATIO MICROALBUMIN/CREATININE RATIO Fluids Routine Type 2 diabetes mellitus with hyperglycemia, with long-term current use of insulin Ordered: 03/30/2024 [facility] Comment on above: Ordered: 03/30/2024 PSA - DIAGNOSTIC/TOREY OR MARKER PSA - DIAGNOSTIC/TUMOR MARKER Lab Routine History of prostate cancer Ordered: 03/30/2024 [facility] Comment on above: Ordered: 03/30/2024 End: 12-22-2021 SARS-CoV-2 (COVID-19) RdRp gene [Presence] in Respiratory specimen by JOY with probe detection COVID-19, Molecular Microbiology Routine Exposure to SARS-associated coronavirus 1 Occurrences starting 12/22/2020 until 12/22/2021 [facility] Comment on above: 1 Occurrences starti ng 12/22/2020 until 12/22/2021 End: 03-06-2021 Standard ECG ECG ECG STAT One Time for 1 Occurrences starting 03/06/2021 until 03/06/2021 [facility] Comment on above: One Time for 1 Occur rences starting 03/06/2021 until 03/06/2021 Thyrotropin [Units/volume] in Serum or Plasma TSH Lab Routine Type 2 diabetes mellitus with hyperglycemia, with long-term current use of insulin Ordered: 03/30/2024 [facility] Comment on above: Ordered: 03/30/2024 Thyroxine (T4) free [Mass/volume] in Serum or Plasma T4 FREE Lab Routine Type 2 diabetes mellitus with hyperglycemia, with long-term current use of insulin Ordered: 03/30/2024 [facility] Comment on above: Ordered: 03/30/2024 US.doppler Carotid arteries - bilateral Vascular US Carotid Artery Duplex Bilateral Vascular Ultrasound Routine 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) Occlusion and stenosis of bilateral carotid arteries 03/02/2023 12:33 PM EST [facility] Service Area Work Phone: End: 05-27-2020 XR Cervical Spine with Flexion and Extension 6+ Views XR Cervical Spine with Flexion and Extension 6+ Views Imaging Routine Cervical radiculopathy Once for 1 Occurrences starting 05/27/2020 until 05/27/2020 [facility] Comment on above: Once for 1 Occurrenc es starting 05/27/2020 until 05/27/2020 XR Cervical Spine wi th Flexion and Extension 6+ Views XR Cervical Spine with Flexion and Extension 6+ Views Imaging Routine Cervical radiculopathy 05/27/2020 2:43 PM EDT [facility] Work Phone: Albumin, Urine Spot [facility] Work Phone: Comment on above: Before [id number] NEGATED: Highlighted row has been ruled out! Planned Goals not documented [facility] Work Phone: Immunizations Immunization Date Immunization Notes Care Provider Anthony stapleton 02-27-2020 PPD (Mantoux Test) [facility] 12-19-2019 influenza, high dose seasonal, preservative-free Natanael Gonzalez Work Phone: [facility] Work Phone: Comment on above: Series: 12-19-2019 influenza virus vacc ine, unspecified formulation Michael Iqbal MD Work Phone: [facility] 03-26-2019 hepatitis A and hepatitis B vaccine Natanael Gonzalez Work Phone: [facility] Work Phone: 11-08-2018 influenza, seasonal, injectable Natanael Gonzalez [facility] Work Phone: 11-08-2018 influenza virus vacc ine, unspecified formulation [facility] Comment on above: Series: 09-09-2018 pneumococcal polysaccharide vaccine, 23 valent; Translations: [Pneumovax 23 25 MCG/0.5ML Injection Injectable] Sandra Hair [facility] Work Phone: Comment on above: Series: 11-23-2017 influenza virus vacc ine, unspecified formulation; Translations: [influenza virus vaccine, unspecified formulation] Sandra Hair [facility] Work Phone: Comment on above: Series: 08-01-2017 pneumococcal conjuga te vaccine, 13 valent Natanael Gonzalez [facility] Work Phone: Comment on above: Series: 02-24-2014 tetanus toxoid, redu feliberto diphtheria toxoid, and acellular pertussis vaccine, adsorbed Natanael Gonzalez [facility] Work Phone: Comment on above: Series: 07-18-2012 tetanus toxoid, redu feliberto diphtheria toxoid, and acellular pertussis vaccine, adsorbed Natanael Gonzalez Work Phone: [facility] Work Phone: 01-10-2005 hepatitis A vaccine, unspecified formulation Natanael Gonzalez Work Phone: [facility] Work Phone: 06-21-2004 hepatitis A vaccine, unspecified formulation Natanael Gonzalez Work Phone: [facility] Work Phone: 06-21-2004 TD(adult) unspecifie d formulation Natanael Gonzalez Work Phone: [facility] Work Phone: Payers Date Payer Category Payer Medicare (Managed Care) [id number]. [id number] 2021 Medicare PPO [employer] MED[employer]ARE P [place] (PPO) [id number] 2021 Medicare [id number] 2020 Medicare [id number] 2020 Medicare [id number] 2019 Unknown 2019 Medicare [id number]. [id number] 1950 Unknown [id number] 2.16.840.1.787169.3.579.2. 900 1950 Unknown [id number] 2.16.840.1.817689.3.579.2. 903 1949 Unknown [id number] 2.16.840.1.708953.3.579.2. 902 1949 Unknown [id number] 2.16.840.1.360951.3.579.2. 356 1949 Unknown [id number] 2.16.840.1.414746.3.579.2. 356 1949 Unknown [id number] 2.16.840.1.065968.3.579.2. 356 1949 Unknown [id number] 2.16.840.1.687860.3.579.2. 356 1949 Unknown [id number] 2.16.840.1.062958.3.579.2. 356 1949 Unknown [id number] 2.16.840.1.428168.3.579.2. 356 1949 Unknown [id number] 2.16.840.1.775473.3.579.2. 356 1949 Unknown [id number] 2.16.840.1.653686.3.579.2. 1069 1949 Unknown [id number] 2.16.840.1.062585.3.579.2. 1069 1949 Unknown [id number] 2.16.840.1.988682.3.579.2. 1069 1949 Unknown [id number] 2.16.840.1.206457.3.579.2. 1069 1949 Unknown [id number] 2.16.840.1.593183.3.579.2. 1069 1949 Unknown [id number] 2.16.840.1.207688.3.579.2. 1069 1949 Unknown [id number] 2.16.840.1.409160.3.579.2. 1069 1949 Unknown [id number] 2.16.840.1.821377.3.579.2. 1068 1949 Unknown [id number] 2.16.840.1.464620.3.579.2. 1069 1949 Unknown [id number] 2.16.840.1.209421.3.579.2. 1244 1949 Unknown [id number] 2.16.840.1.403461.3.579.2. 983 1949 Unknown [id number] 2.16.840.1.896885.3.579.2. 1242 1949 Unknown [id number] 2.16.840.1.756224.3.579.2. 1243 1949 Unknown [id number] 2.16.840.1.750642.3.579.2. 1242 1949 Unknown [id number] 2.16.840.1.895484.3.579.2. 983 1949 Unknown [id number] 2.16.840.1.646654.3.579.2. 903 1949 Unknown [id number] 2.16.840.1.128169.3.579.2. 903 1949 Unknown [id number] 2.16.840.1.190082.3.579.2. 903 Unknown [id number] Social History Date Type Detail Facility - - [facility] Work Phone: Start: 02-27-2020 End: 07-25-2021 Tobacco smoking status NHIS Never smoker [facility] Start: 02-27-2020 End: 07-25-2021 Tobacco use and exposure Never used [facility] Start: 02-27-2020 End: 06-18-2024 Alcohol intake Lifetime non-drinker (finding) [facility] Start: 02-27-2020 End: 12-31-2020 History SDOH Alcohol Frequency 1 [facility] Start: 1950 Sex Assigned At Not on file [facility] Start: 03-19-2021 End: 04-07-2024 Exposure to SARS-CoV-2 (event) Not sure [facility] Start: 07-16-2020 Tobacco smoking status NHIS Unknown if ever smoked [facility] Start: 07-25-2021 End: 06-18-2024 Never a smoker Never a smoker [facility] Work Phone: Start: 12-22-2020 Alcohol intake Ex-drinker (finding) [facility] Start: 02-26-2023 End: 06-18-2024 Gender identity Not on file [facility] Work Phone: Start: 11-17-2020 Gender identity Identifies as male gender (finding) [facility] Start: 11-17-2020 Sexual orientation Heterosexual (finding) [facility] How often to you hav e a drink containing alcohol? Never [facility] Average Number of Drinks Not on file [facility] Start: 09-10-2019 Sex Male (finding) [facility] Start: 1950 Sex assigned at Male [facility] Medical Equipment Procedure Code Equipment Code Equipment Original Text Equipment Identifier Dates Start: 11-08-2018 OneTouch Ultra B lue In Vitro Strip USE 1 STRIP TWICE DAILY. Quantity: 100 Refills: 3 Natanael Gonzalez Start : 08-Nov-2018 Active Start: 11-08-2018 OneTouch Delica Plus [id number] Use as directed to check blood sugar daily Quantity: 100 Refills: 0 Start : 08-Nov-2018 Active Start: 11-08-2018 OneTouch Ultra B lue In Vitro Strip Use as directed to check blood daily Quantity: 50 Refills: 0 Start : 08-Nov-2018 Active Start: 11-08-2018 OneTouch Delica Plus [id number] Use as directed to check blood sugar daily Refills: 0 Start : 08-Nov-2018 Active Start: 11-08-2018 OneTouch Ultra B lue In Vitro Strip USE 1 STRIP TWICE DAILY. Quantity: 100 Refills: 3 Natanael Gonzalez Start : 08-Nov-2018 Active Start: 11-08-2018 OneTouch Delica Plus [id number] Use as directed to check blood sugar daily Refills: 0 Start : 08-Nov-2018 Active Start: 11-08-2018 OneTouch Ultra B lue In Vitro Strip USE 1 STRIP TWICE DAILY. Quantity: 100 Refills: 3 Natanael Gonzalez Start : 08-Nov-2018 Active Start: 11-08-2018 OneTouch Delica Plus [id number] Use as directed to check blood sugar daily Refills: 0 Start : 08-Nov-2018 Active Start: 11-08-2018 OneTouch Ultra B lue STRP USE 1 STRIP TWICE DAILY. Quantity: 100 Refills: 3 Natanael Gonzalez MD Start : 08-Nov-2018 Active Start: 11-08-2018 OneTouch Delica Plus [id number] Use as directed to check blood sugar daily Refills: 0 DO Start : 08-Nov-2018 Active Start: 11-08-2018 OneTouch Ultra B lue STRP USE 1 STRIP TWICE DAILY. Quantity: 100 Refills: 3 Natanael Gonzalez Start : 08-Nov-2018 Active Start: 11-08-2018 OneTouch Delica Plus [id number] Use as directed to check blood sugar daily Refills: 0 Start : 08-Nov-2018 Active Start: 11-08-2018 OneTouch Ultra B lue In Vitro Strip USE 1 STRIP TWICE DAILY. Quantity: 100 Refills: 3 Natanael Gonzalez Start : 08-Nov-2018 Active Start: 11-08-2018 OneTouch Delica Plus [id number] Use as directed to check blood sugar daily Refills: 0 Start : 08-Nov-2018 Active Start: 11-08-2018 OneTouch Ultra B lue In Vitro Strip USE 1 STRIP TWICE DAILY. Quantity: 100 Refills: 3 Natanael Gonzalez Start : 08-Nov-2018 Active Start: 11-08-2018 OneTouch Delica Plus [id number] Use as directed to check blood sugar daily Refills: 0 DO Start : 08-Nov-2018 Active Start: 11-08-2018 OneTouch Ultra I n Vitro Strip TEST TWICE DAILY. Quantity: 100 Refills: 3 Natanael Gonzalez MD Start : 08-Nov-2018 Active Start: 11-08-2018 OneTouch Delica Plus [id number] Use as directed to check blood sugar daily Refills: 0 DO Start : 08-Nov-2018 Active Start: 11-08-2018 OneTouch Ultra I n Vitro Strip TEST TWICE DAILY. Quantity: 100 Refills: 3 Natanael Gonzalez MD Start : 08-Nov-2018 Active Start: 11-08-2018 OneTouch Delica Plus [id number] Use as directed to check blood sugar daily Refills: 0 DO Start : 08-Nov-2018 Active Start: 11-08-2018 OneTouch Ultra I n Vitro Strip TEST TWICE DAILY. Quantity: 100 Refills: 3 Natanael Gonzalez MD Start : 08-Nov-2018 Active Start: 11-08-2018 OneTouch Delica Plus [id number] Use as directed to check blood sugar daily Quantity: 100 Refills: 0 DO Start : 08-Nov-2018 Active Start: 11-08-2018 OneTouch Ultra B lue In Vitro Strip USE 1 STRIP TWICE DAILY. Quantity: 100 Refills: 3 Natanael Gonzalez Start : 08-Nov-2018 Active Start: 11-08-2018 Patella 35mm Asy mmetric Metal-Backed Tritanium Triathlon - [id number] [facility] Start: 01-19-2021 use 1 PEN NEEDLE to inject MEDICATION subcutaneously one to two times a day [id number] Start: 05-31-2021 use 1 TEST STRIP to TEST BLOOD SUGAR twice a day [id number] Start: 07-11-2021 Inject 1-2 each under the skin once daily. [id number] Start: 01-14-2023 Inject 1-2 each under the skin once daily. [id number] Start: 12-12-2022 2 strips once daily. [id number] Component Sz5 Fe m Cr Lt Cementless Beaded W/Pa Triathlon - [id number], [id number] FDA Start: 01-19-2021 Baseplate Sz5 Ti bial Tritanium Triathlon - [id number], [id number] FDA Start: 01-19-2021 Insert Sz5-11 Ti bial Cr X3 Triathlon [id number] - [id number] , [id number] FDA Start: 01-19-2021 Inject 1-2 each under the skin daily . [id number] Start: 12-12-2022 Functional Status Date Assessment Result Facility NEGATED: Highlighted row Functional performance Functional status health issues are not documented Disease [facility] Work Phone: Mental Status Date Assessment Result Facility NEGATED: Highlighted row Cognitive function [Interpretation] Cognitive status health issues are not documented Disease [facility] Work Phone: Clinical Notes 07-16-2020 to 12-02-2024 Giorgio Garcia Jr., DPM - 06/18/2024 2:02 PM Swati Manrique TECHNOLOGIST - 06/17/2024 10:16 AM Herber King RN - 04/16/2024 8:00 AM JOSE DE JESUS Hutchins - 04/07/2024 11:05 AM EST Note Date & Type Note Facility 12-02-2024 Note Coronary Calcium Sco re Report Procedure: Coronary artery calcium score CPT Code: 91560 Requesting Physician: Interpreting Transcribing Operators Supervisor: Carlos Livingston MD Primary Care Physician: Natanael Gnozalez Clinical Indication: Gender: Race/Ethnicity: White Cardiovascular risk factors: Hypertension and Diabetes Prior Imaging: Procedure: Computed tomographic angiography without contrast BMI: 25 kg/msq Acquisition mode: Prospective, ECG triggered Complications: None Image Quality: Good, No significant artifacts. Scanner: GE Revolution DLP 108.4mGy Radiation dose reduction was achieved by using automated exposure control and or adjustments of mA and/or kV according to patient size and/or use of iterative reconstruction techniques. Coronary Calcium / Agatston scoring: Left main: 162 Right coronary artery: 106 Left anterior descending artery: 453 Left circumflex artery: 500 Total coronary calcium score: 1221 Cardiac Chambers: No calcification noted Pericardium: No pericardial calcification Valve morphology: No calcification noted Aorta: Mild aortic calcification noted Impression:CAC > 300 in LM, LAD, RCA, and LCX - CAC-DRS A3/N4 Percentile age/gender cohort: 90th percentile for cohort percentile for age, gender and race/ethnicity-matched group per [employer] database. PLEASE SEE SEPARATE RADIOLOGY REPORT FOR THE NONCARDIAC FINDINGS Coronary Calcium Score interpretation High risk. High calcium score is consistent with a significant risk of having cardiovascular event within the next 5 years. Recommend risk factor modification, statin, and aspirin as appropriate. Dictated by: JAN LIVINGSTON on SunDec 02, 2024 3:26:24 PM EDT Transcribed by: JAN LIVINGSTON on SunDec 02, 2024 3:26:24 PM EDT Finalized by: JAN LIVINGSTON on SunDec 02, 2024 3:26:24 PM EDT [facility] 06-18-2024 Note Nail care Patient is a pleasant 72-year-old male who comes in today for nail care. States that his nails are very long and thick open to get them cut. Physical Vascular: DP pulses palpable 2-4, PT pulses are poorly palpable. CFT is delayed mild foot and ankle edema. Derm: Nails left foot 1-3 for 5 and right foot 1-3 for 5 are substantially thickened dystrophic and elongated. Neuro: Normal. Musculoskeletal: Muscle strength is 5/5 with fair tone. Can easily wiggle toes any clicking or catching. Ankle subtalar is full and pain-free. Assessment and plan: Patient is a pleasant 72-year-old male patient is to tear disease and onychodystrophy to 10 nails. Sharply debrided and debulk in height and length 10 onychomycotic nails with a sharp nail nippers consistent with aq8 modifier. Follow-up in 3 months for foot nail care AUTHENTICATED BY GIORGIO GARCIA JR., ON 06/18/2024 14:03:18 [facility] 06-18-2024 History of Present illness Narrative Nail care Patient is a pleasant 72-year-old male who comes in today for nail care. States that his nails are very long and thick open to get them cut. Physical Vascular: DP pulses palpable 2-4, PT pulses are poorly palpable. CFT is delayed mild foot and ankle edema. Derm: Nails left foot 1-3 for 5 and right foot 1-3 for 5 are substantially thickened dystrophic and elongated. Neuro: Normal. Musculoskeletal: Muscle strength is 5/5 with fair tone. Can easily wiggle toes any clicking or catching. Ankle subtalar is full and pain-free. Assessment and plan: Patient is a pleasant 72-year-old male patient is to tear disease and onychodystrophy to 10 nails. Sharply debrided and debulk in height and length 10 onychomycotic nails with a sharp nail nippers consistent with aq8 modifier. Follow-up in 3 months for foot nail care documented in this encounter [facility] 06-17-2024 History of Present illness Narrative Abstracted from . documented in this encounter [facility] 04-16-2024 History of Present illness Narrative Diabetes Self Management Education Record Progress Note Participant Name: Saadia his Referring Provider Dr Berto Pettit [place] to learning: Considerations: Health Literacy, Financial, Lack of desire, and Psycho-social If considerations are noted, accommodations made: Individual session for insulin instruction. Identified barriers to learning/self management: Never had diabetes education before, recent change to his insulin regimen. The following information was discussed: Diabetes disease process and treatment options, Healthy nutrition, carbohydrate counting, meal planning, Monitoring blood glucose and other parameters: interpreting and using results, Acute complications-prevention, detection and treatment, Medication management and safety, Preventing, through risk reduction behaviors, detecting, and treating chronic complications, Developing personalized strategies to promote health and behavior change through goal setting, behavior change strategies aimed at risk reduction, and Foot, skin, and dental care Participant Stated Goal: He plans to stop using the inside of his thighs for insulin injections and use outside of thighs instead. Current main goal attainment frequency: Never Participant Confidence to master goal this visit: Excellent Participant Stated Goal: He plans to use the Plate Method to begin modifying his food choices towards healthy eating goals. Current main goal attainment frequency: Never Participant Confidence to master goal this visit: Good Time spent with patient: 60 minutes Next Appointment: for patient to arrange. Instruction Method: Lecture/Discussion, Handouts, and Return Demonstration Education Materials/Equipment Provided: Welcome to Diabetes Education letter, [employer] Diabetes Survival Guide, Plate Method Diabetes Self Management Support Plan: To assist and support your continued progress in managing your diabetes following education- Gym or exercise program of your choice. (Suggestions: [employer], [employer], any exercise facility and your local Physical Therapy or Cardiac Rehabilitation exercise Program) and ADA website: Http://www.diabetes.org Wale and his come in for his first ever visit to diabetes education. He is using his Accurence 3+ approximately 18 times a day to view his blood glucose. He shares frustration that he has regular prandial blood glucose spikes. He states he takes his prandial insulin prior to meals but not 15 minutes prior. He plans to try taking prandial insulin 15 minutes before first bite to see if this evens out his mealtime glucose excursions. He denies any missed doses. He does share that he has been taking his insulin injections primarily using his upper, inner thighs with a few uses of his lower abdomen. Insulin injection site rotation and selection education given to patient as he states he has never been informed of this previously. Education today began with the basic introduction of diabetes as a chronic and progressive disease with ADA guidelines on blood glucose target ranges and hemoglobin A1c goals. Risk factors for diabetes and complications reviewed as well as risk reduction strategies. He does follow with annual primary care visits, dental and eye exams, as promoted by the [place] Diabetes Association. Hypoglycemia recognition and treatment education also given to patient and his . He shares that he typically starts to feel symptoms of low blood sugar around the 80-90s. He was encouraged to keep his glucometer as well as hypoglycemia treatments on hand at all times. Patient voiced interest in beginning healthy eating discussion so this was focused on for the last half of the visit. He was instructed in reading nutrition labels though defers to his for most if not all nutrition information gathering and food selection in stores. Recipes on ADA's Food Hub reviewed with patient's and patient as well as their cooking classes, should the patient be so inclined to try them. Plate Method reviewed in detail. He admits to having many unbalanced meals that are heavy on carbohydrates- this is noted multiple times on review of patient's CGM data on his personal phone felecia. Importance of having balanced meals emphasized to patient. All questions answered in session and plans for follow up to be arranged by patient who sites concern over insurance coverage. He has billing codes and states plan to find out about further coverage before setting next appointment. He would benefit form further diabetes education. documented in this encounter [facility] 04-07-2024 History of Present illness Narrative [facility] NOTE: Name: Stephany Reynolds, 73 y.o. CSN:[id number] PCP: Trenton Feldman PA-C ALL: Allergies Allergen Reactions Oxycodone-Acetaminophen Hives and Other Other reaction(s): Other (See Comments) Feels loopy Feels loopy Other reaction(s): Other (See Comments) Feels loopy Prednisolone Other and Unknown INCREASED THIRST FELT LOOPY Makes him loopy Reports it made him loopy Reports it made him loopy History: Chief Complaint: URI (Cough/congestion not improving from 03/31 visit ) Encounter Date: 04/07/2024 HPI: The history was obtained from the patient. Stephany is a 73 y.o. male, who presents with a chief complaint of URI (Cough/congestion not improving from 03/31 visit ) continues with mild sinus congestion and rhinitis, productive cough with green sputum that is worsened since initial appointment on 03/31/2024. Treated for bronchitis with azithromycin and albuterol inhaler. Feels symptoms of chest congestion has gotten worse with little to no improvement with antibiotic therapy. Denies any body aches, abdominal pain, nausea, vomiting, diarrhea. Denies any dizziness. reports increased fatigue with wheezing heard while sleeping along with disorientation upon awakening today evening. reports fall yesterday evening without injury. 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, inflammatory Nonrheumatic mitral (valve) prolapse 08/16/2021 MVP (mitral valve prolapse) Ocular hypertension, 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 Other abnormal findings on diagnostic imaging of central nervous system 06/14/2021 Abnormal MRA, brain Other conditions influencing health status 10/21/2019 Type 2 diabetes mellitus, uncontrolled Other hyperlipidemia 08/16/2021 Familial hyperlipidemia Pain in right shoulder 04/14/2019 Shoulder pain, bilateral Personal history of malignant neoplasm of prostate 08/16/2021 History of prostate cancer Personal history of other diseases of the respiratory system 01/11/2021 History of sore throat Personal history of other specified conditions 12/02/2020 History of abnormal weight loss Polymyalgia rheumatica (Multi) 08/16/2021 Polymyalgia rheumatica Unilateral primary osteoarthritis, left knee 12/02/2020 Primary osteoarthritis of left knee Current Outpatient Medications Medication Sig Dispense Refill albuterol 90 mcg/actuation inhaler Inhale 2 puffs every 6 hours if needed for wheezing. 18 g 0 ascorbic acid, vitamin C, 500 mg capsule Take 1,000 mg by mouth once daily. aspirin 81 mg EC tablet Take 1 tablet (81 mg) by mouth once daily. cholecalciferol (Vitamin D-3) 5,000 Units tablet Take 1 tablet (5,000 Units) by mouth once daily. Droplet Pen Needle 31 gauge x 3/16 needle Inject 1-2 each under the skin once daily. Easy Touch Insulin Syringe 1 mL 31 gauge x 5/16 syringe Inject 1-2 each under the skin once daily. imipramine (Tofranil) 25 mg tablet Take 1 tablet (25 mg) by mouth 2 times a day. insulin lispro protamin-lispro (HumaLOG Mix 75-25,U-100,Insuln) 100 unit/mL (75-25) suspension injection Inject under the skin 2 times daily (morning and late afternoon). Take as directed per insulin instructions. metFORMIN, OSM, (Fortamet) 500 mg 24 hr tablet Take 2 tablets (1,000 mg) by mouth 2 times daily (morning and late afternoon). Do not crush, chew, or split. NovoLOG Flexpen U-100 Insulin 100 unit/mL (3 mL) pen Inject 6 Units under the skin. OneTouch Ultra Test strip 2 strips once daily. phytonadione, vit K1, (vitamin k) 100 mcg tablet Take 2 tablets (200 mcg) by mouth once daily. timolol (Timoptic) 0.5 % ophthalmic solution Administer 1 drop into both eyes once daily. vitamin B complex (B Complex-Vitamin B12) tablet Take 1 tablet by mouth once daily. zinc gluconate 50 mg tablet Take 1 tablet (50 mg) by mouth once daily. amoxicillin-pot clavulanate (Augmentin) 875-125 mg tablet Take 1 tablet (875 mg) by mouth 2 times a day for 10 days. 20 tablet 0 No current facility-administered medications for this visit. PMSx: Past Surgical History: Procedure Laterality Date OTHER SURGICAL HISTORY 01/11/2019 Cataract surgery OTHER SURGICAL HISTORY 01/11/2019 Knee arthroscopy OTHER SURGICAL HISTORY 03/10/2016 Colonoscopy OTHER SURGICAL HISTORY 08/12/2021 Ablation OTHER SURGICAL HISTORY 08/16/2021 Knee replacement OTHER SURGICAL HISTORY 06/16/2019 Prostatectomy SKIN CANCER EXCISION Right 02/2024 cheek Fam Hx: Family History Problem Relation Name Age of Onset Hypertension Brother Deep vein thrombosis Brother SOC. Hx: Social History Socioeconomic History Marital status: Spouse name: Not on file Number of children: Not on file Years of education: Not on file Highest education level: Not on file Occupational History Not on file Tobacco Use Smoking status: Never Smokeless tobacco: Never Vaping Use Vaping status: Never Used Substance and Sexual Activity Alcohol use: Never Drug use: Never Sexual activity: Not on file Other Topics Concern Not on file Social History Narrative Not on file Social Drivers of Health Financial Resource Strain: Not on file Food Insecurity: Not on file Transportation Needs: Not on file Physical Activity: Not on file Stress: Not on file Social Connections: Not on file Intimate Partner Violence: Not on file Housing Stability: Not on file Vitals: 04/07/24 1146 BP: 131/85 Pulse: 106 Resp: 16 Temp: 37.1 C (98.7 F) SpO2: 94% Physical Exam Vitals and nursing note reviewed. Constitutional: General: He is not in acute distress. Appearance: Normal appearance. He is not ill-appearing. HENT: Head: Normocephalic and atraumatic. Right Ear: Hearing, ear canal and external ear normal. A middle ear effusion is present. Left Ear: Hearing, ear canal and external ear normal. A middle ear effusion is present. Nose: Rhinorrhea present. Rhinorrhea is purulent. Right Sinus: No maxillary sinus tenderness or frontal sinus tenderness. Left Sinus: No maxillary sinus tenderness or frontal sinus tenderness. Mouth/Throat: Lips: [place]. Mouth: Mucous membranes are moist. Pharynx: Uvula midline. Posterior oropharyngeal erythema present. No pharyngeal swelling or oropharyngeal exudate. Tonsils: No tonsillar exudate. Cardiovascular: Rate and Rhythm: Normal rate and regular rhythm. Heart sounds: Normal heart sounds. Pulmonary: Effort: Pulmonary effort is normal. Breath sounds: Examination of the right-lower field reveals wheezing. Examination of the left-lower field reveals wheezing. Wheezing present. Abdominal: General: Bowel sounds are normal. Skin: General: Skin is warm and dry. Capillary Refill: Capillary refill takes less than 2 seconds. Neurological: Mental Status: He is alert and oriented to person, place, and time. LABORATORY @ RADIOLOGICAL IMAGING (if done): Study Result Narrative & Impression Interpreted By: Kierra Sandhu, STUDY: XR CHEST 2 VIEWS; 04/07/2024 12:28 pm INDICATION: Signs/Symptoms:cough. COMPARISON: None. ACCESSION NUMBER(S): [id number] ORDERING CLINICIAN: ROSE FIERRO FINDINGS: PA and lateral radiographs of the chest were provided. CARDIOMEDIASTINAL SILHOUETTE: Cardiomediastinal silhouette is normal in size and configuration. LUNGS: Mild bibasilar opacities are seen. No sizable pleural effusion. No pneumothorax or pulmonary edema. ABDOMEN: No remarkable upper abdominal findings. BONES: No acute osseous changes. IMPRESSION: Mild bibasilar opacities, which could relate to atelectasis or infiltrate. Signed by: Kierra Sandhu 04/07/2024 1:39 PM Dictation workstation: [id number] Reviewed with , stressed the importance of follow-up at the emergency department with any new change in cognition or worsening shortness of breath __ I did personally review Stephany's past medical history, surgical history, social history, as well as family history (when relevant). In this case, I also oversaw the his drug management by reviewing his medication list, allergy list, as well as the medications that I prescribed during the UC course and/or recommended as an out-patient (including possible OTC medications such as acetaminophen, NSAIDs , etc). After reviewing the items above, I did look at previous medical documentation, such as recent hospitalizations, office visits, and/or recent consultations with PCP/specialist. SDOH: Another factor that I considered in Stephany's care was his Social Determinants of Health (SDOH). During this UC encounter, he did not have social determinants of health. Those SDOH influencing Stephany's care are: none ___ UC COURSE/MEDICAL DECISION MAKING: Stephany is a 73 y.o., who presents with a working diagnosis of 1. Community acquired pneumonia, unspecified laterality 2. Subacute cough Stephany Echevarria was seen today for uri. Diagnoses and all orders for this visit: Community acquired pneumonia, unspecified laterality (Primary) - amoxicillin-pot clavulanate (Augmentin) 875-125 mg tablet; Take 1 tablet (875 mg) by mouth 2 times a day for 10 days. Subacute cough - XR chest 2 views; Future Plan of care reviewed with patient. If symptoms change and/or worsen will follow-up with primary care provider, return to urgent care, or go to the nearest emergency department for further evaluation. Patient states understanding and is agreeable with plan of care. Rose Fierro APRN, ZOHREH Advanced Practice Provider [facility] Please note: While the patient may or may not have received printed discharge paperwork, all relevant medical findings, test results, and treatment details are accessible through the electronic medical record system. The patient is encouraged to review their chart via the patient portal for comprehensive information and follow-up instructions. documented in this encounter [facility] Work Phone: 03-31-2024 History of Present illness Narrative 73 y.o. male presents for evaluation of URI. Symptoms including cough, congestion, body aches, malaise, and headache have been present for several days and refractory to OTC meds. No fever, chills, sore throat, rashes, ear pain, nausea, vomiting, abdominal pain, CP, or SOB. No exacerbating factors. No known COVID 19/flu exposure. Vitals: 03/31/24 0954 BP: 107/73 Pulse: 103 Resp: 14 Temp: 36.6 C (97.8 F) SpO2: 97% Allergies Allergen Reactions Oxycodone-Acetaminophen Hives and Other Other reaction(s): Other (See Comments) Feels loopy Feels loopy Other reaction(s): Other (See Comments) Feels loopy Prednisolone Other and Unknown INCREASED THIRST FELT LOOPY Makes him loopy Reports it made him loopy Reports it made him loopy Medication Documentation Review Audit Reviewed by Cecy Larose MA (Operations Team Leader) on 03/31/24 at 0953 Medication Order Taking? Sig Documenting Provider Last Dose Status ascorbic acid, vitamin C, 500 mg capsule [id number] Yes Take 1,000 mg by mouth once daily. Historical Provider, Active aspirin 81 mg EC tablet [id number] Yes Take 1 tablet (81 mg) by mouth once daily. Historical Provider, Active cholecalciferol (Vitamin D-3) 5,000 Units tablet [id number] Yes Take 1 tablet (5,000 Units) by mouth once daily. Ilana Presley MD Active Droplet Pen Needle 31 gauge x 3/16 needle [id number] Yes Inject 1-2 each under the skin once daily. Ilana Presley MD Active Easy Touch Insulin Syringe 1 mL 31 gauge x 5/16 syringe [id number] Yes Inject 1-2 each under the skin once daily. Ilana Presley MD Active imipramine (Tofranil) 25 mg tablet [id number] Yes Take 1 tablet (25 mg)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 Education: Quality of movement with patient demonstrated understanding. Post-Treatment Pain Scale: 2 Assessment: Patient had an expected response to treatment. Skilled Intervention demonstrated by modifications of treatment per exercise log including increased load and safety interventions per exercise log. Progress towards goals as expected. Plan for Next Visit: Treatment Visit with focus on stretching Aleja Elaine PTA STATE LICENSE, [id number] documented in this encounter [facility] 09-05-2021 History of Present illness Narrative [facility] DAILY TREATMENT NOTE Today's Date 09/05/2021 Patient Name: Stephany Reynolds Date of : 1950 Current Visit #: 3 Authorized Visits: 199 Case Name: Low Back Pain History: Pre-Treatment Pain Scale: 0 Symptoms: stabilized Functional Diagnosis: 1. Lumbar spondylosis Clinical Information: Subjective: Pt reports mid back and shoulders are stiff today but no c/o pain. Objective Treatments: Physical Therapy Exercise Log - 09/05/21 0910 OTHER Precautions/Contraindications Supervising PT: Brian Notes Visit 2: 9:14 - 9:53 Therapeutic Exercise ([id number]) Intervention NuStep L3 5 mins Parameters thoracic ext over towel roll, rotation 3 10 Intervention thread the needle 10 BL Parameters BSB rolling forward and backward 10 (small range) Intervention arm open up and close seated (thoracic and sh extension and retraction followed by flexion) Parameters scapular retraction 5x 10 Intervention standing shoulder flex stretch hands on wall - 5 sec x10 Parameters LTR 3-5 x10 Intervention PPTs 5 x10 Parameters SKTC 10 x5 Intervention bridging 5 x10 PT Treatment Times Therex Total Time 39 Direct Treatment Time 39 Total Treatment Time 39 Goals: Physical Therapy Ortho Goals: MOBILITY: Patient will be able to ambulate for 1 hour in community without difficulty in 4 weeks. CHANGING MAINTAINING POSITON: Patient will be able to change position in bed without pain or difficulty in 3 weeks IMPAIRMENT: Patient will demonstrate improved postural awareness in PT sessions to facilitate mechanical alignment and function in 3 weeks. IMPAIRMENT: Improve pain from 3/10 to 1/10 during standing extension activities and when turning in bed in 4 weeks IMPAIRMENT: Improve AROM of Lumbar Extension from 75% movement loss to 25% movement loss or less in 4 weeks. IMPAIRMENT: Improve AROM of Thoracic Extension from 50% movement loss to 25% movement loss or less in 4 weeks. OTHER: Patient will increase FOTO score from 63 to at least 75 to show MDC/MCII and expected functional outcome in 4 weeks. OTHER: Patient will be able to properly demonstrate independence with HEP in 1 week. Patient Education: Quality of movement with patient demonstrated understanding. Post-Treatment Pain Scale: 0 Assessment: Patient had an expected response to treatment. Skilled Intervention demonstrated by modifications of treatment per exercise log including increased load and safety interventions per exercise log. Progress towards goals as expected. Plan for Next Visit: Treatment Visit with focus on core and postural strengthening and stability Pelon Whalen PTA STATE LICENSE, [id number] documented in this encounter [facility] 08-24-2021 History of Present illness Narrative [facility] Evaluation Today's Date 08/24/2021 Patient Name: Stephany Reynolds Date of : 1950 Case Name: Low Back Pain Functional Diagnosis: 1. Lumbar spondylosis Clinical Information: Subjective Referring Diagnosis: Lumbar Spndylosis History of Present Illness Subjective History: Pt reports c/o chronic low back pain. He states he notices the pain most at night when rolling in bed and with extension motions/activities. He reports no known injury and denies radicular pain, numbness and tingling. He received x-rays through his PCP which revealed arthritis. Previous Imaging: X-ray Pain Scale Pain location: lumbar spine Pain at highest: 3/10 Aggravating factors: turning in bed, lumbar extension Easing factors: rest Personal Goals: Have no pain when turning in bed Improve core stability Functional Mobility Status Current Mobility Status: Community: no device and independent Bed Transfer: independent Toilet Transfer: independent Shower/Tub: independent Car Transfer: independent Current Activity Level: active Social Support: Sabianism, social, or cultural considerations to be made aware of before starting treatment: No Activities of Daily Living: independent with all Instrumental Activities of Daily Livingto be assessed Sleep Assessment Preferred sleep position: on side Sleep disturbance: Sleep Disturbance Red Flags: None Comments: Barriers to Care: None Sabianism, social, or cultural considerations to be made aware of before starting treatment: No Cervical Spine: Range of Motion - Thoracic Flexion Loss: 25% Extension Loss: 50% Rt. Rotation Loss: 50% Left Rotation Loss: 50% Additional Cervical Findings: Pt reports increased pain w/ thoracic extension and rotation to the left Lumbar Spine Gait: forward trunk lean Posture: rounded shoulders posture, thoracic kyphosis and reduced lordosis Trunk AROM: Baseline pain level and symptom location: 0/10 Movement Loss % of Loss Description Flexion 50% no pain Extension 75% mild pain Side Gliding R 25% mild pain Side Gliding L 25% mild pain Dermatomes Sensation: grossly intact Muscle Strength: Hip Flexion Right: 4 Left: 4 Knee extension Right: 4+ Left: 5 Ankle DF Right: 5 Left: 5 Ankle PF Right: 5 Left: 5 Knee flexion Right: 5 Left: 5 Hip extension Right: 4+ Left: 4+ Hip ABD Right: 4+ Left: 4+ Special Tests Slump Right: no Slump R Left: no Slump L SLR Right: no SLR R Left: no SLR L PAYTON: Negative Bilaterally Scour: Negative Bilaterally SIJ dysfunction: Pt reports pain w/ right side pelvic rocking FOTO Score: 63 Treatments: Physical Therapy Exercise Log - 08/24/21 1396 OTHER Precautions/Contraindications Supervising PT: Brian Notes Eval: 9:22 - 9:57 Therapeutic Exercise (97406) Intervention provided written HEP handouts consisting of the following: Parameters LTR Intervention PPTs Parameters SKTC Intervention abd marching Parameters thoracic ext over towel roll Intervention shoulder rolls PT Treatment Times Total Treatment Time 35 Goals: Physical Therapy Ortho Goals: MOBILITY: Patient will be able to ambulate for 1 hour in community without difficulty in 4 weeks. CHANGING MAINTAINING POSITON: Patient will be able to change position in bed without pain or difficulty in 3 weeks IMPAIRMENT: Patient will demonstrate improved postural awareness in PT sessions to facilitate mechanical alignment and function in 3 weeks. IMPAIRMENT: Improve pain from 3/10 to 1/10 during standing extension activities and when turning in bed in 4 weeks IMPAIRMENT: Improve AROM of Lumbar Extension from 75% movement loss to 25% movement loss or less in 4 weeks. IMPAIRMENT: Improve AROM of Thoracic Extension from 50% movement loss to 25% movement loss or less in 4 weeks. OTHER: Patient will increase FOTO score from 63 to at least 75 to show MDC/MCII and expected functional outcome in 4 weeks. OTHER: Patient will be able to properly demonstrate independence with HEP in 1 week. CPT Code 09587 Low 82103 Moderate 07688 High History 0 1-2 3+ Comorbidities: cardiac history, DM, and OA, Personal factors: chronicity or severity of the current condition Examination of body systems (elements of body structures & functions, activity limitations, and/or participation restrictions) 1-2 elements 3+ elements 4+ elements See below clinical impression Clinical Presentation Stable Evolving Unstable As evidenced by reproduction of or changes in symptoms with certain movements and reports of fluctuating symptoms over time Decision Making Low (FOTO >/= 69) Moderate (FOTO 34 - 68) High (FOTO </= 33) FOTO score= 63 Pt is a 70 y.o. male who presents to PT services with c/o mid and low back pain. Upon assessment, pt has been found with the following impairments: impaired posture, decreased ROM, decreased strength, decreased flexibility of the thoracic and lumbar spine, and pain. 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 The pt would benefit from skilled PT services focused on the above listed impairments and limitations in order to safely progress pt to their desired level of function. Pt to be discharged from OP PT services if/when goals are met, if they fail to make progress with conservative management in PT, if their level of progress plateaus, or if they do not maintain compliance with attendance or HEP. At this time, it is my clinical judgment that services are medically necessary. Plan of Care Frequency of Visits: 2 times per week Duration: 4 weeks Interventions: Therapeutic Exercise (84125), Neuromuscular Re-Education (07858), Manual Therapy (56554), Therapeutic/ Functional Activities (18767), and Hot/Cold Pack (94946) Rehab Potential: good Suicide Screen Signs and Symptoms of Abuse/Neglect: No Actions Taken: No Suicide Risk: Does the patient feel like ending their life today?No Actions Taken: No Patient Education Provided Pt was educated on the benefits of therapy and importance of compliance with sessions and HEP for rehabilitation. Pt was also educated on treatment diagnosis, POC, and frequency/duration of treatment. Niall Brar PT State License, [id number] documented in this encounter [facility] 08-15-2021 History of Present illness Narrative Images from the original note were not included. Felisa Keys DPM Patient Name: Stephany Reynolds. . Date of : 1950, 70 y.o.. Gender: male. Subjective: Patient is a pleasant 70-year-old male who presents to clinic for follow-up on his left foot metatarsalgia pain. Patient states that he has improved since the last clinic visit. Admits that he was recently diagnosed with a diabetic with numbness and tingling to his toes. Patient is asking about benefits of inserts, etc. No other pedal complaints at this time. Denies fevers, chills, nausea, vomiting, chest pain, shortness of breath, or any other constitutional symptoms. Physical Examination: BP 129/77 (BP Location: Left arm, Patient Position: Sitting, BP Cuff Size: Adult) Pulse (!) 111 Temp 97.5 F (36.4 C) (Infrared) General Appearance: Alert, cooperative, no distress, appears stated age. Podiatric Exam Vascular: DP and PT pulses are palpable 2/4. Capillary refill time is less than 3 seconds to distal digits. Skin temperature is warm to warm from proximal tibial tuberosity to distal digit. Neurological: Gross sensation is intact. Protective sensation is diminished using the [place] monofilament. Dermatologic: The previously noted hyperkeratotic lesion subfifth metatarsal head has now resolved. No open wounds. Interdigital spaces are clean dry and intact. Musculoskeletal: No pain on palpation to the plantar fifth metatarsal head, left foot. Patient is able to wiggle digits ankle joint range of motion is intact. Muscle strength is 5/5 to dorsiflexors, plantar flexors, inverters and everters. Compartments soft and compressible. No calf pain Assessment: 1. Diabetic peripheral neuropathy (HCC) Diabetic Shoes 2. Comprehensive diabetic foot examination, type 2 DM, encounter for (HCC) Diabetic Shoes Imaging: None obtained at this visit Plan: Patient was seen and evaluated. Discussed all clinical findings. A comprehensive diabetic foot examination was performed. Patient is doing well and has no open wounds. No signs of infection. Reviewed patient's hemoglobin A1c noted to be 6.7% on 01/06/2021. Patient is to continue to follow-up with his primary care physician every 6 months. Patient was instructed to check his feet once daily and to wear good supportive shoes. Discussed with patient that he would benefit from diabetic shoes with custom accommodative inserts for offloading especially given his fifth metatarsal head prominence, and his risk for ulceration and infection. A prescription for diabetic shoes with inserts wears provided to the patient. Patient is to follow-up in 6 months for evaluation. Felisa Keys DPM, MS Podiatric Physician & Surgeon documented in this encounter [facility] 07-25-2021 History of Present illness Narrative Images from the original note were not included. NEW Patient Visit Felisa Keys DPM Patient Name: Stephany Reynolds. . Date of : 1950, 70 y.o.. Gender: male. Subjective: Patient is a pleasant 70-year-old male who presents to clinic complaining of left foot pain. Patient points to the plantar aspect of the fifth metatarsal head as a site of most of his pain. Patient states that he has been using a pumice stone to help reduce callus buildup. He denies any trauma or injury. Denies any change of activity or shoe gear. No other pedal complaints at this time. Denies fevers, chills, nausea, vomiting, chest pain, shortness of breath, or any other constitutional symptoms. Past Medical History: Diagnosis Date Arthritis Diabetes (HCC) Diabetes mellitus, type 2 (HCC) Heart valve disease Prostate cancer (HCC) Past Surgical History: Procedure Laterality Date ARTHROPLASTY KNEE TOTAL ROBOTIC ASSISTED Left 01/19/2021 Procedure: Left Total Knee Replacement Robotic; Surgeon: Coby Mcdaniel MD; Location: Main OR; Service: Ortho-Robotics EYE SURGERY KNEE SURGERY ORTHOPEDIC SURGERY PROSTATECTOMY Social History Socioeconomic History Marital status: Tobacco Use Smoking status: Never Smokeless tobacco: Never Substance and Sexual Activity Alcohol use: Never Drug use: Not Currently Physical Examination: BP 129/74 (BP Location: Left arm, Patient Position: Sitting, BP Cuff Size: Adult) Pulse (!) 103 Temp (!) 96.3 F (35.7 C) (Infrared) General Appearance: Alert, cooperative, no distress, appears stated age. Podiatric Exam Vascular: DP and PT pulses are palpable 2/4. Capillary refill time is less than 3 seconds to distal digits. Skin temperature is warm to warm from proximal tibial tuberosity to distal digit. Neurological: Gross sensation is intact. Protective sensation is intact. Dermatologic: A large hyperkeratotic lesion noted subfifth metatarsal head, left foot. Upon debridement of lesion, no underlying ulceration. Interdigital spaces are clean dry and intact. Musculoskeletal: Pain on palpation to the plantar fifth metatarsal head, left foot. Patient is able to wiggle digits ankle joint range of motion is intact. Muscle strength is 5/5 to dorsiflexors, plantar flexors, inverters and everters. Compartments soft and compressible. No calf pain Assessment: 1. Metatarsalgia, left foot 2. Callus of foot 3. Left foot pain Imaging: None obtained at this visit Plan: Patient was seen and evaluated. Discussed all clinical findings. Has metatarsalgia and pain of the left fifth metatarsal head secondary to callus buildup. Verbal consent was obtained prior to debriding the hyperkeratotic lesion down to appropriate epithelial layer. Patient expressed some pain relief. Discussed with patient that if his pain fails to improve or worsen, an orthotic device can help offload weightbearing pressures to reduce pain and discomfort with ambulation. All questions were answered to patient satisfaction. Patient understands to call with any questions or concerns. Follow-up in 3 weeks for evaluation. Felisa Keys DPM, MS Podiatric Physician & Surgeon documented in this encounter [facility] 04-07-2021 History of Present illness Narrative [facility] DAILY TREATMENT NOTE Today's Date 04/07/2021 Patient Name: Stephany Reynolds Date of : 1950 Current Visit #: 13 Authorized Visits: 199 Case Name: S/P Left TKR History: Pre-Treatment Pain Scale: 1 Symptoms: stabilized Functional Diagnosis: 1. Status post total left knee replacement Clinical Information: Subjective: Pt continues to report minimal pain and no difficulty with functional mobility. Objective Knee Left Knee Range of Motion: Flexion Active: 115 Passive: 121 Extension Active: 0 Muscle Strength Flexion: 5 Extension: 5 Treatments: Physical Therapy Exercise Log - 04/07/21 1131 OTHER Precautions/Contraindications Supervising PT: Brian - Left TKR 01/19 Notes visit 13: 11:31 - 12:01 Therapeutic Exercise (21895) Intervention Scifit L4 X5 mins Parameters step stretches 3x20, calf stretch 20 x3 Intervention TKE - x15 BTB Parameters Steamboats on airex - x10 Lvl 3 Intervention -- Parameters -- Intervention -- Parameters -- Intervention -- Parameters -- Intervention -- Parameters -- PT Treatment Times Therex Total Time 30 Direct Treatment Time 30 Total Treatment Time 30 Goals: Physical Therapy Ortho Goals: MOBILITY: Patient will be able to ambulate for 1 hour in community and ambulate on uneven surfaces without difficulty in 4 weeks. MOBILITY: Patient will be able to ascend/descend stairs without difficulty in 3 weeks. IMPAIRMENT: Improve pain from 4/10 to <2/10 during prolonged standing and walking in 4 weeks IMPAIRMENT: Improve AROM of the Knee to 0-120 degrees in 4 weeks. IMPAIRMENT: Improve Swelling of the Knee from about 3.5cm to <2.5cm in 4 weeks. OTHER: Patient will increase FOTO score from 49 to at least 60 to show MDC/MCII and expected functional outcome in 4 weeks. OTHER: Patient will be able to properly demonstrate independence with HEP in 1 week. Patient Education: Quality of movement, Written HEP and Diagnosis and recovery specific education with patient verbalized understanding. Post-Treatment Pain Scale: 1 Assessment: Patient had an expected response to treatment. Skilled Intervention demonstrated by modifications of treatment per exercise log including assessment of patient's response and safety interventions per exercise log. Progress towards goals as expected. Plan: Hold pending follow up with MD Niall Brar PT State License, [id number] documented in this encounter [facility] 04-05-2021 History of Present illness Narrative [facility] DAILY TREATMENT NOTE Today's Date 04/05/2021 Patient Name: Stephany Reynolds Date of : 1950 Current Visit #: 12 Authorized Visits: 199 Case Name: S/P Left TKR History: Pre-Treatment Pain Scale: 0 Symptoms: gradually improved Functional Diagnosis: 1. Status post total left knee replacement Clinical Information: Subjective: He is doing ok. Slowly improving. Objective AAROM flexion 116 degrees. Treatments: Physical Therapy Exercise Log - 04/05/21 1215 OTHER Precautions/Contraindications Supervising PT: Brian - Left TKR 01/19 Notes visit 12: 11:40-12:10 Therapeutic Exercise (04877) Intervention Scifit L4 X5 mins Parameters step stretches 3x20, calf stretch 20 x3 Intervention BOSU Lunges - x20 - NT Parameters BOSU step-ups x15 - NT Intervention TKE - x15 BTB Parameters Steamboats on airex - x10 Lvl 3 Intervention 6 hurdles fwd/lat 6x4 Parameters Shuttle squat 56# x20, SL - 31# x20 - NT Intervention SLR 10 (lacks terminal knee ext) 0 - NT Parameters stairs - reciprocal pattern 6x2 Intervention lateral and retro ambulation 30ft x2 Parameters Oscillations MET (113 degrees) - x5 min - NT PT Treatment Times Therex Total Time 30 Direct Treatment Time 30 Total Treatment Time 30 Goals: Physical Therapy Ortho Goals: MOBILITY: Patient will be able to ambulate for 1 hour in community and ambulate on uneven surfaces without difficulty in 4 weeks. MOBILITY: Patient will be able to ascend/descend stairs without difficulty in 3 weeks. IMPAIRMENT: Improve pain from 4/10 to <2/10 during prolonged standing and walking in 4 weeks IMPAIRMENT: Improve AROM of the Knee to 0-120 degrees in 4 weeks. IMPAIRMENT: Improve Swelling of the Knee from about 3.5cm to <2.5cm in 4 weeks. OTHER: Patient will increase FOTO score from 49 to at least 60 to show MDC/MCII and expected functional outcome in 4 weeks. OTHER: Patient will be able to properly demonstrate independence with HEP in 1 week. Patient Education: Quality of movement with patient demonstrated understanding. Post-Treatment Pain Scale: 0 Assessment: Patient had an expected response to treatment. Skilled Intervention demonstrated by modifications of treatment per exercise log including increased assistance and safety interventions per exercise log. Progress towards goals as expected. Plan for Next Visit: Treatment Visit with focus on strengthening Aleja Elaine PTA STATE LICENSE, [id number] documented in this encounter [facility] 03-29-2021 History of Present illness Narrative [facility] OUT[facility]ATION DAILY TREATMENT NOTE Today's Date 03/29/2021 Patient Name: Stephany Reynolds Date of : 1950 Current Visit #: 11 Authorized Visits: [id number] Case Name: S/P Left TKR History: Pre-Treatment Pain Scale: 0 Symptoms: gradually improved Functional Diagnosis: 1. Status post total left knee replacement Clinical Information: Subjective: Pt reports a few episodes of vertigo, having passed out and being hospitalized with COVID-19 over the past month. He is returning to therapy for knee strength and stability to ensure he is ready to be released. Objective Knee Left Knee Range of Motion: Flexion Active: 95 Passive: 116 Extension Active: 0 Muscle Strength Flexion: 5 Extension: 5 Treatments: Physical Therapy Exercise Log - 03/29/21 1513 OTHER Precautions/Contraindications Supervising PT: Brian - Left TKR 01/19 Notes visit 11: 3:14 - 3:54 Therapeutic Exercise (50066) Intervention Scifit L4 X5 mins Parameters step stretches 3x20, calf stretch 20 x3 Intervention BOSU Lunges - x20 - NT Parameters BOSU step-ups x15 - NT Intervention TKE - x15 BTB Parameters Steamboats on airex - x10 Lvl 3 Intervention 6 hurdles fwd/lat 6x4 Parameters Shuttle squat 56# x20, SL - 31# x20 - NT Intervention SLR 10 (lacks terminal knee ext) 0 - NT Parameters stairs - reciprocal pattern 6x2 Intervention lateral and retro ambulation 30ft x2 Parameters Oscillations MET (113 degrees) - x5 min - NT Modalities Modalities -- Parameters -- PT Treatment Times Therex Total Time 40 Direct Treatment Time 40 Total Treatment Time 40 Goals: Physical Therapy Ortho Goals: MOBILITY: Patient will be able to ambulate for 1 hour in community and ambulate on uneven surfaces without difficulty in 4 weeks. MOBILITY: Patient will be able to ascend/descend stairs without difficulty in 3 weeks. IMPAIRMENT: Improve pain from 4/10 to <2/10 during prolonged standing and walking in 4 weeks IMPAIRMENT: Improve AROM of the Knee to 0-120 degrees in 4 weeks. IMPAIRMENT: Improve Swelling of the Knee from about 3.5cm to <2.5cm in 4 weeks. OTHER: Patient will increase FOTO score from 49 to at least 60 to show MDC/MCII and expected functional outcome in 4 weeks. OTHER: Patient will be able to properly demonstrate independence with HEP in 1 week. Patient Education: Quality of movement, HEP Adherence and Diagnosis and recovery specific education with patient verbalized understanding. Post-Treatment Pain Scale: 0 Assessment: Patient had an expected response to treatment. Skilled Intervention demonstrated by modifications of treatment per exercise log including increased intensity, increased mobility and assessment of patient's response and safety interventions per exercise log. Progress towards goals as expected. Plan for Next Visit: Treatment Visit with focus on dynamic strength and stability Niall Brar PT State License, [id number] documented in this encounter [facility] 03-13-2021 Note HNO ID: [id number] Author: JEET Odom Service: Care Management Author Type: Lecturer Of Portuguese Type: Care Mgt Progress Note Filed: 03/13/2021 12:56 PM Note Text: CARE MANAGEMENT PROGRESS NOTE SERVICE DATE: 03/13/2021 SERVICE TIME: 12:55 PM LOS: 4 days Needs Prior to Discharge: Ready for Discharge Desat study completed, no home [address] Ulloa, patient is medically ready to d/c home. Pt's family will provide d/c transportation. No needs identified for CM purposes. SIGNATURE: JEET Odom PATIENT NAME: Stephany Reynolds DATE: March 13, 2021 TIME: 12:56 PM PAGER/CONTACT #: [phone] [facility] 03-12-2021 Note HNO ID: [id number] Author: Brynn Ulloa MD Service: Hospital Medicine Author Type: Physician Type: Progress Notes Filed: 03/12/2021 12:34 PM Note Text: HOSPITAL MEDICINE PROGRESS NOTE SERVICE DATE: 03/12/2021 SERVICE TIME: 12:13 PM Hospital Medicine/Primary Attending: Brynn Ulloa DAY AND NIGHT/WEEKEND COVERAGE: Between 8AM to 5PM, page [phone] After hours 5PM to 8AM, page [phone] if patient on G80/81 H80/81, page [phone] if on other floors. Subjective no acute events overnight, no new issues hemodynamically stable, afebrile seen with hx reviewed: 70 yr old wm unvaccinated to covid presenting with 4-5 episodes of fall at home with at least one of them associated with seizure like activity (~1 mins) and confusion lasting about ~10 mins and visited local er, rxed symptomatically and sent home and was recurrently symptomatic with dizziness -given meclizine without any relief; he under went surgery 6 weeks back and evaluated at that time for his heart and found normal heart came to [facility] for further care bem: negative for seizures mri: no structural abnormality echo: ;lvd+ve(40% form 60 6 weeks back) with rwma trop/dea hs: no gradients to suggested acs tele: no arrhythmia +ve covid and developed hypoxia started rem/dex 4 days back-> on 3 liters cards: for evaluation for cad after covid resolves, suggested first line agents for hf neuro signed off was able to be off oxygen when interacting for >10-15 minutes with sats remaining I> 92% most of the time; replaced his supplemental oxygen when leaving hte room # covid related pna # asymptomatic lvd:? unlikely related to covid (unless the covid was brewing for >2-3 weeks)-all markers normal-flat dea hs elevation/normal trop # convulsive syncope # recurrent falls/dizziness plan: -orthostatics -add jardiance 10 mg daily -increase lisinopril 5 mg bid -increase lopressor to 12.5 mg q8 -spironolactone: 12.5 mg daily -appreciate cards/ neurology inputs -wean o2 as able -is -oob -ambulate -dest in am and dc in am - f/u pcp, cards (locally and with [facility] cards if agreeable) HPI: 70 yo wm presents with dizziness has a pmhx of -dm2 -prior prostate cancer s/p sx -prior ?pmr (off steroids since 2019) . =not vaccinated against covid and =declines discussing vaccination further. ? reports first episode of dizziness 1 week ago. Has had 4-5 episodes over the past week. Reports one episode occurred while he was urinating in the bathroom, another episode while he was walking around the living room. Denies any focal weakness. Describes episode as him falling down, shaking of both arms and feet, and turning hannon. He regained consciousness in 3 to 5 minutes but was somewhat confused. Endorses cough productive of yellow phlegm over the past few days, denies fever, chest pain, sore throat, rhinorrhea, headache, chest discomfort, abdominal pain. Reports has been sick with pneumonia over the past 2 to 3 weeks, however she did not get tested for Covid. He endorses poor p.o. intake due to lack of appetite for the past week. Denies loss of sense of taste or smell. ? In the ED, desat to 90% on RA, improved to 94-95% on 2L. CXR rad read Bilateral predominantly linear densities at the lung bases may represent atelectasis or atypical infectious process. CT brain showed scattered bilaterak cerebellar lacunar infarcts, presumed chronic but acuity unable to be conclusively determined. Labs notable for hyponatremia, transaminitis, mild hypoalbuminemia, Mild hypomagnesemia, proBNP mildly elevated at 470. I 60 troponin XX 33-24-30. Covid positive. Patient was treated with Vanco, Zosyn, potassium and admitted to medicine for further management. started rem/dex-> was asking ivermectin and hydroxychloroquine (informed about the policy) Current Facility-Administered Medications Medication Dose Route Frequency - NaCl 0.9% iv flush bag 20 mL INTRAVENOUS PRN - imipramine HCl 25 mg tab(s) (TOFRANIL) 25 mg ORAL AT BEDTIME - dextrose 40 % 15 g 15 g ORAL PRN Or - glucagon 1 mg injection 1 mg INTRAMUSCULAR PRN Or - dextrose 50% in water 25 mL syringe 12.5 g INTRAVENOUS PRN - remdesivir 100 mg in NaCl 0.9% 250 mL Vial-Mate/ADD-[place] 100 mg INTRAVENOUS q 24 HR - aluminum-magnesium hydroxide-simethicone 200-200-20 mg/5 mL 30 mL (MAALOX,MYLANTA,MAG-AL PLUS) 30 mL ORAL DAILY PRN - magnesium hydroxide 400 mg/5 mL 30 mL (MOM) 30 mL ORAL DAILY PRN - melatonin 1 mg tab(s) 1 mg ORAL DAILY (8 PM) - albuterol HFA 90 mcg/actuation 2 Puff (PROVENTIL HFA, VENTOLIN HFA) 2 Puff INHALATION q 4 H PRN - guaiFENesin 600 mg ER tab(s) (MUCINEX) 600 mg ORAL q 12 H PRN - insulin lispro injection (rapid acting) (HumaLOG) SUBCUTANEOUS w MEALS - sodium chloride 0.9 % (flush) 3-5 mL (BD POSIFLUSH) 3-5 mL INTRAVENOUS q 12 H - ondansetron 4 mg tab(s) (ZOFRAN) 4 mg ORAL q 6 H PRN Or - (more content not included)... [facility] 03-11-2021 Note HNO ID: [id number] Author: Maia Bradley MD Service: Hospital Medicine Author Type: Physician Type: Plan of Care Filed: 03/11/2021 2:14 PM Note Text: Patient's requested to speak with me regarding patient's COVID-19 therapy. She reported that she read up on remdesivir and no longer wants him on remdesivir because of its side effects. She reports that she is read many studies of a ivermectin and hydroxychloroquine and would like us to switch to those therapies. I explained to patient that those treatments were not recognized a safe and effective by the [facility] in will not be provided. I explained that they have the option to seek care at another facility if they do not agree with the [facility] therapies that are offered. Handout on treatment of COVID-19 at [facility] provided. At this time is agreeable for patient to stay to finish his final 2 days of remdesivir. Maia Bradley MD 03/11/2021 2:14 PM [facility] 03-11-2021 Note HNO ID: [id number] Author: Maia Bradley MD Service: Hospital Medicine Author Type: Physician Type: Progress Notes Filed: 03/11/2021 2:16 PM Note Text: DEPARTMENT OF HOSPITAL MEDICINE PROGRESS NOTE Patient: Stephany Reynolds SERVICE DATE: 03/11/2021 SERVICE TIME: 11:35 AM Hospital Medicine/Primary Attending: Maia Bradley MD NIGHT AND WEEKEND COVERAGE: Between 7:30AM to 5:00PM please page Maia Bradley MD for patient issues After- hours (5:00PM to 7:30AM) page [phone] if patient on G80/81 H80/81; Otherwise, page [phone] Subjective INTERVAL HPI: Patient has no complaints this morning. He worked with physical therapy yesterday, they gave him a walker and he has been walking to and from the bathroom without difficulty. No lightheadedness or dizziness when he is walking Current Facility-Administered Medications Medication Dose Route Frequency - NaCl 0.9% iv flush bag 20 mL INTRAVENOUS PRN - imipramine HCl 25 mg tab(s) (TOFRANIL) 25 mg ORAL AT BEDTIME - dextrose 40 % 15 g 15 g ORAL PRN Or - glucagon 1 mg injection 1 mg INTRAMUSCULAR PRN Or - dextrose 50% in water 25 mL syringe 12.5 g INTRAVENOUS PRN - remdesivir 100 mg in NaCl 0.9% 250 mL Vial-Mate/ADD-[place] 100 mg INTRAVENOUS q 24 HR - aluminum-magnesium hydroxide-simethicone 200-200-20 mg/5 mL 30 mL (MAALOX,MYLANTA,MAG-AL PLUS) 30 mL ORAL DAILY PRN - magnesium hydroxide 400 mg/5 mL 30 mL (MOM) 30 mL ORAL DAILY PRN - melatonin 1 mg tab(s) 1 mg ORAL DAILY (8 PM) - albuterol HFA 90 mcg/actuation 2 Puff (PROVENTIL HFA, VENTOLIN HFA) 2 Puff INHALATION q 4 H PRN - guaiFENesin 600 mg ER tab(s) (MUCINEX) 600 mg ORAL q 12 H PRN - insulin lispro injection (rapid acting) (HumaLOG) SUBCUTANEOUS w MEALS - sodium chloride 0.9 % (flush) 3-5 mL (BD POSIFLUSH) 3-5 mL INTRAVENOUS q 12 H - ondansetron 4 mg tab(s) (ZOFRAN) 4 mg ORAL q 6 H PRN Or - ondansetron (PF) 4 mg injection (ZOFRAN) 4 mg INTRAVENOUS q 6 H PRN - acetaminophen 650 mg tab(s) (TYLENOL) 650 mg ORAL q 6 H PRN - sodium chloride 0.9 % (flush) 2-10 mL (BD POSIFLUSH) 2-10 mL INTRAVENOUS DIRECTED PRN And - perflutren lipid microspheres 1.1 mg/mL 1.3 mL injection (DEFINITY) 1.3 mL INTRAVENOUS DIRECTED PRN - dexAMETHasone 6 mg tab(s) (DECADRON) 6 mg ORAL DAILY Or - dexAMETHasone sodium phosphate (PF) 6 mg injection (DECADRON) 6 mg INTRAVENOUS DAILY - insulin 70/30 NPH/regular units/mL 12 Units injection (mixed intermediate and short acting) (HumuLIN 70/30, NovoLIN 70/30) 12 Units SUBCUTANEOUS BID w MEALS - rosuvastatin 20 mg tab(s) (CRESTOR) 20 mg ORAL AT BEDTIME - aspirin 81 mg chewable tab(s) 81 mg ORAL DAILY - metoprolol tartrate (short acting) 12.5 mg tab(s) (LOPRESSOR) 12.5 mg ORAL q 12 H - heparin 5,000 Units injection 5,000 Units SUBCUTANEOUS q 12 H - lisinopril 5 mg tab(s) (ZESTRIL, PRINIVIL) 5 mg ORAL DAILY Objective PHYSICAL EXAM: BP 110/60 Pulse 64 Temp (Src) 96.8 (Oral) Resp 17 Ht 5' 11 (1.80m) Wt 168 lb 6.9 oz (76.4kg) SpO2 97% BMI 23.50 kg/(m2). O2 Therapy: Nasal Cannula, Liters: 3 Physical Exam performed GENERAL: well appearing, no distress, cooperative LUNGS: decreased BS bilat CARDIAC: RRR, nl S1 AND S2 ABDOMEN: Abdomen soft, non-tender, BS normal EXTREMITIES: No edema SKIN: No rash. Warm and dry Lines, Drains, and Airways Line Peripheral 03/08/21 2115 Left Antecubital 20 Gauge 2 days Patient does not currently have any lines, drains or airways. DATA: Diagnostic tests reviewed: Most recent imaging, Most recent labs 02 Requirement on Arrival: O2 Therapy: Room Air, Liters: 2 02 Requirement Now: O2 Therapy: Nasal Cannula, Liters: 3 CXRAY: Positive EKG Changes on Arrival: Negative COVID 19 Result ELECTRONIC SCALE SUBASSEMBLER Date Value Ref Range Status 03/08/2021 (A) Negative for COVID19 (SARS CoV2) by RT-PCR or equivalent method. Final Positive for COVID19 (SARS CoV2) by RT-PCR or equivalent method. Comment: This test has been authorized by FDA under an Emergency Use Authorization (EUA). Test performed by [facility], [facility] [place], [address] [place] [address]. Albumin (g/dL) Date Value 03/11/2021 3.0 03/10/2021 1.4 03/09/2021 3.1 ALT (U/L) Date Value 03/11/2021 48 03/10/2021 6 03/09/2021 56 AST (U/L) Date Value 03/11/2021 55 03/10/2021 38 03/09/2021 76 Lactate (POCT) (mmol/L) Date Value 03/08/2021 1.6 CRP (mg/dL) Date Value 03/09/2021 2.8 05/29/2019 7.8 CK (U/L) Date Value 05/29/2019 30 WBC (k/uL) Date Value 03/11/2021 9.46 03/10/2021 5.98 03/09/2021 3.71 Lymph% (%) Date Value 03/08/2021 17.3 05/29/2019 8.7 Abs Lymph (k/uL) Date Value 03/08/2021 1.00 05/29/2019 0.97 LV Ejection Fraction (%) Date Value 03/09/2021 40 DEA High Sensitivity Date Value Ref Range Status 03/09/2021 30 (H) <12 ng/L Final Comment: When assessing risk (more content not included)... [facility] 03-11-2021 Note HNO ID: [id number] Author: JEET Adams Service: Care Management Author Type: Lecturer Of Portuguese Type: Care Mgt Progress Note Filed: 03/11/2021 11:34 AM Note Text: CARE MANAGEMENT WEEKEND PLANNING NOTE DISCHARGE OR POSSIBLE DISCHARGE Date/Time: Possible Sunday Discharge Disposition: DME - Equipment Needed: Possible Home O2 Transport: Car w/ family Other Concerns: Per primary, possible Sunday discharge. 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 If unable to wean, will need script and desat study. Referral placed to [facility]. Family to transport. No other CM needs identified. Weekend Electrician Sound Pager #: For weekend CM needs, please contact on-call CM at: G Building - [id number] H Building - [address]92 J Building - 15075 M Building - [address] SIGNATURE: JEET Adams PATIENT NAME: Stephany Reynolds DATE: March 11, 2021 TIME: 11:29 AM PAGER/CONTACT #: [phone] [facility] 03-11-2021 Note HNO ID: [id number] Author: Ava Salcedo APRN.SALES PROGRAM MANAGER Service: Cardiovascular Medicine Author Type: Nurse Practitioner Type: Plan of Care Filed: 03/11/2021 3:20 PM Note Text: [facility] CONSULT PLAN OF CARE NOTE (Template ID [id number]) CONSULTING SERVICE: Cardiology: Consult Team PRIMARY SERVICE: Internal Medicine HOSPITAL DAY: #2 SUBJECTIVE INTERVAL HISTORY: No events noted overnight Telemetry shows SR Hemodynamically stable OBJECTIVE MEDICATIONS: Current Facility-Administered Medications Medication Dose Route Frequency - NaCl 0.9% iv flush bag 20 mL INTRAVENOUS PRN - imipramine HCl 25 mg tab(s) (TOFRANIL) 25 mg ORAL AT BEDTIME - dextrose 40 % 15 g 15 g ORAL PRN Or - glucagon 1 mg injection 1 mg INTRAMUSCULAR PRN Or - dextrose 50% in water 25 mL syringe 12.5 g INTRAVENOUS PRN - remdesivir 100 mg in NaCl 0.9% 250 mL Vial-Mate/ADD-[place] 100 mg INTRAVENOUS q 24 HR - aluminum-magnesium hydroxide-simethicone 200-200-20 mg/5 mL 30 mL (MAALOX,MYLANTA,MAG-AL PLUS) 30 mL ORAL DAILY PRN - magnesium hydroxide 400 mg/5 mL 30 mL (MOM) 30 mL ORAL DAILY PRN - melatonin 1 mg tab(s) 1 mg ORAL DAILY (8 PM) - albuterol HFA 90 mcg/actuation 2 Puff (PROVENTIL HFA, VENTOLIN HFA) 2 Puff INHALATION q 4 H PRN - guaiFENesin 600 mg ER tab(s) (MUCINEX) 600 mg ORAL q 12 H PRN - insulin lispro injection (rapid acting) (HumaLOG) SUBCUTANEOUS w MEALS - sodium chloride 0.9 % (flush) 3-5 mL (BD POSIFLUSH) 3-5 mL INTRAVENOUS q 12 H - ondansetron 4 mg tab(s) (ZOFRAN) 4 mg ORAL q 6 H PRN Or - ondansetron (PF) 4 mg injection (ZOFRAN) 4 mg INTRAVENOUS q 6 H PRN - acetaminophen 650 mg tab(s) (TYLENOL) 650 mg ORAL q 6 H PRN - sodium chloride 0.9 % (flush) 2-10 mL (BD POSIFLUSH) 2-10 mL INTRAVENOUS DIRECTED PRN And - perflutren lipid microspheres 1.1 mg/mL 1.3 mL injection (DEFINITY) 1.3 mL INTRAVENOUS DIRECTED PRN - dexAMETHasone 6 mg tab(s) (DECADRON) 6 mg ORAL DAILY Or - dexAMETHasone sodium phosphate (PF) 6 mg injection (DECADRON) 6 mg INTRAVENOUS DAILY - insulin 70/30 NPH/regular units/mL 12 Units injection (mixed intermediate and short acting) (HumuLIN 70/30, NovoLIN 70/30) 12 Units SUBCUTANEOUS BID w MEALS - rosuvastatin 20 mg tab(s) (CRESTOR) 20 mg ORAL AT BEDTIME - aspirin 81 mg chewable tab(s) 81 mg ORAL DAILY - metoprolol tartrate (short acting) 12.5 mg tab(s) (LOPRESSOR) 12.5 mg ORAL q 12 H - heparin 5,000 Units injection 5,000 Units SUBCUTANEOUS q 12 H - lisinopril 5 mg tab(s) (ZESTRIL, PRINIVIL) 5 mg ORAL DAILY PHYSICAL EXAM: 03/11/21 0026 03/11/21 0525 03/11/21 0743 03/11/21 1250 BP: 127/75 115/63 110/60 114/62 Pulse: 72 76 64 83 Resp: 16 18 17 17 Temp: 36.6 ?C (97.9 ?F) 36.4 ?C (97.5 ?F) 36 ?C (96.8 ?F) 36.5 ?C (97.7 ?F) TempSrc: Oral Oral Oral Oral SpO2: 91% 95% 97% 97% Weight: Height: Intake/Output Summary (Last 24 hours) at 03/11/2021 1503 Last data filed at 03/11/2021 1100 Gross per 24 hour Intake 590 ml Output 1150 ml Net -560 ml TELEMETRY: DATA: EKG 03/08/2021: Echo 03/09/2021: CONCLUSIONS: - Technically difficult exam due to suboptimal positioning. - Exam indication: Syncope - The left ventricle is normal in size. There is mild left ventricular hypertrophy. Left ventricular systolic function is moderately decreased. EF = 40 ? ?5% (visual est.) Grade I left ventricular diastolic dysfunction. - The right ventricle is normal in size. Right ventricular systolic function is normal. - There are no significant valvular abnormalities. - The patient has not had a prior CC echocardiographic exam for comparison. Laboratory: Component Latest Ref Rng AND Units 03/08/2021 03/08/2021 03/09/2021 03/09/2021 03/09/2021 9:20 PM 11:11 PM 12:35 AM 3:26 AM 7:44 AM NT Pro BNP <125 pg/mL 487 (H) DEA High Sensitivity <12 ng/L 23 (H) 24 (H) 30 (H) Troponin T 0.000 - 0.029 ng/mL <0.010 <0.010 Recent Labs 03/11/21 0631 03/10/21 0420 03/09/21 1702 WBC 9.46 5.98 3.71 HB 13.0 12.4* 12.4* HCT 38.1* 35.9* 36.6* PLT 393 308 287 NA 136 141 135* K 3.8 5.2* 3.6* CHLOR 101 115* 99 CO2 23 17* 25 BUN 20 30* 15 CREAT 0.69* 1.49* 0.78 GLUC 128* 218* 181* Recent Labs 03/10/21 0420 03/09/21 0326 INR 1.1 1.1 ASSESSMENT / RECOMMENDATIONS / PLAN Mr. Reynolds is a 70 yo with a past medical history notable for prostate cancer s/p prostatectomy, PMR, and DMII who presented to [facility] ED 03/08/2021 with worsening SOB, dizziness, and syncope that began 03/02, and was found to be COVID positive. HS trop: 23-24-30. undetectable troponin T. CT brain showed scattered bilateral cerebellar lacunar infarcts. He was admitted to the Medicine service and Neuro consulted. Echo showed EF 40% with general global hypokinesis and no valvular abnormalities. Prior echo 2 months ago was normal so Cardiology was consulted for a newly reduced LVEF to 40% in setting of COVID. This drop in LV function is thought to be (more content not included)... [facility] 03-11-2021 Note HNO ID: [id number] Author: Magdi Barnes MD Service: Neurology General Author Type: Resident Type: Plan of Care Filed: 03/11/2021 1:18 PM Note Text: NEUROLOGY CONSULT PROGRESS NOTE SERVICE DATE: 03/11/2021 SERVICE TIME: 8:51 AM Current Attending Provider: Maia Bradley MD Subjective Interval History: Today, Stephany is not changed. No acute events overnight. No episodes of syncope/LOC since admission. Objective New Labs: WBC (k/uL) Date Value 03/11/2021 9.46 03/10/2021 5.98 03/09/2021 3.71 RBC (m/uL) Date Value 03/11/2021 4.76 03/10/2021 4.49 03/09/2021 4.53 Platelet Count (k/uL) Date Value 03/11/2021 393 03/10/2021 308 03/09/2021 287 BUN (mg/dL) Date Value 03/11/2021 20 03/10/2021 30 03/09/2021 15 Creatinine (mg/dL) Date Value 03/11/2021 0.69 03/10/2021 1.49 03/09/2021 0.78 CBC, Coags, BMP, Mg, Phos Recent Labs 03/11/21 0631 03/10/21 0420 03/09/21 1702 03/09/21 0326 03/08/21 2120 INR -- 1.1 -- 1.1 -- NA 136 141 135* -- 129* K 3.8 5.2* 3.6* -- 3.6* CHLOR 101 115* 99 -- 93* CO2 23 17* 25 -- 25 GLUC 128* 218* 181* -- 116* CA 8.0* 8.2* 7.8* -- 8.5 MG -- -- -- -- 1.8 Liver Function, Amylase, AND Lipase Recent Labs 03/11/21 0631 03/10/21 0420 03/09/21 0326 TPROT 5.5* 7.7 5.4* ALB 3.0* 1.4* 3.1* ALT 48 6* 56* AST 55* 38 76* ALKPHOS 206* 135* 220* TBILI 0.4 0.5 0.5 BEM Reading: Intermittent slow, generalized DATA: Diagnostic tests reviewed for today's visit: Most recent labs and imaging results. Impression/Recommendations 70 y/o male with newly dx Covid-19 and multiple events of LOC and confusion. CT brain reported cerebellar lacunes. Events are always when he has been up and in the bathroom. ? Brain MRI and MRA came back within normal limits. ? 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 EEG showed findings consistent with mild diffuse encephalopathy, no epileptic activity. No need to start any AED. Can D/C EEG. ? Autonomic dysfunction has been reported w Covid-19 and is a possibility especially that his orthostatic vitals are consistent with orthostatic hypotension even after patient was given IVF and reports eating and drinking well since he was started steroids. Recommend follow up with neuro-NM in 1-2 weeks. (order placed) Neuro will sign off. Plan discussed with staff. SIGNATURE: Magdi Barnes MD PATIENT NAME: Stephany Reynolds DATE: March 11, 2021 TIME: 8:45 AM [facility] 03-10-2021 Note HNO ID: [id number] Author: RT Sidney(R) Service: Radiology Author Type: Technologist Type: Progress Notes Filed: 03/10/2021 1:54 PM Note Text: Radiology Service Progress Note PATIENT NAME: Stephany Reynolds DATE OF SERVICE: March 10, 2021 TIME: 1:54 PM PATIENT IDENTITY VERIFICATION COMPLETED USING TWO (2) IDENTIFIERS: Name and Date of confirmed by patient verbally and Name and Date of confirmed by identification band. FALL SCREENING: Has the patient had 2 falls in the last year or 1 fall with injury or currently using an Ambulatory Assistive Device (Walker, Cane, Wheelchair, Crutches, etc.)? Inpatient: Screened on floor PATIENT GENDER DATA: Male PATIENT RELEVANT IMPLANT DATA REVIEWED: Yes RADIOLOGY DEPARTMENT: MR; Exam(s) Completed: Head: Routine Brain PERIPHERAL IV DATA: Inpatient: see LDA documentation SIGNED BY: RT Sidney(R) March 10, 2021 1:54 PM [facility] 03-10-2021 Note HNO ID: [id number] Author: Maia Bradley MD Service: Hospital Medicine Author Type: Physician Type: Progress Notes Filed: 03/10/2021 12:20 PM Note Text: DEPARTMENT OF HOSPITAL MEDICINE PROGRESS NOTE Patient: Stephany Reynolds SERVICE DATE: 03/10/2021 SERVICE TIME: 12:07 PM Hospital Medicine/Primary Attending: Maia Bradley MD NIGHT AND WEEKEND COVERAGE: Between 7:30AM to 5:00PM please page Maia Bradley MD for patient issues After- hours (5:00PM to 7:30AM) page [phone] if patient on G80/81 H80/81; Otherwise, page [phone] Subjective INTERVAL HPI: Neurology consulted yesterday for concern of neurogenic cause of syncope Cardiology consulted yesterday given new depressed EF on TTE ID consulted yesterday given Covid Patient seen this morning with at bedside. He denies chest pain, shortness of breath, dizziness. He reports that he feels antsy and is looking forward to obtaining his diagnostic work-up and hopeful for discharge soon Current Facility-Administered Medications Medication Dose Route Frequency - NaCl 0.9% iv flush bag 20 mL INTRAVENOUS PRN - imipramine HCl 25 mg tab(s) (TOFRANIL) 25 mg ORAL AT BEDTIME - dextrose 40 % 15 g 15 g ORAL PRN Or - glucagon 1 mg injection 1 mg INTRAMUSCULAR PRN Or - dextrose 50% in water 25 mL syringe 12.5 g INTRAVENOUS PRN - remdesivir 100 mg in NaCl 0.9% 250 mL Vial-Mate/ADD-[place] 100 mg INTRAVENOUS q 24 HR - aluminum-magnesium hydroxide-simethicone 200-200-20 mg/5 mL 30 mL (MAALOX,MYLANTA,MAG-AL PLUS) 30 mL ORAL DAILY PRN - magnesium hydroxide 400 mg/5 mL 30 mL (MOM) 30 mL ORAL DAILY PRN - melatonin 1 mg tab(s) 1 mg ORAL DAILY (8 PM) - albuterol HFA 90 mcg/actuation 2 Puff (PROVENTIL HFA, VENTOLIN HFA) 2 Puff INHALATION q 4 H PRN - guaiFENesin 600 mg ER tab(s) (MUCINEX) 600 mg ORAL q 12 H PRN - insulin lispro injection (rapid acting) (HumaLOG) SUBCUTANEOUS w MEALS - enoxaparin 40 mg injection (LOVENOX) 40 mg SUBCUTANEOUS DAILY - sodium chloride 0.9 % (flush) 3-5 mL (BD POSIFLUSH) 3-5 mL INTRAVENOUS q 12 H - ondansetron 4 mg tab(s) (ZOFRAN) 4 mg ORAL q 6 H PRN Or - ondansetron (PF) 4 mg injection (ZOFRAN) 4 mg INTRAVENOUS q 6 H PRN - acetaminophen 650 mg tab(s) (TYLENOL) 650 mg ORAL q 6 H PRN - sodium chloride 0.9 % (flush) 2-10 mL (BD POSIFLUSH) 2-10 mL INTRAVENOUS DIRECTED PRN And - perflutren lipid microspheres 1.1 mg/mL 1.3 mL injection (DEFINITY) 1.3 mL INTRAVENOUS DIRECTED PRN - dexAMETHasone 6 mg tab(s) (DECADRON) 6 mg ORAL DAILY Or - dexAMETHasone sodium phosphate (PF) 6 mg injection (DECADRON) 6 mg INTRAVENOUS DAILY - insulin 70/30 NPH/regular units/mL 12 Units injection (mixed intermediate and short acting) (HumuLIN 70/30, NovoLIN 70/30) 12 Units SUBCUTANEOUS BID w MEALS - rosuvastatin 20 mg tab(s) (CRESTOR) 20 mg ORAL AT BEDTIME - aspirin 81 mg chewable tab(s) 81 mg ORAL DAILY - metoprolol tartrate (short acting) 12.5 mg tab(s) (LOPRESSOR) 12.5 mg ORAL q 12 H Objective PHYSICAL EXAM: BP 108/62 Pulse 80 Temp (Src) 97.3 (Oral) Resp 18 Ht 5' 11 (1.80m) Wt 168 lb 6.9 oz (76.4kg) SpO2 95% BMI 23.50 kg/(m2). O2 Therapy: Nasal Cannula, Liters: 3.00 Physical Exam performed GENERAL: well appearing, no distress, cooperative LUNGS: decreased BS bilat CARDIAC: RRR, nl S1 AND S2 ABDOMEN: Abdomen soft, non-tender, BS normal EXTREMITIES: No edema SKIN: No rash. Warm and dry Lines, Drains, and Airways Line Peripheral 03/08/212114 Left Antecubital 20 Gauge 1 day Patient does not currently have any lines, drains or airways. DATA: Diagnostic tests reviewed: Most recent imaging, Most recent labs 02 Requirement on Arrival: O2 Therapy: Room Air, Liters: 2 02 Requirement Now: O2 Therapy: Nasal Cannula, Liters: 3.00 CXRAY: Positive EKG Changes on Arrival: Negative COVID 19 Result ELECTRONIC SCALE SUBASSEMBLER Date Value Ref Range Status 03/08/2021 (A) Negative for COVID19 (SARS CoV2) by RT-PCR or equivalent method. Final Positive for COVID19 (SARS CoV2) by RT-PCR or equivalent method. Comment: This test has been authorized by FDA under an Emergency Use Authorization (EUA). Test performed by [facility], [facility] [place], [facility] [place] [address]. Albumin (g/dL) Date Value 03/10/2021 1.4 03/09/2021 3.1 03/08/2021 3.5 ALT (U/L) Date Value 03/10/2021 6 03/09/2021 56 03/08/2021 62 AST (U/L) Date Value 03/10/2021 38 03/09/2021 76 03/08/2021 85 Lactate (POCT) (mmol/L) Date Value 03/08/2021 1.6 CRP (mg/dL) Date Value 03/09/2021 2.8 05/29/2019 7.8 CK (U/L) Date Value 05/29/2019 30 WBC (k/uL) Date Value 03/10/2021 5.98 03/09/2021 3.71 03/08/2021 5.78 Lymph% (%) Date Value 03/08/2021 17.3 05/29/2019 8.7 Abs Lymph (k/uL) Date Value 03/08/2021 1.00 05/29/2019 0.97 LV Ejection Fraction (%) Date Value 03/09/2021 40 T (more content not included)... [facility] 03-09-2021 Note HNO ID: [id number] Author: Maia Bradley MD Service: Hospital Medicine Author Type: Physician Type: Plan of Care Filed: 03/09/2021 4:13 PM Note Text: Assuming care of patient this morning. Patient seen this morning with at bedside. He reports episodes of dizziness shortness of breath at home. He was brought in this admission after a fall and found to be Covid positive. reports that patient has had 5-6 falls in the last week. The first time EMS came out they checked his glucose and EKG and he was okay so he remained at home. He has been to the local emergency department several times after that. She reports that the falls have all been unwitnessed. Patient reports feeling dizzy prior to each fall. reports that she has applied and finds him down. He is usually disoriented or has a blank stare which she finds in. He takes a while to come to. When he does his speech is slurred and jumbled. His glucose is always normal with these episodes. In the emergency room they have done EKGs and cardiac labs and sent him home. CT head this admission showed scattered lacunar infarcts which are age-indeterminate. 1. COVID-19 infection?continue remdesivir and dexamethasone. ID consulted 2. Syncope?my concern is for neurogenic given slurred speech and postictal state after these falls. Consult to neurology placed. MRI brain ordered. We will also monitor on telemetry and check echocardiogram 3. 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 No prior [facility] echocardiogram for comparison. Patient has TTE 01/2021 in care everywhere read as Left ventricular chamber size, wall thickness, systolic and diastolic function are normal with no regional wall motion abnormalities with an estimated ejection fraction of 60-65%. Will consult cardiology Maia Bradley MD 03/09/2021 4:13 PM [facility] 03-08-2021 Note HNO ID: [id number] Author: CESAR Bowles) Service: Radiology Author Type: Technologist Type: Progress Notes Filed: 03/08/2021 9:16 PM Note Text: Radiology Service Progress Note PATIENT NAME: Stephany Reynolds DATE OF SERVICE: March 08, 2021 TIME: 9:16 PM PATIENT IDENTITY VERIFICATION COMPLETED USING TWO (2) IDENTIFIERS: Name and Date of confirmed by patient verbally and Name and Date of confirmed by identification band. FALL SCREENING: Has the patient had 2 falls in the last year or 1 fall with injury or currently using an Ambulatory Assistive Device (Walker, Cane, Wheelchair, Crutches, etc.)? Emergency Room Patient: Screened in ED PATIENT GENDER DATA: Male PATIENT RELEVANT IMPLANT DATA REVIEWED: Not Applicable RADIOLOGY DEPARTMENT: General X-ray: Exam(s) Completed: Chest X-Ray PERIPHERAL IV DATA: Not applicable SIGNED BY: RT Jelena(Miguelito) March 08, 2021 9:16 PM [facility] 03-08-2021 Note HNO ID: [id number] Author: CESAR Ritter) Service: Radiology Author Type: Technologist Type: Progress Notes Filed: 03/08/2021 8:53 PM Note Text: Radiology Service Progress Note PATIENT NAME: Stephany Reynolds DATE OF SERVICE: March 08, 2021 TIME: 8:50 PM PATIENT IDENTITY VERIFICATION COMPLETED USING TWO (2) IDENTIFIERS: Name and Date of confirmed by identification band. FALL SCREENING: Has the patient had 2 falls in the last year or 1 fall with injury or currently using an Ambulatory Assistive Device (Walker, Cane, Wheelchair, Crutches, etc.)? Emergency Room Patient: Screened in ED PATIENT GENDER DATA: Male PATIENT RELEVANT IMPLANT DATA REVIEWED: Yes RADIOLOGY DEPARTMENT: CT; Exam(s) Completed: Brain PERIPHERAL IV DATA: Not applicable SIGNED BY: RT Stone(Miguelito) March 08, 2021 8:50 PM [facility] 03-07-2021 History of Present illness Narrative Phone call from [facility] Laura on March 07, 2021. . He has been having problems with falls especially in the morning for the last 6 days. He will get up and then loses balance and leaning to one side. Went to [facility] last week and had a CAT scan of the brain, CTA of the head, and CTA of the neck. 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 They were told that there was some kind of bleeding but there is none of that indicated on the reports I read. Laura took him to [facility] and he was dismissed from there because nothing was felt to be urgent. So she would like to take him to the [facility] where they had an admission apparently set up based on urgency. But our emergency room did not feel that ambulance trip there was warranted. 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 Hopefully they can at least get connected with the neurology group there. And then either be admitted or be reassured that he is safe to go home.Dr. 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 I left a message for Laura to let her know about that thought.He was admitted to [facility] from March 08-2021 with Ataxia. In addition to the tendency to fall to 1 side he also had 4 syncopal spells. At the [facility] he had a CT of the brain which showed scattered bilateral cerebellar lacunar infarcts. He had an EEG showing mild diffuse encephalopathy. He had an echocardiogram showing ejection fraction of 40%. And he had an MRI showing no acute intracranial process. His discharge summary also reports that he was positive for COVID and was treated with remdesivir and dexamethasone. He did not report feeling short of breath or edema at any time. The neurology team felt that his dizziness was possibly related to the Covid infection with an autonomic neuropathy. He was sent home to start on Toprol-XL 25 mg a day, lisinopril 5 mg twice a day, spironolactone 12. 5 mg daily, Jardiance 10 mg daily and Crestor 20 mg daily. He was feeling quite weak and tired on that so his collar baster stopped all of those. He is continuing on his Humalog, imipramine, and Metformin as well as numerous vitamins.At this time while he feels weak he no longer has the ataxia or dizziness. He has never had chest pain, significant shortness of breath, edema, orthopnea, numbness, or focal weakness. He does have a history of polymyalgia rheumatica and was on prednisone in the past for that but it messed his sugars up so much that he felt he would just put up with the PMR.No weakness of one leg or arm. Had 4 episodes of syncope. [facility] Work Phone: 03-06-2021 Emergency department Note Report given to Jaylen LOZADA. Patient ambulated to restroom Emergency Department Report [facility] EMERGENCY DEPARTMENT Service Date:.03/06/21 PCP: Natanael Gonzalez Chief Complaint: Chief Complaint Patient presents with Dizziness dizziness since Sunday, fell last night and now has rt rib pain Fall HPI Stephany Reynolds is a 70 y.o. male presents to the ED today due to dizziness fall. Patient has had dizziness for approximately 5 days. Patient denies chest pain. Patient denies dizziness or pronounced with movement. Patient denies bowel bladder dysfunction denies dizziness. Patient denies cough. Patient denies numbness and tingling. Patient denies shortness of breath. Review of Systems: Review of Systems All other systems reviewed and are negative. Past Medical History: Past Medical History: Diagnosis Date Diabetes mellitus Past Surgical History: No past surgical history on file. Allergies: Allergies Allergen Reactions Oxycodone-Acetaminophen Other reaction(s): Other (See Comments) Feels loopy Medications: Patient's Medications New Prescriptions ASPIRIN 81 MG CHEW TAB CHEWABLE TABLET Chew 4 tablets daily. LORAZEPAM 1 MG TABLET Take 0.5 tablets by mouth 2 times daily as needed for Insomnia (dizziness) for up to 3 days. Previous Medications ALENDRONATE 70 MG TABLET INSULIN LISPRO, 0.5 UNIT DIAL, 100 UNIT/ML SOLUTION PEN-INJECTOR HumaLOG Quantity: 0 Refills: 0 Ordered: 06-Jan-2021 Beck Cortez Generic Substitution Allowed METFORMIN 500 MG TABLET take 2 tablets by mouth every morning Modified Medications No medications on file Discontinued Medications No medications on file Family History: History reviewed. No pertinent family history. Social History: Social History Socioeconomic History Marital status: Spouse name: Not on file Number of children: Not on file Years of education: Not on file Highest education level: Not on file Occupational History Not on file Tobacco Use Smoking status: Never Smoker Smokeless tobacco: Never Used Vaping Use Vaping Use: Never used Substance and Sexual Activity Alcohol use: Never Drug use: Never Sexual activity: Not on file Other Topics Concern Service Not Asked Blood Transfusions Not Asked Caffeine Concern Not Asked Occupational Exposure Not Asked Hobby Hazards Not Asked Sleep Concern Not Asked Stress Concern Not Asked Weight Concern Not Asked Special Diet Not Asked Back Care Not Asked Exercise Not Asked Bike Helmet Not Asked Seat Belt Not Asked Domestic Violence No Social History Narrative Not on file Social Determinants of Health Financial Resource Strain: Not on file Food Insecurity: Not on file Transportation Needs: Not on file Physical Activity: Not on file Stress: Not on file Social Connections: Not on file Intimate Partner Violence: Not on file Housing Stability: Not on file Physical Exam: Physical Exam Constitutional: Appearance: Normal appearance. HENT: Head: Normocephalic and atraumatic. Right Ear: External ear normal. Left Ear: External ear normal. Nose: Nose normal. Mouth/Throat: Mouth: Mucous membranes are moist. Pharynx: Oropharynx is clear. Eyes: Pupils: Pupils are equal, round, and reactive to light. Cardiovascular: Rate and Rhythm: Normal rate and regular rhythm. Heart sounds: Normal heart sounds. Pulmonary: Effort: Pulmonary effort is normal. Breath sounds: Normal breath sounds. Abdominal: General: Bowel sounds are normal. There is no distension. Palpations: Abdomen is soft. Tenderness: There is abdominal tenderness. There is no rebound. Musculoskeletal: General: Normal range of motion. Cervical back: Normal range of motion and neck supple. Skin: General: Skin is warm and dry. Capillary Refill: Capillary refill takes less than 2 seconds. Findings: No erythema. Neurological: General: No focal deficit present. Mental Status: He is alert and oriented to person, place, and time. Mental status is at baseline. Cranial Nerves: No cranial nerve deficit. Sensory: No sensory deficit. Motor: No weakness. Coordination: Coordination normal. Deep Tendon Reflexes: Reflexes normal. Comments: Head impulse tests: There is no loss of fixation with corrective saccades when head is turned to the right or left. Nystagmus: There is bilateral nystagmus Skew deviation: Grossly absent Mild left upper extremity ataxia when compared to right. No truncal ataxia. No gait ataxia Psychiatric: Mood and Affect: Mood normal. Behavior: Behavior normal. Vital Signs During ED Visit Patient Vitals for the past 24 hrs: BP Temp Temp src Pulse Resp SpO2 Height Weight 03/06/21 1910 160/73 103 22 93 % 03/06/21 1654 1.803 m (5' 11) 70.3 kg (155 lb) 03/06/21 1653 137/80 97.9 F (36.6 C) Temporal 106 18 95 % Differential Diagnosis: Viral syndrome, pulmonary embolus, pneumonia Orders/Results: Orders Placed This Encounter XR CHEST PA [address] ANGIO BRAIN/NECK Troponin I, High sensitivity COMPREHENSIVE METABOLIC PANEL CBC, EDIF, PLATELET MAGNESIUM AMB REFERRAL TO NEUROLOGY ECG Insulin Lispro, 0.5 Unit Dial, 100 UNIT/ML Solution Pen-injector alendronate 70 MG tablet metFORMIN 500 MG tablet meclizine (ANTIVERT) tablet 25 mg sodium chloride 0.9% IV solution 500 mL iohexol (OMNIPAQUE) 350 MG/ML injection 75 mL sodium chloride 0.9% IV solution 75 mL LORazepam 1 MG tablet aspirin 81 MG Chew Tab chewable tablet URINALYSIS, MACRO URINE MICROSCOPIC Results for orders placed or performed during the hospital encounter of 03/06/21 CT ANGIO BRAIN/NECK Result Value Ref Range BSA 1.89 m2 TROPONIN I, HIGH SENSITIVITY Result Value Ref Range TROPONIN I, HIGH SENSITIVITY 17 0 - 20 pg/mL COMPREHENSIVE METABOLIC PANEL Result Value Ref Range GLUCOSE 162 (H) 70 - 100 MG/DL BUN 19 7 - 20 MG/DL CREATININE SERUM 1.11 0.66 - 1.25 MG/DL SODIUM 134 (L) 136 - 145 MMOL/L POTASSIUM 3.7 3.5 - 5.1 MMOL/L CHLORIDE 94 (L) 98 - 107 MMOL/L CALCIUM 9.5 8.4 - 10.2 MG/DL PROTEIN, TOTAL 7.3 6.3 - 8.2 GM/DL ALBUMIN 3.5 3.5 - 5.0 G/dl BILIRUBIN, TOTAL 0.5 0.2 - 1.2 MG/DL AST 103 (H) 15 - 41 IU/L ALKALINE PHOSPHATASE 214 (H) 38 - 126 IU/L CARBON DIOXIDE (CO2) 28 22 - 30 MMOL/L A/G Ratio 0.9 (L) 1.3 - 2.2 RATIO ALT 79 (H) 17 - 63 IU/L ESTIMATED GFR, NON AMER 69 ml/min/1.73sq.m ESTIMATED GFR, 84 ml/min/1.73sq.m GFR COMMENT Average GFR for 70+ years old = 75. CBC, EDIF, PLATELET Result Value Ref Range WBC (WHITE BLOOD COUNT) 5.2 3.6 - 11.0 10*3/uL RBC 5.35 4.0 - 6.1 10*6/uL HEMOGLOBIN (HGB) 14.5 14.0 - 18.0 G/DL HEMATOCRIT (HCT) 43.4 42.0 - 52.0 % MEAN CELL VOLUME 81.2 80.0 - 100.0 FL Mean Cell HGB 27.0 26.0 - 35.0 PG MEAN CELL HGB CONCENTRATION 33.3 27.0 - 37.0 G/DL RBC DISTRIBUTION 16.3 (H) 11.5 - 14.5 % PLATELET COUNT 291 130.0 - 400.0 10*3/uL MEAN PLATELET VOLUME 7.9 7.4 - 11.0 FL DIFFERENTIAL TYPE AUTO DIFF % NEUTROPHILS 64.0 37.0 - 75.0 % LYMPHOCYTE 21.6 20.0 - 55.0 % MONOCYTE % 13.8 (H) 0.0 - 10.0 % EOSINOPHIL % 0.2 0.0 - 11.0 % BASOPHIL % 0.4 0.0 - 2.0 % Absolute Neutrophil Count 3.3 1.4 - 6.5 10*3/uL LYMPHOCYTES, ABSOLUTE 1.10 (L) 1.2 - 3.4 10*3/uL MONOCYTES, ABSOLUTE 0.7 0.0 - 0.7 10*3/uL ABSOLUTE EOSINOPHIL COUNT 0.00 0.0 - 0.7 10*3/uL ABSOLUTE BASOPHIL COUNT 0.0 0.0 - 0.2 10*3/uL MAGNESIUM Result Value Ref Range MAGNESIUM 1.7 1.6 - 2.3 MG/DL URINALYSIS, MACRO Result Value Ref Range COLOR, URINE YELLOW YELLOW APPEARANCE, URINE CLEAR CLEAR SPECIFIC GRAVITY, URINE 1.020 1.010 - 1.025 PH URINE 5.5 5.0 - 7.0 PROTEIN, URINE TRACE (A) NEGATIVE mg/dl GLUCOSE, URINE NEGATIVE NEGATIVE mg/dl KETONES, URINE NEGATIVE NEGATIVE mg/dl BILIRUBIN, URINE NEGATIVE NEGATIVE BLOOD, URINE DIPSTICK NEGATIVE NEGATIVE NITRITES, URINE NEGATIVE NEGATIVE UROBILINOGEN, URINE 0.2 0.2 - 1.0 E.U./dL LEUKOCYTE ESTERASE, URINE NEGATIVE NEGATIVE URINE MICROSCOPIC Result Value Ref Range WBC, URINE NEGATIVE NEGATIVE /HPF RBC, URINE NEGATIVE NEGATIVE /HPF Epithelial Cells UA NONE /HPF Mucus NEGATIVE NEGATIVE BACTERIA, URINE TRACE (A) NEGATIVE CRYSTALS, URINE NONE NONE CASTS, URINE NONE NONE /LPF COMMENT, URINE CULTURE CRITERIA NOT MET, NO CULTURE PERFORMED. EKG RESULTS EKG is performed interpreted myself as normal sinus rhythm, normal axis, headache I ordered, interpreted and acted upon this electrocardiogram during the patients ED visit. Michael Iqbal MD Radiographic Imaging CT ANGIO BRAIN/NECK XR CHEST PA 1 VIEW Final Result IMPRESSION: Left basilar infiltrate. Moderate Sedation Procedure: No Procedures: Procedures ED Summary: vertigo is completely resolved emergency department. CT scan was significant for a small foci of chronic infarctions within the cerebellum. Appears a patient may have had a previous cerebellar stroke. This may represent recrudescence of his previous stroke symptoms. Offered admission to the patient is declining at this time stating like to be discharged home. Advised patient return for recurrent symptoms, any other problems. Patient appears be competent enough to make his own medical decisions and family was at the bedside to be able to participate in the discussion. All the questions were answered to their satisfaction. Patient will be discharged home with a follow-up to neurology. Patient was advised to take a dose of aspirin Clinical Impression: 1. Dizziness No follow-ups on file. New Prescriptions ASPIRIN 81 MG CHEW TAB CHEWABLE TABLET Chew 4 tablets daily. LORAZEPAM 1 MG TABLET Take 0.5 tablets by mouth 2 times daily as needed for Insomnia (dizziness) for up to 3 days. Discontinued Medications No medications on file An After Visit Summary was printed and given to the patient with above information. . . Michael Iqbal MD 03/06/211944 documented in this encounter [facility] 02-28-2021 History of Present illness Narrative [facility] OUTPATIENT REHABILITATION DAILY TREATMENT NOTE Today's Date 02/28/2021 Patient Name: Stephany Reynolds Date of : 1950 Current Visit #: 9 Authorized Visits: [id number] Case Name: S/P Left TKR History: Pre-Treatment Pain Scale: 2 Symptoms: gradually improved Functional Diagnosis: 1. Status post total left knee replacement Clinical Information: Subjective: Pt denies change in med hx and reports no new complaints. He states he made the effort this weekend to take extra trips up/down the stairs with a reciprocal pattern. Objective Treatments: Physical Therapy Exercise Log - 02/28/21 1350 OTHER Precautions/Contraindications Supervising PT: Brian - Left TKR 01/19 Notes visit 10: 1:49 - 2:29 Therapeutic Exercise (47930) Intervention Scifit L4 X5 mins Parameters step stretches 3x20, calf stretch 20 x3 Intervention BOSU Lunges - x20 Parameters BOSU step-ups x15 Intervention TKE - x15 BTB Parameters Steamboats on airex - x10 Lvl 3 Intervention lateral/retro ambulation 30ft x2 Parameters Shuttle squat 56# x20, SL - 31# x20 Intervention SLR 10 (lacks terminal knee ext) 0 NT Parameters Heel slides 10 x10 (AAROM 110) Intervention Oscillations MET (113 degrees) - x5 min Parameters -- Intervention -- Additional Exercises Add more exercises? -- Modalities Modalities Vasopneumatic Treatment Parameters 10' 34 degrees NT PT Treatment Times Therex Total Time 40 Direct Treatment Time 40 Total Treatment Time 40 Goals: Physical Therapy Ortho Goals: MOBILITY: Patient will be able to ambulate for 1 hour in community and ambulate on uneven surfaces without difficulty in 4 weeks. MOBILITY: Patient will be able to ascend/descend stairs without difficulty in 3 weeks. IMPAIRMENT: Improve pain from 4/10 to <2/10 during prolonged standing and walking in 4 weeks IMPAIRMENT: Improve AROM of the Knee to 0-120 degrees in 4 weeks. IMPAIRMENT: Improve Swelling of the Knee from about 3.5cm to <2.5cm in 4 weeks. OTHER: Patient will increase FOTO score from 49 to at least 60 to show MDC/MCII and expected functional outcome in 4 weeks. OTHER: Patient will be able to properly demonstrate independence with HEP in 1 week. Patient Education: Quality of movement and HEP Adherence with patient verbalized understanding. Post-Treatment Pain Scale: 1 Assessment: Patient had an expected response to treatment. Skilled Intervention demonstrated by modifications of treatment per exercise log including increased intensity and safety interventions per exercise log. Progress towards goals as expected. Plan for Next Visit: Treatment Visit with focus on strength and stability Niall Brar PT State License, [id number] documented in this encounter [facility] 02-25-2021 History of Present illness Narrative [facility] OUT[facility] REH[facility]IL[facility] DAILY TREATMENT NOTE Today's Date 02/25/2021 Patient Name: Stephany Reynolds Date of : 1950 Current Visit #: 9 Authorized Visits: 199 Case Name: S/P Left TKR History: Pre-Treatment Pain Scale: 0 Symptoms: gradually improved Functional Diagnosis: 1. Status post total left knee replacement Clinical Information: Subjective: Pt reports knee being sore today but no c/o pain. Objective Treatments: Physical Therapy Exercise Log - 02/25/21 1126 OTHER Precautions/Contraindications Supervising PT: Brian - Left TKR 01/19 Notes visit 9: 11:26 - 12:25 Therapeutic Exercise ([id number]) Intervention Scifit L4 X5 mins Parameters step stretches 3x20, calf stretch 20 x3 Intervention BOSU Lunges - x15 Parameters step over 6 x10 fwd, lat Intervention TKE - x15 BTB Parameters Steamboats on airex - x10 Lvl 3 Intervention lateral side steps/monster steps 2 full rounds Parameters Shuttle squat 56# x20, SL - 31# x20 Intervention quads set 10 x10 heel prop Parameters HS curls - x20 GTB, LAQ 5 x10 Intervention Heel slides 10 x10 (AAROM 110) Parameters SLR 10 (lacks terminal knee ext) Intervention Oscillations MET (113 degrees) - x5 min Additional Exercises Add more exercises? Yes Modalities Modalities Vasopneumatic Treatment Parameters 10' 34 degrees NT PT Treatment Times Therex Total Time 49 Modalities Total Time 10 Direct Treatment Time 59 Total Treatment Time 59 Goals: Physical Therapy Ortho Goals: MOBILITY: Patient will be able to ambulate for 1 hour in community and ambulate on uneven surfaces without difficulty in 4 weeks. MOBILITY: Patient will be able to ascend/descend stairs without difficulty in 3 weeks. IMPAIRMENT: Improve pain from 4/10 to <2/10 during prolonged standing and walking in 4 weeks IMPAIRMENT: Improve AROM of the Knee to 0-120 degrees in 4 weeks. IMPAIRMENT: Improve Swelling of the Knee from about 3.5cm to <2.5cm in 4 weeks. OTHER: Patient will increase FOTO score from 49 to at least 60 to show MDC/MCII and expected functional outcome in 4 weeks. OTHER: Patient will be able to properly demonstrate independence with HEP in 1 week. Patient Education: Quality of movement with patient demonstrated understanding. Post-Treatment Pain Scale: 0 Assessment: Patient had an expected response to treatment. Skilled Intervention demonstrated by modifications of treatment per exercise log including increased load and safety interventions per exercise log. Progress towards goals as expected. Plan for Next Visit: Treatment Visit with focus on ROM and strengthening Pelon Whalen PTA STATE LICENSE, [id number] documented in this encounter [facility] 02-23-2021 History of Present illness Narrative [facility] DAILY TREATMENT NOTE Today's Date 02/23/2021 Patient Name: Stephany Reynolds Date of : 1950 Current Visit #: 8 Authorized Visits: 199 Case Name: S/P Left TKR History: Pre-Treatment Pain Scale: 0 Symptoms: gradually improved Functional Diagnosis: 1. Status post total left knee replacement Clinical Information: Subjective: patient reports no pain Objective Treatments: Physical Therapy Exercise Log - 02/23/21 1431 OTHER Precautions/Contraindications Supervising PT: Brian - Left TKR 01/19 Notes visit 8: 2 :31 3:10 Therapeutic Exercise ([id number]) Intervention Scifit L4 X7 mins Parameters step stretches 3x20, calf stretch 20 x3 Intervention BOSU Lunges - x10 Parameters step over 6 x10 fwd, lat Intervention TKE - x15 BTB Parameters Steamboats - x10 Lvl 3 Intervention lateral side steps/monster steps 2 full rounds Parameters Shuttle squat 56# x20, SL - 31# x20 Intervention quads set 10 x10 heel prop Parameters HS curls - x20 GTB, LAQ 5 x10 Intervention Heel slides 10 x10 (AAROM 105) Parameters SLR 10 (lacks terminal knee ext) Intervention -- Additional Exercises Add more exercises? Yes Modalities Modalities Vasopneumatic Treatment Parameters 10' 34 degrees NT Goals: Physical Therapy Ortho Goals: MOBILITY: Patient will be able to ambulate for 1 hour in community and ambulate on uneven surfaces without difficulty in 4 weeks. MOBILITY: Patient will be able to ascend/descend stairs without difficulty in 3 weeks. IMPAIRMENT: Improve pain from 4/10 to <2/10 during prolonged standing and walking in 4 weeks IMPAIRMENT: Improve AROM of the Knee to 0-120 degrees in 4 weeks. IMPAIRMENT: Improve Swelling of the Knee from about 3.5cm to <2.5cm in 4 weeks. OTHER: Patient will increase FOTO score from 49 to at least 60 to show MDC/MCII and expected functional outcome in 4 weeks. OTHER: Patient will be able to properly demonstrate independence with HEP in 1 week. Patient Education: Quality of movement, Verbal HEP and HEP Adherence with patient verbalized understanding. Post-Treatment Pain Scale: 0 Assessment: Patient had an expected response to treatment. Skilled Intervention demonstrated by modifications of treatment per exercise log including increased load and increased mobility and safety interventions per exercise log. Progress towards goals as expected. Plan for Next Visit: Treatment Visit with focus on continue Santa Livingston PT STATE LICENSE, [id number] documented in this encounter [facility] 02-21-2021 History of Present illness Narrative [facility] DAILY TREATMENT NOTE Today's Date 02/21/2021 Patient Name: Stephany Reynolds Date of : 1950 Current Visit #: 7 Authorized Visits: 199 Case Name: S/P Left TKR History: Pre-Treatment Pain Scale: 2 Symptoms: gradually improved Functional Diagnosis: 1. Status post total left knee replacement Clinical Information: Subjective: Pt reports knee pain is not as bad as it has been. Overall knee is feeling good. Objective Treatments: Physical Therapy Exercise Log - 02/21/21 1341 OTHER Precautions/Contraindications Supervising PT: Brian - Left TKR 01/19 Notes visit 6: 1:42 - 2:30 Therapeutic Exercise ([id number]) Intervention Scifit L4 x5 mins Parameters step stretches 3x20, calf stretch 20 x3 Intervention BOSU Lunges - x10 Parameters step up 6 x10 fwd, lat Intervention TKE - x10 BTB Parameters Steamboats - x10 Lvl 3 Intervention lateral side steps/monster steps 2 full rounds Parameters Shuttle squat 56# x20, SL - 31# x20 Intervention Steps - Next visit Parameters HS curls - x20 GTB Intervention SLR 15 Parameters quads set 10 x1o heel prop Intervention Heel slides 10 x10 (AAROM 114) Additional Exercises Add more exercises? Yes Modalities Modalities Vasopneumatic Treatment Parameters 10' 34 degrees PT Treatment Times Therex Total Time 42 Modalities Total Time 10 Direct Treatment Time 52 Total Treatment Time 52 Goals: Physical Therapy Ortho Goals: MOBILITY: Patient will be able to ambulate for 1 hour in community and ambulate on uneven surfaces without difficulty in 4 weeks. MOBILITY: Patient will be able to ascend/descend stairs without difficulty in 3 weeks. IMPAIRMENT: Improve pain from 4/10 to <2/10 during prolonged standing and walking in 4 weeks IMPAIRMENT: Improve AROM of the Knee to 0-120 degrees in 4 weeks. IMPAIRMENT: Improve Swelling of the Knee from about 3.5cm to <2.5cm in 4 weeks. OTHER: Patient will increase FOTO score from 49 to at least 60 to show MDC/MCII and expected functional outcome in 4 weeks. OTHER: Patient will be able to properly demonstrate independence with HEP in 1 week. Patient Education: Quality of movement with patient demonstrated understanding. Post-Treatment Pain Scale: 0 Assessment: Patient had an expected response to treatment. Skilled Intervention demonstrated by modifications of treatment per exercise log including increased load and safety interventions per exercise log. Progress towards goals as expected. Plan for Next Visit: Treatment Visit with focus on strengthening and stability Pelon Whalen PTA STATE LICENSE, [id number] documented in this encounter [facility] 02-18-2021 History of Present illness Narrative [facility] DAILY TREATMENT NOTE Today's Date 02/18/2021 Patient Name: Stephany Reynolds Date of : 1950 Current Visit #: 6 Authorized Visits: 199 Case Name: S/P Left TKR History: Pre-Treatment Pain Scale: 2 Symptoms: gradually improved Functional Diagnosis: 1. Status post total left knee replacement Clinical Information: Subjective: His knee is very stiff and tight today maybe from doing too much at home. Objective Ambulates with mild antalgic gait on L during stance phase. Treatments: Physical Therapy Exercise Log - 02/18/21 3837 OTHER Precautions/Contraindications Supervising PT: Brian - Left TKR 01/19 Notes visit 5: 1:45-2:30 Therapeutic Exercise ([id number]) Intervention Scifit L3 8 mins Parameters step stretches 3x20, calf stretch 20 x3 Intervention sink ex x10 bilat Parameters step up 4 10, 6 10, side step 6 x10 Intervention Shuttle squat 56# 3x10 Parameters quads set 10 x1o heel prop Intervention SLR 15 Parameters Heel slides 10 x10 (AAROM 110) Intervention lateral side steps/monster steps 2 full rounds Additional Exercises Add more exercises? Yes Modalities Modalities Vasopneumatic Treatment Parameters 10' 34 degrees PT Treatment Times Therex Total Time 35 Modalities Total Time 10 Direct Treatment Time 45 Total Treatment Time 45 Goals: Physical Therapy Ortho Goals: MOBILITY: Patient will be able to ambulate for 1 hour in community and ambulate on uneven surfaces without difficulty in 4 weeks. MOBILITY: Patient will be able to ascend/descend stairs without difficulty in 3 weeks. IMPAIRMENT: Improve pain from 4/10 to <2/10 during prolonged standing and walking in 4 weeks IMPAIRMENT: Improve AROM of the Knee to 0-120 degrees in 4 weeks. IMPAIRMENT: Improve Swelling of the Knee from about 3.5cm to <2.5cm in 4 weeks. OTHER: Patient will increase FOTO score from 49 to at least 60 to show MDC/MCII and expected functional outcome in 4 weeks. OTHER: Patient will be able to properly demonstrate independence with HEP in 1 week. Patient Education: Quality of movement with patient demonstrated understanding. Post-Treatment Pain Scale: 1 Assessment: Patient had an expected response to treatment. Skilled Intervention demonstrated by modifications of treatment per exercise log including increased load and safety interventions per exercise log. Progress towards goals as expected. Plan for Next Visit: Treatment Visit with focus on increased ROM Aleja Elaine PTA STATE LICENSE, [id number] documented in this encounter [facility] 02-16-2021 History of Present illness Narrative [facility] DAILY TREATMENT NOTE Today's Date 02/16/2021 Patient Name: Stephany Reynolds Date of : 1950 Current Visit #: 5 Authorized Visits: 199 Case Name: S/P Left TKR History: Pre-Treatment Pain Scale: 2 Symptoms: gradually improved Functional Diagnosis: 1. 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 Objective AAROM flexion 116 degrees. Extension 0 degrees. Treatments: Physical Therapy Exercise Log - 02/16/21 1505 OTHER Precautions/Contraindications Supervising PT: Brian - Left TKR 01/19 Notes visit 4: 2:30-3:15 Therapeutic Exercise ([id number]) Intervention Scifit L3 8 mins Parameters step stretches 3x20, calf stretch 20 x3 Intervention sink ex x10 bilat Parameters step up 4 10, 6 10, side step 6 x10 Intervention Shuttle squat 56# 3x10 Parameters quads set 10 x1o heel prop Intervention SLR 15 Parameters Heel slides 10 x10 (AAROM 110) Intervention lateral side steps/monster steps 2 full rounds Additional Exercises Add more exercises? Yes Modalities Modalities Vasopneumatic Treatment Parameters 10' 34 degrees PT Treatment Times Therex Total Time 35 Modalities Total Time 10 Direct Treatment Time 45 Total Treatment Time 45 Goals: Physical Therapy Ortho Goals: MOBILITY: Patient will be able to ambulate for 1 hour in community and ambulate on uneven surfaces without difficulty in 4 weeks. MOBILITY: Patient will be able to ascend/descend stairs without difficulty in 3 weeks. IMPAIRMENT: Improve pain from 4/10 to <2/10 during prolonged standing and walking in 4 weeks IMPAIRMENT: Improve AROM of the Knee to 0-120 degrees in 4 weeks. IMPAIRMENT: Improve Swelling of the Knee from about 3.5cm to <2.5cm in 4 weeks. OTHER: Patient will increase FOTO score from 49 to at least 60 to show MDC/MCII and expected functional outcome in 4 weeks. OTHER: Patient will be able to properly demonstrate independence with HEP in 1 week. Patient Education: Quality of movement with patient demonstrated understanding. Post-Treatment Pain Scale: 2 Assessment: Patient had an expected response to treatment. Skilled Intervention demonstrated by modifications of treatment per exercise log including increased load and safety interventions per exercise log. Progress towards goals as expected. Plan for Next Visit: Treatment Visit with focus on strengthening and ROM Aleja Elaine PTA STATE LICENSE, [id number] documented in this encounter [facility] 02-14-2021 History of Present illness Narrative [facility] DAILY TREATMENT NOTE Today's Date 02/14/2021 Patient Name: Stephany Reynolds Date of : 1950 Current Visit #: 4 Authorized Visits: 199 Case Name: S/P Left TKR History: Pre-Treatment Pain Scale: 2 Symptoms: gradually improved Functional Diagnosis: 1. Status post total left knee replacement Clinical Information: Subjective: His knee is slowly improving Objective AAROM flexion 113 degrees. Mild deficits with extension Treatments: Physical Therapy Exercise Log - 02/14/21 1509 OTHER Precautions/Contraindications Supervising PT: Brian - Left TKR 01/19 Notes visit 3: 2:30-3:15 Therapeutic Exercise ([id number]) Intervention Scifit L3 5 mins Parameters step stretches 3x20, calf stretch 20 x3 Intervention sink ex x10 bilat Parameters step up 4 10, 6 10, side step 6 x10 Intervention Shuttle squat 56# 3x10 Parameters quads set 10 x1o heel prop Intervention SLR 15 Parameters Heel slides 10 x10 (AAROM 110) Intervention lateral side steps/monster steps 2 full rounds Additional Exercises Add more exercises? Yes Modalities Modalities Vasopneumatic Treatment Parameters 10' 34 degrees PT Treatment Times Therex Total Time 35 Modalities Total Time 10 Direct Treatment Time 45 Total Treatment Time 45 Goals: Physical Therapy Ortho Goals: MOBILITY: Patient will be able to ambulate for 1 hour in community and ambulate on uneven surfaces without difficulty in 4 weeks. MOBILITY: Patient will be able to ascend/descend stairs without difficulty in 3 weeks. IMPAIRMENT: Improve pain from 4/10 to <2/10 during prolonged standing and walking in 4 weeks IMPAIRMENT: Improve AROM of the Knee to 0-120 degrees in 4 weeks. IMPAIRMENT: Improve Swelling of the Knee from about 3.5cm to <2.5cm in 4 weeks. OTHER: Patient will increase FOTO score from 49 to at least 60 to show MDC/MCII and expected functional outcome in 4 weeks. OTHER: Patient will be able to properly demonstrate independence with HEP in 1 week. Patient Education: Quality of movement with patient demonstrated understanding. Post-Treatment Pain Scale: 2 Assessment: Patient had an expected response to treatment. Skilled Intervention demonstrated by modifications of treatment per exercise log including increased load and safety interventions per exercise log. Progress towards goals as expected. Plan for Next Visit: Treatment Visit with focus on strengthening and ROM Aleja Elaine PTA STATE LICENSE, [id number] documented in this encounter [facility] 02-11-2021 History of Present illness Narrative [facility] DAILY TREATMENT NOTE Today's Date 02/11/2021 Patient Name: Stephany Reynolds Date of : 1950 Current Visit #: 3 Authorized Visits: 199 Case Name: S/P Left TKR History: Pre-Treatment Pain Scale: 2 Symptoms: gradually improved Functional Diagnosis: 1. Status post total left knee replacement Clinical Information: Subjective: He is doing well but very stiff and tight. Objective AAROM flexion 115 degrees. PROM extension -3 degrees. Treatments: Physical Therapy Exercise Log - 02/11/21 1436 OTHER Precautions/Contraindications Supervising PT: Brian - Left TKR 01/19 Notes visit 2: 1:45-2:33 Therapeutic Exercise ([id number]) Intervention Scifit L3 5 mins Parameters step stretches 3x20, calf stretch 20 x3 Intervention sink ex x10 bilat Parameters step up 4 10, 6 10, side step 6 x10 Intervention Shuttle squat 56# 3x10 Parameters quads set 10 x1o heel prop Intervention SLR 15 Parameters Heel slides 10 x10 (AAROM 110) Additional Exercises Add more exercises? Yes Modalities Modalities Vasopneumatic Treatment Parameters 10' 34 degrees PT Treatment Times Therex Total Time 35 Modalities Total Time 10 Direct Treatment Time 45 Total Treatment Time 45 Goals: Physical Therapy Ortho Goals: MOBILITY: Patient will be able to ambulate for 1 hour in community and ambulate on uneven surfaces without difficulty in 4 weeks. MOBILITY: Patient will be able to ascend/descend stairs without difficulty in 3 weeks. IMPAIRMENT: Improve pain from 4/10 to <2/10 during prolonged standing and walking in 4 weeks IMPAIRMENT: Improve AROM of the Knee to 0-120 degrees in 4 weeks. IMPAIRMENT: Improve Swelling of the Knee from about 3.5cm to <2.5cm in 4 weeks. OTHER: Patient will increase FOTO score from 49 to at least 60 to show MDC/MCII and expected functional outcome in 4 weeks. OTHER: Patient will be able to properly demonstrate independence with HEP in 1 week. Patient Education: Quality of movement with patient demonstrated understanding. Post-Treatment Pain Scale: 1 Assessment: Patient had an expected response to treatment. Skilled Intervention demonstrated by modifications of treatment per exercise log including increased load and safety interventions per exercise log. Progress towards goals as expected. Plan for Next Visit: Treatment Visit with focus on ROM and strengthening Aleja Elaine PTA STATE LICENSE, [id number] documented in this encounter [facility] 02-09-2021 History of Present illness Narrative [facility] DAILY TREATMENT NOTE Today's Date 02/09/2021 Patient Name: Stephany Reynolds Date of : 1950 Current Visit #: 2 Authorized Visits: 199 Case Name: S/P Left TKR History: Pre-Treatment Pain Scale: 3-4 soreness Symptoms: stabilized Functional Diagnosis: 1. Status post total left knee replacement Clinical Information: Subjective: patent reports stiffness and sorness at knee. Compliant with ice application and exercises. Objective Treatments: Physical Therapy Exercise Log - 02/09/21 1310 OTHER Precautions/Contraindications Supervising PT: Brian - Left TKR 01/19 Notes 1:08 1:47 Therapeutic Exercise ([id number]) Intervention Scifit L3 5 mins Parameters step stretches 3x20, calf stretch 20 x3 Intervention sink ex x10 bilat Parameters step up 4 10, 6 10, side step 6 x10 Intervention Shuttle squat 56# 3x10 Parameters quads set 10 x1o heel prop Intervention SLR 15 Parameters Heel slides 10 x10 (AAROM 110) Intervention -- PT Treatment Times Therex Total Time 39 Direct Treatment Time 39 Goals: Physical Therapy Ortho Goals: MOBILITY: Patient will be able to ambulate for 1 hour in community and ambulate on uneven surfaces without difficulty in 4 weeks. MOBILITY: Patient will be able to ascend/descend stairs without difficulty in 3 weeks. IMPAIRMENT: Improve pain from 4/10 to <2/10 during prolonged standing and walking in 4 weeks IMPAIRMENT: Improve AROM of the Knee to 0-120 degrees in 4 weeks. IMPAIRMENT: Improve Swelling of the Knee from about 3.5cm to <2.5cm in 4 weeks. OTHER: Patient will increase FOTO score from 49 to at least 60 to show MDC/MCII and expected functional outcome in 4 weeks. OTHER: Patient will be able to properly demonstrate independence with HEP in 1 week. Patient Education: Quality of movement and Verbal HEP with patient verbalized understanding. Post-Treatment Pain Scale: 0 Assessment: Patient had an expected response to treatment. Skilled Intervention demonstrated by modifications of treatment per exercise log including increased load, increased rate and increased mobility and safety interventions per exercise log. Progress towards goals as expected. Plan for Next Visit: Treatment Visit with focus on continue to work on knee extension and flexion ROM might add manual extension stretch Santa Livingston PT STATE LICENSE, [id number] documented in this encounter [facility] 02-07-2021 History of Present illness Narrative [facility] Evaluation Today's Date 02/07/2021 Patient Name: Stephany Reynolds Date of : 1950 Case Name: S/P Left TKR Functional Diagnosis: 1. Status post total left knee replacement Clinical Information: Subjective Referring Diagnosis: S/P Left TKR Follow-up with physician: 03/04/2021 History of Present Illness Surgery Date: 01/19/2021 Days Post-Op: 19 Subjective History: Pt is beginning outpatient PT s/p left TKR. He completed about 2 weeks of PT and reports measuring 105 degrees of flexion. He arrived today ambulating with a st. cane and reports using no AD in the home. He reports c/o pain, swelling and stiffness and denies numbness/tingling. Pain Scale: Pain location: knee Average Pain: 2/10 Pain at highest: 4/10 Aggravating factors: prolonged standing and walking, exercise Easing factors: rest, ice, elevation, Tylenol in the evening 24 Hour Symptom Behavior Morning Pain: sudden Afternoon Pain: better End of day pain: worse Personal Goals: Improve ROM and strength Improve mobility Functional Mobility Status Functional Limitations: limited mobility and standing Current Mobility Status: Home: no device Community: cane and independent Bed Transfer: modified independent Car Transfer: modified independent Current Activity Level: low active Home medical equipment owned: Yes Adaptive Equipment: elevated toilet seat and shower chair Gait Devices: SPC and 2-WW Social Support: Sabianism, social, or cultural considerations to be made aware of before starting treatment: No Home Environment: Current Home Environment: Setup: single story house Entry: steps with railing (2 VJ) Additional comments: has family room in basement - bilat. HRsActivities of Daily Living: independent with allInstrumental Activities of Daily Living: to be assessed Sleep Assessment Preferred sleep position: on side Sleep disturbance: Sleep Disturbance Red Flags: None Comments: Barriers to Care: None Sabianism, social, or cultural considerations to be made aware of before starting treatment: No Knee Left Knee Range of Motion: Flexion Active: 90 Passive: 98 Extension Active: -3 (lacking) Muscle Strength Flexion: 4+ Extension: 4+ Quad set: good Swelling (cm): Right Left Suprapatellar: 36.0 40.8 Infrapatellar: 35.2 40.3 Joint Line: 33.8 37.4 FOTO: 49 Ankle/Foot Left Ankle/Foot Left Ankle/Foot WFL Treatments: Physical Therapy Exercise Log - 02/07/21 0844 OTHER Precautions/Contraindications Supervising PT: Brian - Left TKR 01/19 Notes Eval: 8:36 - 9:14 Therapeutic Exercise ([id number]) Intervention reviewed current HEP and instructed pt to continue quad sets, SLR and assisted heel slides Parameters stair stretches 3x20 - provided HEP handouts Intervention sink ex x10 bilat. - provided HEP handouts Parameters progress with scifit, rockerboard, step-ups, BOSU lunges and shuttle - Vaso PT Treatment Times Total Treatment Time 38 Goals: Physical Therapy Ortho Goals: MOBILITY: Patient will be able to ambulate for 1 hour in community and ambulate on uneven surfaces without difficulty in 4 weeks. MOBILITY: Patient will be able to ascend/descend stairs without difficulty in 3 weeks. IMPAIRMENT: Improve pain from 4/10 to <2/10 during prolonged standing and walking in 4 weeks IMPAIRMENT: Improve AROM of the Knee to 0-120 degrees in 4 weeks. IMPAIRMENT: Improve Swelling of the Knee from about 3.5cm to <2.5cm in 4 weeks. OTHER: Patient will increase FOTO score from 49 to at least 60 to show MDC/MCII and expected functional outcome in 4 weeks. OTHER: Patient will be able to properly demonstrate independence with HEP in 1 week. CPT Code 20025 Low 19743 Moderate 26954 High History 0 1-2 3+ Comorbidities: cancer, cardiac history, DM and OA, Personal factors: chronicity or severity of the current condition Examination of body systems (elements of body structures & functions, activity limitations, and/or participation restrictions) 1-2 elements 3+ elements 4+ elements See below clinical impression Clinical Presentation Stable Evolving Unstable As evidenced by reproduction of or changes in symptoms with certain movements and improving symptom level since surgical intervention Decision Making Low (FOTO >/= 69) Moderate (FOTO 34 - 68) High (FOTO </= 33) FOTO score= 49 Pt is a 70 y.o. male who presents to PT services s/p left TKR. Upon assessment, pt has been found with the following impairments: decreased ROM, decreased strength, impaired dynamic balance, antalgic gait and swelling. 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 The pt would benefit from skilled PT services focused on the above listed impairments and limitations in order to safely progress pt to their desired level of function. Pt to be discharged from OP PT services if/when goals are met, if they fail to make progress with conservative management in PT, if their level of progress plateaus, or if they do not maintain compliance with attendance or HEP. At this time, it is my clinical judgment that services are medically necessary. Plan of Care Frequency of Visits: 3 times per week Duration: 4 weeks Interventions: Therapeutic Exercise (62959), Neuromuscular Re-Education (06818), Manual Therapy (82739), Therapeutic/ Functional Activities (74014), Gait Training (95783) and Vasopneumatic (02402) Rehab Potential: good Suicide Screen Signs and Symptoms of Abuse/Neglect: No Actions Taken: No Suicide Risk: Does the patient feel like ending their life today?No Actions Taken: No Patient Education Provided Pt was educated on the benefits of therapy and importance of compliance with sessions and HEP for rehabilitation. Pt was also educated on treatment diagnosis, POC, and frequency/duration of treatment. Clinical Impression Pt would benefit from PT interventions s/p left TKR to address impairments in ROM, strength and stability as well as pain and swelling control. Niall Brar PT State License, [id number] documented in this encounter [facility] 02-05-2021 History of Present illness Narrative Mr Reynolds is a 70 year old man with history of HTN, DM, arthritis who is presenting for evaluation of abnormal CTA.Patient originally presented in February with falls and syncopal episodes. 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 Per neurology notes reported to have postictal state after the falls, blank stare, confusion afterwards, unable to recall events. He had an EEG showing mild encephalopathy. MRI brain that showed no acute intracranial process, remote infarcts of the right prefrontal gyrus, bilateral basal ganglia and right cerebellum, no abnormality of intracranial vessels, but no neck imaging done. He was found to have COVID and was treated with dexamethasone/remdesivir.TTE at that time showed depressed LVEF of 40%, previously was 60% just 6 weeks before. He was started on goal-directed medical therapy with metoprolol and lisinopril. No arrhythmias reported during admission. However patient discontinued all those medications after discharge since he did not think he was tolerating well.Denies any recurrent episodes since then, nearly back to baseline - still with mild unsteadiness when first gets up.Denies focal weakness, sensory deficits, dysarthria or amaurosis fugax. Reports sometimes he can hear his heart beat. [facility] Work Phone: 02-05-2021 History of Present illness Narrative Mr Reynolds is a 70 year old man with history of HTN, DM, arthritis who is presenting for evaluation of abnormal CTA.Patient originally presented in February with falls and syncopal episodes. 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 Per neurology notes reported to have postictal state after the falls, blank stare, confusion afterwards, unable to recall events. He had an EEG showing mild encephalopathy. MRI brain that showed no acute intracranial process, remote infarcts of the right prefrontal gyrus, bilateral basal ganglia and right cerebellum, no abnormality of intracranial vessels, but no neck imaging done. He was found to have COVID and was treated with dexamethasone/remdesivir.TTE at that time showed depressed LVEF of 40%, previously was 60% just 6 weeks before. He was started on goal-directed medical therapy with metoprolol and lisinopril. No arrhythmias reported during admission. However patient discontinued all those medications after discharge since he did not think he was tolerating well.Denies any recurrent episodes since then, nearly back to baseline - still with mild unsteadiness when first gets up.Denies focal weakness, sensory deficits, dysarthria or amaurosis fugax. Reports sometimes he can hear his heart beat. [facility] Work Phone: 02-05-2021 History of Present illness Narrative Mr Reynolds is a 70 year old man with history of HTN, DM, arthritis who is presenting for evaluation of abnormal CTA.Patient originally presented in February with falls and syncopal episodes. 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 Per neurology notes reported to have postictal state after the falls, blank stare, confusion afterwards,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 Education Assess POC Synopsis No Diabetes Diabetes No Interventions Intervention Associated Problem/Goal Status Variance Visit Notes Falls Problem:Assess and Instruct Home Visit Goal:Home Care Plan Completed Clinician taught: patient and caregiver 4-10 Patient IS at risk for falls (a score of 6 or greater is a predictor of future falls) and clinician instructed: proper footwear, improved lighting, remove clutter and throw rugs, safe cord/tubing management (O2, IV, Electrical, Christina), handrails/grab bar placement, assistive device usage and keep frequently used items in reach Patient/caregiver was able to demonstrate 75% via teachback Safety Problem:Assess and Instruct Home Visit Goal:Home Care Plan Completed Assessed patient vulnerability and home safety risks: Yes Equipment reviewed walker Patient at risk for harm or abuse No Family members involved in safety plan for Level 2 or 3 Discharge Planning Problem:Assess and Instruct Home Visit Goal:Home Care Plan Completed Home Visit DC Planning: Spoke with patient and caregiver about DC planning. Assessed for limited ambulation related to post-op pain and weakness DC will occur when: patient/caregiver can teach back care Anticipate DC: Early Patient and/or caregiver response to discharge planning education: Agree Plan for Next Visit Problem:Assess and Instruct Home Visit Goal:Home Care Plan Completed Follow up education for next visit: Medications Skilled intervention at next visit: CP/wound assesment. Instruct Medication Management Problem:Medication Management Goal:Medications Completed Home Visit Med Education: Medication list reconciled. Medication profile and in-home medication list updated with appropriate changes. Discrepanices noted during home visit: none Instructed patient on dosing, purpose, and side effects. Medication education completed today on all medication(s). Patient/caregiver is able to teach back 75% of instruction. Assess Pain Characteristics and Current Pain Regimen and Instruct Methods of Pain Relief Problem:Pain Management Goal:Pain Completed Wound/Incision Problem:Wound Care and/or Skin Problems Goal:Wound/Incision Completed Patient reports: dressing intact Clinician taught: patient and caregiver Clinician instructed on: when to call for dressing change Patient/caregiver is able to teach back/demonstrate given instruction including signs and symptoms of infection.. Instruct Alteration in GI Function Problem:Gastrointest inal Goal:Gastrointestina l Completed Patient reports: bm yesterday Clinician taught: patient and caregiver Clinician instructed on: management of constipation Patient/caregiver is able to teach back 75% of instruction. Instruct on Alteration in Circulation Problem:Circulation Goal:Circulation Completed Patient reports: lower leg edema Clinician taught: patient and caregiver Clinician instructed on: ice and elevation Patient/caregiver is able to teach back 75% of instruction. Assess Feet and Provide Diabetic Foot Education Problem:Assess POC Synopsis Goal:Diabetic Foot Education Completed Instruct Diabetes Managment Problem:Diabetes Goal:Diabetes Completed Patient reports: blood sugars twice a day Clinician taught: patient and caregiver Clinician instructed on: management of high and lows Patient/caregiver is able to teach back 75% of instruction. [facility] Visit Details Visit Type -SN HH Routine Vi sit Discipline -Snf Problems Problem Start Date Status Goals Interventions Assess and Instruct Home Visit Disciplines: Snf 01/20/2021 Active 1 goal linked to scheduled/documented intervention 4 goal interventions scheduled/documented in this visit Medication Management Disciplines: Snf 01/20/2021 Active 1 goal linked to scheduled/documented intervention 1 goal intervention scheduled/documented in this visit Pain Management Disciplines: Snf 01/20/2021 Active 1 goal linked to scheduled/documented intervention 1 goal intervention scheduled/documented in this visit Goals Goal Associated Problem Outcome Goal Met? Visit Notes Home Care Plan Assess and Instruct Home Visit No Medications Medication Management No Pain Pain Management No Interventions Intervention Associated Problem/Goal Status Variance Visit Notes Falls Problem:Assess and Instruct Home Visit Goal:Home Care Plan Completed Clinician taught: patient 4-10 Patient IS at risk for falls (a score of 6 or greater is a predictor of future falls) and clinician instructed: proper footwear and walker Patient/caregiver was able to demonstrate 100% via teachback Safety Problem:Assess and Instruct Home Visit Goal:Home Care Plan Completed Assessed patient vulnerability and home safety risks: yes Equipment reviewed walker Patient at risk for harm or abuse no Family members involved in safety plan for Level 2 or 3 na Discharge Planning Problem:Assess and Instruct Home Visit Goal:Home Care Plan Completed Home Visit DC Planning: Spoke with patient about DC planning. Assessed for limited ambulation related to left knee surgery DC will occur when: patient/caregiver is able to demonstrate verbalized an understanding Anticipate DC: On time Patient and/or caregiver response to discharge planning education: verbalized an understanding Plan for Next Visit Problem:Assess and Instruct Home Visit Goal:Home Care Plan Completed Follow up education for next visit: post op education Skilled intervention at next visit: Cp assessment, education Instruct Medication Management Problem:Medication Management Goal:Medications Completed Home Visit Med Education: Medication list reconciled. Medication profile and in-home medication list updated with appropriate changes. Discrepanices noted during home visit: none Instructed patient on dosing, purpose, and side effects. Medication education completed today on miralax medication(s). Patient/caregiver is able to teach back 100% of instruction. Assess Pain Characteristics and Current Pain Regimen and Instruct Methods of Pain Relief Problem:Pain Management Goal:Pain Completed [facility] Visit Details Visit Type -SITE ENGINEER Routine Visi t Discipline -Physical Therapy Problems Problem Start Date Status Goals Interventions Assess and Instruct Home Visit Disciplines: Physical Therapy 01/21/2021 Active 2 goals linked to scheduled/documented interventions 4 goal interventions scheduled/documented in this visit Home Exercise Program Disciplines: Physical Therapy 01/21/2021 Active 1 goal linked to scheduled/documented intervention 1 goal intervention scheduled/documented in this visit Goals Goal Associated Problem Outcome Goal Met? Visit Notes Medications Assess and Instruct Home Visit No Home Care Plan Assess and Instruct Home Visit No Home Exercise Program Home Exercise Program No Interventions Intervention Associated Problem/Goal Status Variance Visit Notes Instruct Medication Management Problem:Assess and Instruct Home Visit Goal:Medications Completed Home Visit Med Education: Medication list reconciled. Medication profile and in-home medication list updated with appropriate changes. Discrepanices noted during home visit: none Instructed patient on dosing, purpose, and side effects. Medication education completed today on all medication(s). Patient/caregiver is able to teach back 100% of instruction. Falls Problem:Assess and Instruct Home Visit Goal:Home Care Plan Completed Clinician taught: patient 1-3 Patient is NOT at risk for falls and clinician instructed: proper footwear, remove clutter and throw rugs and assistive device usage Patient/caregiver was able to demonstrate 100% via teachback Safety Problem:Assess and Instruct Home Visit Goal:Home Care Plan Completed Assessed patient vulnerability and home safety risks: stairs Equipment reviewed FWW Patient at risk for harm or abuse none Family members involved in safety plan for spouse Plan for Next Visit Problem:Assess and Instruct Home Visit Goal:Home Care Plan Completed Follow up education for next visit: to progress with HEP and ROM to L knee Skilled intervention at next visit: to progress with strength gait balance and ROM within L knee Home Exercise Program Problem:Home Exercise Program Goal:Home Exercise Program Completed Patient reports: patient is progressing with ROM stretching as tolerated Clinician taught: patient Clinician instructed on: ice/elevation 3x a day Patient/caregiver is able to teach back 100% of instruction. [facility] Visit Details Visit Type -SN HH Routine Vi sit Discipline -Snf Problems Problem Start Date Status Goals Interventions Assess and Instruct Home Visit Disciplines: Snf 01/20/2021 Active 1 goal linked to scheduled/documented intervention 4 goal interventions scheduled/documented in this visit Medication Management Disciplines: Snf 01/20/2021 Active 1 goal linked to scheduled/documented intervention 1 goal intervention scheduled/documented in this visit Pain Management Disciplines: Snf 01/20/2021 Active 1 goal linked to scheduled/documented intervention 1 goal intervention scheduled/documented in this visit Goals Goal Associated Problem Outcome Goal Met? Visit Notes Home Care Plan Assess and Instruct Home Visit No Medications Medication Management No Pain Pain Management No Interventions Intervention Associated Problem/Goal Status Variance Visit Notes Falls Problem:Assess and Instruct Home Visit Goal:Home Care Plan Completed Clinician taught: patient 4-10 Patient IS at risk for falls (a score of 6 or greater is a predictor of future falls) and clinician instructed: proper footwear and walker Patient/caregiver was able to demonstrate 100% via teachback Safety Problem:Assess and Instruct Home Visit Goal:Home Care Plan Completed Assessed patient vulnerability and home safety risks: yes Equipment reviewed walker Patient at risk for harm or abuse no Family members involved in safety plan for Level 2 or 3 na Discharge Planning Problem:Assess and Instruct Home Visit Goal:Home Care Plan Completed Home Visit DC Planning: Spoke with patient about DC planning. Assessed for limited ambulation related to left knee surgery DC will occur when: patient/caregiver is able to demonstrate independence in care Anticipate DC: On time Patient and/or caregiver response to discharge planning education: verbalized an understanding Plan for Next Visit Problem:Assess and Instruct Home Visit Goal:Home Care Plan Completed Follow up education for next visit: Post op care Skilled intervention at next visit: CP assessment, education Instruct Medication Management Problem:Medication Management Goal:Medications Completed Home Visit Med Education: Medication list reconciled. Medication profile and in-home medication list updated with appropriate changes. Discrepanices noted during home visit: none Instructed patient on dosing, purpose, and side effects. Medication education completed today on norco medication(s). Patient/caregiver is able to teach back 100% of instruction. Assess Pain Characteristics and Current Pain Regimen and Instruct Methods of Pain Relief Problem:Pain Management Goal:Pain Completed [facility] Visit Details Visit Type -SITE ENGINEER Routine Visi t Discipline -Physical Therapy Problems Problem Start Date Status Goals Interventions Assess and Instruct Home Visit Disciplines: Physical Therapy 01/21/2021 Active 3 goals linked to scheduled/documented interventions 4 goal interventions scheduled/documented in this visit Home Exercise Program Disciplines: Physical Therapy 01/21/2021 Active 1 goal linked to scheduled/documented intervention Mobility Disciplines: Physical Therapy 01/21/2021 Active 1 goal linked to scheduled/documented intervention Goals Goal Associated Problem Outcome Goal Met? Visit Notes Pain Assess and Instruct Home Visit Partially Met No Medications Assess and Instruct Home Visit Met No Home Care Plan Assess and Instruct Home Visit Met No Home Exercise Program Home Exercise Program Partially Met No Mobility Mobility Met No Interventions Intervention Associated Problem/Goal Status Variance Visit Notes Instruct Medication Management Problem:Assess and Instruct Home Visit Goal:Medications Completed Home Visit Med Education: Medication list reconciled. Medication profile and in-home medication list updated with appropriate changes. Discrepanices noted during home visit: none Instructed patient on dosing, purpose, and side effects. Medication education completed today on all medication(s). Patient/caregiver is able to teach back 100% of instruction. Falls Problem:Assess and Instruct Home Visit Goal:Home Care Plan Completed Clinician taught: patient 1-3 Patient is NOT at risk for falls and clinician instructed: proper footwear, remove clutter and throw rugs and assistive device usage Patient/caregiver was able to demonstrate 100% via teachback Safety Problem:Assess and Instruct Home Visit Goal:Home Care Plan Completed Assessed patient vulnerability and home safety risks: stairs Equipment reviewed FWW Patient at risk for harm or abuse none Family members involved in safety plan for spouse Plan for Next Visit Problem:Assess and Instruct Home Visit Goal:Home Care Plan Completed Follow up education for next visit: to progress with HEP and elevation to L knee Skilled intervention at next visit: to progress with strength gait balance and ROM within L knee [facility] Visit Details Visit Type -SITE ENGINEER Routine Visi t Discipline -Physical Therapy Problems Problem Start Date Status Goals Interventions Assess and Instruct Home Visit Disciplines: Physical Therapy 01/21/2021 Active 2 goals linked to scheduled/documented interventions 4 goal interventions scheduled/documented in this visit Home Exercise Program Disciplines: Physical Therapy 01/21/2021 Active 1 goal linked to scheduled/documented intervention 1 goal intervention scheduled/documented in this visit Goals Goal Associated Problem Outcome Goal Met? Visit Notes Medications Assess and Instruct Home Visit No Home Care Plan Assess and Instruct Home Visit No Home Exercise Program Home Exercise Program No Interventions Intervention Associated Problem/Goal Status Variance Visit Notes Instruct Medication Management Problem:Assess and Instruct Home Visit Goal:Medications Completed Home Visit Med Education: Medication list reconciled. Medication profile and in-home medication list updated with appropriate changes. Discrepanices noted during home visit: none Instructed patient on dosing, purpose, and side effects. Medication education completed today on all medication(s). Patient/caregiver is able to teach back 100% of instruction. Falls Problem:Assess and Instruct Home Visit Goal:Home Care Plan Completed Clinician taught: patient 1-3 Patient is NOT at risk for falls and clinician instructed: proper footwear, remove clutter and throw rugs and assistive device usage Patient/caregiver was able to demonstrate 100% via teachback Safety Problem:Assess and Instruct Home Visit Goal:Home Care Plan Completed Assessed patient vulnerability and home safety risks: stairs Equipment reviewed FWW Patient at risk for harm or abuse none Family members involved in safety plan for spouse Plan for Next Visit Problem:Assess and Instruct Home Visit Goal:Home Care Plan Completed Follow up education for next visit: to progress with HEP and ROM to L knee Skilled intervention at next visit: to progress with strength gait balance and ROM within L knee Home Exercise Program Problem:Home Exercise Program Goal:Home Exercise Program Completed Patient reports: patient is progressing with ROM stretching as tolerated Clinician taught: patient Clinician instructed on: ice/elevation 3x a day Patient/caregiver is able to teach back 100% of instruction. [facility] Visit Details Visit Type -SN HH Routine Vi sit Discipline -Snf Problems Problem Start Date Status Goals Interventions Assess and Instruct Home Visit Disciplines: Snf 01/20/2021 Active 1 goal linked to scheduled/documented intervention 4 goal interventions scheduled/documented in this visit Medication Management Disciplines: Snf 01/20/2021 Active 1 goal linked to scheduled/documented intervention 1 goal intervention scheduled/documented in this visit Pain Management Disciplines: Snf 01/20/2021 Active 1 goal linked to scheduled/documented intervention 1 goal intervention scheduled/documented in this visit Goals Goal Associated Problem Outcome Goal Met? Visit Notes Home Care Plan Assess and Instruct Home Visit No Medications Medication Management No Pain Pain Management No Interventions Intervention Associated Problem/Goal Status Variance Visit Notes Falls Problem:Assess and Instruct Home Visit Goal:Home Care Plan Completed Clinician taught: patient 4-10 Patient IS at risk for falls (a score of 6 or greater is a predictor of future falls) and clinician instructed: proper footwear and walker Patient/caregiver was able to demonstrate 100% via teachback Safety Problem:Assess and Instruct Home Visit Goal:Home Care Plan Completed Assessed patient vulnerability and home safety risks: yes Equipment reviewed walker Patient at risk for harm or abuse no Family members involved in safety plan for Level 2 or 3 na Discharge Planning Problem:Assess and Instruct Home Visit Goal:Home Care Plan Completed Home Visit DC Planning: Spoke with patient about DC planning. Assessed for limited ambulation related to left knee surgery DC will occur when: patient/caregiver is able to demonstrate independence in care Anticipate DC: On time Patient and/or caregiver response to discharge planning education: verbalized an understanding Plan for Next Visit Problem:Assess and Instruct Home Visit Goal:Home Care Plan Completed Follow up education for next visit: discharge Skilled intervention at next visit: discharge Instruct Medication Management Problem:Medication Management Goal:Medications Completed Home Visit Med Education: Medication list reconciled. Medication profile and in-home medication list updated with appropriate changes. Discrepanices noted during home visit: none Instructed patient on dosing, purpose, and side effects. Medication education completed today on tylenol medication(s). Patient/caregiver is able to teach back 100% of instruction. Assess Pain Characteristics and Current Pain Regimen and Instruct Methods of Pain Relief Problem:Pain Management Goal:Pain Completed [facility] Visit Details Visit Type -SITE ENGINEER Routine Visi t Discipline -Physical Therapy Problems Problem Start Date Status Goals Interventions Assess and Instruct Home Visit Disciplines: Physical Therapy 01/21/2021 Active 2 goals linked to scheduled/documented interventions 4 goal interventions scheduled/documented in this visit Home Exercise Program Disciplines: Physical Therapy 01/21/2021 Active 1 goal linked to scheduled/documented intervention 1 goal intervention scheduled/documented in this visit Goals Goal Associated Problem Outcome Goal Met? Visit Notes Medications Assess and Instruct Home Visit No Home Care Plan Assess and Instruct Home Visit No Home Exercise Program Home Exercise Program No Interventions Intervention Associated Problem/Goal Status Variance Visit Notes Instruct Medication Management Problem:Assess and Instruct Home Visit Goal:Medications Completed Home Visit Med Education: Medication list reconciled. Medication profile and in-home medication list updated with appropriate changes. Discrepanices noted during home visit: none Instructed patient on dosing, purpose, and side effects. Medication education completed today on all medication(s). Patient/caregiver is able to teach back 100% of instruction. Falls Problem:Assess and Instruct Home Visit Goal:Home Care Plan Completed Clinician taught: patient 1-3 Patient is NOT at risk for falls and clinician instructed: remove clutter and throw rugs and assistive device usage Patient/caregiver was able to demonstrate 100% via teachback Safety Problem:Assess and Instruct Home Visit Goal:Home Care Plan Completed Assessed patient vulnerability and home safety risks: stairs Equipment reviewed FWW Patient at risk for harm or abuse none Family members involved in safety plan for spouse Plan for Next Visit Problem:Assess and Instruct Home Visit Goal:Home Care Plan Completed Follow up education for next visit: to progress with HEP Skilled intervention at next visit: to progress with strength gait balance and ROM to L knee Home Exercise Program Problem:Home Exercise Program Goal:Home Exercise Program Completed Patient reports: progressing well with HEP Clinician taught: patient Clinician instructed on: progressing with L knee flexion exercises Patient/caregiver is able to teach back 100% of instruction. [facility] Visit Details Visit Type -SITE ENGINEER Routine Visi t Discipline -Physical Therapy Problems Problem Start Date Status Goals Interventions Assess and Instruct Home Visit Disciplines: Physical Therapy 01/21/2021 Active 2 goals linked to scheduled/documented interventions 4 goal interventions scheduled/documented in this visit Home Exercise Program Disciplines: Physical Therapy 01/21/2021 Active 1 goal linked to scheduled/documented intervention 1 goal intervention scheduled/documented in this visit Goals Goal Associated Problem Outcome Goal Met? Visit Notes Medications Assess and Instruct Home Visit No Home Care Plan Assess and Instruct Home Visit No Home Exercise Program Home Exercise Program No Interventions Intervention Associated Problem/Goal Status Variance Visit Notes Instruct Medication Management Problem:Assess and Instruct Home Visit Goal:Medications Completed Home Visit Med Education: Medication list reconciled. Medication profile and in-home medication list updated with appropriate changes. Discrepanices noted during home visit: none Instructed patient on dosing, purpose, and side effects. Medication education completed today on all medication(s). Patient/caregiver is able to teach back 100% of instruction. Falls Problem:Assess and Instruct Home Visit Goal:Home Care Plan Completed Clinician taught: patient 1-3 Patient is NOT at risk for falls and clinician instructed: remove clutter and throw rugs and assistive device usage Patient/caregiver was able to demonstrate 100% via teachback Safety Problem:Assess and Instruct Home Visit Goal:Home Care Plan Completed Assessed patient vulnerability and home safety risks: stairs Equipment reviewed FWW Patient at risk for harm or abuse none Family members involved in safety plan for spouse Plan for Next Visit Problem:Assess and Instruct Home Visit Goal:Home Care Plan Completed Follow up education for next visit: DC to OP Skilled intervention at next visit: DC to OP Home Exercise Program Problem:Home Exercise Program Goal:Home Exercise Program Completed Patient reports: progressing with stretching to L knee Clinician taught: patient Clinician instructed on: progressing with gait duration Patient/caregiver is able to teach back 100% of instruction. [facility] Visit Details Visit Type -SITE ENGINEER Routine Visi t Discipline -Physical Therapy Problems Problem Start Date Status Goals Interventions Assess and Instruct Home Visit Disciplines: Physical Therapy 01/21/2021 Active 2 goals linked to scheduled/documented interventions 4 goal interventions scheduled/documented in this visit Home Exercise Program Disciplines: Physical Therapy 01/21/2021 Active 1 goal linked to scheduled/documented intervention 1 goal intervention scheduled/documented in this visit Goals Goal Associated Problem Outcome Goal Met? Visit Notes Medications Assess and Instruct Home Visit No Home Care Plan Assess and Instruct Home Visit No Home Exercise Program Home Exercise Program No Interventions Intervention Associated Problem/Goal Status Variance Visit Notes Instruct Medication Management Problem:Assess and Instruct Home Visit Goal:Medications Completed Home Visit Med Education: Medication list reconciled. Medication profile and in-home medication list updated with appropriate changes. Discrepanices noted during home visit: none Instructed patient on dosing, purpose, and side effects. Medication education completed today on all medication(s). Patient/caregiver is able to teach back 100% of instruction. Falls Problem:Assess and Instruct Home Visit Goal:Home Care Plan Completed Clinician taught: patient 1-3 Patient is NOT at risk for falls and clinician instructed: remove clutter and throw rugs and assistive device usage Patient/caregiver was able to demonstrate 100% via teachback Safety Problem:Assess and Instruct Home Visit Goal:Home Care Plan Completed Assessed patient vulnerability and home safety risks: stairs Equipment reviewed FWW Patient at risk for harm or abuse none Family members involved in safety plan for spouse Plan for Next Visit Problem:Assess and Instruct Home Visit Goal:Home Care Plan Completed Follow up education for next visit: DC to OP Skilled intervention at next visit: DC to OP Home Exercise Program Problem:Home Exercise Program Goal:Home Exercise Program Completed Patient reports: progressing with stretching to L knee Clinician taught: patient Clinician instructed on: progressing with gait duration Patient/caregiver is able to teach back 100% of instruction. [facility] Visit Details Visit Type -SN HH OASIS Disc harge Discipline -Snf Problems Problem Start Date Status Goals Interventions Assess and Instruct Home Visit Disciplines: Snf 01/20/2021 Resolved on 02/03/2021 1 goal linked to scheduled/documented intervention 4 goal interventions scheduled/documented in this visit Medication Management Disciplines: Snf 01/20/2021 Resolved on 02/03/2021 1 goal linked to scheduled/documented intervention 1 goal intervention scheduled/documented in this visit Pain Management Disciplines: Snf 01/20/2021 Resolved on 02/03/2021 1 goal linked to scheduled/documented intervention 1 goal intervention scheduled/documented in this visit Wound Care and/or Skin Problems Disciplines: Snf 01/20/2021 Resolved on 02/03/2021 1 goal linked to scheduled/documented intervention Gastrointestinal Disciplines: Snf 01/20/2021 Resolved on 02/03/2021 1 goal linked to scheduled/documented intervention Circulation Disciplines: Snf 01/20/2021 Resolved on 02/03/2021 1 goal linked to scheduled/documented intervention Assess POC Synopsis Disciplines: Snf 01/20/2021 Resolved on 02/03/2021 1 goal linked to scheduled/documented intervention Diabetes Disciplines: Snf 01/20/2021 Resolved on 02/03/2021 1 goal linked to scheduled/documented intervention Goals Goal Associated Problem Outcome Goal Met? Visit Notes Home Care Plan Assess and Instruct Home Visit Completed Yes Medications Medication Management Completed Yes Pain Pain Management Completed Yes Wound/Incision Wound Care and/or Skin Problems Completed Yes Gastrointestinal Gastrointestinal Completed Yes Circulation Circulation Completed Yes Diabetic Foot Education Assess POC Synopsis Completed Yes Diabetes Diabetes Completed Yes Interventions Intervention Associated Problem/Goal Status Variance Visit Notes Falls Problem:Assess and Instruct Home Visit Goal:Home Care Plan Completed Clinician taught: patient 4-10 Patient IS at risk for falls (a score of 6 or greater is a predictor of future falls) and clinician instructed: proper footwear and Patient/caregiver was able to demonstrate 100% via teachback Safety Problem:Assess and Instruct Home Visit Goal:Home Care Plan Completed Assessed patient vulnerability and home safety risks: yes Equipment reviewed na Patient at risk for harm or abuse no Family members involved in safety plan for Level 2 or 3 na Discharge Planning Problem:Assess and Instruct Home Visit Goal:Home Care Plan Completed Home Visit DC Planning: Spoke with patient about DC planning. Assessed for limited ambulation related to left knee surgery DC will occur when: patient/caregiver is able to demonstrate independence in care Anticipate DC: On time Patient and/or caregiver response to discharge planning education: verbalized an understanding Plan for Next Visit Problem:Assess and Instruct Home Visit Goal:Home Care Plan Completed Follow up education for next visit: na Skilled intervention at next visit: na Instruct Medication Management Problem:Medication Management Goal:Medications Completed Home Visit Med Education: Medication list reconciled. Medication profile and in-home medication list updated with appropriate changes. Discrepanices noted during home visit: none Instructed patient on dosing, purpose, and side effects. Medication education completed today on home medication(s). Patient/caregiver is able to teach back 100% of instruction. Assess Pain Characteristics and Current Pain Regimen and Instruct Methods of Pain Relief Problem:Pain Management Goal:Pain Completed [facility] Narratives Reviewed plans to discharge on and patient verbalized an understanding. medicare's notice of non-coverage reviewed with patient and signed. [facility] this [facility] Consultation (Routine) - New Request Specialty Diagnoses / Procedures Referred By Flori rivera Referred To Contact Neurology Diagnoses Dizziness Michael Iqbal MD [address] [place] [address] Referral ID Status Reason Start Date Expiration Date V isits Requested Visits Authorized [id number] New Request 03/06/2021 03/31/2022 1 1 * Radiology (Emergency) - New Request Specialty Diagnoses / Procedures Referred By Contac t Referred To Contact Procedures ECG Michael Iqbal MD [address] [place] [phone] Referral ID Status Reason Start Date Expiration Date V isits Requested Visits Authorized [id number] New Request 03/06/2021 03/31/2022 1 1 [facility] Consultation (Routine) - Pending Review Specialty Diagnoses / Procedures Referred By Contac t Referred To Contact Physical Therapy Diagnoses Shuffling gait Natanael Gonzalez MD [address] [facility] [place], [place] [address] Referral ID Status Reason Start Date Expiration Date Visits Requested Visits Authorized [id number] Pending Review Specialty Services Required 02/26/2023 02/26/2024 1 1 * Consultation (Routine) - Authorized Specialty Diagnoses / Procedures Referred By Contac t Referred To Contact Primary Care Diagnoses Routine general medical examination at health care facility Procedures 1 Year Follow Up In Primary Care - Wellness Exam Natanael Gonzalez MD [address] [facility] [place], [address] [address] Referral ID Status Reason Start Date Expiration Date V isits Requested Visits Authorized [id number] Authorized 02/26/2023 02/26/2024 1 1 * Imaging (Routine) - Pending Review Specialty Diagnoses / Procedures Referred By Contac t Referred To Contact Cardiology Diagnoses 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) Procedures Vascular US Carotid Artery Duplex Bilateral Natanael Gonzalez MD [address] [facility] [place], [address] [place] [address] Referral ID Status Reason Start Date Expiration Date Visits Requested Visits Authorized [id number] Pending Review Perform Procedure 02/26/2023 02/26/2024 1 1 [facility] Work Phone: Reason for visit Narrative* Auth/Cert Specialty Diagnoses / Procedures Referred By Contac t Referred To Contact Referral ID Status Reason Start Date Expiration Date Visits Re quested Visits Authorized [id number] 1 1 [facility] N[facility]* Imaging (Emergency) - Authorized Specialty Diagnoses / Procedures Referred By Contac t Referred To Contact Radiology Diagnoses Subacute cough Procedures XR chest 2 views Rose iFerro, STAFF [employer] [address] [place] [address] Phone: tel: fax: Referral ID Status Reason Start Date Expiration Date Visits Requested Visits Authorized [id number] Authorized Perform Procedure 04/07/2024 04/07/2025 1 1 [facility] Work Phone: Summary Purpose Family History No Family History Records Found Brother Name Dates Details Family history of hypertensi on(V17.49, Z82.49) Status:Active Brother Name Dates Details Family history of hypertensi on(V17.49, Z82.49) Status:Active Brother Name Dates Details Family history of hypertensi on(V17.49, Z82.49) Status:Active Brother Name Dates Details Family history of hypertensi on(V17.49, Z82.49) Status:Active Brother Name Dates Details Family history of hypertensi on(V17.49, Z82.49) Status:Active Brother Name Dates Details Family history of hypertensi on(V17.49, Z82.49) Status:Active Brother Name Dates Details Family history of hypertensi on(V17.49, Z82.49) Status:Active Brother Name Dates Details Family history of hypertensi on(V17.49, Z82.49) Status:Active Brother Name Dates Details Family history of hypertensi on(V17.49, Z82.49) Status:Active Brother Name Dates Details Family history of hypertensi on(V17.49, Z82.49) Status:Active Unknown Family Member Name Dates Details Family history of hypertensi on: Brother(V17.49, Z82.49) Status:Active Unknown Family Member Name Dates Details Family history of hypertensi on: Brother(V17.49, Z82.49) Status:Active Unknown Family Member Name Dates Details Family history of hypertensi on: Brother(V17.49, Z82.49) Status:Active Unknown Family Member Name Dates Details Family history of hypertensi on: Brother(V17.49, Z82.49) Status:Active Unknown Family Member Name Dates Details Family history of hypertensi on: Brother(V17.49, Z82.49) Status:Active Unknown Family Member Name Dates Details Family history of hypertensi on: Brother(V17.49, Z82.49) Status:Active Unknown Family Member Name Dates Details Family history of hypertensi on: Brother(V17.49, Z82.49) Status:Active Unknown Family Member Name Dates Details Family history of hypertensi on: Brother(V17.49, Z82.49) Status:Active Unknown Family Member Name Dates Details Family history of hypertensi on: Brother(V17.49, Z82.49) Status:Active Unknown Family Member Name Dates Details Family history of hypertensi on: Brother(V17.49, Z82.49) Status:Active Unknown Family Member Name Dates Details Family history of hypertensi on: Brother(V17.49, Z82.49) Status:Active Unknown Family Member Name Dates Details Family history of hypertensi on: Brother(V17.49, Z82.49) Status:Active Family history of deep venou s thrombosis: Brother(V17.49, Z82.49) Status:Active Advance Directives No Advanced Directives Records FoundDocuments on File Type Date Recorded Patient Grassroots Organizer Expl anation Power of Chief Technical Officer Latest Code Status on File Code Status Date Activated Date Inactivated Comments Full Code 01/19/2021 10:14 AM 01/19/2021 8:39 PM Documents on File Type Date Recorded Patient Grassroots Organizer Expl anation Advance Directives and Livin g Will 05/27/2020 1:51 PM Documents on File Type Date Recorded Patient Grassroots Organizer Expl anation Advance Directives and Livin g Will 05/27/2020 1:51 PM Documents on File Type Date Recorded Patient Grassroots Organizer Expl anation Advance Directives and Livin g Will 12/31/2020 1:48 PM Documents on File Type Date Recorded Patient Grassroots Organizer Expl anation Advance Directives and Livin g Will 01/06/2021 12:41 PM Documents on File Type Date Recorded Patient Grassroots Organizer Expl anation Power of Chief Technical Officer Advance Directives and Living Will 01/19/2021 1:02 PM NO COPY IN SOARIAN Latest Code Status on File Code Status Date Activated Date Inactivated Comments Full Code 01/19/2021 10:14 AM 01/19/2021 8:39 PM Documents on File Type Date Recorded Patient Grassroots Organizer Expl anation Power of Chief Technical Officer Advance Directives and Living Will 01/19/2021 1:02 PM NO COPY IN SOARIAN Documents on File Type Date Recorded Patient Grassroots Organizer Expl anation Power of Chief Technical Officer Date Activated Date Inactivated Comments 01/19/2021 10:14 AM 01/19/2021 8:39 PM History of Present Illness * Rosa Osuna PA-C - 02/27/2020 3:00 PM EST HPI Stephany Reynolds male 1950 presents to the [facility] with Chief Complaint Patient presents with Other tb test Patient comes to the walk in clinic with a request to have a Mantoux skin test for TB. Patient states he is seeing his doctor due to adrenal insufficiency. He states that one cause of adrenal insufficiency is TB. His doctor wanted him to be tested. He went to the [facility] and they told him to go to the health department. He went to the health department and they told him they are overwhelmed with COVID and to go to the ER. He went to the [facility] ER and they sent him here. He denies any symptoms. No fevers, chills, nausea or vomiting. No weakness. No cough. Good oral intake. History Not on File Current Outpatient Medications Medication Sig tuberculin 5 UNIT/0.1ML Solution Inject 0.1 mL into the skin Once (In Clinic) for 1 dose. family history is not on file. No past medical history on file. No past surgical history on file. Social History Socioeconomic History Marital status: Spouse name: Not on file Number of children: Not on file Years of education: Not on file Highest education level: Not on file Occupational History Not on file Social Needs Financial resource strain: Not on file Food insecurity Worry: Not on file Inability: Not on file Transportation needs Medical: Not on file Non-medical: Not on file Tobacco Use Smoking status: Never Smoker Smokeless tobacco: Never Used Substance and Sexual Activity Alcohol use: Never Frequency: Never Drug use: Never Sexual activity: Not on file Lifestyle Physical activity Days per week: Not on file Minutes per session: Not on file Stress: Not on file Relationships Social connections Talks on phone: Not on file Gets together: Not on file Attends gnosticist service: Not on file Active member of club or organization: Not on file Attends meetings of clubs or organizations: Not on file Relationship status: Not on file Intimate partner violence Fear of current or ex partner: Not on file Emotionally abused: Not on file Physically abused: Not on file Forced sexual activity: Not on file Other Topics Concern Service Not Asked Blood Transfusions Not Asked Caffeine Concern Not Asked Occupational Exposure Not Asked Hobby Hazards Not Asked Sleep Concern Not Asked Stress Concern Not Asked Weight Concern Not Asked Special Diet Not Asked Back Care Not Asked Exercise Not Asked Bike Helmet Not Asked Seat Belt Not Asked Domestic Violence No Social History Narrative Not on file ROS Review of Systems Constitutional: Negative for appetite change and chills. Respiratory: Negative for shortness of breath and wheezing. Cardiovascular: Negative for chest pain and palpitations. Gastrointestinal: Negative for abdominal distention, abdominal pain, nausea and vomiting. Musculoskeletal: Negative for myalgias and neck stiffness. PHYSICAL EXAM Visit Vitals BP 131/80 (BP Location: Right arm, BP Position: Sitting) Temp 97.7 F (36.5 C) (Temporal) Wt 69.7 kg (153 lb 11.2 oz) SpO2 100% Physical Exam Vitals signs and nursing note reviewed. Constitutional: General: He is not in acute distress. Appearance: Normal appearance. He is not toxic-appearing. HENT: Head: Normocephalic. Eyes: Pupils: Pupils are equal, round, and reactive to light. Cardiovascular: Rate and Rhythm: Normal rate. Musculoskeletal: Normal range of motion. Comments: Ambulated easily Skin: General: Skin is warm. Neurological: General: No focal deficit present. Mental Status: He is alert and oriented to person, place, and time. No results found for this or any previous visit (from the past 1 hour(s)). ASSESSMENT/PLAN Stephany was seen today for other. Diagnoses and all orders for this visit: Encounter for testing for latent tuberculosis - POCT PPD READING; Future - MANTOUX TEST Other orders - tuberculin 5 UNIT/0.1ML Solution; Inject 0.1 mL into the skin Once (In Clinic) for 1 dose. Right arm- skin TB test- he was told to return in 48-72 hours to have the results read. Patient is ok with this plan. No concerns at this time. If symptoms worsen patient was advised to follow up in our office or the Emergency Dept. Benefits, Risks, Contraindications, and Complications of recommended treatments were explained. The patient understands and agrees to proceed with plan. Rosa Osuna PA-C 02/27/2020 documented in this encounter Assessments Diagnosis Encounter for testing for latent tuberculosis- Primary Reason for Referral Status Reason Specialty Diagnoses / Procedures Re ferred By Contact Referred To Contact Authorized Neurology Diagnoses Cervical radiculopathy Lynn Mcduffie MD [address] [place] [address] Richie Mays MD [address] [place] [address] Specialty Diagnoses / Procedures Referred By Contwhitley t Referred To Contact Cardiology Diagnoses Primary osteoarthritis of left knee Coby Mcdaniel MD [address] [place] [address] [facility] [address] [place], [place] [address] [place] [address] Referral ID Status Reason Start Date Expiration Date Visits Requested Visits Authorized [id number] Pending Review Specialty Services Required/Pat ient's Best Interest 12/22/2021 1 1 Specialty Diagnoses / Procedures Referred By Contac t Referred To Contact Radiology Diagnoses Primary osteoarthritis of left knee Procedures CT Knee Left Without Contrast Coby Mcdaniel MD [address] [place] [address] Referral ID Status Reason Start Date Expiration Date V isits Requested Visits Authorized [id number] New Request 12/22/2020 12/22/2021 1 1 Specialty Diagnoses / Procedures Referred By Contac t Referred To Contact Cardiology Diagnoses PVC's (premature ventricular contractions) Procedures Echocardiogram complete Curt Louis MD [address] [place] [address] Referral ID Status Reason Start Date Expiration Date V isits Requested Visits Authorized [id number] Pending Review 12/31/2020 12/31/2021 1 1 Specialty Diagnoses / Procedures Referred By Contac t Referred To Contact Rehabilitation Diagnoses Status post total left knee replacement Coby Mcdaniel MD [address] [id number] [facility] [address] [place] [phone] Referral ID Status Reason Start Date Expiration Date V isits Requested Visits Authorized [id number] Pending Review 01/24/2021 01/24/2022 1 1 Specialty Diagnoses / Procedures Referred By Contac t Referred To Contact Rehabilitation Diagnoses [place] [address] [place] [address] [facility] [address] [place] [address] Referral ID Status Reason Start Date Expiration Date V isits Requested Visits Authorized [id number] Pending Review 08/16/2021 08/16/2022 1 1 Specialty Diagnoses / Procedures Referred By Contac t Referred To Contact Cardiology Diagnoses 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 * An interactive audio and video telecommunication system which permits real time communications between the patient (at the originating site) and provider (at the distant site) was utilized to providethis telehealth service. * Verbal consent was requested and obtained from STEPHANY REYNOLDS on this date, 01/11/2021 03:45 PM , for a telehealth visit. Hospital Follow upNP ABNORMAL MRA BRAINNP ABNORMAL MRA BRAINNP ABNORMAL MRA BRAIN6 wk ck rev testingAWV and Medckmedck and AWV Additional Source Comments (unrecognized sect ion and content) No Status Records FoundNo Status Records FoundNo Status Records FoundNo Status Records FoundNo Status Records FoundNo Status Records FoundNo Status Records FoundNo Status Records FoundNo Status Records FoundNo Status Records FoundNo Status Records FoundNo Status Records FoundNo Status Records FoundNo Status Records FoundNo Status Records FoundNo Status Records Found INFORMATION SOURCE (unrecogn ized section and content) DATE CREATED AUTHOR 02/04/2018 [facility] DATE CREATED AUTHOR AUTHOR'S ORGANIZ ATION 11/09/2018 [facility] DATE CREATED AUTHOR AUTHOR'S ORGANIZ ATION 01/16/2021 [facility] DATE CREATED AUTHOR AUTHOR'S ORGANIZ ATION 02/04/2021 [facility] DATE CREATED AUTHOR AUTHOR'S ORGANIZ ATION 03/25/2021 [facility] DATE CREATED AUTHOR AUTHOR'S ORGANIZ ATION 03/30/2021 [facility] DATE CREATED AUTHOR AUTHOR'S ORGANIZ ATION 02/20/2022 [facility] DATE CREATED AUTHOR AUTHOR'S ORGANIZ ATION 02/20/2022 [facility] DATE CREATED AUTHOR AUTHOR'S ORGANIZ ATION 04/28/2022 [facility] DATE CREATED AUTHOR AUTHOR'S ORGANIZ ATION 03/04/2024 [facility] DATE CREATED AUTHOR AUTHOR'S ORGANIZ ATION 03/31/2024 [facility] DATE CREATED AUTHOR AUTHOR'S ORGANIZ ATION 04/12/2024 [facility] DATE CREATED AUTHOR AUTHOR'S ORGANIZ ATION 04/18/2024 [facility] DATE CREATED AUTHOR AUTHOR'S ORGANIZ ATION 06/19/2024 [facility] DATE CREATED AUTHOR AUTHOR'S ORGANIZ ATION 11/11/2024 [facility] DATE CREATED AUTHOR AUTHOR'S ORGANIZ ATION 12/13/2024 [facility] Reason for Visit (unrecogniz ed section and content) Reason Comments Other tb test Status Reason Specialty Diagnoses / Procedures Referre d By Contact Referred To Contact Closed Neurology Diagnoses Cervical radiculopathy Lynn Mcduffie MD [address] [place] [address] Richie Mays MD [address] [place], [place] [address]alf[place] [address] Reason Comments Pre-op Exam Patient is a pre-op exam for a L TKR on 01/19/2021/ Stuatr. He denies any concerns for today's OV. Specialty Diagnoses / Procedures Referred By Flori rivera Referred To Contact Cardiology Diagnoses Primary osteoarthritis of left knee Coby Mcdaniel MD [address] [place] [address] [facility] T[address] [place] [address] Referral ID Status Reason Start Date Expiration Date V isits Requested Visits Authorized [id number] Closed Specialty Services Required/Betty ent's Best Interest 12/22/2020 12/22/2021 1 1 Reason Comments Pre-op Exam Reason Comments Follow-up Suture / Staple Removal Reason Comments Physical Therapy Specialty Diagnoses / Procedures Referred By Contac t Referred To Contact Rehabilitation Diagnoses Status post total left knee replacement Coby Mcdaniel MD [address] [place] [address] [facility] [address] [place] [address] Referral ID Status Reason Start Date Expiration Date V isits Requested Visits Authorized [id number] Pending Review 01/24/2021 01/24/2022 13 199 Referral ID Status Reason Start Date Expiration Date V isits Requested Visits Authorized [id number] Authorized 01/24/2021 01/24/2022 13 199 Reason Comments Dizziness dizziness since , fell last night and now has rt rib pain Fall Reason Comments Foot Problem Patient has a latera l left foot callus. States it has been there quite a while and is burning. States he was seen here years ago. Not sure if it is the same problem. Reason Comments Follow-up Pt. States the pain is much better. Specialty Diagnoses / Procedures Referred By Contac t Referred To Contact Rehabilitation Diagnoses Lumbar spondylosis Natanael Gonzalez MD [address] [place] [address] [facility] [place] [address] [place] [address] Referral ID Status Reason Start Date Expiration Date V isits Requested Visits Authorized [id number] Authorized 08/16/2021 08/16/2022 9 199 Referral ID Status Reason Start Date Expiration Date V isits Requested Visits Authorized [id number] Pending Review 08/16/2021 08/16/2022 9 199 Reason Comments URI CONGESTION, COUGH, R UNNY NOSE X 5 DAYS Specialty Diagnoses / Procedures Referred By Contac t Referred To Contact Diagnoses 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) Procedures [place] DUPLEX SCAN EXTRACRANIAL ART COMPL BI STUDY [facility] [address] [address] Referral ID Status Reason Start Date Expiration Date Visits Re quested Visits Authorized [id number] 1 1 Reason Comments Nail Care Pt here for diabetic nail care Calluses Pt has a callus on l eft foot Reason Comments Medicare Annual Wellness Visit Subsequen t Reason Comments Medicare Annual Wellness Visit Subsequen t Med check Reason Comments New Patient To be established re ferred by Dr.Roger Gonzalez Diabetes Last A1C=7.4 = 12-23 Specialty Diagnoses / Procedures [facility] Referred To Contact Endocrinology, Diabetes & Metabolism Diagnoses Controlled type 2 diabetes mellitus without complication, with long-term current use of insulin Natanael Gonzalez MD [address] [place] [address] Phone: tel: fax: Berto Pettit MD [address] [place] [address] Phone: tel: fax: Referral ID Status Reason Start Date Expiration Date V isits Requested Visits Authorized [id number] New Request 01/09/2024 02/02/2025 1 1 Reason Comments URI SORE THROAT, CONGEST ION, COUGH, X 3-4 DAYS Reason Comments URI Cough/congestion not improving from 03/31 visit Reason Comments Diabetes Patient Education DSME session Specialty Diagnoses / Procedures [facility] Referred To Contact Endocrinology, Diabetes & Metabolism Diagnoses Type 2 diabetes mellitus with hyperglycemia, with long-term current use of insulin Berto Pettit MD [address] [place] [address] Phone: tel: fax: Jayda King RN Referral ID Status Reason Start Date Expiration Date V isits Requested Visits Authorized [id number] New Request 03/24/2024 04/18/2025 1 1 Reason Comments Calluses Left foot calluses Care Teams (unrecognized sec tion and content) Building Coordinator Relationship Specialty Start Date End Date Natanael Gonzalez MD [address] [place] [address] PCP - General Family Medicine 05/27/20 Building Coordinator Relationship Specialty Start Date End Date Natanael Gonzalez MD [address] [place] [address] PCP - General Family Medicine 05/27/20 Building Coordinator Relationship Specialty Start Date End Date Natanael Gonzalez MD [address] [place] [address] PCP - General Family Medicine 05/27/20 Building Coordinator Relationship Specialty Start Date End Date Natanael Gonzlaez MD [address] [place] [address] PCP - General Family Medicine 05/27/20 Building Coordinator Relationship Specialty Start Date End Date Natanael Gonzalez MD [address] [place] [address] PCP - General Family Medicine 05/27/20 Building Coordinator Relationship Specialty Start Date End Date Natanael Gonzalez MD [address] [place] [address] PCP - General Family Medicine 05/27/20 Building Coordinator Relationship Specialty Start Date End Date Natanael Gonzalez MD [address] [place] [address] PCP - General Family Medicine 05/27/20 Building Coordinator Relationship Specialty Start Date End Date Natanael Gonzalez MD [address] [place] [address] PCP - General Family Medicine 05/27/20 Building Coordinator Relationship Specialty Start Date End Date Natanael Gonzaelz MD [address] [place] [address] PCP - General Family Medicine 05/27/20 Building Coordinator Relationship Specialty Start Date End Date Natanael Gonzalez MD [address] [place] [address] PCP - General Family Medicine 05/27/20 Building Coordinator Relationship Specialty Start Date End Date Natanael Gonzalez MD [address] [facility] [place] [address] PCP - General Family Medicine 05/27/20 Building Coordinator Relationship Specialty Start Date End Date Natanael Gonzalez MD [address] [place] [address] PCP - General Family Medicine 05/27/20 Building Coordinator Relationship Specialty Start Date End Date Natanael Gonzalez MD [address] [place] [address] PCP - General Family Medicine 05/27/20 Building Coordinator Relationship Specialty Start Date End Date Natanael Gonzalez MD [address] [facility] [place] [address] PCP - General Family Medicine 05/27/20 Building Coordinator Relationship Specialty Start Date End Date Natanael Gonzalez MD [address] [place] [address] PCP - General Family Medicine 05/27/20 Building Coordinator Relationship Specialty Start Date End Date Natanael Gonzalez MD [address] [place] [address] PCP - General Family Medicine 05/27/20 Building Coordinator Relationship Specialty Start Date End Date Natanael Gonzalez MD [address] [place] [address] PCP - General Family Medicine 02/27/20 Building Coordinator Relationship Specialty Start Date End Date Natanael Gonzalez MD [address] [place] [address] PCP - General Family Medicine 05/27/20 Building Coordinator Relationship Specialty Start Date End Date Natanael Gonzalez MD [address] [place] [address] PCP - General Family Medicine 05/27/20 Building Coordinator Relationship Specialty Start Date End Date Natanael Gonzalez MD [address] [place] [address] PCP - General Family Medicine 05/27/20 Building Coordinator Relationship Specialty Start Date End Date Natanael Gonzalez MD [address] [place] [address] PCP - General Family Medicine 05/27/20 Building Coordinator Relationship Specialty Start Date End Date Natanael Gonzalez MD [address] [place] [address] PCP - General Family Medicine 05/27/20 Building Coordinator Relationship Specialty Start Date End Date Natanael Gonzalez MD [address] [facility] [place] [address] PCP - General Family Medicine 05/27/20 Building Coordinator Relationship Specialty Start Date End Date Natanael Gonzalez MD [address] [facility] [place] [address] PCP - General Family Medicine 05/27/20 Building Coordinator Relationship Specialty Start Date End Date Natanael Gonzalez MD [address] [facility] [place] [address] PCP - General Family Medicine 05/27/20 Building Coordinator Relationship Specialty Start Date End Date Natanael Gonzalez MD [address] [place] [address] PCP - General Family Medicine 05/27/20 Building Coordinator Relationship Specialty Start Date End Date Natanael Gonzalez MD [address] [place] [address] PCP - General Family Medicine 05/27/20 Building Coordinator Relationship Specialty Start Date End Date Natanael Gonzalez MD [address] [place] [address] PCP - General Family Medicine 05/27/20 Building Coordinator Relationship Specialty Start Date End Date Natanael Gonzalez MD [address] [facility] [address] [place] [address] PCP - General 10/08/18 Natanael Gonzalez MD [address] [facility] [address] [place] [address] PCP - [employer] Medicare Advantage PCP 02/05/21 Building Coordinator Relationship Specialty Start Date End Date Natanael Gonzalez MD [address] [facility] [address] [place] [address] PCP - General 10/08/18 Natanael Gonzalez MD [address] [facility] [address] [place] [address] PCP - [employer] Medicare Advantage PCP 02/05/21 Building Coordinator Relationship Specialty Start Date End Date Natnaael Gonzalez MD [address] [place] [address] PCP - General Family Medicine 05/27/20 Building Coordinator Relationship Specialty Start Date End Date Natanael Gonzalez MD [address] [facility] [address] [place] [address] PCP - General 10/08/18 Natanael Gonzalez MD [address] [facility] [address] [place] [address] PCP - [employer] Medicare Advantage PCP 02/05/21 Building Coordinator Relationship Specialty Start Date End Date Natanael Gonzalez MD [address] [place] [address] PCP - General Family Medicine 05/27/20 Building Coordinator Relationship Specialty Start Date End Date Natanael Gonzalez MD [address] [facility] [address] [place] [address] PCP - [employer] Medicare Advantage PCP 02/05/21 Trenton Feldman PA-C [address] [facility], [facility] [address] [place] [address] PCP - General Family Medicine 03/03/24 Building Coordinator Relationship Specialty Start Date End Date Natanael Gonzalez MD [address] [place] [address] PCP - General Family Medicine 02/27/20 Building Coordinator Relationship Specialty Start Date End Date Natanael Gonzalez MD [address] [facility] [address] [place] [address] PCP - [employer] Medicare Advantage PCP 02/05/21 Trenton Feldman PA-C [address] [facility] [place] [address] PCP - General Family Medicine 03/03/24 Building Coordinator Relationship Specialty Start Date End Date Natanael Gonzalez MD [address] [facility] [place] [address] PCP - [employer] Medicare Advantage PCP 02/05/21 Trenton Feldman PA-C [address] [facility], [facility] [address] [place] [address] PCP - General Family Medicine 03/03/24 Building Coordinator Relationship Specialty Start Date End Date Natanael Gonzalez MD [address] [facility] [address] [place] [address] PCP - [employer] Medicare Advantage PCP 02/05/21 Trenton Feldman PA-C [address] [facility] [place] [address] PCP - General Family Medicine 03/03/24 Building Coordinator Relationship Specialty Start Date End Date Natanael Gonzalez MD [address] [place] [address] PCP - General Family Medicine 02/27/20 Building Coordinator Relationship Specialty Start Date End Date Natanael Gonzalez MD [address] [place] [address] PCP - General Family Medicine 05/27/20 Building Coordinator Relationship Specialty Start Date End Date Natanael Gonzalez MD [address] [place] [address] PCP - General Family Medicine 05/27/20 <item><item><item><item><item> Privacy Markings (unrecogniz ed section and content) Section Author: Peggy Mariano PROHIBITION ON REDISCLOSURE OF CONFIDENTIAL INFORMATION This notice accompanies a disclosure of information concerning a client made to you with the consent of such client. Section Author: Peggy Mariano PROHIBITION ON REDISCLOSURE OF CONFIDENTIAL INFORMATION This notice accompanies a disclosure of information concerning a client made to you with the consent of such client. Section Author: Peggy Mariano PROHIBITION ON REDISCLOSURE OF CONFIDENTIAL INFORMATION This notice accompanies a disclosure of information concerning a client made to you with the consent of such client. Section Author: Peggy Mariano PROHIBITION ON REDISCLOSURE OF CONFIDENTIAL INFORMATION This notice accompanies a disclosure of information concerning a client made to you with the consent of such client. Section Author: Peggy Mariano PROHIBITION ON REDISCLOSURE OF CONFIDENTIAL INFORMATION This notice accompanies a disclosure of information concerning a client made to you with the consent of such client. Scheduled Active and Recently Administ ered Medications (unrecognized section and content) Medication Order 03/04/2021 03/05/2021 03/06/2021 iohexol (OMNIPAQUE) 350 MG/ML injection 75 mL (COMPLETED) 75 mL, Intravenous, ONCE, 1 dose, On 03/06/21 at 1830, Extravasation Risk, Radiology Procedure 1813 (Given - Radiol ogy - Provider: Valeri Street) meclizine (ANTIVERT) tablet 25 mg (COMPLETED) 25 mg, Oral, ONCE, 1 dose, On 03/06/21 at 1745 1737 (Given - Provid er: Sonya Hoffman RN) sodium chloride 0.9% IV solution 500 mL (COMPLETED) 500 mL, Intravenous, ONCE, 1 dose, On 03/06/21 at 1800 1737 ($$New Bag$$ - Provider: Sonya Hoffman RN)1904 (Stopped - Provider: Sonya Hoffman RN) sodium chloride 0.9% IV solution 75 mL (COMPLETED) 75 mL, Intravenous, ONCE, 1 dose, On 03/06/21 at 1830, Radiology Procedure 1814 ($$New Bag$$ - Provider: Valeri Street)1905 (Stopped - Provider: Sonya Hoffman RN) FOR RECORDS PERTAINING TO PATIENTS WHO ARE OR HAVE BEEN ENROLLED IN A CHEMICAL DEPENDENCY/SUBSTANCEABUSE PROGRAM, SOME INFORMATION MAY BE OMITTED. This clinical summary was aggregated from multiple sources. Caution should be exercised in using it in the provision of clinical care. This summary normalizes information from multiple sources, and as a consequence, information in this document may materially change the coding, format and clinical context of patient data. In addition, data may be omitted in some cases. CLINICAL DECISIONS SHOULD BE BASED ON THE PRIMARY CLINICAL RECORDS. [facility]. provides no warranty or guarantee of the accuracy or completeness of information in this document.
--- NOTE | 2025-01-09 13:49 | STRESSREP ---
Stress Test Report Exercise myocardial perfusion stress test. 74-year-old man with a history of chest pain. Stress protocol: Resting EKG demonstrates normal sinus rhythm with a rate of 85 bpm resting blood pressure is 152/80 mmHg. The patient exercised according to the regular [facility] protocol for a total duration of 6 minutes attaining a maximum heart rate of 148 bpm which was 102% of maximum predicted heart rate; the maximum workload was 7 metabolic equivalents. At rest there were no ST or T wave changes noted to suggest ischemia and at peak exercise upsloping ST changes only were noted which did not meet the criteria for ischemia. No clinical angina was noted the test was terminated due to the target heart rate being achieved/fatigue. The peak blood pressure was 198/72 mmHg. Rate-pressure product was [address]. Myocardial perfusion protocol. 11.7 mCi of technetium 99m sestamibi was injected at rest. The patient exercised according to regular [facility] protocol for total duration of 6minutes and at peak exercise 34 mCi of technetium 99m sestamibi was injected stress images were obtained stress and rest images were reconstructed in comparing the short axis vertical long and horizontal long axis. Gated images were also obtained. Perfusion SPECT analysis: Review of the stress images demonstrate normal uptake of tracer noted in all areas of the myocardium. The resting images similarly demonstrate normal uptake of tracer noted in all areas of the myocardium. No areas of reversibility are noted to suggest ischemia no previous infarct was noted. Gated SPECT analysis: The gated ejection fraction is 76%. Conclusion: Normal exercise myocardial perfusion stress test at a moderate workload.
== END | disposition home or self-care (01) ==
PROVIDERS: PCP Physician Assistant; Referring Provider Physician Assistant; Visit Provider Physician Assistant
DX: I25.118 Atherosclerotic heart disease of native coronary artery with other forms of angina pectoris (principal)
CPT/HCPCS: 78452; 93017; A9500; A4216